=== PATIENT | female | born 1975 | race Hispanic/Latino ===

== ENCOUNTER 2018-01-11 08:25 | Outpatient (CLI) | payer BC ==
--- NOTE | 2018-01-18 14:18 | MMO ---
BILATERAL SCREENING MAMMOGRAM: Date: 01/11/18 INDICATION: Annual exam. COMPARISON: Prior exam dated 06/19/16. FINDINGS: Interpretation of this exam was assisted with computer-aided detection. The breast parenchyma is heterogeneously dense. There are benign-appearing calcifications within the right and left breast. There is a benign-appearing lymph node within the outer aspect of the left breast. IMPRESSION: BIRADS 2: Benign Finding(s) Recommend routine annual mammographic screening. POS: TORO
== END 2018-01-11 08:26 | disposition home or self-care (01) ==
LOC: SCSMAMMO 08:25
PROVIDERS: ATTEND Family Medicine
DX: Z12.31 Encounter for screening mammogram for malignant neoplasm of breast (principal)
CPT/HCPCS: 77067

== ENCOUNTER 2019-08-27 17:57 | Inpatient (IN) | payer OTHER, SELFPAY ==
[~2019-08-27 17:57] MED LIST: Dexamethasone 20 MG/5 ML VIAL ONE; PROPOFOL 200 MG/20 ML VIAL ONE; Rocuronium Bromide 10 MG/ML (10ML VIAL) ONE
[2019-08-27] MEDS ORDERED: Ondansetron PF 4 MG/2 ML Vial ONE (18:00)
[2019-08-27] MEDS ORDERED: niCARdipine 20MG In NaCl 20 MG/200 ML BAG ONE (18:03)
[2019-08-27] MEDS ORDERED: Rocuronium Bromide 10 MG/ML (10ML VIAL) ONE (18:06)
[2019-08-27 18:14] LABS: #Basophils 0.1 thou/uL (0.0-0.2); #Eosinphils 0.5 thou/uL (0.0-0.7); #Lymphocytes 5.7 thou/uL (1.20-3.40); #Neutrophils 6.5 thou/uL (1.40-6.50); %Basophils 0.5 % (0.0-1.0); %Eosinophils 3.8 % (0.0-10.0); %Lymphocytes 41.6 % (21.0-51.0); %Monocytes 7.3 % (0.0-10.0); %Neutrophils 46.8 % (42.0-75.0); Hemoglobin 14.6 g/dL (12.0-16.0); Mean Corpuscular HGB CONC 33.9 g/dL (32.0-36.0); Mean Corpuscular Volume 91.4 fL (78.0-98.0); Mean Platelet Volume 7.2 fL (7.4-10.4); Platelet Count 328 thou/uL (130-400); RBC Distribution Width 12.3 % (11.5-14.5); Red Blood Cell (RBC) Count 4.71 mill/uL (4.20-5.40); White Blood Cell (WBC) Count 13.8 thou/uL (4.8-10.8)
[2019-08-27] MEDS ORDERED: manNITOL 20% 500 ML ONE (18:16)
--- NOTE | 2019-08-27 18:16 | CT ---
CT OF THE BRAIN WITHOUT CONTRAST: 08/27/19 INDICATION: Level I stroke alert, last seen normal at 1725 hours with sudden onset of unresponsiveness during din ner with gurgling. FINDINGS: There is a 3.6 x 2.3 cm hemorrhage centered within the right thalamus that also extends into portions of the right mid brain and is seen to decompress into the fourth ventricle. There is prominent amoun t of blood filling the fourth ventricle with dilatation of fourth ventricle. There is effacement of t he basilar cisterns. There is crowding at the level of the foramen magnum likely related to inferior mass effect on the cerebellar tonsils. There is some hemorrhagic extension into the third ventricle a s well as the anterior horns of the lateral ventricles. No apparent midline shift is noted. The skull is intact. There is mild mucosal thickening within the ethmoid air cells. There is a small mucous re tention cyst in the maxillary sinus. Mastoid air cells are clear. Skull is intact. IMPRESSION: 1. Prominent thalamic intraparenchymal hemorrhage with extension into the right mid brain and de compression into the fourth ventricle. There is prominent blood filling the fourth ventricle and dist ending the fourth ventricle. There is prominent mass effect on the adjacent josue with effacement of b asilar cisterns. There is also crowding at the level of the foramen magnum suspicious for inferior he rniation. 2. Some hemorrhagic extension is also seen within the third ventricle and lateral ventricles. 3. Findings were called to Dr. Atkinson at 6:08 p.m. on 08/27/19. Code CR POS: [facility]
[2019-08-27] MEDS ORDERED: fentaNYL Citrate/PF 2,000 MCG in Sodium Chloride 0.9% 60 ML IV SCH ×2 (18:18→21:08)
[2019-08-27 18:22] LABS: Prothrombin Time 12.9 SEC (12.0-14.7)
--- NOTE | 2019-08-27 18:30 | RAD ---
PORTABLE CHEST: 08/27/19 HISTORY: Intubation. Heart size and mediastinum within normal limits. Some minimal atelectatic lung change seen. Endotrach eal and NG tubes are in satisfactory position. IMPRESSION: Endotracheal and NG tubes in satisfactory position. POS: JOO
[2019-08-27 18:40] LABS: ALT (SGPT) 16 U/L (8-55); AST (SGOT) 18 U/L (5-34); Albumin 3.4 g/dL (3.5-5.0); Alkaline Phosphatase 93 U/L (40-110); Anion Gap 13 mmol/L (10-20); BUN (Urea Nitrogen) 16 mg/dL (7.0-18.7); Bilirubin, Total 0.2 mg/dL (0.2-1.2); CK (CPK) 52 U/L (29-168); Calc. Creatinine Clearance 0 mL/min (70-130); Calcium 8.4 mg/dL (7.8-10.44); Carbon Dioxide 19 mmol/L (22-29); Chloride 108 mmol/L (98-107); Estimated GFR-MDRD Greater than 90; Globulin 3.9 g/dL (2.4-3.5); Glucose 122 mg/dL (70-105); Potassium 3.3 mmol/L (3.5-5.1); Protein, Total 7.3 g/dL (6.0-8.3); Sodium 137 mmol/L (136-145)
[2019-08-27 18:42] LABS: Actual Bicarbonate (HCO3a) 16.8 mEq/L (22-28); Analyzer IN Cardio ER; Calcium, Ionized 1.06 mmol/L (1.12-1.30); Carboxyhemoglobin (COHb) 0.3 gm% (0.0-3.0); Hemoglobin (Hb) 14.3 g/dL (12.0-16.0); O2 Tension (PaO2) 448.6 mmHg (80.0-100.0); Potassium - ABG Lab 3.34 mmol/L (3.70-5.30)
[2019-08-27 18:49] LABS: ALV-art Gradient 239.775 (0-20); CO2 Tension 19.7 mmHg (35.0-45.0); Puncture Site RRA; pH, Arterial 7.55 (7.35-7.45)
[2019-08-27] MEDS ORDERED: Lidocaine 0.5%/Epinephrine 1:200,000 50 ml Vial ONE (18:51)
[2019-08-27] MEDS ORDERED: Sodium Chloride 0.9% 10 ML ONE (18:52)
[2019-08-27] MEDS ORDERED: Bacitracin Zinc Ointment 30 gm TUBE ONE (18:52)
[2019-08-27] MEDS ORDERED: Thrombin 5000 UNITS/5 ML VIAL ONE ×2 (18:52→20:51)
[2019-08-27] MEDS ORDERED: PHENYLEPHRINE-NS 100 MCG/ML 10 ML SYRINGE ONE (18:56)
[2019-08-27] MEDS ORDERED: Fentanyl 100 MCG/2 ML VIAL ONE ×2 (19:00→20:13)
[2019-08-27] MEDS ORDERED: PROPOFOL 20 ML ONE (20:12)
[2019-08-27] MEDS ORDERED: Phenylephrine HCL 10 MG/ML VIAL ONE (20:27)
[2019-08-27] MEDS ORDERED: Rocuronium Bromide 50 MG/5 ML VIAL ONE (20:48)
[2019-08-27] MEDS ORDERED: CCU Electrolyte Replacement 1 EACH FS ONE (20:53)
[2019-08-27] MEDS ORDERED: Ventilator Sedation Protocol 1 EACH FS ONE (20:53)
[2019-08-27] MEDS ORDERED: Fentanyl BOLUS 250 ML IVPB PRN (21:08)
[2019-08-27] MEDS ORDERED: Lorazepam 2 MG/ML VIAL SLOW IVP PRN (21:08)
[2019-08-27] MEDS ORDERED: Morphine 2 MG/ML SYRINGE SLOW IVP PRN (21:08)
[2019-08-27] MEDS ORDERED: DISCONTINUE PREVIOUS NARCOTIC PAIN MEDICATIONS AND BENZODIAZEPINES FS SCH (21:08)
[2019-08-27] MEDS ORDERED: Propofol BOLUS 1,000 MG/100 ML VIAL IV PRN (21:08)
[2019-08-27] MEDS ORDERED: Potassium Phosphate 9 MMOL in Sodium Chloride 0.9% 100 ML IVPB PRN (21:10)
[2019-08-27] MEDS ORDERED: PHOS-NAK 1 PKT PACK PO PRN ×2 (21:10)
[2019-08-27] MEDS ORDERED: Potassium Phosphate 12 MMOL in Sodium Chloride 0.9% 250 ML 250 ML IV PRN (21:10)
[2019-08-27] MEDS ORDERED: Magnesium 2 GM/50 ML 2 GM in Premix Bag 1 BAG IVPB PRN (21:10)
[2019-08-27] MEDS ORDERED: Potassium Chloride 40 MEQ in Premix Bag 1 BAG IVPB PRN (21:10)
[2019-08-27] MEDS ORDERED: Potassium Phosphate 15 MMOL in Sodium Chloride 0.9% 250 ML 250 ML IV PRN (21:10)
[2019-08-27] MEDS ORDERED: Magnesium Oxide 400 MG TAB PO PRN ×2 (21:10)
[2019-08-27] MEDS ORDERED: CCU ELECTROLYTE REPLACEMENT PROTOCOL FS PRN (21:10)
[2019-08-27] MEDS ORDERED: Potassium Chloride 20 MEQ TAB PO PRN (21:10)
--- NOTE | 2019-08-27 22:08 | PRG ---
DATE OF SERVICE: 08/27/2019 Ms. Henson is a 43-year-old woman with undiagnosed hypertension. She came in with a systolic blood pressure well over 200 with com[address] exam. Head CT demonstrated a large thalamic hemorrhage with casting of the third and fourth ventricle along with cerebral aqueduct with evidence of herniation in the posterior fossa. Given her exam, she was given mannitol and the plan was to take her immediately to surgery for life-saving purposes. Her GCS was a 3T on exam. Job ID: [id number] [facility]
--- NOTE | 2019-08-27 22:17 | HP ---
This is Teja Varma PA-C dictating a report for Nilo Garcia MD. This is a 50-minute initial patient evaluation of which greater than 50% of the exam was spent counseling and coordinating the patient's care. Remainder of the exam was spent in review of the patient's medical records and formulation of treatment plan, as well as review of appropriate imaging studies. CHIEF COMPLAINT: Sudden onset of altered mental status with very large right thalamic bleed. HISTORY OF PRESENT ILLNESS: Ms. Henson is a 43-year-old female, who presents to [place] [facility] for the above complaints. She is GCS 3T at this time. Apparently, according to patient's family and friends, the patient had a sudden onset of decreased consciousness and altered mental status. They immediately called EMS. She became more unresponsive and eventually when she presented to the emergency room, she was intubated given that she could not protect her airway. According to the emergency room physician, she had no peripheral movement in any of the extremities. She received succinylcholine for intubation at around 1814 and my exam was done around 1849. The patient does not have any known hypertension, although her presenting systolic blood pressure was in the 210. She was given mannitol in the emergency room. She is not on any reported aspirin, Plavix, or Coumadin. Review of patient's head CT shows very large right thalamic bleed with impinging herniation and extension into the right lateral ventricle, as well as significant blood into the fourth ventricle. There is significant midline shift. There is significant loss of sulci and gyri indicative of increased intracranial pressure, especially in the right hemisphere. On physical exam, the patient is currently at 3T. She received rocuronium around 1814. She has no corneal reflexes at the time of exam and no cough reflex against the ET tube. She does not withdraw to any stimulus in any of the extremities. Her right pupil is roughly 3-4 mm and nonreactive and the left pupil is 2-3 mm and nonreactive. IMPRESSION: Sudden onset of loss of consciousness with right thalamic bleed, likely hypertensive. PLAN: At this time, I have discussed the patient's case and imaging with Dr. Garcia. Plan to take the patient emergently to the OR for posterior fossa decompressive hemicraniectomy and placement of right frontal EVD. I discussed with the patient's family about life-threatening nature of the patient's hemorrhage and they wished to proceed with surgery. I have let them know that this is a life-threatening condition and any type of recovery postoperatively is yet to be seen. Nonetheless, if we do not take her to surgery and let them know that this bleed will likely take the patient's life, they wished to proceed emergently with craniectomy. We will proceed to the OR. Obviously, we will continue to monitor the patient and Dr. Garcia is in agreement with this plan. Job ID: [id number]
[2019-08-27] MEDS ORDERED: niCARdipine 50 MG in Sodium Chloride 0.9% 250 ML 230 ML IV SCH (23:00)
[2019-08-27] MEDS ORDERED: niCARdipine 40MG In NaCl 40 MG/200 ML BAG IVPB SCH (23:00)
[2019-08-27 23:41] LABS: Actual Bicarbonate (HCO3a) 15.3 mEq/L (22-28); Calcium, Ionized 1.11 mmol/L (1.12-1.30); Carboxyhemoglobin (COHb) 0.5 gm% (0.0-3.0); Hemoglobin (Hb) 13.6 g/dL (12.0-16.0); O2 Tension (PaO2) 128.8 mmHg (80.0-100.0); Potassium - ABG Lab 4.49 mmol/L (3.70-5.30); pH, Arterial 7.43 (7.35-7.45)
[2019-08-27 23:42] LABS: CO2 Tension 23.7 mmHg (35.0-45.0); Puncture Site ALINE
[2019-08-27 23:43] LABS: ALV-art Gradient 126.775 (0-20)
[2019-08-27] MEDS: Sodium Chloride 0.9% 1,000 ML IV SCH (23:47)
[2019-08-27] MEDS: Famotidine/PF 20 mg/2ml Vial SLOW IVP SCH (23:47)
[2019-08-28] MEDS: Propofol 1,000 MG/100 ML VIAL IV PRN ×3 (00:18→18:05)
[2019-08-28] MEDS: Sodium Chloride 0.9% 1,000 ML IV SCH (01:47)
[2019-08-28] MEDS: CEFAZOLIN 2 GM in Premix Bag 1 BAG IVPB SCH ×3 (01:48→18:05)
--- NOTE | 2019-08-28 03:22 | OP ---
DATE OF PROCEDURE: 08/27/2019 EXECUTIVE ADVISOR: Teja Varma PA-C Modifier 57 should be added to this surgery as the decision to operate was made on the day I saw the patient. PREPROCEDURE DIAGNOSES: Large right thalamic hemorrhage, hypertensive with intraventricular hemorrhage, potential for obstructive hydrocephalus and obvious herniation. PROCEDURES PERFORMED: 1. Placement of right frontal external ventricular drain. 2. Suboccipital decompressive craniectomy with duraplasty for decompression of posterior fossa. 3. Cervical laminectomy without facetectomy or foraminotomy for decompression of the cervicomedullary junction and medulla. DESCRIPTION OF PROCEDURE: Given the emergent nature of the surgery, the patient was brought to the OR. Proper patient, pause, and identification were carried out. Hair was clipped and the right frontal Fernando's point was identified. Sterile cleansing, preparation and draping occurred. Fernando's point was identified and incised. A twist drill hole fashioned, the dura opened, and EVD catheter placed with return of bloody CSF. This was cut and open to zero given how clotted the CSF already was. I then secured this to the Carlson's system and placed her in a Simmons Rubens and prone on the OR table in the chin-tuck position. Midline suboccipital wound was drawn out over into the C1 segment. This region was sterilely cleansed, prepared and draped, hair had been clipped. Proper patient, pause, and identification were carried out. The wound was then opened, so occipital craniectomy was performed a couple centimeters to the left and right to the midline, all the way down to the foramen magnum. The dura was opened, quite swollen. Cerebellum was identified as well. We then turned our attention to C1 laminectomy to decompress the cervicomedullary junction. We identified the brainstem. Portion of the tonsils was coagulated back to relieve any pressure from herniation. Copious irrigation occurred. Gelfoam was placed over the dural defect to allow for plenty of room for swelling and hemostasis maximized throughout. The wound was then closed in anatomic layers. The patient emerged from anesthesia. Job ID: [id number]
[2019-08-28 04:52] LABS: #Lymphocytes 1.3 thou/uL (1.20-3.40); #Monocytes 0.9 thou/uL (0.11-0.59); #Neutrophils 15.4 thou/uL (1.40-6.50); %Eosinophils 0.1 % (0.0-10.0); %Lymphocytes 7.5 % (21.0-51.0); %Monocytes 5.3 % (0.0-10.0); %Neutrophils 87.1 % (42.0-75.0); Hemoglobin 13.2 g/dL (12.0-16.0); Mean Corpuscular HGB CONC 34.8 g/dL (32.0-36.0); Mean Corpuscular Hemoglobin 31.1 pg (27.0-31.0); Mean Corpuscular Volume 89.3 fL (78.0-98.0); Mean Platelet Volume 7.4 fL (7.4-10.4); Platelet Count 300 thou/uL (130-400); RBC Distribution Width 12.2 % (11.5-14.5); Red Blood Cell (RBC) Count 4.24 mill/uL (4.20-5.40); White Blood Cell (WBC) Count 17.7 thou/uL (4.8-10.8)
[2019-08-28 05:15] LABS: ALT (SGPT) 16 U/L (8-55); AST (SGOT) 19 U/L (5-34); Albumin 2.9 g/dL (3.5-5.0); Alkaline Phosphatase 80 U/L (40-110); Anion Gap 11 mmol/L (10-20); BUN (Urea Nitrogen) 9 mg/dL (7.0-18.7); Bilirubin, Total 0.2 mg/dL (0.2-1.2); Calc. Creatinine Clearance 145 mL/min (70-130); Carbon Dioxide 20 mmol/L (22-29); Chloride 110 mmol/L (98-107); Estimated GFR-MDRD Greater than 90; Globulin 3.4 g/dL (2.4-3.5); Glucose 140 mg/dL (70-105); Potassium 3.5 mmol/L (3.5-5.1); Protein, Total 6.3 g/dL (6.0-8.3); Sodium 137 mmol/L (136-145)
[2019-08-28 07:16] LABS: Actual Bicarbonate (HCO3a) 20.4 mEq/L (22-28); Base Excess (BEa) -2.3 mEq/L (-2.0 to +3.0); CO2 Tension 29.3 mmHg (35.0-45.0); Carboxyhemoglobin (COHb) 1.1 gm% (0.0-3.0); Hemoglobin (Hb) 13.6 g/dL (12.0-16.0); O2 Tension (PaO2) 125.8 mmHg (80.0-100.0); Potassium - ABG Lab 3.67 mmol/L (3.70-5.30); pH, Arterial 7.46 (7.35-7.45)
[2019-08-28 07:50] LABS: ALV-art Gradient 122.775 (0-20); Puncture Site LRA
[2019-08-28] MEDS: Famotidine/PF 20 mg/2ml Vial SLOW IVP SCH ×2 (09:23→20:16)
--- NOTE | 2019-08-28 12:20 | PRG ---
DATE OF SERVICE: 08/28/2019 SUBJECTIVE: Ms. Henson is over 12 hours out from life-saving placement of ventricular drain and suboccipital craniectomy, duraplasty with C1 laminectomy for decompression of herniated brain. She surprisingly is weakly following commands in her right side today, with just a trace thumb movement in the left side. She has a large thalamic hemorrhage. Her EVD has been approximately 10 mL of output; however, this has been quite intermittent simply because the patient's CSF is quite bloody, and as such, I am concerned about the EVD clotting off. I would like to hold off on getting the head CT because if we clamped the EVD, I am worried that it will not be functional and we will need to replace. Her prognosis remains quite guarded. Job ID: [id number]
[2019-08-28] MEDS: Acetaminophen 1,000 MG in Premix Bag 1 BAG IVPB PRN ×2 (12:45→20:16)
[2019-08-28] MEDS: Ondansetron HCl/PF 4 MG in Sodium Chloride 0.9% 50 ML IVPB PRN (12:46)
--- NOTE | 2019-08-28 12:47 | ULT ---
BILATERAL LOWER EXTREMITY VENOUS DOPPLER EVALUATION PROVIDED CLINICAL HISTORY: Immobility; postop patient TECHNIQUE: Grayscale, color doppler and spectral doppler images were obtained of the common femoral , femoral, profunda femoral, popliteal and posterior tibial veins of both lower extremities. FINDINGS: There is normal compression, flow and augmentation seen with the deep venous structures within both l ower extremities. IMPRESSION: No sonographic evidence for lower extremity deep venous thrombosis.
--- NOTE | 2019-08-28 12:52 | CON ---
DATE OF CONSULTATION: 08/28/2019 CONSULTING PHYSICIAN: Nilo Garcia MD REASON FOR CONSULTATION: Postop respiratory failure. HISTORY OF PRESENT ILLNESS: This is a 43-year-old female, who presented with unresponsiveness after slipping down a chair at home and vomiting. She was found to have a large intraventricular bleed. She was taken to the operating room last night for craniotomy. She was left on mechanical ventilation. PAST MEDICAL HISTORY: Apparently remarkable for undiagnosed hypertension. PAST SURGICAL HISTORY: Unremarkable. FAMILY MEDICAL HISTORY: Unremarkable. ALLERGIES: NONE. MEDICATIONS: Prior to admission, none. REVIEW OF SYSTEMS: Cannot be obtained as the patient is currently on mechanical ventilation. PHYSICAL EXAMINATION: VITAL SIGNS: Temperature 102.3, pulse 90, and blood pressure 124/80. She is currently on a propofol drip. HEENT: She has a circumferential bandage around her head. Her pupils are 2 mm, unreactive. She has a positive gag. She has a 7.[address]. NECK: No adenopathy or JVD. LUNGS: Clear to auscultation. CARDIAC: S1 and S2. Regular. ABDOMEN: Soft, nontender to palpation. EXTREMITIES: No clubbing, cyanosis, or edema. LABORATORY DATA: ABG; pH of 7.46, pCO2 of 29, pO2 of 125 on SIMV rate 16, tidal volume 500, PEEP 5, pressure support 10, FiO2 of 40%. White blood cell count 17.7, hematocrit 37.8, and platelet count 300. Sodium 137, potassium 3.5, chloride 110, CO2 of 20, BUN 9, creatinine 0.6, and glucose 140. ASSESSMENT: 1. Hypertension resulting in intracranial bleed. 2. Status post craniotomy with drain left in. 3. Malignant hypertension. 4. Acute respiratory failure, requiring mechanical ventilation. PLAN: 1. Nicardipine drip for blood pressure control. 2. I would favor keeping her on the alkalotic side to keep her intracranial pressures down. I do not think she is in place neurologically, where we can consider extubation. We will continue to follow. Job ID: [id number]
[2019-08-28] MEDS: hydrALAZINE 20 MG/ML VIAL SLOW IVP PRN (20:49)
--- NOTE | 2019-08-28 21:10 | CON ---
DATE OF CONSULTATION: 08/28/2019 PHYSICIAN REQUESTING MEDICAL CONSULTATION: Dr. Garcia, Neurosurgery. PURPOSE OF CONSULTATION: Medical management of hypertension. HISTORY OF PRESENT ILLNESS: The patient is a 43-year-old female, who was admitted to the hospital yesterday with sudden onset of altered mental status. In the emergency room, she was diagnosed with a thalamic bleed on the CAT scan and got admitted to Neurosurgical Service. Dr. Garcia took her to the operating room last night and he did have placement of the right frontal external ventricular drain along with suboccipital decompressive craniectomy with duraplasty for decompression of posterior fossa. Also, he needs cervical laminectomy without facetectomy or foraminotomy for decompression of the cervicomedullary junction and medulla. The patient is postop day #1 and neurosurgeon, Dr. Garcia requested hospitalist group to be consulted for medical management. All information is obtained from medical records since the patient is unable to answer any questions. She is sedated and on the ventilator. Apparently, she has a history of hypertension and she had acute onset of decreased consciousness and altered mental status. EMS was called and she was taken to the emergency room, got intubated to protect her airways and according to the emergency room physician, she did not have any peripheral movement in any of her extremities. She was given mannitol in the emergency room and was admitted to the hospital. PAST MEDICAL HISTORY: Apparently remarkable for undiagnosed hypertension. PAST SURGICAL HISTORY: To be reviewed with the family. ALLERGIES: NONE. MEDICATIONS: None prior to this hospitalization. FAMILY HISTORY: Unremarkable. REVIEW OF SYSTEMS: Cannot be obtained secondary to the patient's sedation. PHYSICAL EXAMINATION: VITAL SIGNS: Blood pressure is 133/80, pulse is 99, respirations 14, and O2 saturation 99%. She is on a ventilator. She is sedated. HEENT: Her pupils are small, almost nonreactive to light. Sclerae are nonicteric. Conjunctivae, pinkish. She is orally intubated. LUNGS: Clear. HEART: S1 and S2 normal. No S3. No S4. No any murmur. ABDOMEN: Soft and nondistended. Bowel sounds are sluggish. EXTREMITIES: No clubbing, cyanosis, or edema. NEUROLOGIC: Examination was postponed since she is on sedation. LABORATORY DATA: Labs showed white count of 17.7, hemoglobin of 13.2, hematocrit 37.8, platelet count is 300. ABGs showed pH of 7.46, pCO2 of 29.3, pO2 of 125.8. A-a gradient is 122. Sodium is 137, potassium 3.5, chloride 110, CO2 of 20 BUN 9, creatinine 0.61, and glucose 140. Electrocardiogram showed sinus rhythm without ischemic changes. Images showed post intubation chest x-ray, no other abnormalities. CT of the brain personally reviewed by me showed thalamic hemorrhage with some extension to fourth ventricle with prominent mass effect on the adjacent josue with effacement of basilar cisterns. Also, there was crowding at the level of foramen magnum suspicious for inferior herniation. IMPRESSION: Malignant hypertension. The patient was treated with drip. Her blood pressure is under control. DISCUSSION: The patient is on a ventilator. She is sedated. Photoresist Contact Printer is trying to keep her on an alkalotic side to decrease the intracranial pressure. Her blood pressure will be monitored closely and if it goes up, we will restart antihypertensive medications. The most ideal blood pressure would be less than 140 systolic. She will remain in the intensive care unit setting, and we will continue close followup on her condition. We will follow up with Neurosurgery. Job ID: [id number]
[2019-08-28] MEDS: Potassium Chloride 40 MEQ in Sodium Chloride 0.9% 250 ML 250 ML IVPB PRN (22:01)
[2019-08-29] MEDS: CEFAZOLIN 2 GM in Premix Bag 1 BAG IVPB SCH ×3 (03:07→17:43)
[2019-08-29] MEDS: Sodium Chloride 0.9% 1,000 ML IV SCH ×2 (03:07→14:26)
[2019-08-29] MEDS: hydrALAZINE 20 MG/ML VIAL SLOW IVP PRN ×3 (06:15→17:43)
[2019-08-29 06:30] LABS: Hemoglobin 11.7 g/dL (12.0-16.0); Mean Corpuscular HGB CONC 32.7 g/dL (32.0-36.0); Mean Corpuscular Hemoglobin 30.7 pg (27.0-31.0); Mean Corpuscular Volume 93.9 fL (78.0-98.0); Platelet Count 245 thou/uL (130-400); RBC Distribution Width 12.8 % (11.5-14.5); White Blood Cell (WBC) Count 20.8 thou/uL (4.8-10.8)
[2019-08-29 06:45] LABS: Band 1 % (5-11); Lymphocytes 5 % (21-51); MDiff Complete? YES; Monocytes 5 % (0-10); Neutrophil 89 % (42-75)
[2019-08-29 06:49] LABS: Actual Bicarbonate (HCO3a) 18.2 mEq/L (22-28); Calcium, Ionized 1.15 mmol/L (1.12-1.30); Carboxyhemoglobin (COHb) 0.9 gm% (0.0-3.0); Hemoglobin (Hb) 12.2 g/dL (12.0-16.0); O2 Tension (PaO2) 129.4 mmHg (80.0-100.0); Potassium - ABG Lab 3.63 mmol/L (3.70-5.30); pH, Arterial 7.47 (7.35-7.45)
[2019-08-29 06:55] LABS: ALT (SGPT) 13 U/L (8-55); AST (SGOT) 23 U/L (5-34); Albumin 2.7 g/dL (3.5-5.0); Alkaline Phosphatase 67 U/L (40-110); Anion Gap 11 mmol/L (10-20); BUN (Urea Nitrogen) 9 mg/dL (7.0-18.7); Bilirubin, Total 0.4 mg/dL (0.2-1.2); Calc. Creatinine Clearance 142 mL/min (70-130); Calcium 7.8 mg/dL (7.8-10.44); Carbon Dioxide 19 mmol/L (22-29); Chloride 112 mmol/L (98-107); Estimated GFR-MDRD Greater than 90; Globulin 3.4 g/dL (2.4-3.5); Glucose 133 mg/dL (70-105); Potassium 3.7 mmol/L (3.5-5.1); Protein, Total 6.1 g/dL (6.0-8.3); Sodium 138 mmol/L (136-145)
[2019-08-29 07:16] LABS: ALV-art Gradient 52.625 (0-20); CO2 Tension 25.5 mmHg (35.0-45.0); Puncture Site LRA
[2019-08-29] MEDS: Amlodipine 10 MG TAB PER TUBE SCH (08:06)
[2019-08-29] MEDS: Famotidine/PF 20 mg/2ml Vial SLOW IVP SCH ×2 (08:06→20:57)
--- NOTE | 2019-08-29 09:39 | PRG ---
DATE OF SERVICE: 08/29/2019 TIME SPENT: 35 minutes critical time. SUBJECTIVE: The patient remains intubated on mechanical ventilation. She will wake up, follows commands, moving her left foot and perhaps squeezing with her hands. OBJECTIVE: VITAL SIGNS: Temperature 99.2, pulse 87, blood pressure 154/81, T-max is 101.2. A 24-hour intake 2367, output 1692. HEENT: Unremarkable except for the bandage around her head and the ET tube in her mouth. NECK: No adenopathy or JVD. CHEST: Coarse rhonchi. CARDIAC: S1 and S2, regular. ABDOMEN: Soft. EXTREMITIES: No edema. LABORATORY DATA: White blood cell count 20.8, hematocrit 35.7, and platelet count 245. PH of 7.47, pCO2 of 25, pO2 of 129 on SIMV rate 14, tidal volume 500, PEEP 5, pressure support 10, FiO2 of 30%, sodium 138, potassium 3.7, chloride 112, CO2 of 19, BUN 9, creatinine 0.6, glucose 133. ASSESSMENT: 1. Status post intracranial bleed. 2. Respiratory failure, requiring mechanical ventilation. 3. Fever, probably secondary to the intracranial bleed. 4. Malignant hypertension. PLAN: 1. We will go ahead and start her on oral antihypertensives. 2. Weaning respiratory rate would like things to cool down for another day or two before considering extubation. Job ID: [id number]
--- NOTE | 2019-08-29 10:00 | RAD ---
CHEST 1 VIEW: INDICATION: History of pneumonia. COMPARISON: Prior exam of 08/27/2019. IMPRESSION: ET tube and NG tube are not appreciably changed. Heart size is accentuated by exam technique. No co nsolidation is noted. No pneumothorax is demonstrated. POS: OFF
[2019-08-29] MEDS: Acetaminophen 1,000 MG in Premix Bag 1 BAG IVPB PRN ×2 (11:02→20:57)
--- NOTE | 2019-08-29 12:17 | PRG ---
DATE OF SERVICE: 08/29/2019 SUBJECTIVE: The patient is seen and examined at the bedside. She is intubated. Her sedation is off since this morning. Apparently, she had some followup responses this morning to the nurse and to the neurosurgeon, who came to see her. OBJECTIVE: VITAL SIGNS: Blood pressure is 126/57, pulse is 108, temperature is 100.2, respiratory rate is 31, and O2 saturation is 98%. She is on the vent. HEENT: Her pupils are quite small, slightly reactive to light. Conjunctivae are pinkish. Sclerae are nonicteric. She is orally intubated. NG tube is in place. LUNGS: Clear. HEART: S1-S2 normal. No S3. No S4. Somewhat tachycardic. ABDOMEN: Soft and nondistended. Bowel sounds are present, sluggish. EXTREMITIES: No clubbing, cyanosis, or edema. NEUROLOGIC: She tries to follow my commands. She is able to have some squeezing in both arms and she responds to the stimulation to her feet with withdrawal. LABORATORY DATA: White count 20.8, hemoglobin 11.7, hematocrit 35.7, and platelet count is 245,000. ABG showed pH of 7.47, pCO2 of 25.5, PO2 of 129.4 with base excess at -4.0. A-a gradient is 52. Sodium of 138, potassium 3.7, chloride 112, CO2 of 19, BUN 9, creatinine 0.6, glucose 133, and albumin 2.7, and the rest of chemistry is within normal limits. IMAGING STUDIES: The chest x-ray was done this morning and it showed ET tube and NG tube not changed. No any other finding. The patient had bilateral lower extremity Doppler, which was negative DVTs. IMPRESSION: 1. Malignant hypertension, resulted in intracranial bleed. The patient was started on amlodipine 10 mg per tube once a day and she is getting hydralazine p.r.n. to have systolic blood pressure less than 140. She is getting started on tube feeding per Dr. Manning. 2. Low-grade fever, most likely related to her central nervous system bleed. PLAN: Plan is to continue her critical care, continue IV fluids, continue NG tube feeding, and continue ventilation mechanically. Job ID: [id number]
--- NOTE | 2019-08-29 16:51 | PRG ---
DATE OF SERVICE: 08/29/2019 Ms. Henson is now following commands. We are continuing her drain. Job ID: [id number]
[2019-08-30] MEDS: CEFAZOLIN 2 GM in Premix Bag 1 BAG IVPB SCH ×3 (02:04→17:35)
[2019-08-30] MEDS: Acetaminophen 1,000 MG in Premix Bag 1 BAG IVPB PRN ×4 (04:19→21:24)
[2019-08-30] MEDS: Sodium Chloride 0.9% 1,000 ML IV SCH ×2 (04:38→18:06)
[2019-08-30 05:16] LABS: #Lymphocytes 1.5 thou/uL (1.20-3.40); #Monocytes 1.1 thou/uL (0.11-0.59); #Neutrophils 14.3 thou/uL (1.40-6.50); %Basophils 0.1 % (0.0-1.0); %Eosinophils 0.1 % (0.0-10.0); %Lymphocytes 8.8 % (21.0-51.0); %Monocytes 6.3 % (0.0-10.0); %Neutrophils 84.8 % (42.0-75.0); Hemoglobin 10.2 g/dL (12.0-16.0); Mean Corpuscular HGB CONC 33.7 g/dL (32.0-36.0); Mean Corpuscular Hemoglobin 31.4 pg (27.0-31.0); Mean Platelet Volume 7.4 fL (7.4-10.4); Platelet Count 244 thou/uL (130-400); RBC Distribution Width 12.7 % (11.5-14.5); Red Blood Cell (RBC) Count 3.26 mill/uL (4.20-5.40); White Blood Cell (WBC) Count 16.8 thou/uL (4.8-10.8)
[2019-08-30 05:30] LABS: ALT (SGPT) 10 U/L (8-55); AST (SGOT) 16 U/L (5-34); Albumin 2.4 g/dL (3.5-5.0); Alkaline Phosphatase 67 U/L (40-110); Anion Gap 8 mmol/L (10-20); BUN (Urea Nitrogen) 11 mg/dL (7.0-18.7); Bilirubin, Total 0.2 mg/dL (0.2-1.2); Calc. Creatinine Clearance 149 mL/min (70-130); Calcium 7.7 mg/dL (7.8-10.44); Carbon Dioxide 21 mmol/L (22-29); Chloride 110 mmol/L (98-107); Estimated GFR-MDRD Greater than 90; Globulin 3.4 g/dL (2.4-3.5); Glucose 147 mg/dL (70-105); Potassium 3.4 mmol/L (3.5-5.1); Protein, Total 5.8 g/dL (6.0-8.3); Sodium 136 mmol/L (136-145)
[2019-08-30 07:31] LABS: Actual Bicarbonate (HCO3a) 21.3 mEq/L (22-28); Base Excess (BEa) -1.9 mEq/L (-2.0 to +3.0); CO2 Tension 31.1 mmHg (35.0-45.0); Calcium, Ionized 1.14 mmol/L (1.12-1.30); Carboxyhemoglobin (COHb) 0.1 gm% (0.0-3.0); Hemoglobin (Hb) 10.8 g/dL (12.0-16.0); O2 Tension (PaO2) 78.8 mmHg (80.0-100.0); pH, Arterial 7.45 (7.35-7.45)
[2019-08-30 07:32] LABS: Puncture Site LR
[2019-08-30 07:33] LABS: ALV-art Gradient 96.225 (0-20)
--- NOTE | 2019-08-30 08:07 | RAD ---
PORTABLE CHEST: HISTORY: Pneumonia. COMPARISON: 08/29/2019. FINDINGS: The lung damon are clear. ET tube and NG tube are unchanged. Heart size is mildly prominent but st able. Calcified nodule in the left mid lung again noted. IMPRESSION: No acute finding or interval change. POS: [facility]
--- NOTE | 2019-08-30 09:17 | PRG ---
DATE OF SERVICE: 08/30/2019 SUBJECTIVE: The patient is poorly responsive on mechanical ventilation. She is not currently receiving any sedation. OBJECTIVE: VITAL SIGNS: Temperature is 101.2 with T-max of 102.7, pulse 82, blood pressure 134/65, and O2 saturation 99%. 24-hour intake 3099 and output 1833. HEENT: She has a bandage. NECK: No JVD. LUNGS: Coarse breath sounds. CARDIAC: S1 and S2. Regular. ABDOMEN: Soft. EXTREMITIES: No edema. NEUROLOGIC: The patient will withdraw to painful stimuli applied to her extremities. LABORATORY DATA: Sodium 136, potassium 3.4, chloride 110, CO2 of 21, BUN 11, creatinine 0.5, and glucose 147. A pH of 7.45, pCO2 of 31, pO2 of 78 on SIMV rate 6, volume 500, PEEP 5, pressure support of 10, and FiO2 of 30%. White blood cell count 16.8, hematocrit 30.3, and platelet count 244. ASSESSMENT: 1. Intracranial bleed. 2. Poorly responsive patient. 3. Respiratory failure, requiring mechanical ventilation. PLAN: She is not safe to extubate given her level of ROD MILL TENDER depression. She may end up needing a tracheostomy. The fever is probably secondary to the intracranial bleed. She is on IV cephalosporin. She is receiving nutritional support with tube feeds. I will discuss with Dr. Garcia. If he does not feel like she is going to get better any time soon, then we need to proceed with early tracheostomy and feeding tube. Job ID: [id number]
[2019-08-30] MEDS: Famotidine/PF 20 mg/2ml Vial SLOW IVP SCH ×2 (09:19→21:11)
[2019-08-30] MEDS: Amlodipine 10 MG TAB PER TUBE SCH (09:19)
--- NOTE | 2019-08-30 09:39 | CT ---
CT BRAIN WITHOUT CONTRAST: DATE: 08/30/2019 8:14 AM. CLINICAL HISTORY: Intracranial hemorrhage, status post craniectomy.. COMPARISON: 08/19/2019. FINDINGS: Previous demonstrated intracranial hemorrhage centered at the right thalamus with associated intraven tricular hemorrhagic extension is redemonstrated. The overall volume of intracranial hemorrhage has decreased compatible with interval temporal evolution. Degree of intraventricular hemorrhagic extensi on is also reduced in volume, status post right frontal approach ventricular drainage catheter, tip traversing to the left of midline inferior to the body of the left lateral ventricle. Postprocedural pneumocephalus is seen. Interval performance of suboccipital craniectomy with postoperative edema involving posterior fossa c ontents. Redemonstration of adjacent hemorrhage of the fourth ventricular region as well as extending laterally within each foramen of Luschka. Low-attenuation of the brainstem is present chelle tible with edema. There is leftward midline shift notably at the level of the third ventricle, approximately 4 mm. Ther e is effacement of basal cisterns, as well. There is scattered mucosal thickening of the paranasal sinuses, and retained secretions are seen with in the imaged nasal passageway. IMPRESSION: 1. Postoperative findings of suboccipital craniectomy. Interval temporal evolution of intracranial he morrhage with persistent hemorrhage remaining, together with associated vasogenic edema, mass effect, and midline shift. Recommend continued imaging follow-up. 2. Interval placement of right frontal approach ventricular drainage catheter. Transcribed Date/Time: 08/30/2019 9:42 AM
--- NOTE | 2019-08-30 11:32 | PRG ---
DATE OF SERVICE: 08/30/2019 Ms. Henson continues to recover from a posterior fossa decompression, C1 laminectomy, and placement of external ventricular drain. Head CT today demonstrates well decompressed ventricles. We have her EVD open at zero and slightly below the level of the ear, given the amount of blood. The CSF is clearing. She has obviously perihemorrhage edema and edema in her cerebellum. She may even have a cerebellar stroke, but nevertheless, her cerebellum is well decompressed. She is following commands. When the sedation is weaned, her blood pressure is under better control and she is less tachycardic. I should note a recent ultrasound from 2 days ago was negative. We will plan to repeat another ultrasound likely tomorrow. We will continue aggressive drainage until her CSF clears and then, perhaps consideration of weaning her drain next week. Job ID: [id number]
[2019-08-30] MEDS: Potassium Chloride 40 MEQ in Sodium Chloride 0.9% 250 ML 250 ML IVPB PRN (12:33)
--- NOTE | 2019-08-30 16:52 | PDOC.HOSPP ---
- Subjective Subjective: Seen and examined. Patient intubated on the intensive care unit. Does not follow commands. Per RN was more alert yesterday and following commands better yesterday. No family at bedside this a.m. - Objective Vital Signs & Weight: Vital Signs (12 hours) Temp Pulse Resp BP Pulse Ox 08/30/19 16:00 16 08/30/19 15:35 103 H 08/30/19 14:00 16 08/30/19 13:25 84 111/53 L 08/30/19 12:00 99.4 F 16 08/30/19 10:47 103 H 139/70 08/30/19 10:00 101.2 F H 19 08/30/19 09:19 87 134/73 08/30/19 08:08 87 134/73 08/30/19 08:00 100.9 F H 19 98 08/30/19 06:00 19 Weight Admit Weight 173 lb 4.533 oz Weight 164 lb 10.965 oz Most Recent Monitor Data Heart Rate from ECG 102 NIBP 135/73 NIBP BP-Mean 93 Respiration from ECG 20 SpO2 96 I&O: 08/29/19 08/30/19 08/31/19 06:59 06:59 06:59 Intake Total 2367 3099 Output Total 9842 183 1058 Balance 425 0739 -6949 Result Diagrams: 08/30/19 04:46 08/30/19 04:46 Hospitalist ROS - Review of Systems All other systems reviewed; all pertinent +/- noted in HPI/Subj - Medication Medications: Active Medications Generic Name Dose Route Start Last Admin Trade Name Freq PRN Reason Stop Dose Admin Amlodipine Besylate 10 mg 08/29/19 09:00 08/30/19 09:19 Norvasc PER TUBE 10 mg DAILY JEAN-PAUL Administration Famotidine 20 mg 08/27/19 21:00 08/30/19 09:19 Pepcid SLOW IVP 20 mg BID JEAN-PAUL Administration Hydralazine HCl 10 mg 08/28/19 20:34 08/29/19 17:43 Apresoline SLOW IVP 10 mg Q15M PRN Administration SBP > 140 Potassium Chloride 40 meq/ 270 mls @ 135 mls/hr 08/27/19 21:10 08/30/19 12:33 Sodium Chloride IVPB 270 mls ASDIR PRN Administration FOR SERUM K+ 2.5 - 3.5 Nicardipine HCl 50 mg/ Sodium 250 mls @ 0 mls/hr 08/27/19 23:00 08/27/19 23: 58 Chloride IV 250 mls INF JEAN-PAUL Administration Protocol As Directed Cefazolin Sodium/Dextrose 2 gm 50 mls @ 100 mls/hr 08/28/19 02:00 08/30/19 09 :20 / Device IVPB 50 mls 0200,1000,1800 JEAN-PAUL Administration Sodium Chloride 1,000 mls @ 75 mls/hr 08/27/19 23:15 08/30/19 04:38 Normal Saline 0.9% IV 1,000 mls .[id number] JEAN-PAUL Administration Ondansetron HCl 4 mg/ Sodium 52 mls @ 200 mls/hr 08/28/19 11:23 08/28/19 12: 46 Chloride IVPB 52 mls Q6HR PRN Administration Nausea/Vomiting Acetaminophen 1,000 mg/ Device 100 mls @ 400 mls/hr 08/29/19 20:38 08/30/19 10:20 IVPB 08/30/19 20:39 100 mls Q6H PRN Administration FEVER/PAIN Propofol 1,000 mg 08/27/19 21:08 08/28/19 18:05 Diprivan IV 09/26/19 21:08 1,000 mg INF PRN Administration TO ACHIEVE GOAL RASS Protocol - Exam General Appearance: ill appearing Eye: anicteric sclera ENT: no oropharyngeal lesions, dry oral mucosa ENT - other findings: ET tube in position Neck: supple, symmetric, no lymphadenopathy Heart: no murmur, no gallops, no rubs Respiratory: CTAB, no wheezes, no rales, no ronchi Gastrointestinal: soft, non-tender, non-distended, normal bowel sounds, no guarding, no rigidity Extremities: no edema Skin: no lesions, no rashes Neurological - other findings: Follows no commands Musculoskeletal: no muscle wasting Psychiatric: not oriented Hosp A/P (1) Intracranial hemorrhage Code(s): I62.9 - NONTRAUMATIC INTRACRANIAL HEMORRHAGE, UNSPECIFIED Status: Acute (2) AMS (altered mental status) Code(s): R41.82 - ALTERED MENTAL STATUS, UNSPECIFIED Status: Acute (3) Acute respiratory failure Code(s): J96.00 - ACUTE RESPIRATORY FAILURE, UNSP W HYPOXIA OR HYPERCAPNIA Status: Acute (4) HTN (hypertension) Code(s): I10 - ESSENTIAL (PRIMARY) HYPERTENSION Status: Acute - Plan Plan: intensive care unit neurosurgery consultation, recommendations appreciated pulmonary /critical-care consultation, recommendations appreciated neurology consultation, recommendations appreciated CT brain noted EVD in place, management per neurosurgery blood pressure control unsafe to wean from the vent at this time if patient neurologic status does not improve may require tracheostomy and PEG tube consider MRI of the brain when able
[2019-08-30] MEDS: hydrALAZINE 20 MG/ML VIAL SLOW IVP PRN ×2 (17:06→21:10)
[2019-08-31] MEDS: CEFAZOLIN 2 GM in Premix Bag 1 BAG IVPB SCH ×3 (02:50→17:30)
[2019-08-31 05:02] LABS: #Lymphocytes 1.4 thou/uL (1.20-3.40); #Neutrophils 13.7 thou/uL (1.40-6.50); %Basophils 0.2 % (0.0-1.0); %Eosinophils 0.1 % (0.0-10.0); %Lymphocytes 8.7 % (21.0-51.0); %Monocytes 6.2 % (0.0-10.0); %Neutrophils 84.8 % (42.0-75.0); Hemoglobin 11.5 g/dL (12.0-16.0); Mean Corpuscular HGB CONC 33.3 g/dL (32.0-36.0); Mean Corpuscular Hemoglobin 31.4 pg (27.0-31.0); Mean Corpuscular Volume 94.3 fL (78.0-98.0); Mean Platelet Volume 7.7 fL (7.4-10.4); Platelet Count 269 thou/uL (130-400); RBC Distribution Width 12.9 % (11.5-14.5); Red Blood Cell (RBC) Count 3.67 mill/uL (4.20-5.40); White Blood Cell (WBC) Count 16.2 thou/uL (4.8-10.8)
[2019-08-31 05:26] LABS: ALT (SGPT) 13 U/L (8-55); AST (SGOT) 18 U/L (5-34); Albumin 2.9 g/dL (3.5-5.0); Alkaline Phosphatase 88 U/L (40-110); Anion Gap 15 mmol/L (10-20); BUN (Urea Nitrogen) 9 mg/dL (7.0-18.7); Bilirubin, Total 0.3 mg/dL (0.2-1.2); Calc. Creatinine Clearance 150 mL/min (70-130); Calcium 8.4 mg/dL (7.8-10.44); Carbon Dioxide 19 mmol/L (22-29); Chloride 109 mmol/L (98-107); Estimated GFR-MDRD Greater than 90; Glucose 132 mg/dL (70-105); Potassium 3.7 mmol/L (3.5-5.1); Protein, Total 6.9 g/dL (6.0-8.3); Sodium 139 mmol/L (136-145)
[2019-08-31] MEDS: Sodium Chloride 0.9% 1,000 ML IV SCH ×2 (07:33→21:12)
[2019-08-31] MEDS: Acetaminophen 1,000 MG in Premix Bag 1 BAG IVPB PRN ×3 (07:33→18:46)
[2019-08-31] MEDS: Amlodipine 10 MG TAB PER TUBE SCH (07:41)
[2019-08-31 07:50] LABS: Actual Bicarbonate (HCO3a) 21.8 mEq/L (22-28); CO2 Tension 30.3 mmHg (35.0-45.0); Calcium, Ionized 1.13 mmol/L (1.12-1.30); Carboxyhemoglobin (COHb) 0.5 gm% (0.0-3.0); Hemoglobin (Hb) 11.3 g/dL (12.0-16.0); O2 Tension (PaO2) 95.4 mmHg (80.0-100.0); Potassium - ABG Lab 3.61 mmol/L (3.70-5.30); pH, Arterial 7.48 (7.35-7.45)
[2019-08-31 07:51] LABS: ALV-art Gradient 80.625 (0-20); Puncture Site LRA
[2019-08-31] MEDS: Famotidine/PF 20 mg/2ml Vial SLOW IVP SCH ×2 (08:05→21:12)
--- NOTE | 2019-08-31 09:23 | PRG ---
DATE OF SERVICE: 08/31/2019 SUBJECTIVE: The patient remains intubated on mechanical ventilation. She is on no sedation. Even in [place]ic, I cannot get her to follow any commands. OBJECTIVE: NEUROLOGIC: Will withdraw with her lower extremities. HEENT: She has a bandage around her head and is intubated. NECK: No JVD. LUNGS: Coarse breath sounds. CARDIAC: S1 and S2. Regular. ABDOMEN: Soft. Tolerating tube feeds. EXTREMITIES: Edematous throughout. LABORATORY DATA: White blood cell count 16.2, hematocrit 34.6, and platelet count 269. ABG pending. Sodium 139, potassium 3.7, chloride 100, CO2 of 19, BUN 9, creatinine 0.6, and glucose 132. Chest x-ray shows no mass, effusion, or infiltrate. ASSESSMENT: 1. Acute respiratory failure requiring mechanical ventilation. 2. Status post intracranial bleed. 3. Encephalopathy. 4. Fever. PLAN: 1. Based on her current neurologic status, it is hard to see her being extubated. In my opinion, she will probably need tracheostomy. We still have plenty of time to see if she would improve first. 2. Continue enteral tube feeds. 3. Adjust ventilator as needed. Job ID: [id number]
--- NOTE | 2019-08-31 09:26 | RAD ---
PORTABLE CHEST: INDICATIONS: Pneumonia followup. CCU followup. COMPARISON: 08/30/2019 FINDINGS: ET tube and NG tube remain in place. The lungs appear well aerated. No focal infiltrate identified. N o significant effusion or vascular congestion. No acute interval change. POS: OFF
--- NOTE | 2019-08-31 10:11 | PRG ---
DATE OF SERVICE: 08/31/2019 Ms. Henson is now 4 days into her hospitalization. Head CT yesterday demonstrated sulcal edema throughout, but satisfactory decompression of ventricular system. Her EVD is open at 0 and it is slightly lower ear canal. Her output has been approximately 10 mL/h. Her ICPs have been in the normal range. She continues to wake up when the sedation is weaned and follow commands actually in all 4 hours. I have not yet seen the left side move. Of course, she does have a thalamic hemorrhage, but the only time I have seen any movement on the left side was a twitch of the left thumb. Nevertheless, she remains with leukocytosis. ICU colleagues following along and I appreciate their assistance. Otherwise, her electrolytes were satisfactory. Job ID: [id number]
--- NOTE | 2019-08-31 10:37 | ULT ---
EXAM: Bilateral lower extremity venous duplex ultrasound with color and spectral Doppler imaging: HISTORY: Impaired mobility, postoperative patient minimal leg edema. COMPARISON: 08/28/2019 FINDINGS: Exam performed from the groin to the ankle including the visualized greater saphenous, common femoral , superficial femoral, profunda femoral, popliteal, trifurcation, and posterior tibial veins. There is phasic flow with normal compressibility and normal augmentation at all examined levels. No evidence for intraluminal thrombus. IMPRESSION: No evidence for deep venous thrombosis.
--- NOTE | 2019-08-31 16:12 | PDOC.HOSPP ---
- Subjective Subjective: Seen and examined. Does not follow commands. Neurologically unchanged. Neurosurgery managing external ventricular drain closely. Patient's mental status does not improve tracheostomy may be required. - Objective Vital Signs & Weight: Vital Signs (12 hours) Pulse Pulse Pulse Resp BP BP BP 08/31/19 14:22 85 08/31/19 14:00 20 08/31/19 13:14 84 08/31/19 12:00 21 H 08/31/19 10:47 86 118/53 L 08/31/19 10:00 22 H 08/31/19 09:17 80 82 133/66 130/72 08/31/19 08:00 22 H 08/31/19 07:41 96 142/83 H 08/31/19 07:08 96 142/66 H 08/31/19 06:00 26 H Pulse Ox Pulse Ox Pulse Ox 08/31/19 14:22 08/31/19 14:00 08/31/19 13:14 08/31/19 12:00 08/31/19 10:47 08/31/19 10:00 08/31/19 09:17 100 100 08/31/19 08:00 95 08/31/19 07:41 08/31/19 07:08 08/31/19 06:00 Weight Admit Weight 173 lb 4.533 oz Weight 175 lb 4.28 oz Most Recent Monitor Data Heart Rate from ECG 102 NIBP 147/82 NIBP BP-Mean 103 Respiration from ECG 27 SpO2 99 I&O: 08/30/19 08/31/19 09/01/19 06:59 06:59 06:59 Intake Total 3099 3530 80 Output Total 1833 3394 1562 Balance 1266 136 -1482 Result Diagrams: 08/31/19 04:39 08/31/19 04:39 Radiology Reviewed by me: Yes (CXR) Hospitalist ROS - Review of Systems ROS unobtainable: due to mental status - Medication Medications: Active Medications Generic Name Dose Route Start Last Admin Trade Name Freq PRN Reason Stop Dose Admin Amlodipine Besylate 10 mg 08/29/19 09:00 08/31/19 07:41 Norvasc PER TUBE 10 mg DAILY JEAN-PAUL Administration Famotidine 20 mg 08/27/19 21:00 08/31/19 08:05 Pepcid SLOW IVP 20 mg BID JEAN-PAUL Administration Hydralazine HCl 10 mg 08/28/19 20:34 08/30/19 21:10 Apresoline SLOW IVP 10 mg Q15M PRN Administration SBP > 140 Potassium Chloride 40 meq/ 270 mls @ 135 mls/hr 08/27/19 21:10 08/30/19 12:33 Sodium Chloride IVPB 270 mls ASDIR PRN Administration FOR SERUM K+ 2.5 - 3.5 Nicardipine HCl 50 mg/ Sodium 250 mls @ 0 mls/hr 08/27/19 23:00 08/27/19 23: 58 Chloride IV 250 mls INF JEAN-PAUL Administration Protocol As Directed Cefazolin Sodium/Dextrose 2 gm 50 mls @ 100 mls/hr 08/28/19 02:00 08/31/19 09 :19 / Device IVPB 50 mls 0200,1000,1800 JEAN-PAUL Administration Sodium Chloride 1,000 mls @ 75 mls/hr 08/27/19 23:15 08/31/19 07:33 Normal Saline 0.9% IV 1,000 mls .[id number] JEAN-PAUL Administration Ondansetron HCl 4 mg/ Sodium 52 mls @ 200 mls/hr 08/28/19 11:23 08/28/19 12: 46 Chloride IVPB 52 mls Q6HR PRN Administration Nausea/Vomiting Acetaminophen 1,000 mg/ Device 100 mls @ 400 mls/hr 08/30/19 21:09 08/31/19 13:13 IVPB 08/31/19 21:10 100 mls Q6H PRN Administration FEVER/PAIN Propofol 1,000 mg 08/27/19 21:08 08/28/19 18:05 Diprivan IV 09/26/19 21:08 1,000 mg INF PRN Administration TO ACHIEVE GOAL RASS Protocol - Exam General Appearance: ill appearing Eye: anicteric sclera ENT: dry oral mucosa Neck: supple, symmetric, no lymphadenopathy Heart: RRR, no murmur, no gallops, no rubs Respiratory: CTAB, no wheezes, no rales Gastrointestinal: soft, non-tender, non-distended, normal bowel sounds, no palpable masses, no hepatomegaly, no splenomegaly, no bruit Extremities: no edema Skin: no lesions, no rashes Neurological - other findings: follows no commands. Musculoskeletal: normal tone Psychiatric: not oriented Hosp A/P (1) Intracranial hemorrhage Code(s): I62.9 - NONTRAUMATIC INTRACRANIAL HEMORRHAGE, UNSPECIFIED Status: Acute (2) AMS (altered mental status) Code(s): R41.82 - ALTERED MENTAL STATUS, UNSPECIFIED Status: Acute (3) Acute respiratory failure Code(s): J96.00 - ACUTE RESPIRATORY FAILURE, UNSP W HYPOXIA OR HYPERCAPNIA Status: Acute (4) HTN (hypertension) Code(s): I10 - ESSENTIAL (PRIMARY) HYPERTENSION Status: Acute - Plan Plan: intensive care unit neurosurgery consultation, recommendations appreciated pulmonary /critical-care consultation, recommendations appreciated neurology consultation, recommendations appreciated CT brain noted EVD in place, management per neurosurgery blood pressure control unsafe to wean from the vent at this time if patient neurologic status does not improve may require tracheostomy and PEG tube
[2019-08-31] MEDS: hydrALAZINE 20 MG/ML VIAL SLOW IVP PRN ×2 (18:34→22:07)
[2019-09-01] MEDS: Acetaminophen 1,000 MG in Premix Bag 1 BAG IVPB PRN ×2 (00:42→06:17)
[2019-09-01] MEDS: CEFAZOLIN 2 GM in Premix Bag 1 BAG IVPB SCH ×3 (01:49→17:50)
[2019-09-01 05:17] LABS: #Eosinphils 0.1 thou/uL (0.0-0.7); #Lymphocytes 1.7 thou/uL (1.20-3.40); #Monocytes 0.8 thou/uL (0.11-0.59); #Neutrophils 10.1 thou/uL (1.40-6.50); %Basophils 0.1 % (0.0-1.0); %Eosinophils 0.5 % (0.0-10.0); %Lymphocytes 13.4 % (21.0-51.0); %Monocytes 6.3 % (0.0-10.0); %Neutrophils 79.7 % (42.0-75.0); Hemoglobin 10.9 g/dL (12.0-16.0); Mean Corpuscular HGB CONC 33.5 g/dL (32.0-36.0); Mean Corpuscular Hemoglobin 30.8 pg (27.0-31.0); Mean Platelet Volume 7.8 fL (7.4-10.4); Platelet Count 307 thou/uL (130-400); RBC Distribution Width 12.8 % (11.5-14.5); Red Blood Cell (RBC) Count 3.54 mill/uL (4.20-5.40); White Blood Cell (WBC) Count 12.7 thou/uL (4.8-10.8)
[2019-09-01 05:28] LABS: Anion Gap 12 mmol/L (10-20); BUN (Urea Nitrogen) 12 mg/dL (7.0-18.7); Calc. Creatinine Clearance 159 mL/min (70-130); Calcium 8.5 mg/dL (7.8-10.44); Carbon Dioxide 24 mmol/L (22-29); Chloride 108 mmol/L (98-107); Estimated GFR-MDRD Greater than 90; Glucose 138 mg/dL (70-105); Potassium 3.6 mmol/L (3.5-5.1); Sodium 140 mmol/L (136-145)
[2019-09-01] MEDS: hydrALAZINE 20 MG/ML VIAL SLOW IVP PRN (06:05)
[2019-09-01] MEDS: Sodium Chloride 0.9% 1,000 ML IV SCH ×2 (06:07→14:23)
[2019-09-01 07:24] LABS: Actual Bicarbonate (HCO3a) 23.6 mEq/L (22-28); Base Excess (BEa) 1.2 mEq/L (-2.0 to +3.0); CO2 Tension 30.1 mmHg (35.0-45.0); Calcium, Ionized 1.14 mmol/L (1.12-1.30); Carboxyhemoglobin (COHb) 0.4 gm% (0.0-3.0); Hemoglobin (Hb) 10.8 g/dL (12.0-16.0); Potassium - ABG Lab 3.54 mmol/L (3.70-5.30); pH, Arterial 7.51 (7.35-7.45)
[2019-09-01 07:27] LABS: Puncture Site LR
[2019-09-01 07:31] LABS: ALV-art Gradient 56.275 (0-20)
--- NOTE | 2019-09-01 07:48 | PRG ---
DATE OF SERVICE: 09/01/2019 TIME SPENT: 35 minutes of critical care time. SUBJECTIVE: The patient remains intubated on mechanical ventilation. She is off all sedation. We can get her to withdrawal by stimulating her right arm and right foot. She has a very weak gag reflex. She does have some spontaneous respirations. She does not respond to voice. OBJECTIVE: VITAL SIGNS: On exam, her temperature is 100.9, pulse 106, and blood pressure 149/81. Intake for 24 hours 3681, output 3454. HEENT: She has a bandage. NECK: No JVD. LUNGS: Clear anteriorly. CARDIAC: S1 and S2. Regular. ABDOMEN: Soft. EXTREMITIES: No edema. LABORATORY DATA: Sodium 140, potassium 3.6, chloride 108, CO2 of 24, BUN 12, creatinine 0.6, and glucose 138. White blood cell count 12.7, hematocrit 32.6, and platelet count 307. IMAGING DATA: Chest x-ray shows no infiltrates. ASSESSMENT: 1. Status post thalamic bleed. 2. Acute respiratory failure, requiring mechanical ventilation. 3. Still highly compromised neurologic status to the point where it is unsafe to extubate the patient without compromising her airway. RECOMMENDATIONS: I think she is probably going to need tracheostomy and feeding tube placement. I have not seen the family, but this probably needs to be discussed with them in detail. Continue ventilator pressure settings. Continue enteral tube feeds. Job ID: [id number]
--- NOTE | 2019-09-01 08:21 | RAD ---
PORTABLE CHEST: HISTORY: Pneumonia followup. CCU followup. COMPARISON: 08/31/2019. FINDINGS: ET tube and NG tube remain in place. The lungs appear clear. No infiltrate identified. Heart and m ediastinum appear stable. IMPRESSION: No evidence of acute interval change. POS: [facility]
[2019-09-01] MEDS: Scopolamine 1.5 mg/72 hour Patch TD SCH (08:58)
[2019-09-01] MEDS: Famotidine/PF 20 mg/2ml Vial SLOW IVP SCH (08:59)
[2019-09-01] MEDS: Amlodipine 10 MG TAB PER TUBE SCH (08:59)
[2019-09-01] MEDS: Acetaminophen 650 MG Suppository PR PRN (12:05)
--- NOTE | 2019-09-01 16:39 | PRG ---
DATE OF SERVICE: 09/01/2019 This is Teja Varma PA-C dictating a report for Nilo Garcia MD. SUBJECTIVE: Ms. Henson is hospital day #6 having sustained a right thalamic bleed with extension into the 4th ventricle, undergoing posterior fossa craniectomy for evacuation of hematoma and EVD placement. Her EVD is as requested below her ear canal to help continue to drain her CSF and help her CSF to clear her hemorrhage. Her output has been around 8 per hour, and her ICPs have ranged from 12 to 22. She has been intermittently febrile and remains on Ancef for EVD. She has no nystagmus on exam. She follows commands in the right upper and lower extremities and intermittently spontaneously moves the left arm and leg, but will withdraw to painful stimulus. We have consulted General Surgery for a trach and PEG, and we will continue to monitor her blood pressure. We will continue to monitor the patient's neurologic exam. We would like to remain with the EVD below the ear canal so that it will continue to drain and clear the bloody CSF. Please call with any changes in the patient's neurologic status. Job ID: [id number]
--- NOTE | 2019-09-01 17:02 | PDOC.HOSPP ---
- Subjective Subjective: Seen and examined. Patient neurologically improving. Follows commands on the right. Has spontaneous movements on the left, and withdraws from noxious stimuli on the left. We're planning for an early trach and peg, so that the patient can continue to improve neurologically. - Objective Vital Signs & Weight: Vital Signs (12 hours) Pulse Pulse Pulse Resp BP BP BP 09/01/19 16:00 22 H 09/01/19 14:44 99 140/74 09/01/19 14:00 20 09/01/19 12:00 29 H 09/01/19 10:17 95 133/65 09/01/19 10:00 22 H 09/01/19 09:41 88 100 138/69 128/67 09/01/19 08:59 90 150/80 H 09/01/19 08:00 23 H 09/01/19 06:42 101 H 131/71 09/01/19 06:05 100 149/81 H 09/01/19 06:00 24 H Pulse Ox Pulse Ox Pulse Ox 09/01/19 16:00 09/01/19 14:44 09/01/19 14:00 09/01/19 12:00 09/01/19 10:17 09/01/19 10:00 09/01/19 09:41 97 96 09/01/19 08:59 09/01/19 08:00 99 09/01/19 06:42 09/01/19 06:05 09/01/19 06:00 Weight Admit Weight 173 lb 4.533 oz Weight 170 lb 10.205 oz Most Recent Monitor Data Heart Rate from ECG 91 NIBP 143/78 NIBP BP-Mean 99 Respiration from ECG 22 SpO2 100 I&O: 08/31/19 09/01/19 09/02/19 06:59 06:59 06:59 Intake Total 3530 3681 100 Output Total 3394 3454 1811 Balance 136 227 -1711 Result Diagrams: 09/01/19 04:35 09/01/19 04:35 Hospitalist ROS - Review of Systems All other systems reviewed; all pertinent +/- noted in HPI/Subj - Medication Medications: Active Medications Generic Name Dose Route Start Last Admin Trade Name Freq PRN Reason Stop Dose Admin Acetaminophen 650 mg 08/27/19 22:53 09/01/19 12:05 Tylenol [place] 650 mg Q4H PRN Administration Headache/Fever/Mild Pain (1-3) Amlodipine Besylate 10 mg 08/29/19 09:00 09/01/19 08:59 Norvasc PER TUBE 10 mg DAILY JEAN-PAUL Administration Hydralazine HCl 10 mg 08/28/19 20:34 09/01/19 06:05 Apresoline SLOW IVP 10 mg Q15M PRN Administration SBP > 140 Potassium Chloride 40 meq/ 270 mls @ 135 mls/hr 08/27/19 21:10 08/30/19 12:33 Sodium Chloride IVPB 270 mls ASDIR PRN Administration FOR SERUM K+ 2.5 - 3.5 Nicardipine HCl 50 mg/ Sodium 250 mls @ 0 mls/hr 08/27/19 23:00 08/27/19 23: 58 Chloride IV 250 mls INF JEAN-PAUL Administration Protocol As Directed Cefazolin Sodium/Dextrose 2 gm 50 mls @ 100 mls/hr 08/28/19 02:00 09/01/19 10 :50 / Device IVPB 50 mls 0200,1000,1800 JEAN-PAUL Administration Sodium Chloride 1,000 mls @ 75 mls/hr 08/27/19 23:15 09/01/19 14:23 Normal Saline 0.9% IV 1,000 mls .[id number] JEAN-PAUL Administration Ondansetron HCl 4 mg/ Sodium 52 mls @ 200 mls/hr 08/28/19 11:23 08/28/19 12: 46 Chloride IVPB 52 mls Q6HR PRN Administration Nausea/Vomiting Propofol 1,000 mg 08/27/19 21:08 08/28/19 18:05 Diprivan IV 09/26/19 21:08 1,000 mg INF PRN Administration TO ACHIEVE GOAL RASS Protocol Scopolamine 1.5 mg 09/01/19 07:45 09/01/19 08:58 Transderm Scop TD 1.5 mg Q3D JEAN-PAUL Administration - Exam General Appearance: NAD Eye: anicteric sclera ENT: no oropharyngeal lesions, dry oral mucosa Neck: supple, symmetric Heart: RRR, no murmur, no gallops Respiratory: CTAB, no wheezes, no rales, no ronchi Gastrointestinal: soft, non-tender, non-distended, normal bowel sounds, no palpable masses, no guarding, no rigidity Extremities: 1+ LE edema Skin: no lesions, no rashes Neurological: no new deficit Neurological - other findings: Follows on right. Spont movement on left. Opens eyes to voice Musculoskeletal: normal tone, generalized weakness Psychiatric: somnolent Hosp A/P (1) Intracranial hemorrhage Code(s): I62.9 - NONTRAUMATIC INTRACRANIAL HEMORRHAGE, UNSPECIFIED Status: Acute (2) AMS (altered mental status) Code(s): R41.82 - ALTERED MENTAL STATUS, UNSPECIFIED Status: Acute (3) Acute respiratory failure Code(s): J96.00 - ACUTE RESPIRATORY FAILURE, UNSP W HYPOXIA OR HYPERCAPNIA Status: Acute (4) HTN (hypertension) Code(s): I10 - ESSENTIAL (PRIMARY) HYPERTENSION Status: Acute - Plan Plan: intensive care unit neurosurgery consultation, recommendations appreciated pulmonary /critical-care consultation, recommendations appreciated neurology consultation, recommendations appreciated CT brain noted EVD in place, management per neurosurgery blood pressure control unsafe to wean from the vent at this time, SBT per pulm as able Will require tracheostomy and PEG tube for continued time to allow neurologic status to improve.
[2019-09-01] MEDS: Acetaminophen 650 MG/20.3 ML UDCUP PER TUBE PRN ×2 (17:51→23:30)
[2019-09-01] MEDS ORDERED: Lidocaine 1% (PF) 30 ML VIAL SC SCH (21:45)
[2019-09-01] MEDS: Famotidine 40 MG/5 ML Oral Suspension PER TUBE SCH (21:59)
[2019-09-01] MEDS ORDERED: Vecuronium 10 MG VIAL IVP SCH (22:00)
[2019-09-02] MEDS: CEFAZOLIN 2 GM in Premix Bag 1 BAG IVPB SCH (02:11)
[2019-09-02 04:44] LABS: #Eosinphils 0.1 thou/uL (0.0-0.7); #Lymphocytes 1.6 thou/uL (1.20-3.40); #Monocytes 0.8 thou/uL (0.11-0.59); #Neutrophils 10.2 thou/uL (1.40-6.50); %Basophils 0.2 % (0.0-1.0); %Eosinophils 0.6 % (0.0-10.0); %Lymphocytes 12.6 % (21.0-51.0); %Monocytes 6.4 % (0.0-10.0); %Neutrophils 80.3 % (42.0-75.0); Hemoglobin 10.3 g/dL (12.0-16.0); Mean Corpuscular Hemoglobin 31.1 pg (27.0-31.0); Mean Corpuscular Volume 94.2 fL (78.0-98.0); Platelet Count 381 thou/uL (130-400); RBC Distribution Width 12.9 % (11.5-14.5); Red Blood Cell (RBC) Count 3.32 mill/uL (4.20-5.40); White Blood Cell (WBC) Count 12.7 thou/uL (4.8-10.8)
[2019-09-02 05:04] LABS: Anion Gap 12 mmol/L (10-20); BUN (Urea Nitrogen) 11 mg/dL (7.0-18.7); Calc. Creatinine Clearance 161 mL/min (70-130); Calcium 8.6 mg/dL (7.8-10.44); Carbon Dioxide 26 mmol/L (22-29); Chloride 105 mmol/L (98-107); Estimated GFR-MDRD Greater than 90; Glucose 123 mg/dL (70-105); Potassium 3.7 mmol/L (3.5-5.1); Sodium 139 mmol/L (136-145)
[2019-09-02] MEDS: hydrALAZINE 20 MG/ML VIAL SLOW IVP PRN (05:07)
[2019-09-02] MEDS ORDERED: Vecuronium 10 MG VIAL IVP SCH (06:00)
[2019-09-02] MEDS ORDERED: Lidocaine 1% (PF) 30 ML VIAL SC SCH (06:00)
--- NOTE | 2019-09-02 06:30 | PRG ---
DATE OF SERVICE: 09/02/2019 TIME SPENT: 35 minutes of critical care time. SUBJECTIVE: The patient is scheduled for tracheostomy and feeding tube placement by Dr. Shelton later today. Neurologically her status is unchanged and I can't get her to follow any commands, even off sedation. OBJECTIVE: VITAL SIGNS: Temperature is 101.8 with a T-max of 102.0, pulse is 110, blood pressure 155/85. Intake for 24 hours 1805, output 3843. HEENT: Unchanged. NECK: No adenopathy or JVD. LUNGS: Clear to auscultation anteriorly. CARDIAC: S1, S2. Slightly tachycardic. ABDOMEN: Soft, nontender. EXTREMITIES: No edema. IMAGING: Her chest x-ray shows proper ET tube placement. There is no evidence of mass, effusion, or infiltrate on her film. LABORATORY DATA: White blood cell count 12.7, hematocrit 31.3, and platelet count 381, blood gas pending. Sodium 139, potassium 3.7, chloride 105, CO2 of 26, BUN 11, creatinine 0.5, glucose 123. ASSESSMENT: 1. Intracranial bleed in the thalamic region. 2. No evidence of improvement in neurologic status. 3. Fever, which I think is probably central in origin. 4. Acute respiratory failure requiring mechanical ventilation. PLAN: I had a long talk with the patient's yesterday through a speck dyer. I told him I thought it would be best to proceed with tracheostomy feeding tube placement as I would expect recovery to be very prolonged. I suspect her fever is probably central in origin, but it has been persistent, so I will go ahead and culture her and change her antibiotics. She has no indwelling catheters other than a Lynne catheter, the endotracheal tube and the orogastric tube. Unfortunately placement is going to be very difficult as the patient lacks insurance. Job ID: [id number]
[2019-09-02] MEDS: Acetaminophen 1,000 MG in Premix Bag 1 BAG IVPB PRN ×3 (06:37→21:53)
[2019-09-02] MEDS: Piperacillin/Tazobactam 3.375 GM in Sodium Chloride 0.9% 100 ML IVPB SCH ×4 (06:40→23:59)
[2019-09-02] MEDS ORDERED: Midazolam HCl 2 mg/2 ml Vial SLOW IVP PRN (06:45)
[2019-09-02] MEDS ORDERED: Fentanyl 100 MCG/2 ML VIAL SLOW IVP PRN (06:45)
[2019-09-02 07:06] LABS: Base Excess (BEa) 0.6 mEq/L (-2.0 to +3.0); CO2 Tension 29.8 mmHg (35.0-45.0); Calcium, Ionized 1.17 mmol/L (1.12-1.30); Carboxyhemoglobin (COHb) 0.9 gm% (0.0-3.0); Hemoglobin (Hb) 11.7 g/dL (12.0-16.0); O2 Tension (PaO2) 141.9 mmHg (80.0-100.0); pH, Arterial 7.51 (7.35-7.45)
[2019-09-02 07:10] LABS: Puncture Site LR
[2019-09-02] MEDS ORDERED: Lidocaine 1% w/Epinephrine 1:100K 20 ML VIAL ONE (07:19)
[2019-09-02] MEDS ORDERED: Fentanyl 100 MCG/2 ML VIAL SLOW IVP SCH (07:30)
[2019-09-02] MEDS ORDERED: Midazolam HCl 5 mg/5 ml Vial IVPB SCH (07:30)
[2019-09-02] MEDS: Fentanyl 100 MCG/2 ML VIAL ONE ×2 (07:31→08:16)
[2019-09-02] MEDS ORDERED: Vancomycin HCl 1 GM in Premix Bag 1 BAG IVPB SCH (08:00)
[2019-09-02] MEDS ORDERED: Midazolam HCl 2 mg/2 ml Vial ONE (08:16)
[2019-09-02] MEDS ORDERED: VANCOMYCIN IVPB PRN (08:51)
[2019-09-02] MEDS: Famotidine 40 MG/5 ML Oral Suspension PER TUBE SCH ×2 (09:21→21:07)
[2019-09-02] MEDS: Amlodipine 10 MG TAB PER TUBE SCH (09:21)
--- NOTE | 2019-09-02 10:10 | RAD ---
PORTABLE CHEST: Date: 09/02/19 HISTORY: Respiratory distress. COMPARISON: 09/01/19. FINDINGS: Heart size borderline. Endotracheal and NG tubes in satisfactory position. Lungs are clear of any inf iltrative process. IMPRESSION: Essentially stable chest. POS: [facility]
[2019-09-02] MEDS ORDERED: Lidocaine 1% (PF) 30 ML VIAL ONE ×2 (11:50→16:57)
--- NOTE | 2019-09-02 11:58 | CT ---
CT OF THE BRAIN WITHOUT CONTRAST: Date: 09/02/19 COMPARISON: 08/30/19. HISTORY: Follow-up intracranial hemorrhage. TECHNIQUE: Multiple contiguous axial images were obtained in a CT of the brain without contrast. FINDINGS: Postsurgical changes are seen in the posterior cranial fossa. There is hypodensity in the posterior c ranial fossa with air from recent surgery. Hyperdensity is seen in the third ventricle and right late ral ventricle. The hyperdensity also appears to be in the right basal ganglia. There is a right front al approach ventriculostomy catheter. There is no evidence of hydrocephalus. There is crowding of the basilar cisterns at the skull base. No significant midline shift is seen. No significant change has occurred compared to the prior exam. IMPRESSION: Stable exam. POS: [facility]
--- NOTE | 2019-09-02 11:59 | OP ---
DATE OF PROCEDURE: 09/02/2019 PREOPERATIVE DIAGNOSIS: Status post intracerebral hemorrhage. POSTOPERATIVE DIAGNOSIS: Status post intracerebral hemorrhage. The patient is on full mechanical ventilator support. I was asked to place percutaneous tracheostomy tube to facilitate ventilator wean. Percutaneous endoscopic gastrostomy tube is also warranted for prolonged enteral nutritional supplementation. PROCEDURE PERFORMED: 1. Percutaneous tracheostomy tube placement 2. Percutaneous endoscopic gastrostomy tube placement DESCRIPTION OF PROCEDURE: Informed consent was obtained from the patient's power of employee benefits attorney. The patient was placed in supine position. She is on full mechanical ventilator support, FiO2 set at 100%. The patient was given aliquots of midazolam and fentanyl to achieve deep sedation and comfort. She was also then given vecuronium 10 mg intravenously. Anterior neck was sterilely prepped and draped in usual fashion. Skin 2 fingerbreadths above the suprasternal notch was anesthetized with 1% lidocaine. A 1 cm vertical incision was made here using a 15 scalpel. I then introduced a fiberoptic bronchoscope through the previous endotracheal tube and advanced to visualize the rosa. The scope was withdrawn, transilluminating the anterior neck and area chosen for the placement of tracheostomy tube. Introducer needle was inserted through this incision, advanced through the anterior tracheal wall, visualized by bronchoscopy. Guidewire was passed through the needle and advanced into the distal tracheal lumen without resistance and this was visualized by bronchoscopy. Needle was withdrawn over the guidewire. The anterior tracheal wall was sterilely dilated over the guidewire. Finally, dilator introducer stylet and size 8 tracheostomy tube were advanced as a unit over the guidewire and placed in the distal tracheal lumen without resistance present. Dilator, introducer catheter, and guidewire were removed as a unit leaving the tracheostomy tube in place. An inner cannula was inserted and cuff was inflated. The patient is connected to mechanical ventilator support via the newly placed tracheostomy tube. Good tidal volume was returned. Tracheostomy was secured to anterior neck using 0 silk suture at two points. Previous endotracheal tube and bronchoscope were withdrawn as a unit, visualizing the tracheostomy site from above with good hemostasis. The bronchoscope was then reintroduced through the newly placed tracheostomy tube, advanced to visualize the rosa. The scope was withdrawn, visualizing intact tracheobronchial mucosa. No active bleeding was noted from below. The patient tolerated this procedure without any apparent complication. Attention was then directed to the abdomen, which was separately, widely sterilely prepped and draped in the usual fashion. An endoscope was introduced per oral after mouth guard was put in place. The esophagus was intubated and with gentle insufflation, the scope was directed into the gastric lumen, which was insufflated. The scope was advanced through the pylorus, noting no peptic ulcerative disease in the proximal duodenum. The scope was withdrawn again into the gastric lumen. Multiple gastric mucosal polyps noted. The left upper quadrant of the abdomen was transilluminated in the area chosen for placement of the gastrostomy tube. The skin was anesthetized with 1% lidocaine. A stab incision was made using 11 scalpel. Introducer catheter was inserted over a needle through this incision and advanced into the gastric lumen visualized by endoscopy. A guidewire was passed through this and advanced into the gastric lumen and captured with endo-snare. Needle and the catheter were withdrawn over the guidewire. The guidewire was then pulled out with the endoscope by mouth and connected to a 20-Romanian gastrostomy tube. The distal end of the guidewire was then pulled out through the skin, leaving the mushroom end of the gastrostomy tube abutting the gastric mucosa. The endoscope was reintroduced to the gastric lumen, confirming proper seating of the gastrostomy tube. The gastrostomy tube was then fashioned to length and secured to anterior abdominal wall at 4 cm using a bolster. Dressing was applied. The gastric lumen was desufflated. Endoscope was withdrawn, visualizing intact esophageal mucosa. The patient tolerated this procedure without any apparent complication and remains hemodynamically stable following completion of the procedure. Job ID: [id number] [facility]
[2019-09-02] MEDS ORDERED: Iopamidol 370 76% 50 ML VIAL FS ONE (12:23)
[2019-09-02] MEDS: Sodium Chloride 0.9% 1,000 ML IV SCH (13:22)
--- NOTE | 2019-09-02 13:44 | PRG ---
DATE OF SERVICE: 09/02/2019 I saw Ms. Henson in the ICU this morning. Her drain is still open at the level of the external auditory canal and is draining 7 to 10 mL an hour. When she coughs or sneezes, it increased. Nursing does not report any events overnight. Although, earlier in our hospital stay, there was a significant fever, more recently the fever curve is heading back toward normal. Ms. Henson' neurological examination is a bit improved from what was reported. She is following commands on both sides now. The left leg is the worst, but starting to squeeze hands which was an improvement. My plan for Ms. Henson is to start weaning her from her drain. We will get a CT scan now to begin the weaning process and go with 5 cm of water by tomorrow. As long as her neurological examination is still improving, we will continue the weaning process through the weekend and early part of next week. The final day of weaning will be clamping it and getting a followup CT scan with it clamped to see if she tolerates the circulation of CSF on her own. Job ID: [id number]
--- NOTE | 2019-09-02 14:34 | ULT ---
ULTRASOUND DOPPLER DUPLEX VENOUS BILATERAL LOWER EXTREMITIES: DATE: 09/02/2019 HISTORY: 43-year-old female with prolonged immobility, increasing risk for DVT. TECHNIQUE: Grayscale, color-flow, and spectral analysis, of the bilateral common femoral, profunda femoral, grea ter saphenous, femoral, popliteal, and posterior tibial, veins. FINDINGS: At the midportion of the left femoral vein, there is thrombosis resulting in noncompressibility and d ecreased blood flow. There is no thrombosis in the distal portion of the left posterior tibial vein. There is no DVT in the left popliteal vein or in any of the veins superior to it. There is no D VT in any of the veins in the contralateral right lower extremity. IMPRESSION: Positive for thrombosis of left mid posterior tibial vein.
[2019-09-02] MEDS: Vancomycin HCl 1 GM in Premix Bag 1 BAG IVPB SCH ×2 (15:20→23:59)
--- NOTE | 2019-09-02 17:55 | PDOC.HOSPP ---
- Subjective Subjective: Seen and examined. Status post trach and peg. Family at bedside after procedure , many questions were asked, all answered in detail. Patient family are happy with plan of care and happy that she is neurologically improving. - Objective Vital Signs & Weight: Vital Signs (12 hours) Temp Pulse Resp BP Pulse Ox 09/02/19 16:00 16 09/02/19 15:00 101.7 F H 09/02/19 14:10 116 H 118/72 09/02/19 14:09 116 H 20 97 09/02/19 14:00 27 H 09/02/19 12:00 16 09/02/19 11:00 99.2 F 09/02/19 10:39 92 16 98 09/02/19 10:00 18 09/02/19 09:21 92 132/94 H 09/02/19 08:00 98.8 F 18 96 09/02/19 06:00 26 H Weight Admit Weight 173 lb 4.533 oz Weight 165 lb 12.602 oz Most Recent Monitor Data Heart Rate from ECG 101 NIBP 125/70 NIBP BP-Mean 88 Respiration from ECG 21 SpO2 96 I&O: 09/01/19 09/02/19 09/03/19 06:59 06:59 06:59 Intake Total 3681 3052 Output Total 3454 1585 1040 Balance 852 -903 -9200 Result Diagrams: 09/02/19 04:30 09/02/19 04:30 Radiology Reviewed by me: Yes (CT head) Hospitalist ROS - Review of Systems ROS unobtainable: due to mental status - Medication Medications: Active Medications Generic Name Dose Route Start Last Admin Trade Name Freq PRN Reason Stop Dose Admin Acetaminophen 650 mg 08/27/19 22:53 09/01/19 12:05 Tylenol ID 650 mg Q4H PRN Administration Headache/Fever/Mild Pain (1-3) Acetaminophen 650 mg 09/01/19 09:28 09/01/19 23:30 Tylenol Elixir PER TUBE 650 mg Q6H PRN Administration Fever > 101 Albuterol/Ipratropium 3 ml 09/02/19 11:00 09/02/19 14:09 Duoneb NEB 3 ml [id number] JEAN-PAUL Administration Amlodipine Besylate 10 mg 08/29/19 09:00 09/02/19 09:21 Norvasc PER TUBE 10 mg DAILY JEAN-PAUL Administration Famotidine 20 mg 09/01/19 21:00 09/02/19 09:21 Pepcid PER TUBE 20 mg BID JEAN-PAUL Administration Hydralazine HCl 10 mg 08/28/19 20:34 09/02/19 05:07 Apresoline SLOW IVP 10 mg Q15M PRN Administration SBP > 140 Potassium Chloride 40 meq/ 270 mls @ 135 mls/hr 08/27/19 21:10 08/30/19 12:33 Sodium Chloride IVPB 270 mls ASDIR PRN Administration FOR SERUM K+ 2.5 - 3.5 Nicardipine HCl 50 mg/ Sodium 250 mls @ 0 mls/hr 08/27/19 23:00 08/27/19 23: 58 Chloride IV 250 mls INF JEAN-PAUL Administration Protocol As Directed Sodium Chloride 1,000 mls @ 75 mls/hr 08/27/19 23:15 09/02/19 13:22 Normal Saline 0.9% IV 1,000 mls .[id number] JEAN-PAUL Administration Ondansetron HCl 4 mg/ Sodium 52 mls @ 200 mls/hr 08/28/19 11:23 08/28/19 12: 46 Chloride IVPB 52 mls Q6HR PRN Administration Nausea/Vomiting Piperacillin Sod/Tazobactam 100 mls @ 200 mls/hr 09/02/19 06:00 09/02/19 12: 51 Sod 3.375 gm/ Sodium Chloride IVPB 100 mls Q6HR JEAN-PAUL Administration Acetaminophen 1,000 mg/ Device 100 mls @ 400 mls/hr 09/02/19 06:00 09/02/19 15:19 IVPB 09/03/19 06:01 100 mls Q6H PRN Administration Fever/Mild Pain Vancomycin HCl 1 gm/ Device 200 mls @ 200 mls/hr 09/02/19 16:00 09/02/19 15: 20 IVPB 200 mls 0800,1600,2359 JEAN-PAUL Administration Lidocaine HCl 30 ml 09/02/19 06:00 09/02/19 09:16 Xylocaine 1% Pf SC 09/02/19 20:00 Not Given 0600 JEAN-PAUL Propofol 1,000 mg 08/27/19 21:08 08/28/19 18:05 Diprivan IV 09/26/19 21:08 1,000 mg INF PRN Administration TO ACHIEVE GOAL RASS Protocol Scopolamine 1.5 mg 09/01/19 07:45 09/01/19 08:58 Transderm Scop TD 1.5 mg Q3D JEAN-PAUL Administration Vecuronium [place] 10 mg 09/02/19 06:00 09/02/19 07:31 Norcuron IVP 09/02/19 20:00 10 mg 0600 JEAN-PAUL Administration - Exam General Appearance: NAD Eye: PERRL Eye - other findings: EOMI ENT: no oropharyngeal lesions, dry oral mucosa Neck: supple, symmetric Neck - other findings: Trach in position Heart: RRR, no murmur, no gallops Respiratory: no rales, no tachypnea, rhonchi, wheezes Gastrointestinal: soft, non-tender, non-distended, normal bowel sounds, no guarding, no rigidity Extremities: no clubbing, no edema Skin: no lesions, no rashes Musculoskeletal - other findings: On sedation, did not follow commands for me this AM Hosp A/P (1) Intracranial hemorrhage Code(s): I62.9 - NONTRAUMATIC INTRACRANIAL HEMORRHAGE, UNSPECIFIED Status: Acute (2) AMS (altered mental status) Code(s): R41.82 - ALTERED MENTAL STATUS, UNSPECIFIED Status: Acute (3) Acute respiratory failure Code(s): J96.00 - ACUTE RESPIRATORY FAILURE, UNSP W HYPOXIA OR HYPERCAPNIA Status: Acute (4) HTN (hypertension) Code(s): I10 - ESSENTIAL (PRIMARY) HYPERTENSION Status: Acute - Plan Plan: intensive care unit neurosurgery consultation, recommendations appreciated pulmonary /critical-care consultation, recommendations appreciated neurology consultation, recommendations appreciated CT brain noted EVD in place, management per neurosurgery - starting weaning process S/p trach and peg on 09/[address] Shelton blood pressure control unsafe to wean from the vent at this time, SBT per pulm as able
--- NOTE | 2019-09-02 22:32 | CON ---
DATE OF CONSULTATION: 09/02/2019 REQUESTING PHYSICIAN: David Witt MD CHIEF COMPLAINT: DVT with contraindication to anticoagulation. HISTORY OF PRESENT ILLNESS: The patient is a 43-year-old woman who about a week ago presented with altered mental status and was found to have had a large right thalamic hemorrhage that required a decompressive craniectomy and right frontal external ventricular drain. She has had some mild improvement in her neurologic status and screening lower extremity Dopplers because of her persistent immobility showed the development of a left lower extremity DVT that is a new development versus a previous Doppler on August 28. PAST MEDICAL HISTORY: Significant for hypertension that has very recently been diagnosed. She is currently on Norvasc and fentanyl sedation. ALLERGIES: SHE HAS NO KNOWN DRUG ALLERGIES. PHYSICAL EXAMINATION: GENERAL: She is sedated. Airway supported with tracheostomy. VITAL SIGNS: Heart rate 108, blood pressure 124/66. EXTREMITIES: She has no obvious lower extremity edema. LABORATORY DATA: Her hemoglobin is 10.3, hematocrit 31.3, platelets 381,000. Normal electrolytes. BUN is 12, creatinine 0.56. IMPRESSION AND PLAN: A 43-year-old woman with a devastating intracranial hemorrhage who has developed a deep venous thrombosis. There is a contraindication to anticoagulation and I have been requested to place a vena cava filter, which I think is reasonable. I would anticipate that her period of immobility and contraindication to anticoagulation is going to last long enough that a permanent filter would be appropriate. Job ID: [id number]
--- NOTE | 2019-09-02 23:35 | OP ---
DATE OF PROCEDURE: 09/02/2019 PROCEDURE PERFORMED: Inferior vena cavography, Cordis [employer] inferior vena cava filter placement. PREOPERATIVE DIAGNOSES: Deep venous thrombosis, contraindication anticoagulation. POSTOPERATIVE DIAGNOSES: Deep venous thrombosis, contraindication anticoagulation. ANESTHESIA: 1% lidocaine, local anesthesia. INDICATIONS: The patient is 43-year-old woman who has developed a DVT. She is about a week postop from a decompressive craniectomy following a large right thalamic bleed and anticoagulation is contraindicated. FINDINGS: Left renal vein at the top of L1. Right renal vein at the top of L2. The proximal tip of the filter was placed in the midbody of L2. NARRATIVE REPORT: After informed consent was obtained from the patient's , she was transported to the mobile home laborer and placed on the mobile home laborer table. Her groins were prepped and draped in sterile fashion. Her right femoral pulse was palpated and lidocaine was infiltrated in the skin, subcutaneous tissues just medial to that near the groin crease. Ultrasound was used to identify the common femoral artery and vein and to confirm compressibility of the femoral vein. A micropuncture needle was used to puncture the common femoral vein under ultrasound guidance. A micropuncture wire and sheath were inserted and then exchanged over a wire after a skin scott for the instrumentation sheath. The sheath and inner cannula were advanced under fluoroscopic guidance to about the top of L2 and contrast was then injected. There was a suggestion of where the left renal vein drain into the vena cava, it was difficult to appreciate where the right renal vein drained into it. An angled catheter and wire were used to probe the vena cava. The left renal vein was rather easily identified at the top of L1. The catheter had to be exchanged for a more right-angled and stiffer catheter in order to intubate the right renal vein with the wire, it was identified at the top of L2. That catheter and wire were removed. The introducer sheath was positioned at the midbody of L2 and then the filter device was advanced with a pusher up to the tip of the introducer sheath which was then withdrawn to deploy the device. The introducer sheath was removed and hemostasis achieved with direct pressure. Job ID: [id number]
[2019-09-03] MEDS: Sodium Chloride 0.9% 1,000 ML IV SCH ×2 (03:22→20:47)
[2019-09-03] MEDS: Acetaminophen 1,000 MG in Premix Bag 1 BAG IVPB PRN (04:43)
[2019-09-03] MEDS: Piperacillin/Tazobactam 3.375 GM in Sodium Chloride 0.9% 100 ML IVPB SCH ×4 (05:29→23:14)
[2019-09-03 05:45] LABS: #Eosinphils 0.1 thou/uL (0.0-0.7); #Lymphocytes 1.3 thou/uL (1.20-3.40); #Monocytes 0.8 thou/uL (0.11-0.59); #Neutrophils 8.8 thou/uL (1.40-6.50); %Basophils 0.3 % (0.0-1.0); %Eosinophils 0.7 % (0.0-10.0); %Lymphocytes 11.9 % (21.0-51.0); %Monocytes 7.3 % (0.0-10.0); %Neutrophils 79.8 % (42.0-75.0); Hemoglobin 10.1 g/dL (12.0-16.0); Mean Corpuscular HGB CONC 33.1 g/dL (32.0-36.0); Mean Corpuscular Hemoglobin 31.3 pg (27.0-31.0); Mean Corpuscular Volume 94.6 fL (78.0-98.0); Mean Platelet Volume 7.1 fL (7.4-10.4); Platelet Count 392 thou/uL (130-400); RBC Distribution Width 12.9 % (11.5-14.5); Red Blood Cell (RBC) Count 3.24 mill/uL (4.20-5.40)
[2019-09-03 06:00] LABS: Anion Gap 12 mmol/L (10-20); BUN (Urea Nitrogen) 11 mg/dL (7.0-18.7); Calc. Creatinine Clearance 154 mL/min (70-130); Calcium 8.5 mg/dL (7.8-10.44); Carbon Dioxide 24 mmol/L (22-29); Chloride 104 mmol/L (98-107); Estimated GFR-MDRD Greater than 90; Glucose 114 mg/dL (70-105); Sodium 136 mmol/L (136-145)
[2019-09-03 07:37] LABS: Vancomycin, Trough 12.5 ug/mL
[2019-09-03 07:54] LABS: Actual Bicarbonate (HCO3a) 25.3 mEq/L (22-28); Base Excess (BEa) 1.1 mEq/L (-2.0 to +3.0); CO2 Tension 38.8 mmHg (35.0-45.0); Calcium, Ionized 1.17 mmol/L (1.12-1.30); Carboxyhemoglobin (COHb) 0.5 gm% (0.0-3.0); Hemoglobin (Hb) 10.5 g/dL (12.0-16.0); Potassium - ABG Lab 3.56 mmol/L (3.70-5.30); pH, Arterial 7.43 (7.35-7.45)
[2019-09-03 07:56] LABS: Puncture Site LR
--- NOTE | 2019-09-03 08:35 | PRG ---
DATE OF SERVICE: 09/03/2019 Ms. Henson was found to have a DVT below the knee on the left side yesterday. Dr. Álvarez was gracious enough to place the IVC filter, which will protect her until such time she can be anticoagulated. Nursing does not report any significant events. Show fever of 101.7 degrees Fahrenheit yesterday at 3 o'clock. Other vitals have been stable. NEUROLOGIC: Likewise stable. Her white blood cell count is trending down. The sodium is 139. Ms. Henson spikes another fever today. We will get blood, sputum, CSF and urine cultures. I am reassured that the white count is diminishing and the fevers maybe coming from blood in the CSF. Ms. Henson' CT scan shows continued blood in the fourth ventricle. I am going to leave the drain where it is. I would like that blood to dissolve and go away before continuing our weaning process. Job ID: [id number] MTDD
[2019-09-03] MEDS: Amlodipine 10 MG TAB PER TUBE SCH (08:43)
[2019-09-03] MEDS: Vancomycin HCl 1 GM in Premix Bag 1 BAG IVPB SCH ×3 (08:43→23:46)
[2019-09-03] MEDS: Famotidine 40 MG/5 ML Oral Suspension PER TUBE SCH ×2 (08:44→20:48)
[2019-09-03 09:14] LABS: CSF Source CSF; Clarity Hazy (Clear)
[2019-09-03] MEDS: Acetaminophen 650 MG/20.3 ML UDCUP PER TUBE PRN ×3 (11:25→23:08)
[2019-09-03 11:31] LABS: Cell Count Non Hematic 9 %; Lymphocytes 27 %; Segmented Neutrophils 64 %
--- NOTE | 2019-09-03 12:16 | EKG ---
Test Reason : Blood Pressure : / mmHG Vent. Rate : 074 BPM Atrial Rate : 074 BPM P-R Int : 148 ms QRS Dur : 072 ms QT Int : 386 ms P-R-T Axes : 066 047 020 degrees QTc Int : 428 ms Normal sinus rhythm Septal infarct , age undetermined Abnormal ECG Confirmed by LUCÍA HENDERSON, NAFISA ([id number]), development editor MATTHEW BELTRE ([id number]) on 09/03/2019 12:16:27 PM Referred By: Confirmed By:NAFISA CASTREJON MD
--- NOTE | 2019-09-03 12:32 | RAD ---
PORTABLE AP CHEST XRAY: HISTORY: Pneumonia. COMPARISON: 09/02/2019. FINDINGS: Endotracheal tube and nasogastric tubes have been removed. Tracheostomy device has been placed in th e interim. There is increased density at the right lung base which may represent collapse of the rig ht lower lobe. Calcified granuloma is seen in the left mid lung zone and left lung base. The right cardiac border is obscured. No other interval change. IMPRESSION: 1. Interval removal of the endotracheal tube and nasogastric tubes with placement of a tracheostomy device. 2. Increased density right lung base which may represent collapse of the right lower lobe. POS: OFF
--- NOTE | 2019-09-03 14:01 | PDOC.HOSPP ---
- Subjective Subjective: Seen and examined. Neurologic status slowly improving. No family available at bedside this morning. Discussed case with RN and Pulmonology. - Objective Vital Signs & Weight: Vital Signs (12 hours) Temp Pulse Pulse Pulse Resp BP BP 09/03/19 12:00 09/03/19 11:00 101.5 F H 09/03/19 10:40 109 H 25 H 09/03/19 09:08 102 H 99 125/89 09/03/19 08:52 09/03/19 08:43 90 134/80 09/03/19 08:00 99.4 F 23 H 09/03/19 07:38 90 131/88 09/03/19 06:00 100.2 F H 22 H 09/03/19 04:00 100.5 F H 25 H 09/03/19 03:25 112 H 09/03/19 02:00 29 H BP Pulse Ox 09/03/19 12:00 98 09/03/19 11:00 09/03/19 10:40 94 L 09/03/19 09:08 135/88 09/03/19 08:52 99 09/03/19 08:43 09/03/19 08:00 99 09/03/19 07:38 09/03/19 06:00 09/03/19 04:00 09/03/19 03:25 09/03/19 02:00 Weight Admit Weight 173 lb 4.533 oz Weight 166 lb 10.711 oz Most Recent Monitor Data Heart Rate from ECG 111 NIBP 118/63 NIBP BP-Mean 81 Respiration from ECG 22 SpO2 98 I&O: 09/02/19 09/03/19 09/04/19 06:59 06:59 06:59 Intake Total 3052 2173 400 Output Total 3917 4362 478 Balance -903 -609 -77 Result Diagrams: 09/03/19 05:00 09/03/19 05:00 Hospitalist ROS - Review of Systems ROS unobtainable: due to mental status - Medication Medications: Active Medications Generic Name Dose Route Start Last Admin Trade Name Freq PRN Reason Stop Dose Admin Acetaminophen 650 mg 08/27/19 22:53 09/01/19 12:05 Tylenol [place] 650 mg Q4H PRN Administration Headache/Fever/Mild Pain (1-3) Acetaminophen 650 mg 09/01/19 09:28 09/03/19 11:25 Tylenol Elixir PER TUBE 650 mg Q6H PRN Administration Fever > 101 Albuterol/Ipratropium 3 ml 09/02/19 11:00 09/03/19 10:40 Duoneb NEB 3 ml [id number] JEAN-PAUL Administration Amlodipine Besylate 10 mg 08/29/19 09:00 09/03/19 08:43 Norvasc PER TUBE 10 mg DAILY JEAN-PAUL Administration Famotidine 20 mg 09/01/19 21:00 09/03/19 08:44 Pepcid PER TUBE 20 mg BID JEAN-PAUL Administration Hydralazine HCl 10 mg 08/28/19 20:34 09/02/19 05:07 Apresoline SLOW IVP 10 mg Q15M PRN Administration SBP > 140 Potassium Chloride 40 meq/ 270 mls @ 135 mls/hr 08/27/19 21:10 08/30/19 12:33 Sodium Chloride IVPB 270 mls ASDIR PRN Administration FOR SERUM K+ 2.5 - 3.5 Nicardipine HCl 50 mg/ Sodium 250 mls @ 0 mls/hr 08/27/19 23:00 08/27/19 23: 58 Chloride IV 250 mls INF JEAN-PAUL Administration Protocol As Directed Sodium Chloride 1,000 mls @ 75 mls/hr 08/27/19 23:15 09/03/19 03:22 Normal Saline 0.9% IV Not Given .[id number] JEAN-PAUL Ondansetron HCl 4 mg/ Sodium 52 mls @ 200 mls/hr 08/28/19 11:23 08/28/19 12: 46 Chloride IVPB 52 mls Q6HR PRN Administration Nausea/Vomiting Piperacillin Sod/Tazobactam 100 mls @ 200 mls/hr 09/02/19 06:00 09/03/19 11: 27 Sod 3.375 gm/ Sodium Chloride IVPB 100 mls Q6HR JEAN-PAUL Administration Vancomycin HCl 1 gm/ Device 200 mls @ 200 mls/hr 09/02/19 16:00 09/03/19 08: 43 IVPB 200 mls 0800,1600,2359 JEAN-PAUL Administration Propofol 1,000 mg 08/27/19 21:08 08/28/19 18:05 Diprivan IV 09/26/19 21:08 1,000 mg INF PRN Administration TO ACHIEVE GOAL RASS Protocol Scopolamine 1.5 mg 09/01/19 07:45 09/01/19 08:58 Transderm Scop TD 1.5 mg Q3D JEAN-PAUL Administration - Exam General Appearance: NAD, awake alert Eye: anicteric sclera ENT: moist mucosa Neck: supple, symmetric Heart: RRR, no murmur, no gallops, no rubs Respiratory: CTAB, no wheezes, no rales Gastrointestinal: soft, non-tender, non-distended, no guarding, no rigidity Extremities: no edema Skin: no lesions, no rashes Neurological: no new deficit Neurological - other findings: Follows on the right intermitently. Spont. movement on left Musculoskeletal: normal tone, no muscle wasting Psychiatric: not oriented Hosp A/P (1) Intracranial hemorrhage Code(s): I62.9 - NONTRAUMATIC INTRACRANIAL HEMORRHAGE, UNSPECIFIED Status: Acute (2) AMS (altered mental status) Code(s): R41.82 - ALTERED MENTAL STATUS, UNSPECIFIED Status: Acute (3) Acute respiratory failure Code(s): J96.00 - ACUTE RESPIRATORY FAILURE, UNSP W HYPOXIA OR HYPERCAPNIA Status: Acute (4) HTN (hypertension) Code(s): I10 - ESSENTIAL (PRIMARY) HYPERTENSION Status: Acute - Plan Plan: Intensive care unit neurosurgery consultation, recommendations appreciated pulmonary /critical-care consultation, recommendations appreciated neurology consultation, recommendations appreciated CT brain noted EVD in place, management per neurosurgery - starting weaning process S/p IVC filter S/p trach and peg on 09/[address] Shelton CXR noted, further plan per Pulmonology blood pressure control unsafe to wean from the vent at this time, SBT per pulm as able
[2019-09-03 15:50] LABS: Bilirubin Negative (Negative); Blood, Urine Small (Negative); Glucose, Urine (Dipstick) Negative (Negative); Leukocyte Negative (Negative); Nitrite Negative (Negative); Protein, Urine (Dipstick) Negative (Neg-Trace)
[2019-09-03 15:51] LABS: Clarity Clear (Clear)
[2019-09-03 16:01] LABS: Bacteria/HPF None Seen HPF (None Seen); RBC/HPF 0-3 HPF (0-3); WBC/HPF None Seen HPF (0-3)
[2019-09-03 16:02] LABS: Squamous Epithelial 0-3 HPF (0-3)
[2019-09-03] MEDS: hydrALAZINE 20 MG/ML VIAL SLOW IVP PRN (16:05)
--- NOTE | 2019-09-03 18:33 | PRG ---
DATE OF SERVICE: 09/03/2019 SUBJECTIVE: Kizzy Henson placed on T-collar today. She made it for most of the day, but had to be placed back with mechanical ventilation this evening because of secretions. OBJECTIVE: VITAL SIGNS: Heart rate is 102, blood pressure is 161/47 this afternoon. Intake and outputs, negative 609. LUNGS: Remarkable for mild bilateral rhonchi. HEART: Regular rhythm. ABDOMEN: Soft. EXTREMITIES: Without asymmetry. She had an inferior vena cava filter placed yesterday for popliteal clot. Chest radiograph today shows atelectasis of the right lower lobe. IMPRESSION: 1. Respiratory failure. 2. Status post tracheostomy. 3. Status post inferior vena cava filter for popliteal clot. 4. Fever. Her CSF was cultured today. 5. Status post placement of ventricular drain. 6. Thalamic bleed. We will continue to follow. Placed back on trach collar in morning. She may require bronchoscopy in the morning. CRITICAL CARE TIME: 30 minutes. Job ID: [id number]
[2019-09-04 03:35] LABS: Hemoglobin 9.8 g/dL (12.0-16.0)
[2019-09-04 03:36] LABS: #Eosinphils 0.1 thou/uL (0.0-0.7)
[2019-09-04 03:42] LABS: #Lymphocytes 1.4 thou/uL (1.20-3.40); #Monocytes 0.9 thou/uL (0.11-0.59); #Neutrophils 8.7 thou/uL (1.40-6.50); %Basophils 0.2 % (0.0-1.0); %Eosinophils 1.1 % (0.0-10.0); %Lymphocytes 12.6 % (21.0-51.0); %Monocytes 7.9 % (0.0-10.0); %Neutrophils 78.2 % (42.0-75.0); Mean Corpuscular HGB CONC 33.4 g/dL (32.0-36.0); Mean Corpuscular Hemoglobin 31.4 pg (27.0-31.0); Mean Platelet Volume 6.7 fL (7.4-10.4); Platelet Count 401 thou/uL (130-400); RBC Distribution Width 12.7 % (11.5-14.5); Red Blood Cell (RBC) Count 3.13 mill/uL (4.20-5.40); White Blood Cell (WBC) Count 11.1 thou/uL (4.8-10.8)
[2019-09-04 03:53] LABS: Anion Gap 12 mmol/L (10-20); BUN (Urea Nitrogen) 13 mg/dL (7.0-18.7); Calc. Creatinine Clearance 146 mL/min (70-130); Calcium 8.4 mg/dL (7.8-10.44); Carbon Dioxide 23 mmol/L (22-29); Chloride 106 mmol/L (98-107); Estimated GFR-MDRD Greater than 90; Glucose 130 mg/dL (70-105); Potassium 3.4 mmol/L (3.5-5.1); Sodium 138 mmol/L (136-145)
[2019-09-04] MEDS: Sodium Chloride 0.9% 1,000 ML IV SCH ×2 (04:38→15:13)
[2019-09-04] MEDS: Piperacillin/Tazobactam 3.375 GM in Sodium Chloride 0.9% 100 ML IVPB SCH ×3 (05:40→18:44)
--- NOTE | 2019-09-04 08:42 | PRG ---
DATE OF SERVICE: 09/04/2019 I saw Maria Elena Henson in the ICU this morning. We started the weaning process of her drain on Thursday; however, there is significant blood still in the fourth ventricle, and I think we are going to have to wait a few more days before restarting that weaning process. Fevers have been up yet again over the last 24 hours with a fever over 102 degrees Fahrenheit. Other vitals are stable. Ms. Henson does follow commands. She is weaker on the left than the right. Cultures have been negative today. Ms. Henson' fever could be from blood in her CSF where the small DVT that she has formed (IVC filter has been placed). We are going to continue to make sure she does not have any obvious sources of infection. We will consult Infectious Disease. We have constant access to CSF space and so for CSF cultures have been negative. Job ID: [id number]
[2019-09-04] MEDS: Scopolamine 1.5 mg/72 hour Patch TD SCH (09:16)
[2019-09-04] MEDS: Vancomycin HCl 1 GM in Premix Bag 1 BAG IVPB SCH ×2 (09:17→15:13)
[2019-09-04] MEDS: Acetaminophen 650 MG/20.3 ML UDCUP PER TUBE PRN ×2 (09:17→15:15)
[2019-09-04] MEDS: Amlodipine 10 MG TAB PER TUBE SCH (09:17)
--- NOTE | 2019-09-04 11:07 | PDOC.HOSPP ---
- Subjective Subjective: Seen and examined. Intubated. No significant clinical change. - Objective Vital Signs & Weight: Vital Signs (12 hours) Temp Pulse Resp BP Pulse Ox 09/04/19 10:39 94 29 H 96 09/04/19 09:17 104 H 128/67 09/04/19 06:39 100 09/04/19 06:38 111 H 28 H 100 09/04/19 06:00 24 H 09/04/19 04:00 22 H 09/04/19 03:00 99.7 F H 09/04/19 02:00 22 H 09/04/19 01:00 100.7 F H 09/04/19 00:00 23 H Weight Admit Weight 173 lb 4.533 oz Weight 164 lb 10.965 oz Most Recent Monitor Data Heart Rate from ECG 103 NIBP 128/67 NIBP BP-Mean 87 Respiration from ECG 26 SpO2 99 I&O: 09/03/19 09/04/19 09/05/19 06:59 06:59 06:59 Intake Total 2173 3656 Output Total 0452 2263 30 Balance -609 1393 -30 Result Diagrams: 09/04/19 03:23 09/04/19 03:23 Hospitalist ROS - Review of Systems All other systems reviewed; all pertinent +/- noted in HPI/Subj - Medication Medications: Active Medications Generic Name Dose Route Start Last Admin Trade Name Freq PRN Reason Stop Dose Admin Acetaminophen 650 mg 08/27/19 22:53 09/01/19 12:05 Tylenol [place] 650 mg Q4H PRN Administration Headache/Fever/Mild Pain (1-3) Acetaminophen 650 mg 09/01/19 09:28 09/04/19 09:17 Tylenol Elixir PER TUBE 650 mg Q6H PRN Administration Fever > 101 Albuterol/Ipratropium 3 ml 09/02/19 11:00 09/04/19 10:39 Duoneb NEB 3 ml [id number] JEAN-PAUL Administration Amlodipine Besylate 10 mg 08/29/19 09:00 09/04/19 09:17 Norvasc PER TUBE 10 mg DAILY JEAN-PAUL Administration Famotidine 20 mg 09/01/19 21:00 09/03/19 20:48 Pepcid PER TUBE 20 mg BID JEAN-PAUL Administration Hydralazine HCl 10 mg 08/28/19 20:34 09/03/19 16:05 Apresoline SLOW IVP 10 mg Q15M PRN Administration SBP > 140 Potassium Chloride 40 meq/ 270 mls @ 135 mls/hr 08/27/19 21:10 08/30/19 12:33 Sodium Chloride IVPB 270 mls ASDIR PRN Administration FOR SERUM K+ 2.5 - 3.5 Nicardipine HCl 50 mg/ Sodium 250 mls @ 0 mls/hr 08/27/19 23:00 08/27/19 23: 58 Chloride IV 250 mls INF JEAN-PAUL Administration Protocol As Directed Sodium Chloride 1,000 mls @ 75 mls/hr 08/27/19 23:15 09/04/19 04:38 Normal Saline 0.9% IV Not Given .[id number] JEAN-PAUL Ondansetron HCl 4 mg/ Sodium 52 mls @ 200 mls/hr 08/28/19 11:23 08/28/19 12: 46 Chloride IVPB 52 mls Q6HR PRN Administration Nausea/Vomiting Piperacillin Sod/Tazobactam 100 mls @ 200 mls/hr 09/02/19 06:00 09/04/19 05: 40 Sod 3.375 gm/ Sodium Chloride IVPB 100 mls Q6HR JEAN-PAUL Administration Vancomycin HCl 1 gm/ Device 200 mls @ 200 mls/hr 09/02/19 16:00 09/04/19 09: 17 IVPB 200 mls 0800,1600,2359 JEAN-PAUL Administration Propofol 1,000 mg 08/27/19 21:08 08/28/19 18:05 Diprivan IV 09/26/19 21:08 1,000 mg INF PRN Administration TO ACHIEVE GOAL RASS Protocol Scopolamine 1.5 mg 09/01/19 07:45 09/04/19 09:16 Transderm Scop TD 1.5 mg Q3D JEAN-PAUL Administration - Exam General Appearance: ill appearing Eye: anicteric sclera ENT: no oropharyngeal lesions, dry oral mucosa ENT - other findings: EVD in postition Neck: supple, symmetric Heart: no murmur, no gallops, no rubs Respiratory: no rales, normal chest expansion, rhonchi, tachypneic, wheezes Gastrointestinal: soft, non-tender, non-distended, normal bowel sounds, no guarding, no rigidity Extremities: 1+ LE edema Skin: no lesions, no rashes Neurological: no new deficit Neurological - other findings: Did not follow commands this AM, intermitently follows on the left Psychiatric: not oriented Hosp A/P (1) Intracranial hemorrhage Code(s): I62.9 - NONTRAUMATIC INTRACRANIAL HEMORRHAGE, UNSPECIFIED Status: Acute (2) AMS (altered mental status) Code(s): R41.82 - ALTERED MENTAL STATUS, UNSPECIFIED Status: Acute (3) Acute respiratory failure Code(s): J96.00 - ACUTE RESPIRATORY FAILURE, UNSP W HYPOXIA OR HYPERCAPNIA Status: Acute (4) HTN (hypertension) Code(s): I10 - ESSENTIAL (PRIMARY) HYPERTENSION Status: Acute - Plan Plan: Intensive care unit neurosurgery consultation, recommendations appreciated ID consultation, recommendations appreciated pulmonary /critical-care consultation, recommendations appreciated neurology consultation, recommendations appreciated CT brain report pending EVD in place, management per neurosurgery - starting weaning process S/p IVC filter S/p trach and peg on 09/[address] Shelton Cultures negative to date, possible neurogenic fever vs infectious - ID requested for further recommendations CXR noted, repeat pending this AM, consolidation vs less likely collapse further plan per Pulmonology blood pressure control SBT per pulm as able
--- NOTE | 2019-09-04 11:39 | CT ---
PRELIMINARY REPORT/[facility]/EMERGENCY AFTER HOURS PROCEDURE: PROCEDURE INFORMATION: Exam: CT Head without contrast Exam date and time: 09/04/2019 3:43 AM Clinical history: 43 years old, female; Condition or disease; Prior surgery; Patient HX: F/u ich; S/P hemicraniectomy TECHNIQUE: Imaging protocol: Computed tomography of the head without contrast. COMPARISON: CT Brain WO Con 09/02/2019 10:05 AM FINDINGS: Brain: Operative changes from recent occipital craniectomy without significant interval reduction in the parenchymal and intraventricular hemorrhage. There is persistent mild global cerebral edema which is slightly reduced from the prior examination. Right frontal ventriculostomy catheter remains in sa tisfactory and stable position. Approximately 6 mm of leftward subfalcine shift also unchanged from p rior examination. There is been slight enlargement of the ventricles compared with the prior examination. Ventricles: No ventriculomegaly. Bones/joints: Unremarkable. No acute fracture. Sinuses: Visualized sinuses are unremarkable. No fluid levels. Mastoid air cells: Visualized mastoid air cells are well aerated. Soft tissues: Unremarkable. IMPRESSION: Slight interval reduction in the global cerebral edema. Slight expansion of the ventricles, otherwise no significant interval change compared with September 02 examination Thank you for allowing us to participate in the care of your patient. Dictated and Authenticated by: Mamadou Heredia MD 09/04/2019 4:06 AM Central Time ([place] & [place]) FINAL REPORT EMERGENCY AFTER HOURS NONCONTRAST CT HEAD: Date: 09/04/19 HISTORY: Follow-up intracranial hemorrhage. Patient is post hemicraniectomy. COMPARISON: 09/02/19. IMPRESSION: Postoperative findings of suboccipital craniectomy are again noted. The previously described hemorrha ge centered in the region of the right thalamus with associated intraventricular extension of the hem orrhage is again seen. Volume of hemorrhage in the region of the fourth ventricle does appear improve d. Again noted is associated edema within each cerebellar hemisphere, which does not appear to be little reciably changed when compared to the prior exam. The ventricles are slightly larger in size when com pared to the recent study. However, there has been no additional significant interval change and no n ew areas of intraparenchymal or extra-axial hemorrhage is identified. Findings are in agreement with the preliminary report by [facility]. POS: OFF
[2019-09-04] MEDS: Famotidine 40 MG/5 ML Oral Suspension PER TUBE SCH ×2 (12:04→20:43)
--- NOTE | 2019-09-04 12:30 | RAD ---
PORTABLE AP CHEST X-RAY: HISTORY: Intracranial hemorrhage. Respiratory failure. Post tracheostomy placement. COMPARISON: 09/03/2019 FINDINGS: The patient is rotated to the right, which accentuates the right hilar structures, but there does little ear to be mild patchy density in the right hilar/infrahilar location, which may be related to volume loss, but the volume loss has improved when compared to the prior exam, where there appeared to be at least partial collapse of the right lower lobe. The left lung remains clear. The cardiac silhouette and pulmonary vasculature are within normal limits. Tracheostomy device is stable in position. No oth er interval change. IMPRESSION: Improvement in presumed collapse of a portion of the medial aspect of the right middle lobe noted on the prior examination. There is persistent patchy density in the right hilar/infrahilar region, likel y related to persistent atelectasis. Continued followup is recommended. POS: OFF
--- NOTE | 2019-09-04 14:48 | CON ---
DATE OF CONSULTATION: 09/04/2019 REASON FOR CONSULTATION: Fever. HISTORY OF PRESENT ILLNESS: A 43-year-old who does not have any reported medical history until the development of this event, where she became unresponsive at home with evidence of vomiting and was diagnosed with thalamic bleed and has had decompressive posterior craniectomy and laminectomy as well as an externalized ventricular drain device. She also had a diagnosed tibial vein thrombosis and had an IVC filter placed, which is a permanent IVC filter. The patient has remained febrile for the past many days ranging anywhere from 102.7 down to 99.8 and has received broad-spectrum antimicrobial coverage. Currently, she is unresponsive, having tremors throughout her body intermittently. She does not interact with the examiner, does not follow commands. She has not had any bowel movement yet. She has a gastrostomy tube placed with feedings started and she has a Lynne catheter in place. PAST MEDICAL HISTORY: Negative. PAST SURGICAL HISTORY: Negative. SOCIAL HISTORY: Never smoker. Lives with family in the area. ALLERGIES: NONE. MEDICATIONS: 1. Ativan. 2. Magnesium oxide. 3. Morphine. 4. Nicardipine. 5. Ondansetron. 6. Zosyn. 7. Potassium. 8. Propofol. 9. Scopolamine. 10. Vancomycin. PHYSICAL EXAMINATION: VITAL SIGNS: Temperature again started at 102.7 and has been consistently high since the very day of her admission ranging anywhere from 99.[address] to 103 throughout her hospital stay, blood pressure now is 112/64, she has never been hypertensive, pulse is 94, and O2 saturation 96%. She has a trach collar and has a tracheostomy in place. SKIN: Otherwise, no other areas of skin breakdown and she has a peripheral IV access. LYMPH: No lymphadenopathy. EYES: Conjugate, but I did not test her movements. I did not see any nystagmus. The left pupil is not responsive and about 3 mm. The right is 2 mm and responsive. NECK: There is no jugular vein distention. LUNGS: Coarse breath sounds, but no crackles noticeable. HEART: S1, S2. Regular rate. No S3 or S4. ABDOMEN: Soft, not distended or tender. No ascites. No bladder distention. The left side is weaker than the right. She does withdraw when stimulated in the left plantar aspect. The right side appears to have some flexion on stimulation. She is unresponsive right now, although her eyes open spontaneously. LABORATORY STUDIES: White cell count was 16.8 and now is 11.1, hemoglobin is down from 10 to 9.8, platelets are up to 401, 78% neutrophils. INR 1.0. PH of 7.43 , pO2 of 83. Sodium was 136, now 136 still, and creatinine is stable at 0.55. Liver profile normal. Albumin 2.9. Urinalysis was normal, and the CSF was submitted because of fever and we have 186 total white cells with 64% segmented neutrophils, 27% lymphocytes, RBCs are 4714. Cultures are negative thus far, no organism seen on Gram stain. Blood cultures and urine culture, no growth thus far. IMAGING STUDY: Last imaging study from today, chest x-ray with previous collapse portion of medial aspect of right middle lobe, some patchy density in the right middle lobe region likely due to atelectasis. ASSESSMENT: 1. Thalamic bleed, status post decompressive craniectomy, suboccipital with duraplasty and decompression of posterior fossa and cervical laminectomy as well as placement of an external ventricular drain, right frontal. 2. Fever, persistent since admission. 3. Lung changes noted above with atelectasis, possible early infiltrate. 4. Thromboembolism. DISCUSSION: The fairly usual scenario in this situation where patients frequently have fever and the task at hand is to rule out infectious causes, treat empirically until they are proven ruled out and continue supportive measures. It does not appear that she has bacterial or fungal meningitis and CSF at this point in time related to device, pneumonia might be present, thromboembolism with pulmonary embolism that may have developed before the placement of the IVC filter is also considered possible, and no evidence of an intraabdominal inflammatory process at this point in time. The tracheostomy and gastrostomy tube sites appear to be okay. Job ID: [id number] MTDD
--- NOTE | 2019-09-04 17:47 | PRG ---
DATE OF SERVICE: 09/04/2019 SUBJECTIVE: Maria Elena Henson continues with T-collar trials. She also continues to be intermittently febrile. She was seen by Dr. Marino today. CSF cultures are negative at 24 hours. PICC line culture is negative from the 4th. Peripheral left hand culture is negative from the 4th. Urine culture from the 4th is negative. OBJECTIVE: LUNGS: Remarkable for rhonchi bilaterally. HEART: Regular rhythm. ABDOMEN: Soft and nontender. EXTREMITIES: Without asymmetry. LABORATORY DATA: Chest x-ray shows improvement in her right base, where she had atelectasis yesterday. IMPRESSION: 1. Atelectasis, retained secretions secondary to her central nervous system events. 2. Status post tracheostomy and percutaneous endoscopic gastrostomy placement. 3. Popliteal vein clot, status post inferior vena cava filter. 4. Ongoing fever, now being followed by Infectious Disease. PLAN: We will continue supportive care. Job ID: [id number]
[2019-09-05] MEDS: Piperacillin/Tazobactam 3.375 GM in Sodium Chloride 0.9% 100 ML IVPB SCH ×4 (00:30→17:18)
[2019-09-05] MEDS: Acetaminophen 650 MG/20.3 ML UDCUP PER TUBE PRN ×4 (00:31→21:26)
[2019-09-05] MEDS: Vancomycin HCl 1 GM in Premix Bag 1 BAG IVPB SCH (00:31)
[2019-09-05 05:46] LABS: Anion Gap 14 mmol/L (10-20); BUN (Urea Nitrogen) 11 mg/dL (7.0-18.7); Calc. Creatinine Clearance 158 mL/min (70-130); Calcium 8.1 mg/dL (7.8-10.44); Carbon Dioxide 23 mmol/L (22-29); Chloride 105 mmol/L (98-107); Estimated GFR-MDRD Greater than 90; Glucose 118 mg/dL (70-105); Potassium 3.9 mmol/L (3.5-5.1); Sodium 138 mmol/L (136-145)
[2019-09-05 05:54] LABS: #Basophils 0.1 thou/uL (0.0-0.2); #Eosinphils 0.2 thou/uL (0.0-0.7); #Lymphocytes 1.7 thou/uL (1.20-3.40); #Monocytes 0.9 thou/uL (0.11-0.59); #Neutrophils 7.2 thou/uL (1.40-6.50); %Basophils 0.8 % (0.0-1.0); %Eosinophils 1.8 % (0.0-10.0); %Lymphocytes 17.1 % (21.0-51.0); %Monocytes 9.3 % (0.0-10.0); %Neutrophils 71.1 % (42.0-75.0); Hemoglobin 10.8 g/dL (12.0-16.0); Mean Corpuscular HGB CONC 31.5 g/dL (32.0-36.0); Mean Corpuscular Hemoglobin 29.5 pg (27.0-31.0); Mean Corpuscular Volume 93.9 fL (78.0-98.0); Platelet Count 242 thou/uL (130-400); RBC Distribution Width 12.8 % (11.5-14.5); Red Blood Cell (RBC) Count 3.67 mill/uL (4.20-5.40); White Blood Cell (WBC) Count 10.2 thou/uL (4.8-10.8)
--- NOTE | 2019-09-05 07:37 | PDOC.HOSPP ---
- Subjective Encounter Date: 09/05/19 Encounter Time: 07:35 non-verbal Subjective: no appropriate response to verbal stimuli - Objective Vital Signs & Weight: Vital Signs (12 hours) Temp Pulse Resp Pulse Ox 09/05/19 07:25 100 09/05/19 07:23 101 H 31 H 98 09/05/19 04:00 98.9 F 09/05/19 02:00 99.1 F 09/05/19 00:00 101.2 F H 09/04/19 20:00 99.5 F 100 Weight Admit Weight 173 lb 4.533 oz Weight 164 lb 14.492 oz Most Recent Monitor Data Heart Rate from ECG 105 NIBP 96/73 NIBP BP-Mean 80 Respiration from ECG 24 SpO2 99 I&O: 09/04/19 09/05/19 09/06/19 06:59 06:59 06:59 Intake Total 3656 3503 Output Total 2263 3089 Balance 1393 414 Result Diagrams: 09/05/19 05:17 09/05/19 05:17 Hospitalist ROS - Medication Medications: Active Medications Generic Name Dose Route Start Last Admin Trade Name Freq PRN Reason Stop Dose Admin Acetaminophen 650 mg 08/27/19 22:53 09/01/19 12:05 Tylenol [place] 650 mg Q4H PRN Administration Headache/Fever/Mild Pain (1-3) Acetaminophen 650 mg 09/01/19 09:28 09/05/19 00:31 Tylenol Elixir PER TUBE 650 mg Q6H PRN Administration Fever > 101 Albuterol/Ipratropium 3 ml 09/02/19 11:00 09/05/19 07:23 Duoneb NEB 3 ml [id number] JEAN-PAUL Administration Amlodipine Besylate 10 mg 08/29/19 09:00 09/04/19 09:17 Norvasc PER TUBE 10 mg DAILY JEAN-PAUL Administration Famotidine 20 mg 09/01/19 21:00 09/04/19 20:43 Pepcid PER TUBE 20 mg BID JEAN-PAUL Administration Hydralazine HCl 10 mg 08/28/19 20:34 09/03/19 16:05 Apresoline SLOW IVP 10 mg Q15M PRN Administration SBP > 140 Potassium Chloride 40 meq/ 270 mls @ 135 mls/hr 08/27/19 21:10 08/30/19 12:33 Sodium Chloride IVPB 270 mls ASDIR PRN Administration FOR SERUM K+ 2.5 - 3.5 Nicardipine HCl 50 mg/ Sodium 250 mls @ 0 mls/hr 08/27/19 23:00 08/27/19 23: 58 Chloride IV 250 mls INF JEAN-PAUL Administration Protocol As Directed Sodium Chloride 1,000 mls @ 75 mls/hr 08/27/19 23:15 09/04/19 15:13 Normal Saline 0.9% IV 1,000 mls .[id number] JEAN-PAUL Administration Ondansetron HCl 4 mg/ Sodium 52 mls @ 200 mls/hr 08/28/19 11:23 08/28/19 12: 46 Chloride IVPB 52 mls Q6HR PRN Administration Nausea/Vomiting Piperacillin Sod/Tazobactam 100 mls @ 200 mls/hr 09/02/19 06:00 09/05/19 05: 46 Sod 3.375 gm/ Sodium Chloride IVPB 100 mls Q6HR JEAN-PAUL Administration Vancomycin HCl 1 gm/ Device 200 mls @ 200 mls/hr 09/02/19 16:00 09/05/19 00: 31 IVPB 200 mls 0800,1600,2359 JEAN-PAUL Administration Propofol 1,000 mg 08/27/19 21:08 08/28/19 18:05 Diprivan IV 09/26/19 21:08 1,000 mg INF PRN Administration TO ACHIEVE GOAL RASS Protocol Scopolamine 1.5 mg 09/01/19 07:45 09/04/19 09:16 Transderm Scop TD 1.5 mg Q3D JEAN-PAUL Administration - Exam Neck: no JVD Heart: RRR, no murmur Respiratory - other findings: trach , coarse BS Gastrointestinal: soft, non-tender, non-distended, normal bowel sounds, no bruit Extremities: no edema Hosp A/P (1) Encephalopathy acute Code(s): G93.40 - ENCEPHALOPATHY, UNSPECIFIED Status: Acute (2) Acute respiratory failure Code(s): J96.00 - ACUTE RESPIRATORY FAILURE, UNSP W HYPOXIA OR HYPERCAPNIA Status: Acute Qualifiers: Respiratory failure complication: hypoxia Qualified Code(s): J96.01 - Acute respiratory failure with hypoxia (3) HTN (hypertension) Code(s): I10 - ESSENTIAL (PRIMARY) HYPERTENSION Status: Chronic Qualifiers: Hypertension type: essential hypertension Qualified Code(s): I10 - Essential (primary) hypertension (4) Intracranial hemorrhage Code(s): I62.9 - NONTRAUMATIC INTRACRANIAL HEMORRHAGE, UNSPECIFIED Status: Acute (5) Fever Code(s): R50.9 - FEVER, UNSPECIFIED Status: Acute - Plan post PEG/trach ON tube feedings, meds HTN controlled om broad spectrum antibx
--- NOTE | 2019-09-05 07:55 | RAD ---
Chest one view HISTORY: Pneumonia. Follow-up. COMPARISON: 09/04/2019. FINDINGS: Right cardiac margin remains obscured by infiltrate within the medial segment right middle lobe. Parenchymal opacity extending into the lateral segment right middle lobe has increased. Right hemidiaphragm remains elevated. Shallow inspiration accentuates pulmonary markings that are upper limits of normal. Tracheostomy appl iance in place. No evidence of pneumothorax. IMPRESSION: Interval worsening of atelectasis within the right middle lobe.
[2019-09-05] MEDS: Sodium Chloride 0.9% 1,000 ML IV SCH ×2 (07:58→21:25)
[2019-09-05] MEDS: Amlodipine 10 MG TAB PER TUBE SCH (07:59)
--- NOTE | 2019-09-05 08:51 | PRG ---
DATE OF SERVICE: 09/05/2019 I saw Ms. Henson in the ICU this morning. She has been off the ventilator and tolerating a trach collar. This is an improvement. No other events were reported. Her T-max over the last 24 hours was 101.2 degrees Fahrenheit. Her white blood cell count is down to 10.2. On examination, Ms. Henson responds to Turkmen. She wiggles her toes and squeezes my hand. She has some jerking movements of the upper extremities, but these are not seizures. We are going to plan for Ms. Henson a CT examination of the brain tomorrow. If blood is clearing from her ventricular system, then we will restart the weaning process for her EVD. She is clinically better than she has been and we are continuing to follow cultures. Job ID: [id number]
--- NOTE | 2019-09-05 09:10 | PRG ---
DATE OF SERVICE: 09/05/2019 SUBJECTIVE: The patient remains in the CCU. She has been weaned off mechanical ventilation. She is apparently intermittently following some commands. OBJECTIVE: VITAL SIGNS: Her temperature is 98.9 with a T-max of 101.6 yesterday, pulse is 106, and blood pressure 127/63. A 24-hour intake 3503 and output 3089. HEENT: Bandage and drain in place. NECK: Tracheostomy in good position. LUNGS: Clear anteriorly. CARDIAC: S1 and S2. Regular. ABDOMEN: Soft and nontender. EXTREMITIES: No edema. NEUROLOGIC: She appears to be moving all four extremities, but has significant spasticity present. LABORATORY DATA: White blood cell count 10.2, hematocrit 34.4, and platelet count 242. Sodium 138, potassium 3.9, chloride 105, CO2 of 23, BUN 11, creatinine 0.5, and glucose 118. Her chest x-ray shows some atelectatic changes on the right. ASSESSMENT: 1. Status post thalamic bleed. 2. Respiratory failure, requiring tracheostomy. PLAN: At this point, the best course of action is supportive care. I think the fever is probably central in nature, since nothing has grown from her cultures. I will go ahead and stop the vancomycin. She will continue on Zosyn. Remainder of her care per Neurosurgery. Of note, she currently has an IVC filter in place for popliteal vein clot. Job ID: [id number]
[2019-09-05] MEDS: Famotidine 40 MG/5 ML Oral Suspension PER TUBE SCH ×2 (09:28→21:25)
--- NOTE | 2019-09-05 13:38 | PRG ---
DATE OF SERVICE: 09/05/2019 SUBJECTIVE: She seems to be more awake. Her eyes are open and she will establish eye contact briefly. The ventriculostomy tube in place with a trach and PEG tubes. OBJECTIVE: VITAL SIGNS: Temperature seems to have trending downward a bit now. She had 102 at 8:00 and now it is 98.8. We will see if this trend continues or not. BP 113/67, heart rate 98. HEENT: Her pupils are about the same as last time. The left one does not move very much. LUNGS: Somewhat coarse breath sounds. HEART: S1 and S2, regular rate. ABDOMEN: Soft. She seems to have muscle tone in all 4 extremities and plantar responses are flexor. LABORATORY DATA: White cell count down to 10.2, hemoglobin 10.8, platelets 242. Creatinine 0.53. Microbiology, negative cultures thus far. Chest x-ray with areas of atelectases. ASSESSMENT AND DISCUSSION: Thalamic bleed with decompressive craniectomy and posterior fossa decompression and cervical laminectomy, external ventricular drain placement in right frontal ventricle, and persistent fever. Possible pneumonia versus inflammatory changes of potential pulmonary embolism prior to placement of IVC filter. Device associated infection appears to be less likely. There might be some trend towards improvement in the temperature curve. Also, intracerebral bleed sometimes can be associated with fever. Job ID: [id number]
[2019-09-06] MEDS: Piperacillin/Tazobactam 3.375 GM in Sodium Chloride 0.9% 100 ML IVPB SCH ×5 (01:47→23:14)
[2019-09-06 05:28] LABS: #Eosinphils 0.3 thou/uL (0.0-0.7); #Lymphocytes 1.5 thou/uL (1.20-3.40); #Monocytes 0.9 thou/uL (0.11-0.59); #Neutrophils 8.4 thou/uL (1.40-6.50); %Basophils 0.3 % (0.0-1.0); %Eosinophils 2.5 % (0.0-10.0); %Lymphocytes 13.6 % (21.0-51.0); %Monocytes 7.9 % (0.0-10.0); %Neutrophils 75.7 % (42.0-75.0); Hemoglobin 10.6 g/dL (12.0-16.0); Mean Corpuscular HGB CONC 32.6 g/dL (32.0-36.0); Mean Corpuscular Hemoglobin 30.5 pg (27.0-31.0); Mean Corpuscular Volume 93.5 fL (78.0-98.0); Mean Platelet Volume 6.6 fL (7.4-10.4); Platelet Count 497 thou/uL (130-400); RBC Distribution Width 12.6 % (11.5-14.5); Red Blood Cell (RBC) Count 3.49 mill/uL (4.20-5.40); White Blood Cell (WBC) Count 11.1 thou/uL (4.8-10.8)
[2019-09-06] MEDS: Acetaminophen 650 MG/20.3 ML UDCUP PER TUBE PRN ×2 (05:28→16:05)
[2019-09-06 05:45] LABS: Anion Gap 14 mmol/L (10-20); BUN (Urea Nitrogen) 13 mg/dL (7.0-18.7); Calc. Creatinine Clearance 154 mL/min (70-130); Calcium 8.9 mg/dL (7.8-10.44); Carbon Dioxide 22 mmol/L (22-29); Chloride 105 mmol/L (98-107); Estimated GFR-MDRD Greater than 90; Glucose 111 mg/dL (70-105); Potassium 3.8 mmol/L (3.5-5.1); Sodium 137 mmol/L (136-145)
--- NOTE | 2019-09-06 07:57 | CT ---
PRELIMINARY REPORT/[facility]/EMERGENCY AFTER HOURS PROCEDURE: PROCEDURE INFORMATION: Exam: CT Head Without Contrast Exam date and time: 09/06/2019 4:05 AM Clinical history: 43 years old, female; Condition or disease; Prior surgery; Surgery date: 3-7 days p ost-operative; Surgery type: Hemicraniectomy; Patient HX: F/u ich TECHNIQUE: Imaging protocol: Computed tomography of the head without contrast. COMPARISON: CT Brain WO Con 09/04/2019 3:43 AM FINDINGS: Tubes, catheters and devices: Right frontal ventriculostomy catheter remains stable position. Brain: Operative changes from recent occipital craniectomy are redemonstrated. Interval redemonstrati on of the parenchymal and intraventricular hemorrhage. Midline shift: Leftward mild shift is unchanged from prior examination. Ventricles: The ventricles are not sigificantly changed in size compared with the prior examination. No ventriculomegaly. Bones/joints: Unchanged right frontal annamarie hole and occipital craniectomy . No acute fracture. Sinuses: Persistent right sphenoid sinus opacifification. Mastoid air cells: Mastoid air cells are aerated. Soft tissues: Unchanged surgical changes. IMPRESSION: No significant interval change. Thank you for allowing us to participate in the care of your patient. Dictated and Authenticated by: Annie Cash MD 09/06/2019 4:22 AM Central Time ([place] & [place]) FINAL REPORT HEAD CT WITHOUT CONTRAST: Date: 09/06/19 COMPARISON: 09/04/19. HISTORY: Follow-up intracranial hemorrhage. FINDINGS: Redemonstration of intracranial hemorrhage centered in the right thalamus with extension of intravent ricular blood. The amount of intraventricular hemorrhage has not significantly changed. There is a st able ventriculoperitoneal shunt catheter via the right frontal approach. Distal tip is stable in term s of position. There is postoperative change secondary to decompression of the posterior fossa. Expec fanny postoperative fluid, hemorrhage, and air attenuation is noted. Stable opacification of the ethmoid air cells. IMPRESSION: This report is in agreement with the preliminary report by [facility]. Stable intracranial hemorrhage, as w ell as interventional/postsurgical change. POS: [facility]
[2019-09-06] MEDS: Amlodipine 10 MG TAB PER TUBE SCH (08:22)
[2019-09-06] MEDS: Famotidine 40 MG/5 ML Oral Suspension PER TUBE SCH ×2 (08:22→21:02)
--- NOTE | 2019-09-06 08:43 | PDOC.HOSPP ---
- Subjective Encounter Date: 09/06/19 Encounter Time: 08:42 Subjective: unresponsive - Objective Vital Signs & Weight: Vital Signs (12 hours) Temp Pulse Resp BP Pulse Ox 09/06/19 08:22 86 107/75 09/06/19 07:50 83 24 H 100 09/06/19 07:00 98.6 F 09/06/19 05:00 101.5 F H 09/06/19 03:00 100.0 F H 09/05/19 22:58 99.2 F 09/05/19 21:00 100.5 F H Weight Admit Weight 173 lb 4.533 oz Weight 163 lb 2.273 oz Most Recent Monitor Data Heart Rate from ECG 82 NIBP 107/75 NIBP BP-Mean 85 Respiration from ECG 25 SpO2 93 I&O: 09/05/19 09/06/19 09/07/19 06:59 06:59 06:59 Intake Total 3503 3086 Output Total 3086 3420 212 Balance 528 -329 -979 Result Diagrams: 09/06/19 04:59 09/06/19 04:59 Hospitalist ROS - Medication Medications: Active Medications Generic Name Dose Route Start Last Admin Trade Name Freq PRN Reason Stop Dose Admin Acetaminophen 650 mg 08/27/19 22:53 09/01/19 12:05 Tylenol [place] 650 mg Q4H PRN Administration Headache/Fever/Mild Pain (1-3) Acetaminophen 650 mg 09/01/19 09:28 09/06/19 05:28 Tylenol Elixir PER TUBE 650 mg Q6H PRN Administration Fever > 101 Albuterol/Ipratropium 3 ml 09/02/19 11:00 09/06/19 07:50 Duoneb NEB 3 ml [id number] JEAN-PAUL Administration Amlodipine Besylate 10 mg 08/29/19 09:00 09/06/19 08:22 Norvasc PER TUBE 10 mg DAILY JEAN-PAUL Administration Famotidine 20 mg 09/01/19 21:00 09/06/19 08:22 Pepcid PER TUBE 20 mg BID JEAN-PAUL Administration Hydralazine HCl 10 mg 08/28/19 20:34 09/03/19 16:05 Apresoline SLOW IVP 10 mg Q15M PRN Administration SBP > 140 Potassium Chloride 40 meq/ 270 mls @ 135 mls/hr 08/27/19 21:10 08/30/19 12:33 Sodium Chloride IVPB 270 mls ASDIR PRN Administration FOR SERUM K+ 2.5 - 3.5 Nicardipine HCl 50 mg/ Sodium 250 mls @ 0 mls/hr 08/27/19 23:00 08/27/19 23: 58 Chloride IV 250 mls INF JEAN-PAUL Administration Protocol As Directed Sodium Chloride 1,000 mls @ 75 mls/hr 08/27/19 23:15 09/05/19 21:25 Normal Saline 0.9% IV 1,000 mls .[id number] JEAN-PAUL Administration Ondansetron HCl 4 mg/ Sodium 52 mls @ 200 mls/hr 08/28/19 11:23 08/28/19 12: 46 Chloride IVPB 52 mls Q6HR PRN Administration Nausea/Vomiting Piperacillin Sod/Tazobactam 100 mls @ 200 mls/hr 09/02/19 06:00 09/06/19 05: 28 Sod 3.375 gm/ Sodium Chloride IVPB 100 mls Q6HR JEAN-PAUL Administration Propofol 1,000 mg 08/27/19 21:08 08/28/19 18:05 Diprivan IV 09/26/19 21:08 1,000 mg INF PRN Administration TO ACHIEVE GOAL RASS Protocol Scopolamine 1.5 mg 09/01/19 07:45 09/04/19 09:16 Transderm Scop TD 1.5 mg Q3D JEAN-PAUL Administration - Exam ENT - other findings: trach Neck: no JVD Heart: RRR, no murmur Respiratory - other findings: coarse BS Gastrointestinal: soft, non-tender, normal bowel sounds Extremities: 1+ LE edema Hosp A/P (1) Encephalopathy acute Code(s): G93.40 - ENCEPHALOPATHY, UNSPECIFIED Status: Acute (2) Acute respiratory failure Code(s): J96.00 - ACUTE RESPIRATORY FAILURE, UNSP W HYPOXIA OR HYPERCAPNIA Status: Acute Qualifiers: Respiratory failure complication: hypoxia Qualified Code(s): J96.01 - Acute respiratory failure with hypoxia (3) HTN (hypertension) Code(s): I10 - ESSENTIAL (PRIMARY) HYPERTENSION Status: Chronic Qualifiers: Hypertension type: essential hypertension Qualified Code(s): I10 - Essential (primary) hypertension (4) Intracranial hemorrhage Code(s): I62.9 - NONTRAUMATIC INTRACRANIAL HEMORRHAGE, UNSPECIFIED Status: Acute (5) Fever Code(s): R50.9 - FEVER, UNSPECIFIED Status: Acute - Plan post PEG/trach ON tube feedings, meds HTN controlled om broad spectrum antibx discussed with scrap piler
--- NOTE | 2019-09-06 08:50 | RAD ---
Chest one view HISTORY: Pneumonia. Follow-up. COMPARISON: 09/05/2019. FINDINGS: Cardiac silhouette is magnified by projection. Right cardiac margin remains obscured by ate lectasis of the medial segment right lobe. Mediastinum is midline. Tracheostomy appliance in place. Pulmonary vasculature upper limits of normal and accentuated by shallow inspiration. No evidence of p neumothorax. IMPRESSION: Right middle lobe atelectasis and other findings are stable.
--- NOTE | 2019-09-06 09:41 | PRG ---
DATE OF SERVICE: 09/06/2019 I saw Ms. Henson in her ICU room this morning. Nurses do not report any events overnight. Her T-max in the last 24 hours was 101.5 degrees Fahrenheit, but her other vital signs have been stable. On examination, Ms. Henson moves her fingers and toes on the right side to command. There is some purposeful motion on the left. There is no CSF drainage from her posterior occipital incision. Total CSF found on the last day was about [address] scan of the brain was done this morning. There is less blood in the ventricular system, but there is still some in the fourth ventricle. Ms. Henson' intraventricular hemorrhage is going away. Soon we will need to see if she can circulate cerebrospinal fluid on her own rather than through the external ventricular drain. I will begin that process slowly today by raising the drain to 10 cm of water. We will leave that open and at 10 cm for 2 days before raising it to 15 for 2 days and then clamping. I would like to wean the drain slowly so as not accumulate too much CSF pressure in the suboccipital region and allow the incision to heal. We will leave the drain clamped likely for 2 days to see if any hydrocephalus develops. The drain could be re-opened thereafter and weaned again, where a permanent diversion device could be placed. Job ID: [id number] [facility]
--- NOTE | 2019-09-06 10:05 | PRG ---
DATE OF SERVICE: 09/06/2019 SUBJECTIVE: The patient is up in a neuro chair today. She is following some commands especially on her right side. OBJECTIVE: VITAL SIGNS: Her temperature is 98.6 with a T-max of 102.1, pulse is 82, blood pressure 107/75. A 24-hour intake 3086, output 3427. HEENT: Unremarkable. NECK: Trach in good position. LUNGS: Clear anteriorly. CARDIAC: S1 and S2. Regular. ABDOMEN: Soft. EXTREMITIES: Generalized mild edema throughout. LABORATORY DATA: White blood cell count 11.1, hematocrit 32.6, and platelet count 497. Sodium 137, potassium 3.8, chloride 105, CO2 of 22, BUN 13, creatinine 0.5, glucose 111. IMAGING STUDIES: Chest x-ray looks clear. ASSESSMENT: 1. Status post thalamic hemorrhage. 2. Respiratory failure, requiring tracheostomy. 3. Continued intermittent fever despite antibiotic therapy. PLAN: We are continuing supportive care with enteral tube feeds, tracheal suctioning, and antibiotics. My plan would be not to extend her antibiotics beyond 7 days. Further care per Neurosurgical Team. Job ID: [id number]
[2019-09-06] MEDS: Sodium Chloride 0.9% 1,000 ML IV SCH ×2 (11:11→23:14)
--- NOTE | 2019-09-06 17:19 | PRG ---
DATE OF SERVICE: 09/06/2019 SUBJECTIVE: Ms. Henson is lying on the right lateral decubitus. She keeps her eyes open and neurological status is about the same as before. She does have muscle tone in all 4 extremities. Ventriculostomy device in place. No diarrhea. No bowel output actually. Receiving enteric feedings with low gastric residue. OBJECTIVE: VITAL SIGNS: The temperature trends are down from previous. HEENT: Pupils are again the same as before with less reactivity on the left side 4 mm compared with 3 mm on the right. LUNGS: With somewhat coarse breath sounds. The respiratory secretions from the tracheostomy have improved markedly. HEART: S1 and S2. Regular rate. ABDOMEN: Soft, not distended or tender. LABORATORY DATA: White cell count 11.1, hemoglobin 10.6, and platelets 497. Sodium 138 and creatinine 0.53. The CSF fluid cultures preliminary, no organisms seen, no growth in [address] days[address] A repeat brain CT from today shows intracranial hemorrhage centered in the right thalamus extension in the interventricular area. The hemorrhage is not significantly changed, stable ventriculostomy shunt, right frontal approach. ASSESSMENT AND DISCUSSION: Thalamic bleed with decompressive craniectomy and posterior fossa decompression, cervical laminectomy, and external ventricular drain placement in the right frontal ventricle. Fever curve is improving. Possibility of pneumonia is considered including the possibility of thromboembolism, which might have occurred prior to the IVC filter placement and also the possibility of fever associated with the thermal dysregulation from the intracranial bleed. Job ID: [id number]
[2019-09-07] MEDS: Piperacillin/Tazobactam 3.375 GM in Sodium Chloride 0.9% 100 ML IVPB SCH ×4 (06:04→23:30)
[2019-09-07 07:11] LABS: #Basophils 0.1 thou/uL (0.0-0.2); #Eosinphils 0.3 thou/uL (0.0-0.7); #Lymphocytes 1.4 thou/uL (1.20-3.40); #Monocytes 0.6 thou/uL (0.11-0.59); #Neutrophils 10.3 thou/uL (1.40-6.50); %Basophils 0.4 % (0.0-1.0); %Eosinophils 2.2 % (0.0-10.0); %Lymphocytes 11.1 % (21.0-51.0); %Monocytes 4.8 % (0.0-10.0); %Neutrophils 81.5 % (42.0-75.0); Hemoglobin 11.1 g/dL (12.0-16.0); Mean Corpuscular HGB CONC 34.4 g/dL (32.0-36.0); Mean Corpuscular Hemoglobin 31.9 pg (27.0-31.0); Mean Corpuscular Volume 92.6 fL (78.0-98.0); Mean Platelet Volume 6.8 fL (7.4-10.4); Platelet Count 501 thou/uL (130-400); RBC Distribution Width 12.8 % (11.5-14.5); Red Blood Cell (RBC) Count 3.47 mill/uL (4.20-5.40); White Blood Cell (WBC) Count 12.7 thou/uL (4.8-10.8)
[2019-09-07 07:17] LABS: Anion Gap 14 mmol/L (10-20); BUN (Urea Nitrogen) 11 mg/dL (7.0-18.7); Calc. Creatinine Clearance 147 mL/min (70-130); Calcium 8.9 mg/dL (7.8-10.44); Carbon Dioxide 25 mmol/L (22-29); Chloride 103 mmol/L (98-107); Estimated GFR-MDRD Greater than 90; Glucose 145 mg/dL (70-105); Potassium 4.1 mmol/L (3.5-5.1); Sodium 138 mmol/L (136-145)
--- NOTE | 2019-09-07 08:10 | PRG ---
DATE OF SERVICE: 09/07/2019 SUBJECTIVE: Ms. Henson is up in a neuro chair. She does not look much different than before. OBJECTIVE: VITAL SIGNS: Temperature is 99.2, pulse 85, blood pressure 127/79, and O2 saturation 99%. A 24-hour intake 3006 and output 3256 mL. HEENT: Unchanged. NECK: Trach with secretions. LUNGS: Coarse rhonchi. CARDIAC: S1 and S2. Regular. ABDOMEN: Soft. EXTREMITIES: Generalized edema throughout. LABORATORY DATA: Sodium 138, potassium 4.1, chloride 103, CO2 of 25, BUN 11, creatinine 0.5, and glucose 145. White blood cell count 12.7, hematocrit 32.1, and platelet count 501. ASSESSMENT: 1. Status post thalamic bleed. 2. Dense left hemiparesis. 3. Status post respiratory failure requiring a trach for pulmonary toilet measures. 4. Intermittent fever, which appears to be better. PLAN: 1. Continue antibiotics and finish out a full 7-day course. 2. Need to start thinking about placement as she is unlikely to improve much beyond what we see right now. Job ID: [id number]
--- NOTE | 2019-09-07 08:17 | PRG ---
DATE OF SERVICE: 09/07/2019 I saw Ms. Henson in her ICU room this morning. She is up in a MEDIchair next to the bed as I came in the room. The nurses do not report any events overnight. T-max was 101.5 degrees yesterday. Overall, her fever curve is down from the day before. Other vitals have been stable. On neurological examination of Ms. Henson, her eyes are open as I entered the room today. She follows commands on the right side. She has been weaker on the left. White blood cell count is slightly up from previous lab values. My plan for Ms. Henson is to leave her drain at 10 cm of water today. She is tolerating it neurologically. Tomorrow, we will go up to 15 in the morning. Tomorrow, we will get a CT scan. Two days later, we will follow up that scan with another and perhaps clamp the drain thereafter depending on the results of the imaging. I appreciate the help with Dr. Marino to follow her cultures and fever curve over time. Job ID: [id number] [facility]
--- NOTE | 2019-09-07 08:24 | PDOC.HOSPP ---
- Subjective Encounter Date: 09/07/19 Encounter Time: 08:22 Subjective: unresponsive to verbal stimuli - Objective Vital Signs & Weight: Vital Signs (12 hours) Temp Pulse Resp 09/07/19 08:00 98.8 F 09/07/19 07:11 90 32 H 09/07/19 04:00 99.2 F 09/07/19 00:00 99.1 F Weight Admit Weight 173 lb 4.533 oz Weight 162 lb 4.163 oz Most Recent Monitor Data Heart Rate from ECG 91 NIBP 120/82 NIBP BP-Mean 94 Respiration from ECG 20 SpO2 97 I&O: 09/06/19 09/07/19 09/08/19 06:59 06:59 06:59 Intake Total 3086 3006 Output Total 5040 5010 176 Balance -341 -117 -364 Result Diagrams: 09/07/19 06:57 09/07/19 06:57 Hospitalist ROS - Medication Medications: Active Medications Generic Name Dose Route Start Last Admin Trade Name Freq PRN Reason Stop Dose Admin Acetaminophen 650 mg 08/27/19 22:53 09/01/19 12:05 Tylenol [place] 650 mg Q4H PRN Administration Headache/Fever/Mild Pain (1-3) Acetaminophen 650 mg 09/01/19 09:28 09/06/19 16:05 Tylenol Elixir PER TUBE 650 mg Q6H PRN Administration Fever > 101 Albuterol/Ipratropium 3 ml 09/02/19 11:00 09/07/19 07:11 Duoneb NEB 3 ml [id number] JEAN-PAUL Administration Amlodipine Besylate 10 mg 08/29/19 09:00 09/06/19 08:22 Norvasc PER TUBE 10 mg DAILY JEAN-PAUL Administration Famotidine 20 mg 09/01/19 21:00 09/06/19 21:02 Pepcid PER TUBE 20 mg BID JEAN-PAUL Administration Hydralazine HCl 10 mg 08/28/19 20:34 09/03/19 16:05 Apresoline SLOW IVP 10 mg Q15M PRN Administration SBP > 140 Potassium Chloride 40 meq/ 270 mls @ 135 mls/hr 08/27/19 21:10 08/30/19 12:33 Sodium Chloride IVPB 270 mls ASDIR PRN Administration FOR SERUM K+ 2.5 - 3.5 Nicardipine HCl 50 mg/ Sodium 250 mls @ 0 mls/hr 08/27/19 23:00 08/27/19 23: 58 Chloride IV 250 mls INF JEAN-PAUL Administration Protocol As Directed Sodium Chloride 1,000 mls @ 75 mls/hr 08/27/19 23:15 09/06/19 23:14 Normal Saline 0.9% IV 1,000 mls .[id number] JEAN-PAUL Administration Ondansetron HCl 4 mg/ Sodium 52 mls @ 200 mls/hr 08/28/19 11:23 08/28/19 12: 46 Chloride IVPB 52 mls Q6HR PRN Administration Nausea/Vomiting Piperacillin Sod/Tazobactam 100 mls @ 200 mls/hr 09/02/19 06:00 09/07/19 06: 04 Sod 3.375 gm/ Sodium Chloride IVPB 100 mls Q6HR JEAN-PAUL Administration Propofol 1,000 mg 08/27/19 21:08 08/28/19 18:05 Diprivan IV 09/26/19 21:08 1,000 mg INF PRN Administration TO ACHIEVE GOAL RASS Protocol Scopolamine 1.5 mg 09/01/19 07:45 09/04/19 09:16 Transderm Scop TD 1.5 mg Q3D JEAN-PAUL Administration - Exam Neck: no JVD Heart: RRR, no murmur Respiratory: CTAB Gastrointestinal: soft, normal bowel sounds Extremities: no edema Hosp A/P (1) Encephalopathy acute Code(s): G93.40 - ENCEPHALOPATHY, UNSPECIFIED Status: Acute (2) Intracranial hemorrhage Code(s): I62.9 - NONTRAUMATIC INTRACRANIAL HEMORRHAGE, UNSPECIFIED Status: Acute (3) HTN (hypertension) Code(s): I10 - ESSENTIAL (PRIMARY) HYPERTENSION Status: Chronic Qualifiers: Hypertension type: essential hypertension Qualified Code(s): I10 - Essential (primary) hypertension (4) Fever Code(s): R50.9 - FEVER, UNSPECIFIED Status: Acute (5) Hemiplegia affecting left nondominant side Code(s): G81.94 - HEMIPLEGIA, UNSPECIFIED AFFECTING LEFT NONDOMINANT SIDE Status: Acute (6) Acute respiratory failure Code(s): J96.00 - ACUTE RESPIRATORY FAILURE, UNSP W HYPOXIA OR HYPERCAPNIA Status: Acute Qualifiers: Respiratory failure complication: hypoxia Qualified Code(s): J96.01 - Acute respiratory failure with hypoxia - Plan post PEG/trach ON tube feedings, meds HTN controlled on broad spectrum antibx discussed with mineral mixer
[2019-09-07] MEDS: Amlodipine 10 MG TAB PER TUBE SCH (08:33)
[2019-09-07] MEDS: Scopolamine 1.5 mg/72 hour Patch TD SCH (08:34)
[2019-09-07] MEDS: Famotidine 40 MG/5 ML Oral Suspension PER TUBE SCH ×2 (08:35→21:48)
[2019-09-07] MEDS: Sodium Chloride 0.9% 1,000 ML IV SCH (10:30)
[2019-09-07] MEDS: Acetaminophen 650 MG/20.3 ML UDCUP PER TUBE PRN (15:59)
[2019-09-07] MEDS ORDERED: Ondansetron PF 4 MG/2 ML Vial SLOW IVP PRN (22:28)
[2019-09-07] MEDS: Ondansetron HCl/PF 4 MG in Sodium Chloride 0.9% 50 ML IVPB PRN (22:40)
[2019-09-08] MEDS: Sodium Chloride 0.9% 1,000 ML IV SCH ×2 (04:42→16:45)
[2019-09-08] MEDS: Piperacillin/Tazobactam 3.375 GM in Sodium Chloride 0.9% 100 ML IVPB SCH ×3 (05:51→17:13)
[2019-09-08 06:00] LABS: Anion Gap 14 mmol/L (10-20); BUN (Urea Nitrogen) 17 mg/dL (7.0-18.7); Calc. Creatinine Clearance 150 mL/min (70-130); Calcium 8.6 mg/dL (7.8-10.44); Carbon Dioxide 22 mmol/L (22-29); Chloride 108 mmol/L (98-107); Estimated GFR-MDRD Greater than 90; Glucose 137 mg/dL (70-105); Potassium 3.6 mmol/L (3.5-5.1); Sodium 140 mmol/L (136-145)
[2019-09-08 06:08] LABS: Band 2 % (5-11); Eosinophils 1 % (0-10); Hemoglobin 11.2 g/dL (12.0-16.0); Lymphocytes 3 % (21-51); MDiff Complete? YES; Mean Corpuscular HGB CONC 31.4 g/dL (32.0-36.0); Mean Corpuscular Hemoglobin 30.9 pg (27.0-31.0); Mean Corpuscular Volume 98.3 fL (78.0-98.0); Mean Platelet Volume 8.5 fL (7.4-10.4); Monocytes 3 % (0-10); Neutrophil 91 % (42-75); Platelet Count 423 thou/uL (130-400); Platelet Morphology Comment Appears Increased; RBC Distribution Width 13.2 % (11.5-14.5); RBC Morphology Normal; Red Blood Cell (RBC) Count 3.64 mill/uL (4.20-5.40); White Blood Cell (WBC) Count 13.9 thou/uL (4.8-10.8)
--- NOTE | 2019-09-08 07:16 | PRG ---
DATE OF SERVICE: 09/08/2019 I saw, Ms. Henson in the ICU this morning. They had been very slowly and judiciously raising her external ventricular drain in hopes that her suboccipital operation has healed well enough to keep CSF from leaking. We are in the middle of this process right now. T-max recorded was yesterday afternoon at 100.1 degrees Fahrenheit, fever curve seems to be coming down. On examination, Ms. Henson wiggles her toes on the right side and squeezes my hand. She is not quite as strong on the left. She is not opening her eyes. The CT scan done this morning shows a significant increase in size of the ventricular system. She had slit like ventricles and the drain is open at 5 cm. Now, it is open at 10 and the ventricular system is quite visible. The temporal arms are visible and even some CSF collection in the suboccipital area looks slightly more prominent. Plan now is to keep Ms. Henson with her EVD open at 10 for the next couple of days and raise it to 15 thereafter. If she spikes another fever over 101 degrees Fahrenheit, I would like CSF sent for culture, cell count, protein and glucose. We will continue to wean the drain until she declares that she needs a ventriculoperitoneal shunting or she can tolerate drain removal. Job ID: [id number] [facility]
--- NOTE | 2019-09-08 07:37 | CT ---
PRELIMINARY REPORT/[facility]/EMERGENCY AFTER HOURS PROCEDURE: PROCEDURE INFORMATION: Exam: CT Head Without Contrast Exam date and time: 09/08/2019 3:41 AM Clinical history: 43 years old, female; Condition or disease; Patient HX: F/u ich TECHNIQUE: Imaging protocol: Computed tomography of the head without contrast. COMPARISON: CT Brain WO Con 09/06/2019 4:05 AM FINDINGS: Tubes, catheters and devices: Right frontal ventriculostomy catheter courses along the right lateral ventricle, right foramen of Monro and third evntricle with tip indenting the left thalami. Brain: Operative changes from recent occipital craniectomy are redemonstrated. Right thalamic hematom a extending ointo the right cerebral peduncle continues to decrease density and again demonstrates a hypodense surrounding halo. Interval redemonstration of intraventricular hemorrhage. Midline shift: Leftward mild shift is unchanged from prior examination. Ventricles: There is new mid ventriculomegaly. Bones/joints: Unchanged right frontal annamarie hole and occipital craniectomy. No acute fracture. Sinuses: Right sphenoid sinus opacifification. Mastoid air cells: Mastoid air cells are aerated. Soft tissues: Unchanged surgical changes. IMPRESSION: There is new mid ventriculomegaly. Thank you for allowing us to participate in the care of your patient. Dictated and Authenticated by: Annie Cash MD 09/08/2019 4:04 AM Central Time ([place] & [place]) FINAL REPORT HEAD CT WITHOUT CONTRAST: Date: 09/08/19 COMPARISON: 09/06/19. HISTORY: Follow-up intracranial hemorrhage. FINDINGS: Stable right frontal ventriculoperitoneal shunt catheter. Distal tip is unchanged in position. The ti p appears to be slightly to the left of the third ventricle. There is interval increase in size of th e ventricular system with evidence of temporal horn prominence. Redemonstration of a hemorrhage cente red in the right thalamus with extension of intraventricular blood in the occipital horn of both late ral ventricles. Hemorrhage is noted in the cerebellar vermis. Postsurgical changes in the occiput are redemonstrated. IMPRESSION: This report is in agreement with the preliminary report by Felicitas. There is increased dilatation of the ventricular system. POS: H
[2019-09-08] MEDS: Famotidine 40 MG/5 ML Oral Suspension PER TUBE SCH ×2 (08:16→20:57)
[2019-09-08] MEDS: Amlodipine 10 MG TAB PER TUBE SCH (08:16)
--- NOTE | 2019-09-08 09:15 | PRG ---
DATE OF SERVICE: 09/08/2019 SUBJECTIVE: She remains in the CCU with an EVD in place. She has been on trach collar now for several days, not requiring assistance for mechanical ventilation. Her main issue is she has failed to have a bowel movement. OBJECTIVE: VITAL SIGNS: Temperature is 98.9, pulse 99, blood pressure 124/74, and O2 saturation 99%. NEUROLOGIC: She will not follow any commands for me specifically. Dr. Witt's note says that she was squeezing with the right side. HEENT: Otherwise unremarkable. NECK: No JVD. LUNGS: Clear anteriorly. CARDIAC: S1 and S2. Regular. ABDOMEN: Distended with hypoactive bowel sounds. EXTREMITIES: Edematous throughout. LABORATORY DATA: White blood cell count 13.9, hematocrit 35.7, and platelet count 423. Sodium 140, potassium 3.6, chloride 108, CO2 of 22, BUN 17, creatinine 0.6, and glucose 137. ASSESSMENT: 1. Status post thalamic bleed with continued compromised neurologic status. 2. Status post tracheostomy and percutaneous endoscopic gastrostomy tube mainly for the patient care purposes. 3. Hypertension under good control on amlodipine. 4. Intermittent fever, currently on antibiotics. 5. Constipation. PLAN: 1. Fleet's Enemas, in addition to lactulose she is receiving. 2. Today should be the last day of antibiotics. 3. Continue supportive care otherwise. Job ID: [id number]
[2019-09-08] MEDS ORDERED: Fleet Enema 133 ML BOT PR SCH (10:00)
--- NOTE | 2019-09-08 11:46 | PDOC.HOSPP ---
- Subjective Encounter Date: 09/08/19 Encounter Time: 11:44 Subjective: vomited this am - Objective Vital Signs & Weight: Vital Signs (12 hours) Temp Pulse Resp Pulse Ox 09/08/19 10:39 108 H 23 H 98 09/08/19 10:00 98.7 F 09/08/19 08:48 99 09/08/19 08:16 97 09/08/19 07:51 100 09/08/19 07:49 97 30 H 100 09/08/19 07:00 98.8 F 09/08/19 04:00 99.9 F H 98 09/08/19 02:26 100 09/08/19 00:00 99.2 F Weight Admit Weight 173 lb 4.533 oz Weight 165 lb 5.547 oz Most Recent Monitor Data Heart Rate from ECG 109 NIBP 127/93 NIBP BP-Mean 104 Respiration from ECG 38 SpO2 100 I&O: 09/07/19 09/08/19 09/09/19 06:59 06:59 06:59 Intake Total 3006 3986 210 Output Total 3256 1707 300 Balance -250 2279 -90 Result Diagrams: 09/08/19 05:18 09/08/19 05:18 Hospitalist ROS - Medication Medications: Active Medications Generic Name Dose Route Start Last Admin Trade Name Freq PRN Reason Stop Dose Admin Acetaminophen 650 mg 08/27/19 22:53 09/01/19 12:05 Tylenol [place] 650 mg Q4H PRN Administration Headache/Fever/Mild Pain (1-3) Acetaminophen 650 mg 09/01/19 09:28 09/07/19 15:59 Tylenol Elixir PER TUBE 650 mg Q6H PRN Administration Fever > 101 Albuterol/Ipratropium 3 ml 09/02/19 11:00 09/08/19 10:39 Duoneb NEB 3 ml [id number] JEAN-PAUL Administration Amlodipine Besylate 10 mg 08/29/19 09:00 09/08/19 08:16 Norvasc PER TUBE 10 mg DAILY JEAN-PAUL Administration Famotidine 20 mg 09/01/19 21:00 09/08/19 08:16 Pepcid PER TUBE 20 mg BID JEAN-PAUL Administration Hydralazine HCl 10 mg 08/28/19 20:34 09/03/19 16:05 Apresoline SLOW IVP 10 mg Q15M PRN Administration SBP > 140 Potassium Chloride 40 meq/ 270 mls @ 135 mls/hr 08/27/19 21:10 08/30/19 12:33 Sodium Chloride IVPB 270 mls ASDIR PRN Administration FOR SERUM K+ 2.5 - 3.5 Sodium Chloride 1,000 mls @ 75 mls/hr 08/27/19 23:15 09/08/19 04:42 Normal Saline 0.9% IV 1,000 mls .[id number] JEAN-PAUL Administration Piperacillin Sod/Tazobactam 100 mls @ 200 mls/hr 09/02/19 06:00 09/08/19 05: 51 Sod 3.375 gm/ Sodium Chloride IVPB 100 mls Q6HR JEAN-PAUL Administration Lactulose 30 gm 09/07/19 09:00 09/08/19 08:16 Lactulose PER TUBE 30 gm TID JEAN-PAUL Administration Ondansetron HCl 4 mg 09/07/19 22:28 09/08/19 10:00 Zofran SLOW IVP 4 mg Q6H PRN Administration Nausea/Vomiting Propofol 1,000 mg 08/27/19 21:08 08/28/19 18:05 Diprivan IV 09/26/19 21:08 1,000 mg INF PRN Administration TO ACHIEVE GOAL RASS Protocol Scopolamine 1.5 mg 09/01/19 07:45 09/07/19 08:34 Transderm Scop TD 1.5 mg Q3D JEAN-PAUL Administration Sodium Biphosphate/Sodium Phosphate 266 ml 09/08/19 10:00 09/08/19 10:00 Fleet Enema [place] 09/08/19 12:00 266 ml 1000 JEAN-PAUL Administration - Exam Neck: no JVD Heart: RRR, no murmur Respiratory: CTAB Gastrointestinal: distended, diminished bowl sounds Extremities: 1+ LE edema Hosp A/P (1) Ileus Code(s): K56.7 - ILEUS, UNSPECIFIED Status: Acute (2) Encephalopathy acute Code(s): G93.40 - ENCEPHALOPATHY, UNSPECIFIED Status: Acute (3) Intracranial hemorrhage Code(s): I62.9 - NONTRAUMATIC INTRACRANIAL HEMORRHAGE, UNSPECIFIED Status: Acute (4) HTN (hypertension) Code(s): I10 - ESSENTIAL (PRIMARY) HYPERTENSION Status: Chronic Qualifiers: Hypertension type: essential hypertension Qualified Code(s): I10 - Essential (primary) hypertension (5) Fever Code(s): R50.9 - FEVER, UNSPECIFIED Status: Acute Qualifiers: Fever type: unspecified Qualified Code(s): R50.9 - Fever, unspecified (6) Hemiplegia affecting left nondominant side Code(s): G81.94 - HEMIPLEGIA, UNSPECIFIED AFFECTING LEFT NONDOMINANT SIDE Status: Acute (7) Acute respiratory failure Code(s): J96.00 - ACUTE RESPIRATORY FAILURE, UNSP W HYPOXIA OR HYPERCAPNIA Status: Acute Qualifiers: Respiratory failure complication: hypoxia Qualified Code(s): J96.01 - Acute respiratory failure with hypoxia - Plan post PEG/trach suspect ileus- 2 view abd reevaluate post XR
--- NOTE | 2019-09-08 12:43 | RAD ---
Abdomen 2 views: HISTORY: Vomiting, no bowel movement FINDINGS: Supine and right lateral decubitus view of the abdomen are performed. There is abnormally dilated col on with air-fluid levels noted throughout the colon. There may also be some air and fluid in the small bowel. There is air and fluid within the rectum as seen on the decubitus study. Gastrostomy tub e in place. IVC filter. IMPRESSION: Abnormally dilated colon with air-fluid levels from rectum into cecum which certainly could be seen w ith diarrhea. No evidence for overt free intraperitoneal air. Possible minimal air and fluid within the small bowel as well.
--- NOTE | 2019-09-08 16:12 | PDOC.EVN ---
Event Note - Event Note Event Note: view abd-air fluid levels consistant with cesario. trial reglan
[2019-09-08] MEDS ORDERED: Metoclopramide HCl 10 MG/2 ML VIAL IVP SCH (16:30)
[2019-09-08] MEDS: hydrALAZINE 20 MG/ML VIAL SLOW IVP PRN (16:46)
--- NOTE | 2019-09-08 22:33 | CT ---
CT Brain WO Con History: Neuro assessment change Comparison: None. Findings: Prior right suboccipital decompression has similar appearance of the postoperative seroma a nd pseudomeningocele. Ventricular size is similar. Right transforaminal ventriculostomy tip sits at the third ventricle. The third ventricular size is mildly increased comparison examination. Temporal horn size is similar. Lateral ventricular size is mildly increased. Right thalamic hemorrhage is unchanged from the comparison examination from this morning. Perihemorrhage edema, however, has increased. The amount of mass effect upon the third ventricle has increased. Impression: Slight interval size increase lateral ventricles and third ventricle with unchanged place ment of the ventriculostomy catheter. There is slight increased edema around the thalamic hemorrhage with continued trace hemorrhage within the atria of both lateral ventricles. Given the inc reasing perihemorrhage edema, the mass effect upon the third ventricle has increased.
[2019-09-08] MEDS: Metoclopramide HCl 10 MG/2 ML VIAL IVP SCH (22:56)
[2019-09-09] MEDS: Piperacillin/Tazobactam 3.375 GM in Sodium Chloride 0.9% 100 ML IVPB SCH ×4 (00:15→18:20)
[2019-09-09] MEDS: Sodium Chloride 0.9% 1,000 ML IV SCH ×2 (03:38→12:16)
[2019-09-09 05:04] LABS: Anion Gap 11 mmol/L (10-20); BUN (Urea Nitrogen) 16 mg/dL (7.0-18.7); Calc. Creatinine Clearance 146 mL/min (70-130); Calcium 8.4 mg/dL (7.8-10.44); Carbon Dioxide 27 mmol/L (22-29); Chloride 111 mmol/L (98-107); Estimated GFR-MDRD Greater than 90; Glucose 126 mg/dL (70-105); Potassium 3.2 mmol/L (3.5-5.1); Sodium 146 mmol/L (136-145)
[2019-09-09] MEDS: Metoclopramide HCl 10 MG/2 ML VIAL IVP SCH ×3 (05:06→21:24)
[2019-09-09] MEDS: Potassium Chloride 40 MEQ in Sodium Chloride 0.9% 250 ML 250 ML IVPB PRN (05:51)
--- NOTE | 2019-09-09 07:10 | PRG ---
DATE OF SERVICE: 09/09/2019 I saw Ms. Henson in her ICU room this morning. Evidently, Ms. Henson was thought to have neurological deterioration at some point overnight and her EVD was lowered. No other events reported. Her T-max at ICU is 99.9 degrees Fahrenheit. Other vital signs have been stable. ICPs have been low. Her total EVD drainage in the last 24 hours has been 24 mL. On examination, Ms. Henson is drowsy. With stimulation, she opens left greater than right eye. She is moving the right greater than left side of her body. Occasionally, she will follow commands. She is a bit more drowsy than she was yesterday. There is no new CBC to review this morning. Her sodium is 146 and potassium is low at 3.2. We will restart our slow weaning process for the EVD for Ms. Henson. She may require ventriculoperitoneal shunting, but we will give her one more weekend to try to wean the drain off. I would leave it at 10 cm of water today and 15 over the weekend, clamping it on Thursday or Thursday to see if she can tolerate it. Thankfully, there is no CSF out of her suboccipital incision so far. Job ID: [id number]
[2019-09-09] MEDS: Famotidine 40 MG/5 ML Oral Suspension PER TUBE SCH ×2 (08:25→21:23)
[2019-09-09] MEDS: Amlodipine 10 MG TAB PER TUBE SCH (08:25)
--- NOTE | 2019-09-09 08:51 | CT ---
PRELIMINARY REPORT/[facility]/EMERGENCY AFTER HOURS PROCEDURE: PROCEDURE INFORMATION: Exam: CT Head Without Contrast Exam date and time: 09/09/2019 4:20 AM Clinical history: 43 years old, female; Condition or disease; Patient HX: F/u existing ich TECHNIQUE: Imaging protocol: Computed tomography of the head without contrast. COMPARISON: CT Brain WO Con 09/08/2019 10:17 PM FINDINGS: Tubes, catheters and devices: Right frontal ventriculostomy catheter is unchanged. Brain: Operative changes from recent occipital craniectomy are redemonstrated. Right thalamic hematom a extending ointo the right cerebral peduncle is not significantly changed. Interval redemonstration of intraventricular hemorrhage. Ventricles: Unchanged mid ventriculomegaly. Bones/joints: Unchanged right frontal annamarie hole and occipital craniectomy. Sinuses: Right sphenoid sinus opacifification. Mastoid air cells: Mastoid air cells are aerated. Soft tissues: Unchanged surgical changes. IMPRESSION: No significant interval change. Thank you for allowing us to participate in the care of your patient. Dictated and Authenticated by: Annie Cash MD 09/09/2019 4:54 AM Central Time ([place] & [place]) EMERGENCY AFTER HOURS CT BRAIN: FINDINGS/IMPRESSION: Final report is in agreement with the above provided preliminary interpretation from [facility]. Comparison to exam from previous day. Redemonstration of right thalamic hemorrhage with surrounding vasogenic edema producing localized mas s effect and effacement of the ventricular system. Right frontal approach ventriculostomy remains in place, terminating at the left lateral aspect of the third ventricle. Hydrocephalus is grossly stable . Stable postsurgical changes of the posterior cranial fossa with adjacent suboccipital craniectomy. As sociated postoperative fluid collection in this region remains. Mild intraventricular hemorrhage remains. This localizes to the inferior third and fourth ventricles, as well as the occipital horns of the bilateral lateral ventricles. Recommend continued imaging follow-up.
--- NOTE | 2019-09-09 09:27 | PRG ---
DATE OF SERVICE: 09/09/2019 SUBJECTIVE: Patient is doing about the same. OBJECTIVE: VITAL SIGNS: Temperature is 98.5, pulse 88, blood pressure 116/86, O2 saturation 100%. NEUROLOGIC: I cannot get her to follow any commands. HEENT: She does open her eyes some. NECK: Trach in good position. LUNGS: Clear. CARDIAC: S1, S2. Regular. ABDOMEN: Soft. EXTREMITIES: No edema. LABORATORY DATA: Sodium 146, potassium 3.2, chloride 111, CO2 of 27, BUN 16, creatinine 0.5, glucose 126. ASSESSMENT: 1. Status post thalamic bleed. 2. Status post respiratory failure requiring tracheostomy. PLAN: She is in the ICU with an EVD in place. She will not be leaving until that is out. Her respiratory status seems stable. We will continue to follow. Job ID: [id number]
--- NOTE | 2019-09-09 14:40 | PDOC.HOSPP ---
- Subjective Encounter Date: 09/09/19 Encounter Time: 13:37 Subjective: 43 y/o female admitted after acute onset on unresponsiveness. Found to have left thalamic bleeding. S/p R frontal ventricular drain, decompressive suboccipital craniectomy and cervical laminectomy. Also patient is s/p tracheostomy. Non conversational or responding to speech or touch today. - Objective Vital Signs & Weight: Vital Signs (12 hours) Temp Pulse Resp BP Pulse Ox 09/09/19 14:06 113 H 28 H 100 09/09/19 12:00 98.8 F 09/09/19 11:09 98 34 H 100 09/09/19 08:25 88 117/73 09/09/19 08:00 98.5 F 96 09/09/19 07:37 90 28 H 100 09/09/19 04:00 98.5 F Weight Admit Weight 173 lb 4.533 oz Weight 166 lb 7.184 oz Most Recent Monitor Data Heart Rate from ECG 105 NIBP 117/82 NIBP BP-Mean 93 Respiration from ECG 39 SpO2 100 I&O: 09/08/19 09/09/19 09/10/19 06:59 06:59 06:59 Intake Total 3986 2442 135 Output Total 1707 1654 247 Balance 2279 788 -112 Result Diagrams: 09/08/19 05:18 09/09/19 03:45 Hospitalist ROS - Medication Medications: Active Medications Generic Name Dose Route Start Last Admin Trade Name Freq PRN Reason Stop Dose Admin Acetaminophen 650 mg 08/27/19 22:53 09/01/19 12:05 Tylenol LA 650 mg Q4H PRN Administration Headache/Fever/Mild Pain (1-3) Acetaminophen 650 mg 09/01/19 09:28 09/07/19 15:59 Tylenol Elixir PER TUBE 650 mg Q6H PRN Administration Fever > 101 Albuterol/Ipratropium 3 ml 09/02/19 11:00 09/09/19 14:06 Duoneb NEB 3 ml [id number] JEAN-PAUL Administration Amlodipine Besylate 10 mg 08/29/19 09:00 09/09/19 08:25 Norvasc PER TUBE 10 mg DAILY JEAN-PAUL Administration Famotidine 20 mg 09/01/19 21:00 09/09/19 08:25 Pepcid PER TUBE 20 mg BID JEAN-PAUL Administration Hydralazine HCl 10 mg 08/28/19 20:34 09/08/19 16:46 Apresoline SLOW IVP 10 mg Q15M PRN Administration SBP > 140 Potassium Chloride 40 meq/ 270 mls @ 135 mls/hr 08/27/19 21:10 09/09/19 05:51 Sodium Chloride IVPB 270 mls ASDIR PRN Administration FOR SERUM K+ 2.5 - 3.5 Sodium Chloride 1,000 mls @ 75 mls/hr 08/27/19 23:15 09/09/19 12:16 Normal Saline 0.9% IV 1,000 mls .[id number] JEAN-PAUL Administration Piperacillin Sod/Tazobactam 100 mls @ 200 mls/hr 09/02/19 06:00 09/09/19 11: 55 Sod 3.375 gm/ Sodium Chloride IVPB 100 mls Q6HR JEAN-PAUL Administration Lactulose 30 gm 09/07/19 09:00 09/09/19 08:26 Lactulose PER TUBE 30 gm TID JEAN-PAUL Administration Metoclopramide HCl 10 mg 09/08/19 22:00 09/09/19 05:06 Reglan IVP 10 mg Q8HR JEAN-PAUL Administration Ondansetron HCl 4 mg 09/07/19 22:28 09/08/19 10:00 Zofran SLOW IVP 4 mg Q6H PRN Administration Nausea/Vomiting Propofol 1,000 mg 08/27/19 21:08 08/28/19 18:05 Diprivan IV 09/26/19 21:08 1,000 mg INF PRN Administration TO ACHIEVE GOAL RASS Protocol Scopolamine 1.5 mg 09/01/19 07:45 09/07/19 08:34 Transderm Scop TD 1.5 mg Q3D JEAN-PAUL Administration - Exam General - other findings: awake but unresponsive to touch or speech ENT - other findings: Right frontal ventricular draianage tube noted Neck: no JVD Neck - other findings: tracheostomy with T collar noted Heart: RRR Heart - other findings: tachycardic Respiratory - other findings: fair air entry with transmitted sound noted Gastrointestinal: soft, non-distended, diminished bowl sounds Extremities: no edema Neurological - other findings: involuntary jerks and twitching of all limbs noted Hosp A/P (1) Intracranial hemorrhage Code(s): I62.9 - NONTRAUMATIC INTRACRANIAL HEMORRHAGE, UNSPECIFIED Status: Acute (2) Hypernatremia Code(s): E87.0 - HYPEROSMOLALITY AND HYPERNATREMIA Status: Acute (3) Hypokalemia Code(s): E87.6 - HYPOKALEMIA Status: Acute (4) Acute respiratory failure Code(s): J96.00 - ACUTE RESPIRATORY FAILURE, UNSP W HYPOXIA OR HYPERCAPNIA Status: Acute Qualifiers: Respiratory failure complication: hypoxia Qualified Code(s): J96.01 - Acute respiratory failure with hypoxia (5) Encephalopathy acute Code(s): G93.40 - ENCEPHALOPATHY, UNSPECIFIED Status: Acute (6) Ileus Code(s): K56.7 - ILEUS, UNSPECIFIED Status: Acute (7) HTN (hypertension) Code(s): I10 - ESSENTIAL (PRIMARY) HYPERTENSION Status: Chronic Qualifiers: Hypertension type: essential hypertension Qualified Code(s): I10 - Essential (primary) hypertension - Plan Replete electrolytes. increase free water flushes to 100 q4h to correct hypernatremia Continue antibiotics Continue other supportive care. Repeat BMP and magnesium in the morning.
[2019-09-10 00:51] LABS: Actual Bicarbonate (HCO3a) 24.5 mEq/L (22-28); CO2 Tension 34.7 mmHg (35.0-45.0); Calcium, Ionized 1.19 mmol/L (1.12-1.30); Carboxyhemoglobin (COHb) 0.6 gm% (0.0-3.0); Potassium - ABG Lab 3.44 mmol/L (3.70-5.30); pH, Arterial 7.47 (7.35-7.45)
[2019-09-10 00:53] LABS: O2 Tension (PaO2) 57.8 mmHg (80.0-100.0); Puncture Site L RADIAL
[2019-09-10 00:54] LABS: ALV-art Gradient 98.465 (0-20)
[2019-09-10] MEDS ORDERED: Sodium Chloride 0.9% 15 ML NEB ONE (01:16)
[2019-09-10] MEDS: Piperacillin/Tazobactam 3.375 GM in Sodium Chloride 0.9% 100 ML IVPB SCH ×3 (02:00→19:23)
[2019-09-10] MEDS: Sodium Chloride 0.9% 1,000 ML IV SCH (04:33)
[2019-09-10 05:01] LABS: Anion Gap 12 mmol/L (10-20); BUN (Urea Nitrogen) 20 mg/dL (7.0-18.7); Calc. Creatinine Clearance 132 mL/min (70-130); Calcium 8.5 mg/dL (7.8-10.44); Carbon Dioxide 25 mmol/L (22-29); Chloride 116 mmol/L (98-107); Estimated GFR-MDRD Greater than 90; Glucose 126 mg/dL (70-105); Magnesium 2.4 mg/dL (1.6-2.6); Potassium 3.5 mmol/L (3.5-5.1); Sodium 149 mmol/L (136-145)
[2019-09-10] MEDS: Metoclopramide HCl 10 MG/2 ML VIAL IVP SCH ×3 (06:12→21:03)
[2019-09-10] MEDS: Amlodipine 10 MG TAB PER TUBE SCH (09:01)
[2019-09-10] MEDS: Famotidine 40 MG/5 ML Oral Suspension PER TUBE SCH ×2 (09:01→21:03)
[2019-09-10] MEDS: Scopolamine 1.5 mg/72 hour Patch TD SCH (09:06)
--- NOTE | 2019-09-10 11:42 | RAD ---
PORTABLE CHEST ONE VIEW: 09/10/2019 1:05 a.m. HISTORY: Respiratory failure. COMPARISON: 09/06/2019 FINDINGS: A tracheostomy tube is again seen. There is a nasogastric tube which can be traced into the stomach. The heart size is stable. Opacity in the right lung base has improved. No pneumothoraces or large eff usions are seen. POS: [facility]
[2019-09-10] MEDS: Dextrose 5% in Water 1,000 ML IV SCH (12:14)
[2019-09-10] MEDS: Simethicone Chewable 80 MG TAB PO SCH ×3 (12:26→21:02)
--- NOTE | 2019-09-10 12:37 | PDOC.HOSPP ---
- Subjective Encounter Date: 09/10/19 Encounter Time: 11:00 Subjective: Patietn is non-verbal. Currently on trach collar, does not open eyes to command. EVD drain in place down to 15 per nursing staff. - Objective Vital Signs & Weight: Vital Signs (12 hours) Temp Pulse Resp Pulse Ox 09/10/19 11:00 98.9 F 09/10/19 10:47 92 26 H 100 09/10/19 09:01 92 09/10/19 08:00 99.5 F 100 09/10/19 07:06 92 30 H 98 09/10/19 04:00 98.8 F 99 Weight Admit Weight 173 lb 4.533 oz Weight 169 lb 5.04 oz Most Recent Monitor Data Heart Rate from ECG 94 NIBP 119/79 NIBP BP-Mean 92 Respiration from ECG 35 SpO2 100 I&O: 09/09/19 09/10/19 09/11/19 06:59 06:59 06:59 Intake Total 2442 2670 Output Total 1654 1088 285 Balance 788 1582 -285 Result Diagrams: 09/08/19 05:18 09/10/19 04:25 Radiology Reviewed by me: Yes Hospitalist ROS - Review of Systems ROS unobtainable: due to mental status - Medication Medications: Active Medications Generic Name Dose Route Start Last Admin Trade Name Freq PRN Reason Stop Dose Admin Acetaminophen 650 mg 08/27/19 22:53 09/01/19 12:05 Tylenol AR 650 mg Q4H PRN Administration Headache/Fever/Mild Pain (1-3) Acetaminophen 650 mg 09/01/19 09:28 09/07/19 15:59 Tylenol Elixir PER TUBE 650 mg Q6H PRN Administration Fever > 101 Amlodipine Besylate 10 mg 08/29/19 09:00 09/10/19 09:01 Norvasc PER TUBE Not Given DAILY JEAN-PAUL Famotidine 20 mg 09/01/19 21:00 09/10/19 09:01 Pepcid PER TUBE Not Given BID JEAN-PAUL Hydralazine HCl 10 mg 08/28/19 20:34 09/08/19 16:46 Apresoline SLOW IVP 10 mg Q15M PRN Administration SBP > 140 Potassium Chloride 40 meq/ 270 mls @ 135 mls/hr 08/27/19 21:10 09/09/19 05:51 Sodium Chloride IVPB 270 mls ASDIR PRN Administration FOR SERUM K+ 2.5 - 3.5 Dextrose/Water 1,000 mls @ 50 mls/hr 09/10/19 12:15 09/10/19 12:14 D5w IV 1,000 mls .Q20H JEAN-PAUL Administration Metoclopramide HCl 10 mg 09/08/19 22:00 09/10/19 06:12 Reglan IVP 10 mg Q8HR JEAN-PAUL Administration Ondansetron HCl 4 mg 09/07/19 22:28 09/08/19 10:00 Zofran SLOW IVP 4 mg Q6H PRN Administration Nausea/Vomiting Scopolamine 1.5 mg 09/01/19 07:45 09/10/19 09:06 Transderm Scop TD 1.5 mg Q3D JEAN-PAUL Administration - Exam Neck: supple Heart: RRR, no murmur, no gallops Respiratory: CTAB, no wheezes, no rales Gastrointestinal: soft, non-tender, non-distended Extremities: no cyanosis Skin: normal turgor, no lesions Neurological - other findings: Unresponsive, unable to assess neuro exam . Reflexes 1+ biceps, patella Psychiatric: lethargic Hosp A/P - Plan Chest x ray: RL opacity improved CT head 09/09: intraventricular hemorrhage Acute encephalopathy secondary to Intraventricular hemorrhage secondary to malignant hypertension s/p ventriculostomy cathhter, occipital craniectomy - CT showed intraventricular hemorrhage on admission with extension into third and lateral ventricle and inferior herniation - neurosurgery following, EVD in place. Currently at 15 cm and try clamping on Thursday or Thursday. May need shunt Hypertension - currently on amlodipine, controlled Leukocytosis - WBC increasing to 13.9. Received zosyn from 09/02 to 09/10. Discontinued today by boat person. Check sputum culture - blood culture negative on 09/02, urine culture negative. CSF culture negative. Chest X ray showed improved right lung opacity Acute hypoxic respiratory failure secondary to pneumonia - pO2 57 on ABG lastr night. Trach collar increased from 28 to 32 - s/p zosyn for 8 days Hypernatremia - sodium increasing to 146. Started D5W, discontinuing NS Hypokalemia - potassium 3.2, replaced and improved to 3.5 Anemia - Hb 11.2/35., likely from hemorrhage - stool occult blood negative Code status: full code DVT prophylaxis: contraindicated GI prophylaxis: famotidine Diet: IV fluids
--- NOTE | 2019-09-10 12:47 | PRG ---
DATE OF SERVICE: 09/10/2019 INTERVAL HISTORY: The patient is doing poorly. Overnight, she started having significant amounts of tube feeding coming from her mouth. She cannot provide any additional elements of the history. Her abdomen got more distended. She did not have any significant fevers or hemodynamic instability. PHYSICAL EXAMINATION: VITAL SIGNS: Afebrile, pulse 92, blood pressure 114/71, respirations 32, saturation 100%, currently on T-collar. GENERAL: The patient is awake and alert. She does not appear to be any distress. HEENT: Normocephalic and atraumatic. Sclerae white. Conjunctivae pink. Oral mucosa is moist without lesions. LUNGS: Decent air entry. I do not hear any rhonchi or crackles present. HEART: Normal rate and regular. ABDOMEN: Distended. Bowel sounds are hypoactive. There is no rebound or guarding. There does not appear to be any tenderness to palpation. : Lynne catheter in place. MUSCULOSKELETAL: No cyanosis or clubbing. There is trace pitting in the bilateral lower extremities. LABORATORY DATA: WBC 13.9, hemoglobin 11.2, platelets 423,000. PH 7.47, pCO2 34, PO2 58. Sodium 149 and uptrending. Potassium 3.5. Magnesium 2.4. Blood cultures x2 are unremarkable. All other body fluid cultures are negative to date. IMAGING STUDY: Chest x-ray demonstrates volume loss bilaterally. There is distention of the colon. Tracheostomy tube is in good position. No obvious acute cardiopulmonary process is present. ASSESSMENT: 1. Intraparenchymal hemorrhage, thalamic bleed. 2. Acute hypoxic respiratory failure, status post tracheostomy. 3. Ileus. DISCUSSION AND PLAN: I will initiate Senna-S. We will discontinue any medication that could potentially slow down her motility. Sodium will need to be corrected. I will introduce a very slow rate of D5 water to do this slowly. I will replace the potassium and check magnesium and phosphorus tomorrow morning. Pulmonary/Critical Care will continue to follow very closely. If she has a bowel movement, that is loose, it will be sent for C diff and lactoferrin. Job ID: [id number]
--- NOTE | 2019-09-10 15:37 | PRG ---
DATE OF SERVICE: 09/10/2019 SUBJECTIVE: Ms. Henson is a 43-year-old woman on the 14th day of her hospital stay after suffering a basal ganglia hemorrhage with extension into the 3rd and 4th ventricles followed by posterior craniectomy with Dr. Garcia. Unfortunately, she has had poor neurologic exam and this is rate consistent at most she seems withdrawal time to the right upper and lower extremities, but this is inconsistent and minimal at best. Pupils are minimally reactive. EVD has been in since day one of her hospital stay and yesterday open at 10 cm of water, which dropped to 5 cm of water citing neurologic deterioration, this was reset to 10 around 930 last night and then this morning she has had max drainage just 2 mL over a roughly 12- hour period. We will reset this now to 15 cm of water. We need at some point potentially clamp trial to see how she does. She is on a trach collar. There were concerns she was nauseous and vomiting at night in small amounts, so tube feedings have been stopped. Pulmonary to consider possible bronch today. Job ID: [id number]
[2019-09-10] MEDS: hydrALAZINE 20 MG/ML VIAL SLOW IVP PRN (18:39)
[2019-09-10] MEDS: Senokot S 8.6-50 MG TAB PO SCH (21:02)
[2019-09-11 00:54] LABS: Anion Gap 12 mmol/L (10-20); BUN (Urea Nitrogen) 16 mg/dL (7.0-18.7); Calc. Creatinine Clearance 151 mL/min (70-130); Calcium 8.7 mg/dL (7.8-10.44); Carbon Dioxide 25 mmol/L (22-29); Chloride 110 mmol/L (98-107); Estimated GFR-MDRD Greater than 90; Glucose 120 mg/dL (70-105); Potassium 3.6 mmol/L (3.5-5.1); Sodium 143 mmol/L (136-145)
[2019-09-11 05:21] LABS: ALT (SGPT) 28 U/L (8-55); AST (SGOT) 25 U/L (5-34); Albumin 2.5 g/dL (3.5-5.0); Alkaline Phosphatase 104 U/L (40-110); Anion Gap 13 mmol/L (10-20); BUN (Urea Nitrogen) 15 mg/dL (7.0-18.7); Bilirubin, Total 0.3 mg/dL (0.2-1.2); Calc. Creatinine Clearance 157 mL/min (70-130); Calcium 8.4 mg/dL (7.8-10.44); Carbon Dioxide 21 mmol/L (22-29); Chloride 111 mmol/L (98-107); Estimated GFR-MDRD Greater than 90; Globulin 4.1 g/dL (2.4-3.5); Glucose 121 mg/dL (70-105); Iron 44 ug/dL (50-170); Iron Binding Capacity, Total 238 mcg/dL (265-497); Magnesium 2.2 mg/dL (1.6-2.6); Phosphorus 3.5 mg/dL (2.3-4.7); Potassium 4.1 mmol/L (3.5-5.1); Protein, Total 6.6 g/dL (6.0-8.3); Sodium 141 mmol/L (136-145)
[2019-09-11 05:25] LABS: Band 3 % (5-11); Eosinophils 2 % (0-10); Hemoglobin 10.1 g/dL (12.0-16.0); Lymphocytes 7 % (21-51); MDiff Complete? YES; Mean Corpuscular HGB CONC 32.3 g/dL (32.0-36.0); Mean Corpuscular Volume 92.9 fL (78.0-98.0); Mean Platelet Volume 7.5 fL (7.4-10.4); Monocytes 5 % (0-10); Neutrophil 83 % (42-75); Platelet Count 554 thou/uL (130-400); Platelet Morphology Comment Appears Increased; RBC Distribution Width 13.6 % (11.5-14.5); Red Blood Cell (RBC) Count 3.36 mill/uL (4.20-5.40)
[2019-09-11 05:36] LABS: Ferritin 86.79 ng/mL (10-291)
[2019-09-11] MEDS: Metoclopramide HCl 10 MG/2 ML VIAL IVP SCH ×3 (06:24→22:02)
--- NOTE | 2019-09-11 07:59 | PRG ---
DATE OF SERVICE: 09/11/2019 Ms. Henson' EVD has been placed at 15 cm of water overnight and surprisingly, her drainage has gone up some, to where now she has put out roughly 6 to 7 mL an hour overnight. Her ICPs measured on the EVD had been around 10 to 14 all night. Otherwise, exam is stable. Job ID: [id number]
[2019-09-11] MEDS: Famotidine 40 MG/5 ML Oral Suspension PER TUBE SCH ×2 (08:48→20:07)
[2019-09-11] MEDS: Amlodipine 10 MG TAB PER TUBE SCH (08:48)
[2019-09-11] MEDS: Simethicone Chewable 80 MG TAB PO SCH ×2 (08:49→13:43)
[2019-09-11] MEDS: Senokot S 8.6-50 MG TAB PO SCH ×2 (08:49→20:06)
--- NOTE | 2019-09-11 11:56 | RAD ---
PORTABLE CHEST ONE VIEW: 09/11/2019 11:05 a.m. HISTORY: Abnormal breath sounds. Rhonchi. Respiratory failure. COMPARISON: Exam from the previous day. FINDINGS: The tracheostomy tube is again seen. The nasogastric tube has been removed in the interim. The heart size is stable. There is suggestion of atelectatic change in the left lung base. No pneumothoraces ar e seen. There is no evidence of bushra pulmonary edema. POS: [facility]
--- NOTE | 2019-09-11 12:22 | PRG ---
DATE OF SERVICE: 09/11/2019 SERVICE: Pulmonary Medicine. INTERVAL HISTORY: The patient is doing okay from mentation standpoint. Overall, she is roughly stable. She cannot provide any additional elements of the history because of her static encephalopathy. Otherwise, she did not have a bowel movement yesterday. Her abdomen seems to be a little bit less distended today. Additionally, she has minimal bowel sounds present today. Otherwise, there has been no interval change to her condition. PHYSICAL EXAMINATION: VITAL SIGNS: Afebrile, pulse 95, blood pressure 102/61, respirations 38, and saturation 99% on T-collar. HEENT: Normocephalic and atraumatic. Sclerae white. Conjunctivae pink. Oral mucosa is moist without lesions. LUNGS: Decent air entry. Rhonchi are present. There is no prolonged expiratory phase or wheezing present. HEART: Normal rate. Regular. ABDOMEN: Soft, nontender, and nondistended. Bowel sounds are positive. MUSCULOSKELETAL: No cyanosis or clubbing. There is no pitting in bilateral lower extremities. NEUROLOGIC: She withdraws from noxious stimuli in the right upper extremity and bilateral lower extremities. That being said, with noxious stimuli in left upper extremity, she demonstrates some posturing. Pupils are equal, round, and reactive and she has good respiratory drive. She has a cough and gag. She is not following any commands whatsoever. LABORATORY DATA: Sodium 141, chloride 111, anion gap 13, and BUN 15. Basic metabolic profile and liver function studies are otherwise unremarkable. Hemoglobin 10.1 and roughly stable. CBC is otherwise unremarkable. Neutrophil count is downtrending to 83% on top of 3% bands. All cultures are unremarkable today. Tracheal aspirate from yesterday is growing gram-negative rods as well as a few yeast with many white blood cells. IMAGING: Chest x-ray demonstrates tracheostomy in good position. There is a left-sided pleural-parenchymal abnormality in the retrocardiac space, possibly consistent with an infiltrate. Otherwise, there is no acute cardiopulmonary abnormality present. She has very dilated loops of bowel. ASSESSMENT: 1. Intraparenchymal hemorrhage, thalamic bleed. 2. Acute hypoxic respiratory failure, status post tracheostomy. 3. Ileus. 4. Possible evolving respiratory infection. DISCUSSION AND PLAN: We will monitor for additional signs of systemic inflammatory response. If present, empiric antibiotic directed and gram-negative aspirated organisms will be considered. I will interrupt the D5 water as her sodium is at the upper limits of the normal range. We will recheck a basic metabolic profile tomorrow morning, but otherwise, I will give her a laboratory holiday. Her abdomen seems to be less distended today, and she is actively having bowel sounds. Hopefully, this will translate into passing gas, and bowel movements in the next 24 to 48 hours. Once this happens, we can reintroduce tube feeds. Critical Care will follow. Job ID: [id number]
[2019-09-11] MEDS: Dextrose 5% in Water 1,000 ML IV SCH (12:54)
--- NOTE | 2019-09-11 13:12 | PDOC.HOSPP ---
- Subjective Encounter Date: 09/11/19 Encounter Time: 10:00 Subjective: Unable to obtain history from patient due to mental status. She still continues to be non-verbal. Patient is able to close her eyes when you try opening them. EVD placed at 15 and noted to have better output, neurosurgery and critical care following. Hypernatremia resolved, D5 discontinued. - Objective Vital Signs & Weight: Vital Signs (12 hours) Temp Pulse Resp BP Pulse Ox 09/11/19 13:00 85 25 H 99 09/11/19 08:48 86 125/96 H 09/11/19 08:00 97.6 F 09/11/19 07:50 99 09/11/19 07:49 82 27 H 99 09/11/19 04:00 97.7 F Weight Admit Weight 173 lb 4.533 oz Weight 167 lb 12.348 oz Most Recent Monitor Data Heart Rate from ECG 95 NIBP 102/61 NIBP BP-Mean 74 Respiration from ECG 38 SpO2 99 I&O: 09/10/19 09/11/19 09/12/19 06:59 06:59 06:59 Intake Total 2670 1533 65 Output Total 1088 1766 297 Balance 1582 -233 -232 Result Diagrams: 09/11/19 04:44 09/11/19 04:44 Radiology Reviewed by me: Yes Hospitalist ROS - Review of Systems ROS unobtainable: due to mental status - Medication Medications: Active Medications Generic Name Dose Route Start Last Admin Trade Name Freq PRN Reason Stop Dose Admin Acetaminophen 650 mg 08/27/19 22:53 09/01/19 12:05 Tylenol [place] 650 mg Q4H PRN Administration Headache/Fever/Mild Pain (1-3) Acetaminophen 650 mg 09/01/19 09:28 09/07/19 15:59 Tylenol Elixir PER TUBE 650 mg Q6H PRN Administration Fever > 101 Albuterol/Ipratropium 3 ml 09/10/19 13:00 09/11/19 13:00 Duoneb NEB 3 ml [id number] JEAN-PAUL Administration Amlodipine Besylate 10 mg 08/29/19 09:00 09/11/19 08:48 Norvasc PER TUBE 10 mg DAILY JEAN-PAUL Administration Famotidine 20 mg 09/01/19 21:00 09/11/19 08:48 Pepcid PER TUBE 20 mg BID JEAN-PAUL Administration Hydralazine HCl 10 mg 08/28/19 20:34 09/10/19 18:39 Apresoline SLOW IVP 10 mg Q15M PRN Administration SBP > 140 Potassium Chloride 40 meq/ 270 mls @ 135 mls/hr 08/27/19 21:10 09/09/19 05:51 Sodium Chloride IVPB 270 mls ASDIR PRN Administration FOR SERUM K+ 2.5 - 3.5 Metoclopramide HCl 10 mg 09/08/19 22:00 09/11/19 06:24 Reglan IVP 10 mg Q8HR JEAN-PAUL Administration Ondansetron HCl 4 mg 09/07/19 22:28 09/08/19 10:00 Zofran SLOW IVP 4 mg Q6H PRN Administration Nausea/Vomiting Scopolamine 1.5 mg 09/01/19 07:45 09/10/19 09:06 Transderm Scop TD 1.5 mg Q3D JEAN-PAUL Administration Senna/Docusate Sodium 1 tab 09/10/19 21:00 09/11/19 08:49 Senokot S PO 1 tab BID JEAN-PAUL Administration - Exam General Appearance: ill appearing Eye: PERRL, anicteric sclera Neck: no JVD Heart: RRR, no murmur, no gallops Respiratory: rhonchi Gastrointestinal: soft, distended Gastrointestinal - other findings: some bowel sounds present Extremities: no cyanosis, no clubbing, no edema Skin: normal turgor, no lesions, no rashes Neurological: cranial nerve grossly intact, normal sensation to touch, no focal deficits, no new deficit Neurological - other findings: Reflexes 2+ in patella, Babinski sign negative Musculoskeletal: normal tone, normal strength, no muscle wasting Psychiatric: normal affect, normal behavior, A&O x 3 Hosp A/P - Plan Chest x ray: RL opacity improved CT head 09/09: intraventricular hemorrhage Chest Xray 09/11: mild atelectasis Acute encephalopathy secondary to Intraventricular hemorrhage secondary to malignant hypertension s/p ventriculostomy cathhter, occipital craniectomy - CT showed intraventricular hemorrhage on admission with extension into third and lateral ventricle and inferior herniation - neurosurgery following, EVD in place. Currently at 15 cm and improving, may try clamping on Thursday or Thursday. May need shunt Leukocytosis- resolved - WBC down to 10. Received zosyn from 09/02 to 09/10. Sputum culture growing preliminary gram negative rods - blood culture negative on 09/02, urine culture negative. CSF culture negative. - chest X ray today shows no infiltrate Acute hypoxic respiratory failure secondary to pneumonia - pO2 57 on ABG last night. Trach collar increased from 28 to 32 - s/p zosyn for 8 days Anemia - Hb 10.1/31.2., likely from hemorrhage. Stable - stool occult blood negative Hypertension - currently on amlodipine, controlled Hypernatremia - resolved - discontinuing D5W due to rhonchi on exam and sodium down to 141 - sodium increasing to 146. Started D5W, discontinuing NS Hypokalemia- resolved Code status: full code DVT prophylaxis: contraindicated GI prophylaxis: famotidine Diet: d/c IV fluids today
[2019-09-12] MEDS: Metoclopramide HCl 10 MG/2 ML VIAL IVP SCH ×3 (05:39→21:22)
[2019-09-12 05:50] LABS: Anion Gap 13 mmol/L (10-20); BUN (Urea Nitrogen) 16 mg/dL (7.0-18.7); Calc. Creatinine Clearance 145 mL/min (70-130); Calcium 8.7 mg/dL (7.8-10.44); Carbon Dioxide 23 mmol/L (22-29); Chloride 109 mmol/L (98-107); Estimated GFR-MDRD Greater than 90; Glucose 96 mg/dL (70-105); Potassium 3.7 mmol/L (3.5-5.1); Sodium 141 mmol/L (136-145)
[2019-09-12] MEDS: Amlodipine 10 MG TAB PER TUBE SCH (07:52)
[2019-09-12] MEDS: Senokot S 8.6-50 MG TAB PO SCH ×2 (08:02→21:22)
[2019-09-12] MEDS: Acetaminophen 650 MG/20.3 ML UDCUP PER TUBE PRN (08:02)
--- NOTE | 2019-09-12 08:17 | PRG ---
DATE OF SERVICE: 09/12/2019 SUBJECTIVE: She remains in the CCU. She has a ventricular drain in place. She has a tracheostomy feeding tube in place. Her neurologic status is unchanged. OBJECTIVE: VITAL SIGNS: On exam, her temperature is 99.2 with no fever recorded over the weekend, pulse 93, blood pressure 106/69, and O2 saturation 98%. HEENT: Remarkable for a ventricular drain in place. NECK: No adenopathy or JVD. Trach in good position. LUNGS: Coarse rhonchi. CARDIAC: S1 and S2. Regular. ABDOMEN: Soft and nontender. EXTREMITIES: No edema. LABORATORY DATA: Sodium 141, potassium 3.7, chloride 109, CO2 of 23, BUN 16, creatinine 0.6, and glucose 96. ASSESSMENT: 1. Status post thalamic bleed with little neurologic recovery. 2. Status post tracheostomy and percutaneous endoscopic gastrostomy tube placement. PLAN: Generally supportive at this point. Her fever seems to be resolved and was likely due to the thalamic bleed itself. Recommendations; she is currently off antibiotics and she will be left off antibiotics. She will remain in the CCU until the ventricular drain is out. We need to get the case management team to start working on placement. Job ID: [id number]
[2019-09-12] MEDS: Famotidine 40 MG/5 ML Oral Suspension PER TUBE SCH ×2 (09:12→21:22)
[2019-09-12 10:44] LABS: #Eosinphils 0.1 thou/uL (0.0-0.7); #Monocytes 0.5 thou/uL (0.11-0.59); #Neutrophils 9.6 thou/uL (1.40-6.50); %Basophils 0.1 % (0.0-1.0); %Eosinophils 0.4 % (0.0-10.0); %Lymphocytes 9.2 % (21.0-51.0); %Monocytes 4.8 % (0.0-10.0); %Neutrophils 85.5 % (42.0-75.0); Hemoglobin 10.6 g/dL (12.0-16.0); Mean Corpuscular HGB CONC 32.3 g/dL (32.0-36.0); Mean Corpuscular Hemoglobin 30.3 pg (27.0-31.0); Mean Corpuscular Volume 93.8 fL (78.0-98.0); Mean Platelet Volume 6.8 fL (7.4-10.4); Platelet Count 553 thou/uL (130-400); RBC Distribution Width 13.4 % (11.5-14.5); Red Blood Cell (RBC) Count 3.51 mill/uL (4.20-5.40); White Blood Cell (WBC) Count 11.2 thou/uL (4.8-10.8)
--- NOTE | 2019-09-12 12:36 | PDOC.HOSPP ---
- Subjective Encounter Date: 09/12/19 Encounter Time: 11:30 Subjective: Patient non-verbal, opens eyes spontaneously Per nursing staff, urine output has decreased to 20/hour. BP in the 90's, held norvasc this morning. She hasn't had bowel movement in few days - Objective Vital Signs & Weight: Vital Signs (12 hours) Temp Pulse Resp Pulse Ox 09/12/19 11:00 98.7 F 09/12/19 07:07 97 09/12/19 07:02 99 29 H 97 09/12/19 07:00 99.2 F 09/12/19 04:00 99.2 F Weight Admit Weight 173 lb 4.533 oz Weight 168 lb 10.458 oz Most Recent Monitor Data Heart Rate from ECG 102 NIBP 122/79 NIBP BP-Mean 93 Respiration from ECG 22 SpO2 100 I&O: 09/11/19 09/12/19 09/13/19 06:59 06:59 06:59 Intake Total 1533 528 120 Output Total 1766 1924 125 Balance -233 -1396 -5 Result Diagrams: 09/12/19 10:27 09/12/19 04:32 Hospitalist ROS - Review of Systems ROS unobtainable: due to mental status - Medication Medications: Active Medications Generic Name Dose Route Start Last Admin Trade Name Paulinoq PRN Reason Stop Dose Admin Acetaminophen 650 mg 08/27/19 22:53 09/01/19 12:05 Tylenol [place] 650 mg Q4H PRN Administration Headache/Fever/Mild Pain (1-3) Acetaminophen 650 mg 09/01/19 09:28 09/12/19 08:02 Tylenol Elixir PER TUBE 650 mg Q6H PRN Administration Fever > 101 Albuterol/Ipratropium 3 ml 09/10/19 13:00 09/12/19 07:02 Duoneb NEB 3 ml [id number] JEAN-PAUL Administration Amlodipine Besylate 10 mg 08/29/19 09:00 09/12/19 07:52 Norvasc PER TUBE Not Given DAILY JEAN-PAUL Famotidine 20 mg 09/01/19 21:00 09/12/19 09:12 Pepcid PER TUBE 20 mg BID JEAN-PAUL Administration Hydralazine HCl 10 mg 08/28/19 20:34 09/10/19 18:39 Apresoline SLOW IVP 10 mg Q15M PRN Administration SBP > 140 Potassium Chloride 40 meq/ 270 mls @ 135 mls/hr 08/27/19 21:10 09/09/19 05:51 Sodium Chloride IVPB 270 mls ASDIR PRN Administration FOR SERUM K+ 2.5 - 3.5 Levofloxacin 750 mg/ Device 150 mls @ 100 mls/hr 09/12/19 11:00 09/12/19 11: 56 IVPB 150 mls Q24HR JEAN-PAUL Administration Metoclopramide HCl 10 mg 09/08/19 22:00 09/12/19 05:39 Reglan IVP 10 mg Q8HR JEAN-PAUL Administration Ondansetron HCl 4 mg 09/07/19 22:28 09/08/19 10:00 Zofran SLOW IVP 4 mg Q6H PRN Administration Nausea/Vomiting Scopolamine 1.5 mg 09/01/19 07:45 09/10/19 09:06 Transderm Scop TD 1.5 mg Q3D JEAN-PAUL Administration Senna/Docusate Sodium 1 tab 09/10/19 21:00 09/12/19 08:02 Senokot S PO 1 tab BID JEAN-PAUL Administration - Exam General Appearance: NAD, awake alert Eye: PERRL, anicteric sclera ENT: normocephalic atraumatic, no oropharyngeal lesions Neck: supple, no JVD Heart: RRR, no murmur, no gallops Respiratory: CTAB, no wheezes, no rales Gastrointestinal: soft, distended, diminished bowl sounds Extremities: no cyanosis, no clubbing, no edema Skin: normal turgor, no lesions, no rashes Neurological - other findings: Opens eyes spontaneously, but not to command. Eyes don't track. Pupil react Musculoskeletal: normal tone, normal strength, no muscle wasting Psychiatric: normal affect, normal behavior, A&O x 3 Hosp A/P - Plan Chest x ray: RL opacity improved CT head 09/09: intraventricular hemorrhage Chest Xray 09/11: mild atelectasis Acute encephalopathy secondary to Intraventricular hemorrhage secondary to malignant hypertension s/p ventriculostomy cathhter, occipital craniectomy - CT showed intraventricular hemorrhage on admission with extension into third and lateral ventricle and inferior herniation - neurosurgery following, EVD in place. No output from EVD, appreciate neurosurgery input Leukocytosis - increased again, sputum culture growing Enterobacter Cloacae. Will start IV levaquin given RR in 30's per nurse - Received zosyn from 09/02 to 09/10 however this bacteria is resistant to zosyn. - blood culture negative on 09/02, urine culture negative. CSF culture negative. - chest X ray shows no infiltrate Acute hypoxic respiratory failure secondary to pneumonia - pO2 57 on ABG last night. On trach collar - s/p zosyn for 8 days Abdominal distension - repeat abdominal X ray today, patient had ileus previously on last X ray Hypotension - hold antihypertensive - gentle hydration of IV fluids Anemia - Hb 10.6/32.9, likely from hemorrhage. Stable - stool occult blood negative Hypertension - currently on amlodipine, controlled Hypernatremia - resolved Hypokalemia- resolved Code status: full code DVT prophylaxis: contraindicated GI prophylaxis: famotidine Diet: d/c IV fluids today
[2019-09-12] MEDS: Dextrose 5 %-0.45 % NaCl 1,000 ML IV SCH (13:51)
--- NOTE | 2019-09-12 16:07 | PRG ---
DATE OF SERVICE: 09/12/2019 SUBJECTIVE: Ms. Henson is in the same neurological status. She opens her eyes intermittently but does not interact with the examiner, does not follow commands. OBJECTIVE: VITAL SIGNS: T-max 99.9, BP 110/74, pulse 102, respirations 31 to 34. She has the ventriculostomy drain, Lynne catheter, has peripheral IV access. NEUROLOGIC: She has muscle tone in all 4 extremities but does not follow commands. I did not see any spontaneous movements at this time. LUNGS: Somewhat coarse breath sounds. Tracheostomy in place. HEART: S1, S2, regular rate. ABDOMEN: Moderately distended, tympanitic, but soft. LABORATORY DATA: White cell count is 11.2, hemoglobin 10.6, platelets 553. Creatinine 0.59. There was a sample from the tracheal aspirate which showed. This could reflect colonization and not true lower respiratory tract infection. ASSESSMENT AND DISCUSSION: Thalamic bleed with decompressive craniectomy, posterior fossa decompression, cervical laminectomy, EV drain placement with improvement in fever curve and now she has been switched to levofloxacin because of the tracheal isolate, although this could represent just colonization of the sample rather than true pathogenic role. Duration of therapy for those respiratory tract infections acquired in the hospital situation usually not more than 5 days. Job ID: [id number] [facility]
--- NOTE | 2019-09-12 18:16 | RAD ---
SUPINE KUB: Date: 09/12/19 COMPARISON: None. HISTORY: Ileus. FINDINGS: Supine imaging is provided, limiting assessment for free air and bowel obstruction. There is gaseous distention of bowel throughout the abdomen/pelvis, which appears to primarily represent colon. There is an IVC filter overlying the right aspect of the L2 and L3 vertebral bodies. IMPRESSION: Gaseous distention of bowel throughout the abdomen/pelvis as detailed above. POS: TORO
[2019-09-13] MEDS: Dextrose 5 %-0.45 % NaCl 1,000 ML IV SCH ×2 (03:09→21:01)
[2019-09-13 04:26] LABS: Hemoglobin 9.6 g/dL (12.0-16.0); Mean Corpuscular HGB CONC 33.4 g/dL (32.0-36.0); Mean Corpuscular Hemoglobin 31.5 pg (27.0-31.0); Mean Corpuscular Volume 94.3 fL (78.0-98.0); Mean Platelet Volume 6.6 fL (7.4-10.4); Platelet Count 453 thou/uL (130-400); RBC Distribution Width 13.3 % (11.5-14.5); Red Blood Cell (RBC) Count 3.04 mill/uL (4.20-5.40)
[2019-09-13 04:45] LABS: Anion Gap 11 mmol/L (10-20); BUN (Urea Nitrogen) 14 mg/dL (7.0-18.7); Calc. Creatinine Clearance 151 mL/min (70-130); Carbon Dioxide 22 mmol/L (22-29); Chloride 108 mmol/L (98-107); Estimated GFR-MDRD Greater than 90; Glucose 124 mg/dL (70-105); Potassium 3.2 mmol/L (3.5-5.1); Sodium 138 mmol/L (136-145)
[2019-09-13] MEDS: Metoclopramide HCl 10 MG/2 ML VIAL IVP SCH ×3 (05:14→21:02)
[2019-09-13] MEDS: Potassium Chloride 40 MEQ in Sodium Chloride 0.9% 250 ML 250 ML IVPB PRN (05:14)
[2019-09-13] MEDS: Acetaminophen 650 MG/20.3 ML UDCUP PER TUBE PRN (07:19)
[2019-09-13] MEDS: Scopolamine 1.5 mg/72 hour Patch TD SCH (07:20)
--- NOTE | 2019-09-13 08:45 | PRG ---
DATE OF SERVICE: 09/13/2019 SUBJECTIVE: She remains in the CCU because she has an EVD in place. She is up in a chair this morning. I do not find that she follows any commands, although she will withdraw when stimulated with the right side. OBJECTIVE: VITAL SIGNS: Her temperature is 99.1, pulse 98, and blood pressure 112/83. She has had no fever overnight. Intake for 24 hours 1375, output 1055. HEENT: Unremarkable. NECK: Trach in good position. LUNGS: Coarse rhonchi. CARDIAC: S1 and S2. Regular. ABDOMEN: Soft. EXTREMITIES: Generalized mild edema throughout. LABORATORY DATA: White blood cell count 8, hematocrit 28.7, and platelet count 453. Sodium 138, potassium 3.2, chloride 108, CO2 of 22, BUN 14, creatinine 0.5, and glucose 124. ASSESSMENT: 1. Status post thalamic bleed. 2. Status post acute respiratory failure, requiring mechanical ventilation and subsequent tracheostomy and feeding tube placement. 3. 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 RECOMMENDATIONS: 1. I would not recommend treating her with the Levaquin beyond 5 days. 2. Need case management assistance regarding placement as the patient is likely need lifelong senior living care. 3. Replace potassium for hypokalemia. Job ID: [id number]
--- NOTE | 2019-09-13 08:54 | CT ---
HEAD CT WITHOUT CONTRAST: DATE: 09/13/2019:. COMPARISON: 09/09/2019. HISTORY: Right thalamic hemorrhage. TECHNIQUE: Axial CT imaging at 5 mm intervals from vertex through skull base without contrast. FINDINGS: There is a ventriculostomy tube inserted via a right frontal approach, distal tip along the inferior lateral aspect of the third ventricle on the left. There is evidence of prior suboccipital craniotomy. Small volume intraventricular hemorrhage is seen within the posterior horns of the lateral ventricles . There is focal hypodensity within the thalamus on the right measuring up to 2.1 cm, in the region of previously noted hemorrhage, evidence of resolving hemorrhage. No new hemorrhage is seen in this r egion. There is diffuse mild loss of cortical sulci bilaterally, evidence of stable mild cerebral edema. The re is stable mild prominence of the lateral ventricles, third ventricle, and fourth ventricle. Imaged paranasal sinuses/mastoid air cells demonstrate mild mucosal thickening of the right sphenoid sinus. No acute osseous abnormality. IMPRESSION: Resolving hemorrhage within the right thalamus with residual edema, improved. Stable mild diffuse cer ebral edema is present and there is stable mild prominence of the ventricular system with stable ventriculostomy tube in place. Stable small volume intraventricular hemorrhage. Transcribed Date/Time: 09/13/2019 8:59 AM
[2019-09-13] MEDS: Amlodipine 10 MG TAB PER TUBE SCH (09:02)
[2019-09-13] MEDS: Famotidine 40 MG/5 ML Oral Suspension PER TUBE SCH ×2 (09:04→21:06)
[2019-09-13] MEDS: Senokot S 8.6-50 MG TAB PO SCH ×2 (09:04→21:22)
--- NOTE | 2019-09-13 10:10 | PRG ---
DATE OF SERVICE: 09/13/2019 Ms. Henson is now 17 days into her hospitalization for hypertensive right thalamic hemorrhage with extension into the midbrain with casting of the ventricular system. She underwent, on the night of presentation, placement of an external ventricular drain, which is in satisfactory position along with a posterior fossa decompression and C1 laminectomy. Postoperatively, we have tried to wean her EVD which is open at 15 cm of water, and while she does have her left eye open spontaneously with right eye ptosis, she has a dysconjugate gaze with anisocoria. This is due to the extension of her bleed in the right thalamus down into her midbrain. She does intermittently follow commands in both upper extremities and in the right lower extremity. She is afebrile. Her white blood cell count is 8. She does have a DVT and she has an IVC filter in place. 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 It does appear increasing in size, as such I have recommended placement of a shunt in an attempt to divert her CSF to allow wound healing and treat her hydrocephalus. My concern is that with the increased ventricular caliber and transependymal flow, there is a chance that the patient will progressively decline from untreated hydrocephalus. We will lower her EVD to 10 cm of water. I do not suspect an infectious process here and I will discuss with my colleague, Dr. Velarde, placement of a shunt this week likely . At some point, I would like to touch base with the family, they were not present this morning. Job ID: [id number]
--- NOTE | 2019-09-13 14:13 | PDOC.HOSPP ---
- Subjective Encounter Date: 09/13/19 Encounter Time: 12:00 Subjective: The patients urine output, tachycardia have improved per nursing staff with fluids. Patient still has not had a bowel movement yet, TPN on hold. She is not really following commands, still opening eyes spontaneously per nursing staff. - Objective Vital Signs & Weight: Vital Signs (12 hours) Temp Pulse Resp Pulse Ox 09/13/19 13:12 93 25 H 100 09/13/19 12:00 98.7 F 09/13/19 07:31 99 09/13/19 07:29 99 30 H 99 09/13/19 07:00 99.1 F 09/13/19 04:00 99.2 F Weight Admit Weight 173 lb 4.533 oz Weight 162 lb 0.636 oz Most Recent Monitor Data Heart Rate from ECG 92 NIBP 121/86 NIBP BP-Mean 97 Respiration from ECG 28 SpO2 100 I&O: 09/12/19 09/13/19 09/14/19 06:59 06:59 06:59 Intake Total 528 1375 120 Output Total 1924 1055 655 Balance -1396 320 -535 Result Diagrams: 09/13/19 04:02 09/13/19 04:02 Hospitalist ROS - Review of Systems ROS unobtainable: due to mental status - Medication Medications: Active Medications Generic Name Dose Route Start Last Admin Trade Name Freq PRN Reason Stop Dose Admin Acetaminophen 650 mg 08/27/19 22:53 09/01/19 12:05 Tylenol [place] 650 mg Q4H PRN Administration Headache/Fever/Mild Pain (1-3) Acetaminophen 650 mg 09/01/19 09:28 09/13/19 07:19 Tylenol Elixir PER TUBE 650 mg Q6H PRN Administration Fever > 101 Albuterol/Ipratropium 3 ml 09/10/19 13:00 09/13/19 13:12 Duoneb NEB 3 ml [id number] JEAN-PAUL Administration Amlodipine Besylate 10 mg 08/29/19 09:00 09/13/19 09:02 Norvasc PER TUBE Not Given DAILY JEAN-PAUL Famotidine 20 mg 09/01/19 21:00 09/13/19 09:04 Pepcid PER TUBE 20 mg BID JEAN-PAUL Administration Hydralazine HCl 10 mg 08/28/19 20:34 09/10/19 18:39 Apresoline SLOW IVP 10 mg Q15M PRN Administration SBP > 140 Potassium Chloride 40 meq/ 270 mls @ 135 mls/hr 08/27/19 21:10 09/13/19 05:14 Sodium Chloride IVPB 270 mls ASDIR PRN Administration FOR SERUM K+ 2.5 - 3.5 Levofloxacin 750 mg/ Device 150 mls @ 100 mls/hr 09/12/19 11:00 09/13/19 11: 15 IVPB 150 mls Q24HR JEAN-PAUL Administration Dextrose/Sodium Chloride 1,000 mls @ 75 mls/hr 09/12/19 12:45 09/13/19 03:09 D5 1/2 Ns IV 1,000 mls .[id number] JEAN-PAUL Administration Metoclopramide HCl 10 mg 09/08/19 22:00 09/13/19 13:42 Reglan IVP 10 mg Q8HR JEAN-PAUL Administration Ondansetron HCl 4 mg 09/07/19 22:28 09/08/19 10:00 Zofran SLOW IVP 4 mg Q6H PRN Administration Nausea/Vomiting Scopolamine 1.5 mg 09/01/19 07:45 09/13/19 07:20 Transderm Scop TD 1.5 mg Q3D JEAN-PAUL Administration Senna/Docusate Sodium 1 tab 09/10/19 21:00 09/13/19 09:04 Senokot S PO 1 tab BID JEAN-PAUL Administration - Exam General - other findings: Lethargic, encephalopathic on trach collar. Eye - other findings: Dysconjugate gaze, pupils nonreactive Neck: no JVD Heart: RRR, no murmur, no gallops, no rubs Respiratory: CTAB, no wheezes, no rales, no ronchi Gastrointestinal: soft, distended, diminished bowl sounds Extremities: no cyanosis, no clubbing, no edema Skin: normal turgor, no lesions, no rashes Neurological - other findings: unable to assess cranial nerves or neuro exam. Psychiatric: lethargic Hosp A/P - Plan Chest x ray: RL opacity improved CT head 09/09: intraventricular hemorrhage Chest Xray 09/11: mild atelectasis Abdominal x ray: gaseous distension of bowel CT head: resolving hemorrhage within right thalamus with residual edema, improved. Stable mild diffuse cerebral edema and stable mild prominence of ventricular system with stable ventriculostomy tube in place. Stable small volume intraventricular hemorrhage. Acute encephalopathy secondary to Intraventricular hemorrhage secondary to malignant hypertension s/p ventriculostomy cathhter, occipital craniectomy - CT showed intraventricular hemorrhage on admission with extension into third and lateral ventricle and inferior herniation - neurosurgery following, EVD in place decreased to 10 cm today per neurosurgery. CT head this morning shows residual thalamus edema and mild diffuse cerebral edema - Plan for shunt placement on Enterobacter cloacae pneumonia Leukocytosis - resolved - patient had WBC of 11 yesterday, tachycardia, sputum culture growing Enterbacter Cloacae, chest x ray on admission showing RL opacity - IV levaquin day 01/04 - s/p zosyn 09/02 to 09/10, blood culture negative. - blood culture negative on 09/02, urine culture negative. CSF culture negative. Acute hypoxic respiratory failure secondary to Enterobacter pneumonia - pO2 57 on ABG last night. On trach collar, wean to oxygen saturation 92% - on IV levaquin Abdominal ileus - noted on xray yesterday, hold tube feeds Hypotension - improved with IV fluids Anemia - Hb 10.6/32.9, likely from hemorrhage. Stable - stool occult blood negative Hypernatremia - resolved Hypokalemia- resolved Code status: full code DVT prophylaxis: contraindicated GI prophylaxis: famotidine Diet: IV fluids
--- NOTE | 2019-09-13 15:03 | PDOC.PALCO ---
Palliative Care Consult - Consult Details Requesting Physician: She Reason for Consult: goals of care, advance directives assistance, family support Family Members Present: none - Pertinent HPI 43 year old female with a sudden altered mental status at home and decreased consciousness, becoming non responsive. Presented to the emergency room and was intubated secondary to inability to protect airway. Evaluation in the emergency room identified a right thalamic bleed. No triggering factors identified. Admitted to the ICU for stabilization and management. - Social History Smoking Status: Unknown if ever smoked Living Situation: - Medications MAR Reviewed: Yes - Allergies Allergies/Adverse Reactions: Allergies Allergy/AdvReac Type Severity Reaction Status Date / Time No Allergy Information Allergy Verified 08/28/19 02:35 Available - Subjective non responsive at time of assessment, trach with mechanical ventilation. 10 point review of systems not obtainable secondary to unresponsiveness - Objective Vital Signs: Vital Signs - Most Recent Temp Pulse Resp BP Pulse Ox 98.7 F 93 25 H 125/96 H 100 09/13/19 12:00 09/13/19 13:12 09/13/19 13:12 09/11/19 08:48 09/13/19 13:12 Palliative Performance Scale: 20 - Physical Exam Constitutional: mild distress Deviation from normal: trach, mechanical ventilation HEENT: moist MMs Deviation from normal: mechanical ventilation, clear upper lobes Cardiovascular: RRR Gastrointestinal: soft, hypoactive bowel sounds Deviation from normal: distended Musculoskeletal: no clubbing, no cyanosis - Problem List (1) Palliative care encounter Code(s): Z51.5 - ENCOUNTER FOR PALLIATIVE CARE Current Visit: Yes Status: Acute (2) Acute respiratory failure Code(s): J96.00 - ACUTE RESPIRATORY FAILURE, UNSP W HYPOXIA OR HYPERCAPNIA Current Visit: Yes Status: Acute Qualifiers: Respiratory failure complication: hypoxia Qualified Code(s): J96.01 - Acute respiratory failure with hypoxia (3) Encephalopathy acute Code(s): G93.40 - ENCEPHALOPATHY, UNSPECIFIED Current Visit: Yes Status: Acute (4) Ileus Code(s): K56.7 - ILEUS, UNSPECIFIED Current Visit: Yes Status: Acute (5) Intracranial hemorrhage Code(s): I62.9 - NONTRAUMATIC INTRACRANIAL HEMORRHAGE, UNSPECIFIED Current Visit: Yes Status: Acute (6) HTN (hypertension) Code(s): I10 - ESSENTIAL (PRIMARY) HYPERTENSION Current Visit: Yes Status: Chronic Qualifiers: Hypertension type: essential hypertension Qualified Code(s): I10 - Essential (primary) hypertension - Plan/Recommendations Plan: No family at bedside. Unable to contact family. Will continue to attempt to contact and work with Palliative Care RN Sonia Cohen to facilitate family meeting , discuss resuscitation status and goals of care inline with guarded prognosis. [30] minutes spent on this encounter with >50% of the time in counseling and coordination of care. Thank you for this very appropriate consult.
[2019-09-14 05:06] LABS: Anion Gap 14 mmol/L (10-20); BUN (Urea Nitrogen) 6 mg/dL (7.0-18.7); Calc. Creatinine Clearance 156 mL/min (70-130); Calcium 8.3 mg/dL (7.8-10.44); Carbon Dioxide 22 mmol/L (22-29); Chloride 105 mmol/L (98-107); Estimated GFR-MDRD Greater than 90; Glucose 110 mg/dL (70-105); Potassium 3.6 mmol/L (3.5-5.1); Sodium 137 mmol/L (136-145)
[2019-09-14] MEDS: Metoclopramide HCl 10 MG/2 ML VIAL IVP SCH ×3 (07:00→21:15)
--- NOTE | 2019-09-14 09:28 | PRG ---
DATE OF SERVICE: 09/14/2019 SUBJECTIVE: The patient remains in the CCU with a ventricular drain in place. She is opening her eyes. She followed some spurious commands from me today. OBJECTIVE: VITAL SIGNS: Temperature 99.5, pulse 102, blood pressure 123/90, O2 saturation 100%. Intake and output 104/2024. HEENT: Unremarkable. NECK: Trach in good position. LUNGS: Clear. CARDIAC: S1 and S2. Regular. ABDOMEN: Soft. EXTREMITIES: Trace edema. LABORATORY DATA: Sodium 137, potassium 3.6, chloride 105, CO2 of 22, BUN 6, creatinine 0.5, glucose 110. ASSESSMENT: 1. Status post thalamic bleed with severe residual neurologic deficit. 2. Status post tracheostomy and feeding tube placement. 3. 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 PLAN: Again, would stop antibiotics after about 5 days. Continue current supportive care. Job ID: [id number]
[2019-09-14] MEDS: Famotidine 40 MG/5 ML Oral Suspension PER TUBE SCH ×2 (09:45→20:19)
[2019-09-14] MEDS: Amlodipine 10 MG TAB PER TUBE SCH (09:57)
[2019-09-14] MEDS: Senokot S 8.6-50 MG TAB PO SCH ×2 (09:57→20:19)
[2019-09-14] MEDS: Dextrose 5 %-0.45 % NaCl 1,000 ML IV SCH ×2 (09:58→21:17)
--- NOTE | 2019-09-14 10:05 | PRG ---
DATE OF SERVICE: 09/14/2019 Ms. Henson remains neurologically stable with a GCS of 11T. Left eyes open spontaneously. She would intermittently follow commands bilaterally with a bit more of a delay in the left lower extremity. EVD has now been lower back to 10 cm of water and open. We are planning on ventriculoperitoneal shunt tomorrow. Her tube feeds will be held. We have obtained consent from the family. Job ID: [id number]
--- NOTE | 2019-09-14 15:39 | PDOC.HOSPP ---
- Subjective Encounter Date: 09/14/19 Encounter Time: 14:00 Subjective: Patient continues to not follow commands. Today she tries to close right eye when I try to open it. - Objective Vital Signs & Weight: Vital Signs (12 hours) Temp Pulse Resp BP Pulse Ox 09/14/19 13:23 99 24 H 09/14/19 09:57 98 117/72 09/14/19 08:00 99.8 F H 98 09/14/19 07:41 98 28 H 09/14/19 05:00 99.5 F Weight Admit Weight 173 lb 4.533 oz Weight 2.61 oz Most Recent Monitor Data Heart Rate from ECG 98 NIBP 117/72 NIBP BP-Mean 87 Respiration from ECG 30 SpO2 100 I&O: 09/13/19 09/14/19 09/15/19 06:59 06:59 06:59 Intake Total 1375 1041 Output Total 1055 2025 270 Balance 320 -984 -270 Result Diagrams: 09/13/19 04:02 09/14/19 04:30 Hospitalist ROS - Review of Systems ROS unobtainable: due to endotracheal tube Constitutional: denies: fever, chills - Medication Medications: Active Medications Generic Name Dose Route Start Last Admin Trade Name Freq PRN Reason Stop Dose Admin Acetaminophen 650 mg 08/27/19 22:53 09/01/19 12:05 Tylenol TN 650 mg Q4H PRN Administration Headache/Fever/Mild Pain (1-3) Acetaminophen 650 mg 09/01/19 09:28 09/13/19 07:19 Tylenol Elixir PER TUBE 650 mg Q6H PRN Administration Fever > 101 Albuterol/Ipratropium 3 ml 09/10/19 13:00 09/14/19 13:23 Duoneb NEB 3 ml [id number] JEAN-PAUL Administration Amlodipine Besylate 10 mg 08/29/19 09:00 09/14/19 09:57 Norvasc PER TUBE 10 mg DAILY JEAN-PAUL Administration Famotidine 20 mg 09/01/19 21:00 09/14/19 09:45 Pepcid PER TUBE 20 mg BID JEAN-PAUL Administration Hydralazine HCl 10 mg 08/28/19 20:34 09/10/19 18:39 Apresoline SLOW IVP 10 mg Q15M PRN Administration SBP > 140 Potassium Chloride 40 meq/ 270 mls @ 135 mls/hr 08/27/19 21:10 09/13/19 05:14 Sodium Chloride IVPB 270 mls ASDIR PRN Administration FOR SERUM K+ 2.5 - 3.5 Levofloxacin 750 mg/ Device 150 mls @ 100 mls/hr 09/12/19 11:00 09/14/19 10: 03 IVPB 150 mls Q24HR JEAN-PAUL Administration Dextrose/Sodium Chloride 1,000 mls @ 75 mls/hr 09/12/19 12:45 09/14/19 09:58 D5 1/2 Ns IV 1,000 mls .[id number] JEAN-PAUL Administration Metoclopramide HCl 10 mg 09/08/19 22:00 09/14/19 13:35 Reglan IVP 10 mg Q8HR JEAN-PAUL Administration Ondansetron HCl 4 mg 09/07/19 22:28 09/08/19 10:00 Zofran SLOW IVP 4 mg Q6H PRN Administration Nausea/Vomiting Scopolamine 1.5 mg 09/01/19 07:45 09/13/19 07:20 Transderm Scop TD 1.5 mg Q3D JEAN-PAUL Administration Senna/Docusate Sodium 1 tab 09/10/19 21:00 09/14/19 09:57 Senokot S PO 1 tab BID JEAN-PAUL Administration - Exam General Appearance: ill appearing General - other findings: clammy skin Eye - other findings: pupils nonreactive ENT - other findings: trach collar in place Neck: supple, symmetric, no JVD Heart: RRR, no murmur, no gallops Respiratory: CTAB, no wheezes, no rales, no ronchi Gastrointestinal - other findings: mildy distended, + bowel sounds Extremities: no cyanosis, no clubbing, no edema Skin: normal turgor, no lesions, no rashes Neurological - other findings: Unable to follow commands, withdraws to pain Musculoskeletal: normal tone, normal strength, no muscle wasting Psychiatric: normal affect, normal behavior Hosp A/P - Plan Chest x ray: RL opacity improved CT head 09/09: intraventricular hemorrhage Chest Xray 09/11: mild atelectasis Abdominal x ray: gaseous distension of bowel CT head: resolving hemorrhage within right thalamus with residual edema, improved. Stable mild diffuse cerebral edema and stable mild prominence of ventricular system with stable ventriculostomy tube in place. Stable small volume intraventricular hemorrhage. Acute encephalopathy secondary to Intraventricular hemorrhage secondary to malignant hypertension s/p ventriculostomy cathhter, occipital craniectomy - CT showed intraventricular hemorrhage on admission with extension into third and lateral ventricle and inferior herniation - neurosurgery following, EVD in place decreased to 10 cm today per neurosurgery. CT head this morning shows residual thalamus edema and mild diffuse cerebral edema - Plan for shunt placement tomorrow. Holding tube feeds for now Enterobacter cloacae pneumonia Leukocytosis - resolved - WBC down to 8, continue IV levaquin day 02/01, sputum culture shows Enterobacter Cloacae, chest XS ray on admission showed RL opacity - blood cultures negative 09/02, UA negative, CSF culture negative Acute hypoxic respiratory failure secondary to Enterobacter pneumonia - pO2 57 on ABG last night. On trach collar, wean to oxygen saturation 92% - on IV levaquin Abdominal ileus - holding tube feeds Hypotension - on low dose IV fluids Anemia - Hb 9.6/28.7 likely from hemorrhage. Stable - stool occult blood negative Hypernatremia - resolved Hypokalemia- resolved Dispo: CHURCH WARDEN shunt placement tomorrow Code status: full code DVT prophylaxis: contraindicated GI prophylaxis: famotidine Diet: IV fluids
--- NOTE | 2019-09-14 17:17 | PRG ---
DATE OF SERVICE: 09/14/2019 SUBJECTIVE: The patient seems to be following commands sometimes, and sometimes has purpose in her eye movements, and she was able to lift her left hand from the bed. Dr. Garcia is planning a DAY CARE SUPERVISOR shunt placement for tomorrow. OBJECTIVE: VITAL SIGNS: T-max 99.8, blood pressure 117/72, pulse 98, O2 saturation 98. She has an external ventriculostomy drain. HEENT: The ocular movements are conjugate. Pupils are equal, about 2 mm and reactive, but sluggishly reactive. LUNGS: Symmetric air entry. HEART: S1 and S2, regular rate. EXTREMITIES: She has good muscle tone in all 4 extremities. NEUROLOGIC: Does not follow commands. Plantar responses are flexor. LABORATORY DATA: Sodium 137, creatinine 0.53, white cell count 8.0, hemoglobin 9.6, platelets 453. There is a tracheal aspirate culture, which could represent colonization rather than true lower respiratory tract infection. The last brain CT from yesterday with resolving hemorrhage in the right thalamus with residual edema, which is improved. Mild diffuse cerebral edema present. Stable mild prominence of ventricular system. Stable ventriculostomy tube in place. ASSESSMENT AND DISCUSSION: Thalamic bleed with decompressive craniectomy and posterior fossa decompression, cervical laminectomy, EV drain placement with improvement in fever with a planned placement of DAY CARE SUPERVISOR shunt. The isolate from the tracheostomy could represent colonization rather than true pathogen. Job ID: [id number]
[2019-09-15] MEDS: Metoclopramide HCl 10 MG/2 ML VIAL IVP SCH ×3 (06:09→22:27)
[2019-09-15 06:16] LABS: Anion Gap 13 mmol/L (10-20); BUN (Urea Nitrogen) 9 mg/dL (7.0-18.7); Calc. Creatinine Clearance 139 mL/min (70-130); Calcium 8.7 mg/dL (7.8-10.44); Carbon Dioxide 23 mmol/L (22-29); Chloride 103 mmol/L (98-107); Estimated GFR-MDRD Greater than 90; Glucose 121 mg/dL (70-105); Potassium 3.5 mmol/L (3.5-5.1); Sodium 135 mmol/L (136-145)
[2019-09-15] MEDS ORDERED: Lidocaine 0.5%/Epinephrine 1:200,000 50 ml Vial ONE (06:41)
[2019-09-15] MEDS ORDERED: Bupivacaine/Epinephrine 0.25% 30 ML VIAL ONE (06:41)
[2019-09-15] MEDS ORDERED: Bacitracin Zinc Ointment 30 gm TUBE ONE (06:42)
[2019-09-15] MEDS ORDERED: Sodium Chloride 0.9% 10 ML ONE (06:42)
[2019-09-15] MEDS ORDERED: Fentanyl 100 MCG/2 ML VIAL ONE ×2 (06:45→09:43)
[2019-09-15] MEDS ORDERED: Midazolam HCl 2 mg/2 ml Vial ONE (06:45)
[2019-09-15 07:03] LABS: #Eosinphils 0.1 thou/uL (0.0-0.7); #Lymphocytes 1.1 thou/uL (1.20-3.40); #Monocytes 0.7 thou/uL (0.11-0.59); #Neutrophils 7.3 thou/uL (1.40-6.50); %Basophils 0.2 % (0.0-1.0); %Eosinophils 0.7 % (0.0-10.0); %Lymphocytes 11.4 % (21.0-51.0); %Monocytes 7.7 % (0.0-10.0); Hemoglobin 10.5 g/dL (12.0-16.0); Mean Corpuscular Hemoglobin 30.3 pg (27.0-31.0); Mean Corpuscular Volume 94.5 fL (78.0-98.0); Mean Platelet Volume 6.8 fL (7.4-10.4); Platelet Count 442 thou/uL (130-400); RBC Distribution Width 13.3 % (11.5-14.5); Red Blood Cell (RBC) Count 3.47 mill/uL (4.20-5.40); White Blood Cell (WBC) Count 9.2 thou/uL (4.8-10.8)
--- NOTE | 2019-09-15 07:13 | PRG ---
DATE OF SERVICE: 09/15/2019 SUBJECTIVE: The patient remains in the CCU with EVD in place. OBJECTIVE: VITAL SIGNS: Temperature is 99.4, pulse 98, blood pressure 110/80, and O2 saturation 99%. HEENT: Unchanged. NECK: Trach in good position. LUNGS: Clear. CARDIAC: S1, S2. Regular. ABDOMEN: Soft and nontender. PEG tube noted. EXTREMITIES: No edema. LABORATORY DATA: Sodium 135, potassium 3.5, BUN 9, creatinine 0.5, and glucose 121. ASSESSMENT: 1. Status post thalamic bleed with severe residual neurologic deficit. 2. Status post trach and PEG tube placement. 3. Tracheal colonization. PLAN: The antibiotics should be stopped after tomorrow. Need to start working on placement. Job ID: [id number]
[2019-09-15] MEDS: Amlodipine 10 MG TAB PER TUBE SCH (08:34)
[2019-09-15] MEDS: Senokot S 8.6-50 MG TAB PO SCH ×2 (08:35→20:09)
[2019-09-15] MEDS: Famotidine 40 MG/5 ML Oral Suspension PER TUBE SCH ×2 (08:50→20:09)
[2019-09-15] MEDS: Dextrose 5 %-0.45 % NaCl 1,000 ML IV SCH (11:40)
[2019-09-15] MEDS ORDERED: PHENYLEPHRINE-NS 100 MCG/ML 10 ML SYRINGE ONE (11:47)
[2019-09-15] MEDS ORDERED: Rocuronium Bromide 10 MG/ML (10ML VIAL) ONE (11:47)
--- NOTE | 2019-09-15 12:45 | OP ---
DATE OF PROCEDURE: 09/15/2019 WOUND CLASSIFICATION: Type 1 wound. TRAFFIC EXPERT: Teja Varma PA-C This is a surgery that was done in conjunction with Dr. Francisco Velarde, who did the peritoneal portion of the surgery. 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 PROCEDURES PERFORMED: Creation of right frontal ventriculoperitoneal shunt (Strata programmable valve set at 1.0). DESCRIPTION OF PROCEDURE: After informed consent was obtained from the patient's family, the patient was brought to the OR. Proper patient, pause, and identification were carried out. She was placed under excellent general endotracheal anesthesia and positioned supine on the OR table. The hair was clipped in the right hemicranium to allow for approach to the right frontal Fernando's point, where the EVD had been placed and also a right temporal region. We sterilely cleansed and prepared this region along with the neck, thorax, and abdomen. This all were sterilely cleansed, prepared, and draped. Proper patient, pause, and identification were carried out. Right frontal Fernando's point was opened. The EVD identified and secured. Then, a right temporal wound was opened up posterior to the auricle. Shunt passer was placed from that down to the peritoneal region, where Dr. Velarde awaited. The peritoneal catheter was then placed and then fed into the peritoneum along with bringing of the peritoneal catheter proximally connected to the shunt valve, which was programmed at 1.0, and the ventricular catheter that was already in place was snipped and under sterile technique, I assured freedom of the flow and there was robust CSF flow. This was then connected to the shunt valve proximally and secured. Copious irrigation occurred. The wounds were then all sterilely cleansed, prepared, and draped after sprinkling of vancomycin powder. The patient was emerged from anesthesia. Job ID: [id number]
[2019-09-15] MEDS: CEFAZOLIN 2 GM in Premix Bag 1 BAG IVPB SCH ×2 (13:37→22:26)
--- NOTE | 2019-09-15 18:44 | OP ---
DATE OF PROCEDURE: 09/15/2019 PREOPERATIVE DIAGNOSIS: Hydrocephalus. POSTOPERATIVE DIAGNOSIS: Hydrocephalus. PROCEDURE PERFORMED: Laparoscopic placement of permanent intraabdominal drain (abdominal portion of ventriculoperitoneal shunt). ANESTHESIA: General. ESTIMATED BLOOD LOSS: Minimal. COMPLICATIONS: None. SPECIMEN: None. DESCRIPTION OF PROCEDURE: The patient was taken to the operating room and laid supine on the operating room table. After general anesthetic was obtained, the right scalp was shaved per Neurosurgery, and the scalp, neck, chest, and abdomen were all prepped and draped in a sterile fashion. A curved incision was made below the umbilicus. Cautery was used to dissect down to and score the fascia. Abdominal cavity was entered using a Viri clamp. Holding stitch of PDS was placed on each side of the fascia. A 5-mm trocar was placed, and high-flow pneumoperitoneum was obtained. A right abdominal 5-mm port was placed as well. The neurosurgeon tunneled the tubing from the neck and scalp to the upper abdomen where a small counter incision was made. The COOK[employer]AL shunt tubing was brought out through this incision. Through the small incision, 5-mm trocar was placed into the abdomen up over the liver. The tubing was then passed up over the liver until all the redundancy was pulled out of it. Neurosurgery finished the cranial part of the procedure. There was no injury to any intraabdominal structures. All port sites were infiltrated using local anesthetic. All ports were removed under camera visualization. Pneumoperitoneum was let down. PDS used to close the fascial defect below the umbilicus. All incisions were irrigated and closed using 4-0 Monocryl and Dermabond. The patient was sent to Recovery in stable condition. All instrument counts, needle counts, and lap counts were correct. Job ID: [id number]
[2019-09-15] MEDS: Acetaminophen 650 MG/20.3 ML UDCUP PER TUBE PRN (20:09)
--- NOTE | 2019-09-15 22:02 | PDOC.HOSPP ---
- Subjective Encounter Date: 09/15/19 Encounter Time: 17:00 Subjective: The patient had RACETRACK STEWARD shunt placed today. No change in mental status currently. Discussed with aunt. Patient slightly tachycardic, was placed on IV fluids. No BM yet. Not following commands. - Objective Vital Signs & Weight: Vital Signs (12 hours) Temp Pulse Resp Pulse Ox 09/15/19 20:00 101.4 F H 97 09/15/19 18:45 98 09/15/19 18:44 109 H 27 H 98 09/15/19 16:00 98.3 F 09/15/19 13:07 118 H 34 H 09/15/19 12:00 98.8 F 32 H 09/15/19 11:01 109 H Weight Admit Weight 173 lb 4.533 oz Weight 160 lb 14.999 oz Most Recent Monitor Data Heart Rate from ECG 117 NIBP 109/66 NIBP BP-Mean 80 Respiration from ECG 28 SpO2 96 I&O: 09/14/19 09/15/19 09/16/19 06:59 06:59 06:59 Intake Total 1040 Output Total 2024 Balance -984 -99 45 Result Diagrams: 09/15/19 05:16 09/15/19 05:16 Hospitalist ROS - Review of Systems Constitutional: denies: chills, sweats - Medication Medications: Active Medications Generic Name Dose Route Start Last Admin Trade Name Freq PRN Reason Stop Dose Admin Acetaminophen 650 mg 08/27/19 22:53 09/01/19 12:05 Tylenol ME 650 mg Q4H PRN Administration Headache/Fever/Mild Pain (1-3) Acetaminophen 650 mg 09/01/19 09:28 09/15/19 20:09 Tylenol Elixir PER TUBE 650 mg Q6H PRN Administration Fever > 101 Albuterol/Ipratropium 3 ml 09/10/19 13:00 09/15/19 18:44 Duoneb NEB 3 ml [id number] JEAN-PAUL Administration Amlodipine Besylate 10 mg 08/29/19 09:00 09/15/19 08:34 Norvasc PER TUBE 10 mg DAILY JEAN-PAUL Administration Famotidine 20 mg 09/01/19 21:00 09/15/19 20:09 Pepcid PER TUBE 20 mg BID JEAN-PAUL Administration Hydralazine HCl 10 mg 08/28/19 20:34 09/10/19 18:39 Apresoline SLOW IVP 10 mg Q15M PRN Administration SBP > 140 Potassium Chloride 40 meq/ 270 mls @ 135 mls/hr 08/27/19 21:10 09/13/19 05:14 Sodium Chloride IVPB 270 mls ASDIR PRN Administration FOR SERUM K+ 2.5 - 3.5 Levofloxacin 750 mg/ Device 150 mls @ 100 mls/hr 09/12/19 11:00 09/15/19 10: 44 IVPB 150 mls Q24HR JEAN-PAUL Administration Dextrose/Sodium Chloride 1,000 mls @ 75 mls/hr 09/12/19 12:45 09/15/19 11:40 D5 1/2 Ns IV 1,000 mls .[id number] JEAN-PAUL Administration Cefazolin Sodium/Dextrose 2 gm 50 mls @ 100 mls/hr 09/15/19 14:00 09/15/19 13 :37 / Device IVPB 09/17/19 14:01 50 mls Q8HR JEAN-PAUL Administration Metoclopramide HCl 10 mg 09/08/19 22:00 09/15/19 13:37 Reglan IVP 10 mg Q8HR JEAN-PAUL Administration Ondansetron HCl 4 mg 09/07/19 22:28 09/08/19 10:00 Zofran SLOW IVP 4 mg Q6H PRN Administration Nausea/Vomiting Scopolamine 1.5 mg 09/01/19 07:45 09/13/19 07:20 Transderm Scop TD 1.5 mg Q3D JEAN-PAUL Administration Senna/Docusate Sodium 1 tab 09/10/19 21:00 09/15/19 20:09 Senokot S PO 1 tab BID JEAN-PAUL Administration - Exam General Appearance: NAD, awake alert Eye: PERRL, anicteric sclera ENT: normocephalic atraumatic, no oropharyngeal lesions Neck: supple, symmetric, no JVD, no thyromegaly Heart: RRR, no murmur, no gallops, no rubs Respiratory: CTAB, no wheezes, no rales, no ronchi Gastrointestinal: soft, non-tender, non-distended Extremities: no cyanosis, no clubbing, no edema Skin: normal turgor, no lesions, no rashes Neurological: cranial nerve grossly intact, normal sensation to touch, no focal deficits, no new deficit Musculoskeletal: normal tone, normal strength, no muscle wasting Psychiatric: normal affect, normal behavior, A&O x 3, oriented to person Hosp A/P - Plan Chest x ray: RL opacity improved CT head 09/09: intraventricular hemorrhage Chest Xray 09/11: mild atelectasis Abdominal x ray: gaseous distension of bowel CT head: resolving hemorrhage within right thalamus with residual edema, improved. Stable mild diffuse cerebral edema and stable mild prominence of ventricular system with stable ventriculostomy tube in place. Stable small volume intraventricular hemorrhage. Acute encephalopathy secondary to Intraventricular hemorrhage secondary to malignant hypertension s/p ventriculostomy cathhter, occipital craniectomy - CT showed intraventricular hemorrhage on admission with extension into third and lateral ventricle and inferior herniation, repeat CT showed residual edema - s/p RACETRACK STEWARD shunt placement today, still no change in mental status - resume tube feeds Enterobacter cloacae pneumonia Leukocytosis - resolved - WBC down to 8, continue IV levaquin day /, sputum culture shows Enterobacter Cloacae, chest XS ray on admission showed RL opacity. D/c antibiotics tomorrow - blood cultures negative 09/02, UA negative, CSF culture negative Acute hypoxic respiratory failure secondary to Enterobacter pneumonia - pO2 57 on ABG last night. On trach collar, wean to oxygen saturation 92% - on IV levaquin Abdominal ileus -resume tube feeds if no ileus Tachycardia - on low dose IV fluids Anemia - Hb 9.6/28.7 likely from hemorrhage. Stable - stool occult blood negative Hypernatremia - resolved Hypokalemia- resolved Dispo: likely SNF, evaluate improvement of mental status Code status: full code DVT prophylaxis: contraindicated GI prophylaxis: famotidine Diet: IV fluids
[2019-09-16] MEDS: Dextrose 5 %-0.45 % NaCl 1,000 ML IV SCH ×3 (05:08→22:09)
[2019-09-16] MEDS: CEFAZOLIN 2 GM in Premix Bag 1 BAG IVPB SCH ×3 (05:19→22:08)
[2019-09-16] MEDS: Metoclopramide HCl 10 MG/2 ML VIAL IVP SCH ×3 (05:19→22:08)
[2019-09-16 06:20] LABS: Anion Gap 11 mmol/L (10-20); BUN (Urea Nitrogen) 7 mg/dL (7.0-18.7); Calc. Creatinine Clearance 141 mL/min (70-130); Calcium 8.2 mg/dL (7.8-10.44); Carbon Dioxide 24 mmol/L (22-29); Chloride 104 mmol/L (98-107); Estimated GFR-MDRD Greater than 90; Glucose 115 mg/dL (70-105); Potassium 3.6 mmol/L (3.5-5.1); Sodium 135 mmol/L (136-145)
[2019-09-16 06:21] LABS: #Eosinphils 0.1 thou/uL (0.0-0.7); #Lymphocytes 1.2 thou/uL (1.20-3.40); #Neutrophils 9.2 thou/uL (1.40-6.50); %Eosinophils 0.8 % (0.0-10.0); %Lymphocytes 10.1 % (21.0-51.0); %Monocytes 8.9 % (0.0-10.0); %Neutrophils 80.1 % (42.0-75.0); Mean Corpuscular HGB CONC 32.2 g/dL (32.0-36.0); Mean Platelet Volume 6.9 fL (7.4-10.4); Platelet Count 339 thou/uL (130-400); RBC Distribution Width 13.3 % (11.5-14.5); Red Blood Cell (RBC) Count 3.66 mill/uL (4.20-5.40); White Blood Cell (WBC) Count 11.4 thou/uL (4.8-10.8)
--- NOTE | 2019-09-16 08:08 | PRG ---
DATE OF SERVICE: 09/16/2019 SUBJECTIVE: The patient had a ventricular peritoneal shunt placed yesterday. She is up in a chair this morning. All in all, she remains about the same. OBJECTIVE: VITAL SIGNS: Temperature is 100.3 with a T-max of 101.4, pulse 101, blood pressure 118/77, O2 saturation 100%. A 24-hour intake 1046, output 1229. HEENT: Remarkable for a bandage over her head. NECK: No adenopathy or JVD. Trach in good position. LUNGS: Coarse rhonchi. CARDIAC: S1 and S2. Regular. ABDOMEN: Soft. EXTREMITIES: Trace Edema throughout. LABORATORY DATA: White blood cell count 11.4, hematocrit 34, and platelet count 339. Sodium 135, potassium 3.6, chloride 104, CO2 of 24, BUN 7, creatinine 0.6, glucose 115. ASSESSMENT: 1. Thalamic bleed. 2. Status post acute respiratory failure requiring mechanical ventilation. 3. Continue compromised neurologic status resulting in tracheostomy and PEG tube placement. 4. Low-grade fever-the patient currently on 2 antibiotics. PLAN: 1. The Levaquin should be stopped after today. 2. From a Pulmonary Critical Care standpoint, she is stable for transfer out to intermediate care or stroke floor. 3. Main issue now is placement. Job ID: [id number]
[2019-09-16] MEDS: Scopolamine 1.5 mg/72 hour Patch TD SCH (08:20)
[2019-09-16] MEDS: Amlodipine 10 MG TAB PER TUBE SCH (08:21)
[2019-09-16] MEDS: Senokot S 8.6-50 MG TAB PO SCH ×2 (08:21→22:08)
[2019-09-16] MEDS: Famotidine 40 MG/5 ML Oral Suspension PER TUBE SCH ×2 (08:21→22:08)
--- NOTE | 2019-09-16 14:35 | PRG ---
DATE OF SERVICE: 09/16/2019 This is Teja Varma PA-C dictating a report for Nilo Garcia MD. Postoperative recheck. Ms. Henson is now one day out from undergoing right TRANSFER CAR OPERATOR DRIER shunt placement. She is almost three weeks postop having undergone posterior fossa craniectomy for right thalamic bleed. The patient is doing well today. She is a little bit febrile. However, her white blood cell count is 11. She is slightly tachycardic as well. Her sodium is stable at 135. She has a head wrap in place. Her posterior fossa craniectomy navneet removed yesterday. She is resting comfortably, but will awaken to voice and stimulation. She follows commands and wiggles fingers and toes bilaterally, but more robustly on the left. We will continue with Ancef and Levaquin, and Dr. Marino is helping follow the patient. We will continue with Tylenol as well. Under surgical standpoint, the patient now requires a significant amount of rehab and time in order for her to continue to heal. Please call with any changes in the patient's neurologic status. Job ID: [id number]
--- NOTE | 2019-09-16 19:07 | PDOC.HOSPP ---
- Subjective Encounter Date: 09/16/19 Encounter Time: 18:00 Subjective: Patient is still encephalopathic. She is following commands in French. She opens her eyes and tracks sometimes. Responds to painful stimulus. Had bowel movement yesterday. Tube feeds restarted - Objective Vital Signs & Weight: Vital Signs (12 hours) Temp Pulse Resp BP BP BP Pulse Ox 09/16/19 15:00 99.2 F 09/16/19 13:32 93/69 110/69 116/75 09/16/19 13:04 100 25 H 99 09/16/19 11:00 99.7 F H 09/16/19 08:21 103 H 09/16/19 08:13 99 09/16/19 08:11 103 H 26 H 99 09/16/19 08:00 100.5 F H 100 Weight Admit Weight 173 lb 4.533 oz Weight 165 lb 5.547 oz Most Recent Monitor Data Heart Rate from ECG 95 NIBP 105/73 NIBP BP-Mean 83 Respiration from ECG 24 SpO2 99 I&O: 09/15/19 09/16/19 09/17/19 06:59 06:59 06:59 Intake Total 1990 1788 1023 Output Total 2089 1329 505 Balance -99 460 519 Result Diagrams: 09/16/19 05:46 09/16/19 05:46 Hospitalist ROS - Review of Systems ROS unobtainable: due to mental status - Medication Medications: Active Medications Generic Name Dose Route Start Last Admin Trade Name Freq PRN Reason Stop Dose Admin Acetaminophen 650 mg 08/27/19 22:53 09/01/19 12:05 Tylenol [place] 650 mg Q4H PRN Administration Headache/Fever/Mild Pain (1-3) Acetaminophen 650 mg 09/01/19 09:28 09/15/19 20:09 Tylenol Elixir PER TUBE 650 mg Q6H PRN Administration Fever > 101 Albuterol/Ipratropium 3 ml 09/10/19 13:00 09/16/19 13:04 Duoneb NEB 3 ml [id number] JEAN-PAUL Administration Amlodipine Besylate 10 mg 08/29/19 09:00 09/16/19 08:21 Norvasc PER TUBE 10 mg DAILY JEAN-PAUL Administration Famotidine 20 mg 09/01/19 21:00 09/16/19 08:21 Pepcid PER TUBE 20 mg BID JEAN-PAUL Administration Hydralazine HCl 10 mg 08/28/19 20:34 09/10/19 18:39 Apresoline SLOW IVP 10 mg Q15M PRN Administration SBP > 140 Potassium Chloride 40 meq/ 270 mls @ 135 mls/hr 08/27/19 21:10 09/13/19 05:14 Sodium Chloride IVPB 270 mls ASDIR PRN Administration FOR SERUM K+ 2.5 - 3.5 Levofloxacin 750 mg/ Device 150 mls @ 100 mls/hr 09/12/19 11:00 09/16/19 10: 39 IVPB 09/17/19 00:01 150 mls Q24HR JEAN-PAUL Administration Dextrose/Sodium Chloride 1,000 mls @ 75 mls/hr 09/12/19 12:45 09/16/19 16:17 D5 1/2 Ns IV Not Given .[id number] JEAN-PAUL Cefazolin Sodium/Dextrose 2 gm 50 mls @ 100 mls/hr 09/15/19 14:00 09/16/19 13 :43 / Device IVPB 09/17/19 14:01 50 mls Q8HR JEAN-PAUL Administration Metoclopramide HCl 10 mg 09/08/19 22:00 09/16/19 13:43 Reglan IVP 10 mg Q8HR JEAN-PAUL Administration Ondansetron HCl 4 mg 09/07/19 22:28 09/08/19 10:00 Zofran SLOW IVP 4 mg Q6H PRN Administration Nausea/Vomiting Scopolamine 1.5 mg 09/01/19 07:45 09/16/19 08:20 Transderm Scop TD 1.5 mg Q3D JEAN-PAUL Administration Senna/Docusate Sodium 1 tab 09/10/19 21:00 09/16/19 08:21 Senokot S PO 1 tab BID JEAN-PAUL Administration - Exam General Appearance: NAD, ill appearing General - other findings: s/p [employer] shunt placement Eye: anicteric sclera ENT: no oropharyngeal lesions, moist mucosa Neck: supple, symmetric, no JVD, no thyromegaly Heart: RRR, no murmur, no gallops, no rubs Respiratory: CTAB, no wheezes, no rales, no ronchi, no tachypnea Gastrointestinal: normal bowel sounds Gastrointestinal - other findings: firm, mildly distended, + BS Extremities: no cyanosis, no clubbing, no edema Skin: normal turgor, no lesions, no rashes Hosp A/P - Plan Chest x ray: RL opacity improved CT head 09/09: intraventricular hemorrhage Chest Xray 09/11: mild atelectasis Abdominal x ray: gaseous distension of bowel CT head: resolving hemorrhage within right thalamus with residual edema, improved. Stable mild diffuse cerebral edema and stable mild prominence of ventricular system with stable ventriculostomy tube in place. Stable small volume intraventricular hemorrhage. #Acute encephalopathy secondary to right thalamic hemorrhage s/p posterior craniectomy (3 weeks prior), and intraventricular hemorrhage s/p ventriculostomy catheter, occipital craniectomy POD1 #Malignant Hypertension - CT showed intraventricular hemorrhage on admission with extension into third and lateral ventricle and inferior herniation, repeat CT showed residual edema - s/p [employer]OLOGIST shunt placement 09/15, mild improvement in mental status. - resume tube feeds - BP well controlled currently Enterobacter cloacae pneumonia Leukocytosis - patient had RR of 30, tachycardia on 09/12, started IV levaquin for sputum culture growing Enterobacter Cloacae. S/p 5 days of levaquin, d/c today - blood cultures negative 09/02, UA negative, CSF culture negative - WBC 11 today, currently on cefazolin 2 grams q8 due to shunt placement yesterday, Dr. Marino following Acute hypoxic respiratory failure secondary to Enterobacter pneumonia - pO2 57 on ABG last night. On trach collar, wean to oxygen saturation 92% - on IV levaquin Hyponatremia - sodium 135, stable Anemia -, stable. - stool occult blood negative Dispo: discussion with family, needs SNF placement likely d/c Thursday Code status: full code DVT prophylaxis: contraindicated GI prophylaxis: famotidine Diet: IV fluids
[2019-09-17 05:04] LABS: Band 6 % (5-11); Elliptocytes SLIGHT = 2-5 cells (100X) (0-1/hpf); Eosinophils 1 % (0-10); Hemoglobin 9.7 g/dL (12.0-16.0); Hypochromia SLIGHT = 6-15 cells (100X) (0-5/hpf); Lymphocytes 16 % (21-51); MDiff Complete? YES; Mean Corpuscular HGB CONC 31.7 g/dL (32.0-36.0); Mean Corpuscular Hemoglobin 30.1 pg (27.0-31.0); Mean Corpuscular Volume 95.2 fL (78.0-98.0); Mean Platelet Volume 7.4 fL (7.4-10.4); Monocytes 4 % (0-10); Neutrophil 73 % (42-75); Platelet Count 294 thou/uL (130-400); Platelet Morphology Comment Appears Adequate; RBC Distribution Width 13.2 % (11.5-14.5); Red Blood Cell (RBC) Count 3.21 mill/uL (4.20-5.40); White Blood Cell (WBC) Count 7.4 thou/uL (4.8-10.8)
[2019-09-17 05:14] LABS: ALT (SGPT) 23 U/L (8-55); AST (SGOT) 24 U/L (5-34); Albumin 2.3 g/dL (3.5-5.0); Alkaline Phosphatase 101 U/L (40-110); Anion Gap 18 mmol/L (10-20); BUN (Urea Nitrogen) 5 mg/dL (7.0-18.7); Bilirubin, Total 0.3 mg/dL (0.2-1.2); Calc. Creatinine Clearance 180 mL/min (70-130); Calcium 8.1 mg/dL (7.8-10.44); Carbon Dioxide 19 mmol/L (22-29); Chloride 103 mmol/L (98-107); Estimated GFR-MDRD Greater than 90; Globulin 3.8 g/dL (2.4-3.5); Glucose 119 mg/dL (70-105); Potassium 3.5 mmol/L (3.5-5.1); Protein, Total 6.1 g/dL (6.0-8.3); Sodium 136 mmol/L (136-145)
[2019-09-17] MEDS: Metoclopramide HCl 10 MG/2 ML VIAL IVP SCH ×3 (05:52→21:02)
[2019-09-17] MEDS: CEFAZOLIN 2 GM in Premix Bag 1 BAG IVPB SCH ×2 (05:52→14:00)
--- NOTE | 2019-09-17 07:56 | PRG ---
DATE OF SERVICE: 09/17/2019 SUBJECTIVE: The patient is a 43-year-old female, who suffered a right thalamic/ventricular hypertensive hemorrhage, which required suboccipital craniectomy, which was done on 08/27/[address] Garcia. Since that event, she has also had trach, PEG, and IVC filter placed. She is postoperative day #2 from a right [employer] shunt. She continues to remain stable in the ICU with no acute overnight events. Her white count has improved and today it is 7.4. OBJECTIVE: VITAL SIGNS: On exam, her vitals are stable. GENERAL: She is sitting up in the chair this morning, appears comfortable. NEUROLOGIC: The left pupil is dilated and nonreactive. The right pupil is smaller and sluggish. She does weakly follow commands of all 4 when you speak to her in Ivorian. SKIN: Her incision is clean, dry, and intact. ASSESSMENT AND PLAN: The patient neurologically remains stable. She will require ongoing care and continues to await placement at long-term care facility. Job ID: [id number] [facility]
[2019-09-17] MEDS: Amlodipine 10 MG TAB PER TUBE SCH (09:15)
[2019-09-17] MEDS: Acetaminophen 650 MG/20.3 ML UDCUP PER TUBE PRN ×2 (09:15→21:02)
[2019-09-17] MEDS: Famotidine 40 MG/5 ML Oral Suspension PER TUBE SCH ×2 (09:15→21:07)
[2019-09-17] MEDS: Senokot S 8.6-50 MG TAB PO SCH ×2 (09:16→21:02)
[2019-09-17] MEDS: Polyethylene Glycol 3350 17 GM Packet PER TUBE PRN (09:16)
--- NOTE | 2019-09-17 09:24 | PRG ---
DATE OF SERVICE: 09/17/2019 SUBJECTIVE: Trach collar in place. OBJECTIVE: VITAL SIGNS: Pulse 99, respiratory rate 21, saturations are 99%, and blood pressure 123/71. CHEST: Minimal rhonchi. No wheezing or crackles. CARDIAC: Normal S1, S2. No gallops. ABDOMEN: Soft. No masses. LABORATORY DATA: White count is 7000, H and H 9 and 30, and platelet count is normal. Lytes are normal. IMPRESSION: 1. Status post respiratory failure, secondary to hypertensive hemorrhage. 2. Trach and PEG, filter placed, and ventriculoperitoneal shunt. PLAN: 1. Awaiting placement. 2. Continue PT, supportive care. Job ID: [id number]
--- NOTE | 2019-09-17 13:41 | PDOC.HOSPP ---
- Subjective Encounter Date: 09/17/19 Encounter Time: 13:00 Subjective: is in neurochair, awakens to touch on trach collar - Objective Vital Signs & Weight: Vital Signs (12 hours) Temp Pulse Resp Pulse Ox 09/17/19 13:17 97 20 98 09/17/19 09:00 98.6 F 09/17/19 07:55 99 21 H 99 09/17/19 04:00 99.0 F Weight Admit Weight 173 lb 4.533 oz Weight 173 lb 4.533 oz Most Recent Monitor Data Heart Rate from ECG 95 NIBP 125/87 NIBP BP-Mean 99 Respiration from ECG 23 SpO2 99 I&O: 09/16/19 09/17/19 09/18/19 06:59 06:59 06:59 Intake Total 1789 2775 397 Output Total 1329 1960 500 Balance 460 815 -103 Result Diagrams: 09/17/19 04:18 09/17/19 04:18 Hospitalist ROS - Medication Medications: Active Medications Generic Name Dose Route Start Last Admin Trade Name Freq PRN Reason Stop Dose Admin Acetaminophen 650 mg 08/27/19 22:53 09/01/19 12:05 Tylenol [place] 650 mg Q4H PRN Administration Headache/Fever/Mild Pain (1-3) Acetaminophen 650 mg 09/01/19 09:28 09/17/19 09:15 Tylenol Elixir PER TUBE 650 mg Q6H PRN Administration Fever > 101 Albuterol/Ipratropium 3 ml 09/10/19 13:00 09/17/19 13:17 Duoneb NEB 3 ml [id number] JEAN-PAUL Administration Amlodipine Besylate 10 mg 08/29/19 09:00 09/17/19 09:15 Norvasc PER TUBE Not Given DAILY JEAN-PAUL Famotidine 20 mg 09/01/19 21:00 09/17/19 09:15 Pepcid PER TUBE 20 mg BID JEAN-PAUL Administration Hydralazine HCl 10 mg 08/28/19 20:34 09/10/19 18:39 Apresoline SLOW IVP 10 mg Q15M PRN Administration SBP > 140 Potassium Chloride 40 meq/ 270 mls @ 135 mls/hr 08/27/19 21:10 09/13/19 05:14 Sodium Chloride IVPB 270 mls ASDIR PRN Administration FOR SERUM K+ 2.5 - 3.5 Dextrose/Sodium Chloride 1,000 mls @ 75 mls/hr 09/12/19 12:45 09/16/19 22:09 D5 1/2 Ns IV 1,000 mls .[id number] JEAN-PAUL Administration Cefazolin Sodium/Dextrose 2 gm 50 mls @ 100 mls/hr 09/15/19 14:00 09/17/19 05 :52 / Device IVPB 09/17/19 14:01 50 mls Q8HR JEAN-PAUL Administration Metoclopramide HCl 10 mg 09/08/19 22:00 09/17/19 05:52 Reglan IVP 10 mg Q8HR JEAN-PAUL Administration Ondansetron HCl 4 mg 09/07/19 22:28 09/08/19 10:00 Zofran SLOW IVP 4 mg Q6H PRN Administration Nausea/Vomiting Polyethylene Glycol 17 gm 09/06/19 18:47 09/17/19 09:16 Miralax PER TUBE 17 gm DAILYPRN PRN Administration CONSTIPATION Potassium Chloride 40 meq 08/27/19 21:10 09/17/19 05:52 Klor-Con PER TUBE 40 meq ASDIR PRN Administration FOR SERUM K+ 2.5-3.5 Scopolamine 1.5 mg 09/01/19 07:45 09/16/19 08:20 Transderm Scop TD 1.5 mg Q3D JEAN-PAUL Administration Senna/Docusate Sodium 1 tab 09/10/19 21:00 09/17/19 09:16 Senokot S PO 1 tab BID JEAN-PAUL Administration - Exam General Appearance: ill appearing Eye: anicteric sclera, scleral icterus ENT: no oropharyngeal lesions, dry oral mucosa Neck: supple, no JVD Neck - other findings: trach+ Heart: RRR, no murmur Respiratory: no wheezes, no rales Gastrointestinal: soft, non-tender, non-distended, normal bowel sounds Gastrointestinal - other findings: peg+ Extremities: no cyanosis, 1+ LE edema Neurological: hemiplegia Neurological - other findings: left Hosp A/P (1) Physical deconditioning Code(s): R53.81 - OTHER MALAISE Status: Acute (2) Acute respiratory failure Code(s): J96.00 - ACUTE RESPIRATORY FAILURE, UNSP W HYPOXIA OR HYPERCAPNIA Status: Chronic Qualifiers: Respiratory failure complication: hypoxia Qualified Code(s): J96.01 - Acute respiratory failure with hypoxia (3) Hemiplegia affecting left nondominant side Code(s): G81.94 - HEMIPLEGIA, UNSPECIFIED AFFECTING LEFT NONDOMINANT SIDE Status: Acute (4) Intracranial hemorrhage Code(s): I62.9 - NONTRAUMATIC INTRACRANIAL HEMORRHAGE, UNSPECIFIED Status: Acute (5) HTN (hypertension) Code(s): I10 - ESSENTIAL (PRIMARY) HYPERTENSION Status: Chronic Qualifiers: Hypertension type: essential hypertension Qualified Code(s): I10 - Essential (primary) hypertension - Plan awaiting placement hemo/neurostable peg feeding, is on trach collar continue norvasc and protonix will f/u to mobilize as tolerated
[2019-09-17] MEDS: Dextrose 5 %-0.45 % NaCl 1,000 ML IV SCH (15:25)
--- NOTE | 2019-09-17 16:36 | CON ---
DATE OF CONSULTATION: Ms. Henson is neurologically at baseline. Eyes are open and tracks the examiner on occasion, but will not follow commands. She is stable from a respiratory standpoint and her incisions are dry. From a neurosurgical perspective, she would be safe for transfer to LTAC and this is in the works. Job ID: [id number]
[2019-09-18 05:41] LABS: Anion Gap 11 mmol/L (10-20); BUN (Urea Nitrogen) 6 mg/dL (7.0-18.7); Calc. Creatinine Clearance 184 mL/min (70-130); Calcium 8.3 mg/dL (7.8-10.44); Carbon Dioxide 27 mmol/L (22-29); Chloride 101 mmol/L (98-107); Estimated GFR-MDRD Greater than 90; Glucose 120 mg/dL (70-105); Potassium 3.5 mmol/L (3.5-5.1); Sodium 135 mmol/L (136-145)
[2019-09-18] MEDS: Dextrose 5 %-0.45 % NaCl 1,000 ML IV SCH (06:39)
[2019-09-18] MEDS: Metoclopramide HCl 10 MG/2 ML VIAL IVP SCH ×3 (06:39→21:16)
--- NOTE | 2019-09-18 08:18 | PRG ---
DATE OF SERVICE: 09/18/2019 The patient remains neurologically stable with no events overnight. On exam this morning, she opens her eyes and will track the examiner. She does move all fours spontaneously and weakly, and she is not following any commands for me. Her incision are clean, dry, and intact. From a neurosurgical standpoint, she remains stable and is appropriate for transfer to LTAC at any point in time. Job ID: [id number]
[2019-09-18] MEDS: Senokot S 8.6-50 MG TAB PO SCH ×2 (10:41→21:16)
[2019-09-18] MEDS: Amlodipine 10 MG TAB PER TUBE SCH (10:41)
[2019-09-18] MEDS: Famotidine 40 MG/5 ML Oral Suspension PER TUBE SCH ×2 (10:41→21:16)
--- NOTE | 2019-09-18 11:14 | PRG ---
DATE OF SERVICE: 09/18/2019 SUBJECTIVE: No new issues. OBJECTIVE: VITAL SIGNS: Temperature 99, pulse 100, on a trach collar, blood pressure respirations 18. CHEST: No wheezing or crackles. CARDIAC: Normal S1 and S2. No gallops. ABDOMEN: No masses. IMPRESSION: Status post intracerebral hemorrhage, trach, PEG, eventually placement. We will follow. Job ID: [id number]
[2019-09-18] MEDS: Polyethylene Glycol 3350 17 GM Packet PER TUBE PRN (11:17)
--- NOTE | 2019-09-18 16:27 | PDOC.HOSPP ---
- Subjective Encounter Date: 09/18/19 Encounter Time: 13:00 Subjective: awakens easily, tracks, is non verbal - Objective Vital Signs & Weight: Vital Signs (12 hours) Temp Pulse Pulse Pulse Resp BP BP 09/18/19 15:34 99.1 F 09/18/19 13:38 100 26 H 09/18/19 11:09 99.7 F H 09/18/19 10:41 100 09/18/19 08:59 101 H 94 121/81 125/67 09/18/19 08:00 09/18/19 07:45 99.7 F H 09/18/19 07:42 09/18/19 07:40 100 28 H Pulse Ox Pulse Ox Pulse Ox 09/18/19 15:34 09/18/19 13:38 96 09/18/19 11:09 09/18/19 10:41 09/18/19 08:59 98 96 09/18/19 08:00 98 09/18/19 07:45 09/18/19 07:42 98 09/18/19 07:40 98 Weight Admit Weight 173 lb 4.533 oz Weight 170 lb Most Recent Monitor Data Heart Rate from ECG 104 NIBP 106/78 NIBP BP-Mean 87 Respiration from ECG 31 SpO2 95 I&O: 09/17/19 09/18/19 09/19/19 06:59 06:59 06:59 Intake Total 2775 2272 Output Total 1960 1300 Balance 815 972 Result Diagrams: 09/17/19 04:18 09/18/19 04:45 Hospitalist ROS - Medication Medications: Active Medications Generic Name Dose Route Start Last Admin Trade Name Freq PRN Reason Stop Dose Admin Acetaminophen 650 mg 08/27/19 22:53 09/01/19 12:05 Tylenol [place] 650 mg Q4H PRN Administration Headache/Fever/Mild Pain (1-3) Acetaminophen 650 mg 09/01/19 09:28 09/17/19 21:02 Tylenol Elixir PER TUBE 650 mg Q6H PRN Administration Fever > 101 Albuterol/Ipratropium 3 ml 09/10/19 13:00 09/18/19 13:38 Duoneb NEB 3 ml [id number] JEAN-PAUL Administration Amlodipine Besylate 10 mg 08/29/19 09:00 09/18/19 10:41 Norvasc PER TUBE 10 mg DAILY JEAN-PAUL Administration Famotidine 20 mg 09/01/19 21:00 09/18/19 10:41 Pepcid PER TUBE 20 mg BID JEAN-PAUL Administration Hydralazine HCl 10 mg 08/28/19 20:34 09/10/19 18:39 Apresoline SLOW IVP 10 mg Q15M PRN Administration SBP > 140 Potassium Chloride 40 meq/ 270 mls @ 135 mls/hr 08/27/19 21:10 09/13/19 05:14 Sodium Chloride IVPB 270 mls ASDIR PRN Administration FOR SERUM K+ 2.5 - 3.5 Dextrose/Sodium Chloride 1,000 mls @ 75 mls/hr 09/12/19 12:45 09/18/19 06:39 D5 1/2 Ns IV 1,000 mls .[id number] JEAN-PAUL Administration Metoclopramide HCl 10 mg 09/08/19 22:00 09/18/19 06:39 Reglan IVP 10 mg Q8HR JEAN-PAUL Administration Ondansetron HCl 4 mg 09/07/19 22:28 09/08/19 10:00 Zofran SLOW IVP 4 mg Q6H PRN Administration Nausea/Vomiting Polyethylene Glycol 17 gm 09/06/19 18:47 09/18/19 11:17 Miralax PER TUBE 17 gm DAILYPRN PRN Administration CONSTIPATION Potassium Chloride 40 meq 08/27/19 21:10 09/17/19 05:52 Klor-Con PER TUBE 40 meq ASDIR PRN Administration FOR SERUM K+ 2.5-3.5 Scopolamine 1.5 mg 09/01/19 07:45 09/16/19 08:20 Transderm Scop TD 1.5 mg Q3D JEAN-PAUL Administration Senna/Docusate Sodium 1 tab 09/10/19 21:00 09/18/19 10:41 Senokot S PO 1 tab BID JEAN-PAUL Administration - Exam General Appearance: ill appearing Eye: anicteric sclera ENT: no oropharyngeal lesions, dry oral mucosa Neck: supple, no JVD Neck - other findings: trach+ Heart: RRR, no murmur Respiratory: no wheezes, no rales, rhonchi Gastrointestinal: soft, non-tender, non-distended, normal bowel sounds Gastrointestinal - other findings: peg+ Extremities: no cyanosis, no edema Neurological: hemiplegia Hosp A/P (1) Physical deconditioning Code(s): R53.81 - OTHER MALAISE Status: Acute (2) Acute respiratory failure Code(s): J96.00 - ACUTE RESPIRATORY FAILURE, UNSP W HYPOXIA OR HYPERCAPNIA Status: Chronic Qualifiers: Respiratory failure complication: hypoxia Qualified Code(s): J96.01 - Acute respiratory failure with hypoxia (3) Hemiplegia affecting left nondominant side Code(s): G81.94 - HEMIPLEGIA, UNSPECIFIED AFFECTING LEFT NONDOMINANT SIDE Status: Acute (4) Intracranial hemorrhage Code(s): I62.9 - NONTRAUMATIC INTRACRANIAL HEMORRHAGE, UNSPECIFIED Status: Acute (5) HTN (hypertension) Code(s): I10 - ESSENTIAL (PRIMARY) HYPERTENSION Status: Chronic Qualifiers: Hypertension type: essential hypertension Qualified Code(s): I10 - Essential (primary) hypertension - Plan awaiting placement hemo/neurostable peg feeding, is on trach collar continue norvasc, pepcid, scopalamine patch is on iv fluids, may dc and increase free water via peg. will f/u to mobilize as tolerated
[2019-09-19] MEDS: Metoclopramide HCl 10 MG/2 ML VIAL IVP SCH ×3 (06:55→21:06)
[2019-09-19] MEDS: Dextrose 5 %-0.45 % NaCl 1,000 ML IV SCH ×2 (06:55→10:56)
[2019-09-19 07:31] LABS: #Eosinphils 0.1 thou/uL (0.0-0.7); #Lymphocytes 1.2 thou/uL (1.20-3.40); #Monocytes 0.8 thou/uL (0.11-0.59); #Neutrophils 6.1 thou/uL (1.40-6.50); %Basophils 0.4 % (0.0-1.0); %Eosinophils 1.2 % (0.0-10.0); %Lymphocytes 14.9 % (21.0-51.0); %Monocytes 9.2 % (0.0-10.0); %Neutrophils 74.2 % (42.0-75.0); Hemoglobin 10.1 g/dL (12.0-16.0); Mean Corpuscular HGB CONC 31.7 g/dL (32.0-36.0); Mean Corpuscular Hemoglobin 29.6 pg (27.0-31.0); Mean Corpuscular Volume 93.4 fL (78.0-98.0); Mean Platelet Volume 7.4 fL (7.4-10.4); Platelet Count 234 thou/uL (130-400); RBC Distribution Width 13.1 % (11.5-14.5); Red Blood Cell (RBC) Count 3.42 mill/uL (4.20-5.40); White Blood Cell (WBC) Count 8.2 thou/uL (4.8-10.8)
[2019-09-19 07:50] LABS: Anion Gap 15 mmol/L (10-20); BUN (Urea Nitrogen) 5 mg/dL (7.0-18.7); Calc. Creatinine Clearance 155 mL/min (70-130); Calcium 8.3 mg/dL (7.8-10.44); Carbon Dioxide 25 mmol/L (22-29); Chloride 101 mmol/L (98-107); Estimated GFR-MDRD Greater than 90; Glucose 119 mg/dL (70-105); Potassium 3.9 mmol/L (3.5-5.1); Sodium 137 mmol/L (136-145)
[2019-09-19 07:51] LABS: Eosinophils 1 % (0-10); Hypochromia SLIGHT = 6-15 cells (100X) (0-5/hpf); Lymphocytes 17 % (21-51); MDiff Complete? YES; Monocytes 9 % (0-10); Neutrophil 71 % (42-75); Platelet Morphology Comment Appears Adequate; Polychromasia SLIGHT = 2-3 cells (100X) (0-2/hpf); Reactive Lymphocytes 1 % (0-10)
--- NOTE | 2019-09-19 08:32 | PRG ---
DATE OF SERVICE: 09/19/2019 SUBJECTIVE: Ms. Henson has been moved out of the ICU to the intermediate care unit. She looks about the same. OBJECTIVE: VITAL SIGNS: Her temperature is 99 with a T-max of 99.7, pulse 95, blood pressure 119/80. NEUROLOGIC: She continues to be obtunded and will not follow commands for me. HEENT: Pupils are reactive. Sclerae icteric. Oropharynx clear. NECK: Trach in good position. LUNGS: Clear to auscultation. CARDIAC: S1, S2. Regular. ABDOMEN: Slightly distended. Bowel sounds normoactive. EXTREMITIES: Edematous. LABORATORY DATA: White blood cell count 8.2, hematocrit 32, platelet count 234. Sodium 137, potassium 3.9, chloride 101, CO2 of 25, BUN 5, creatinine 0.5 glucose 119. ASSESSMENT: Status post thalamic bleed with severe neurologic deficit. PLAN: This patient will not be able to go to LTAC because she has Medicaid. Placement will need to be in a longterm. That is in the hands Case Management. She is being supported with enteral tube feeds and tracheal suctioning. Prognosis remains very poor. Job ID: [id number]
--- NOTE | 2019-09-19 09:56 | PRG ---
DATE OF SERVICE: 09/19/2019 This is Teja Varma PA-C dictating a report for Nilo Garcia MD. Postoperative recheck. Ms. Henson is now status post having undergone right [employer] shunt placement and several days postop having undergone posterior fossa craniectomy on 08/27/2019 for right thalamic bleed. The patient does appear to be more awake. She follows commands in all extremities, little bit less so in the left foot. She is able to wiggle the hands and toes bilaterally. When asked if she has a headache in Chinese, she shakes her head no. Both her incisions are clean and dry. The main issue right now is disposition. Given that the patient does have DVT, although she does have a filter, likely need to initiate some form of prophylactic blood thinner, but we would like to obtain a head CT prior to this. Therefore, we will plan on re-evaluating her right thalamic bleed tomorrow with a head CT and then decide if it is appropriate to start her on Lovenox at a later date. Please call with any changes in the patient's neurologic status. Otherwise, the patient is doing well neurologically. Job ID: [id number]
[2019-09-19] MEDS: Scopolamine 1.5 mg/72 hour Patch TD SCH (10:55)
[2019-09-19] MEDS: Senokot S 8.6-50 MG TAB PO SCH ×2 (10:56→20:57)
[2019-09-19] MEDS: Amlodipine 10 MG TAB PER TUBE SCH (10:56)
[2019-09-19] MEDS: Famotidine 40 MG/5 ML Oral Suspension PER TUBE SCH ×2 (10:57→20:56)
--- NOTE | 2019-09-19 14:04 | PDOC.HOSPP ---
- Subjective Encounter Date: 09/19/19 Encounter Time: 14:02 Subjective: Patient seen and examined for med mngt. No issues per RN. Tolerating TF. No overnight events - Objective Vital Signs & Weight: Vital Signs (12 hours) Temp Pulse Pulse Pulse Resp BP BP 09/19/19 12:47 102 H 17 09/19/19 11:22 98.6 F 09/19/19 10:56 97 134/94 H 09/19/19 10:27 99 95 134/94 H 09/19/19 07:40 09/19/19 07:38 97 24 H 09/19/19 07:12 99.0 F 09/19/19 03:46 99.0 F BP Pulse Ox 09/19/19 12:47 95 09/19/19 11:22 09/19/19 10:56 09/19/19 10:27 121/91 H 09/19/19 07:40 98 09/19/19 07:38 09/19/19 07:12 09/19/19 03:46 Weight Admit Weight 173 lb 4.533 oz Weight 164 lb 6.4 oz Most Recent Monitor Data Heart Rate from ECG 104 NIBP 98/77 NIBP BP-Mean 84 Respiration from ECG 34 SpO2 90 I&O: 09/18/19 09/19/19 09/20/19 06:59 06:59 06:59 Intake Total 2272 1445 791 Output Total 1300 1350 1100 Balance 972 95 -309 Result Diagrams: 09/19/19 07:13 09/19/19 07:13 EKG Reviewed by me: Yes (Tele - SR) Hospitalist ROS - Review of Systems ROS unobtainable: due to mental status - Medication Medications: Active Medications Generic Name Dose Route Start Last Admin Trade Name Freq PRN Reason Stop Dose Admin Acetaminophen 650 mg 08/27/19 22:53 09/01/19 12:05 Tylenol [place] 650 mg Q4H PRN Administration Headache/Fever/Mild Pain (1-3) Acetaminophen 650 mg 09/01/19 09:28 09/17/19 21:02 Tylenol Elixir PER TUBE 650 mg Q6H PRN Administration Fever > 101 Albuterol/Ipratropium 3 ml 09/10/19 13:00 09/19/19 12:47 Duoneb NEB 3 ml [id number] JEAN-PAUL Administration Amlodipine Besylate 10 mg 08/29/19 09:00 09/19/19 10:56 Norvasc PER TUBE 10 mg DAILY JEAN-PAUL Administration Famotidine 20 mg 09/01/19 21:00 09/19/19 10:57 Pepcid PER TUBE 20 mg BID JEAN-PAUL Administration Hydralazine HCl 10 mg 08/28/19 20:34 09/10/19 18:39 Apresoline SLOW IVP 10 mg Q15M PRN Administration SBP > 140 Potassium Chloride 40 meq/ 270 mls @ 135 mls/hr 08/27/19 21:10 09/13/19 05:14 Sodium Chloride IVPB 270 mls ASDIR PRN Administration FOR SERUM K+ 2.5 - 3.5 Dextrose/Sodium Chloride 1,000 mls @ 75 mls/hr 09/12/19 12:45 09/19/19 10:56 D5 1/2 Ns IV Not Given .[id number] JEAN-PAUL Metoclopramide HCl 10 mg 09/08/19 22:00 09/19/19 06:55 Reglan IVP 10 mg Q8HR JEAN-PAUL Administration Ondansetron HCl 4 mg 09/07/19 22:28 09/08/19 10:00 Zofran SLOW IVP 4 mg Q6H PRN Administration Nausea/Vomiting Polyethylene Glycol 17 gm 09/06/19 18:47 09/18/19 11:17 Miralax PER TUBE 17 gm DAILYPRN PRN Administration CONSTIPATION Potassium Chloride 40 meq 08/27/19 21:10 09/17/19 05:52 Klor-Con PER TUBE 40 meq ASDIR PRN Administration FOR SERUM K+ 2.5-3.5 Scopolamine 1.5 mg 09/01/19 07:45 09/19/19 10:55 Transderm Scop TD 1.5 mg Q3D JEAN-PAUL Administration Senna/Docusate Sodium 1 tab 09/10/19 21:00 09/19/19 10:56 Senokot S PO 1 tab BID JEAN-PAUL Administration - Exam General Appearance: NAD Neck: supple, no JVD Neck - other findings: trach + Heart: RRR, no gallops Respiratory: no wheezes, rhonchi Gastrointestinal: soft, non-tender, normal bowel sounds Gastrointestinal - other findings: PEG + Extremities: no cyanosis Hosp A/P - Plan DVT proph w/SCDs Toxic Metabolic Encephalopathy/ICH s/p RECONCILIATION COORDINATOR shunt Acute hypoxic Resp failure s/p trach/PEG HTN Chronic Anemia Hyponatremia Sepsis for Pneumonia - Enterobacter - completed Atbx PLAN: Cont TF Cont supportive care Cont IVF Await placement
[2019-09-20] MEDS: Dextrose 5 %-0.45 % NaCl 1,000 ML IV SCH ×2 (02:46→12:48)
[2019-09-20 03:52] LABS: #Eosinphils 0.1 thou/uL (0.0-0.7); #Lymphocytes 1.1 thou/uL (1.20-3.40); #Monocytes 0.7 thou/uL (0.11-0.59); #Neutrophils 4.8 thou/uL (1.40-6.50); %Basophils 0.6 % (0.0-1.0); %Eosinophils 1.7 % (0.0-10.0); %Lymphocytes 16.1 % (21.0-51.0); %Monocytes 10.6 % (0.0-10.0); Hemoglobin 10.4 g/dL (12.0-16.0); Mean Corpuscular HGB CONC 32.1 g/dL (32.0-36.0); Mean Corpuscular Hemoglobin 30.1 pg (27.0-31.0); Mean Corpuscular Volume 93.5 fL (78.0-98.0); Mean Platelet Volume 6.5 fL (7.4-10.4); Platelet Count 311 thou/uL (130-400); RBC Distribution Width 13.2 % (11.5-14.5); Red Blood Cell (RBC) Count 3.46 mill/uL (4.20-5.40); White Blood Cell (WBC) Count 6.8 thou/uL (4.8-10.8)
[2019-09-20 04:14] LABS: Anion Gap 15 mmol/L (10-20); BUN (Urea Nitrogen) 7 mg/dL (7.0-18.7); Calc. Creatinine Clearance 155 mL/min (70-130); Calcium 8.6 mg/dL (7.8-10.44); Carbon Dioxide 26 mmol/L (22-29); Chloride 100 mmol/L (98-107); Estimated GFR-MDRD Greater than 90; Glucose 126 mg/dL (70-105); Potassium 3.8 mmol/L (3.5-5.1); Sodium 137 mmol/L (136-145)
[2019-09-20] MEDS: Metoclopramide HCl 10 MG/2 ML VIAL IVP SCH ×3 (07:15→22:15)
--- NOTE | 2019-09-20 08:09 | CT ---
PRELIMINARY REPORT/[facility]/EMERGENCY AFTER HOURS PROCEDURE: PROCEDURE INFORMATION: Exam: CT Head Without Contrast Exam date and time: 09/20/2019 5:36 AM Clinical history: 43 years old, female; Condition or disease; Prior surgery; Patient HX: F/u right thalamic hemorrhage, S/P shunt placement TECHNIQUE: Imaging protocol: Computed tomography of the head without contrast. COMPARISON: CT Brain WO Con 09/13/2019 8:41 AM FINDINGS: Tubes, catheters and devices: Right frontal ventriculostomy catheter is unchanged. Brain: Operative changes from recent occipital craniectomy are redemonstrated. Right thalamic hematom a extending into the right cerebral peduncle continues to decrease attenuation. Persistent trace intr aventricular hemorrhage. Ventricles: Interval resolution of ventriculomegaly. Bones/joints: Unchanged right frontal annamarie hole and occipital craniectomy. Sinuses: clear. Mastoid air cells: Mastoid air cells are aerated. Soft tissues: Unchanged surgical changes. IMPRESSION: Interval resolution of ventriculomegaly. Thank you for allowing us to participate in the care of your patient. Dictated and Authenticated by: Annie Cash MD 09/20/2019 5:50 AM Central Time ([place] & [place]) FINAL REPORT EMERGENT AFTER HOURS CT OF THE BRAIN WITHOUT CONTRAST: FINDINGS/IMPRESSION: I agree with the findings and impression given in the preliminary report per [facility] physician. There is evolving right thalamic infarction. There has been resolution of previously seen hydrocephalus. POS: [facility]
--- NOTE | 2019-09-20 09:54 | PRG ---
DATE OF SERVICE: 09/20/2019 SUBJECTIVE: The patient is about the same. She remains on a trach collar. OBJECTIVE: VITAL SIGNS: Temperature 98.9, pulse 104, blood pressure 122/92. NEUROLOGICAL: I find her unable to follow any commands. HEENT: Unchanged. NECK: Trach in good position. LUNGS: Clear. CARDIAC: S1 and S2. Regular. ABDOMEN: Soft. LABORATORY DATA: White blood cell count 6.8, hematocrit 32.3, and platelet count 311. Sodium 137, potassium 3.8, BUN 7, creatinine 0.5, glucose 126. 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 PLAN: Need to focus more on placement at this time. I am not confident that we are going to see a meaningful neurologic recovery. Job ID: [id number]
--- NOTE | 2019-09-20 10:11 | PRG ---
DATE OF SERVICE: 09/20/2019 This is Teja Varma PA-C dictating a report for Nilo Garcia MD. This is a postoperative recheck. Ms. Henson is now postoperative day #5, having undergone right POLITICAL SCIENCE CHAIR shunt placement as well as status post posterior fossa craniectomy on 08/27/2019. The patient is sleeping today. She is arousable. She follows commands in all extremities. She shakes her head no again, when asked if she has a headache. Review of her head CT from this morning shows well decompressed bilateral ventricles. Good placement of the ventricular catheter on the right. I like the patient to heal a little bit more postoperatively before we initiate any type of blood thinners. We will hold on ordering Lovenox at this time. We will re-evaluate at a later time, so again hold on any blood thinners at this point. The patient is stable for discharge to LTAC versus inpatient rehab once arrangements have been made. Please call with any changes in the patient's neurologic status. I should note that the patient's labs are stable today. Job ID: [id number]
[2019-09-20] MEDS: Amlodipine 10 MG TAB PER TUBE SCH (10:25)
[2019-09-20] MEDS: Famotidine 40 MG/5 ML Oral Suspension PER TUBE SCH ×2 (10:25→22:13)
[2019-09-20] MEDS: Senokot S 8.6-50 MG TAB PO SCH ×2 (10:25→20:56)
[2019-09-20] MEDS: Polyethylene Glycol 3350 17 GM Packet PER TUBE PRN (10:26)
--- NOTE | 2019-09-20 18:05 | PDOC.HOSPP ---
- Subjective Encounter Date: 09/20/19 Encounter Time: 18:02 non-verbal Subjective: Patient seen and examined for med mngt. 1 episode of vomiting earlier per RN. No overnight events - Objective Vital Signs & Weight: Vital Signs (12 hours) Pulse Pulse Pulse Resp BP BP BP 09/20/19 13:57 93 97 125/77 117/67 09/20/19 13:09 105 H 22 H 09/20/19 10:25 98 127/82 09/20/19 08:00 09/20/19 07:56 09/20/19 07:54 98 27 H Pulse Ox 09/20/19 13:57 09/20/19 13:09 98 09/20/19 10:25 09/20/19 08:00 99 09/20/19 07:56 99 09/20/19 07:54 98 Weight Admit Weight 173 lb 4.533 oz Weight 164 lb Most Recent Monitor Data Heart Rate from ECG 98 NIBP 128/93 NIBP BP-Mean 104 Respiration from ECG 28 SpO2 97 I&O: 09/19/19 09/20/19 09/21/19 06:59 06:59 06:59 Intake Total 1445 1966 30 Output Total 1350 3575 Balance 95 -1609 30 Result Diagrams: 09/20/19 03:31 09/20/19 03:31 EKG Reviewed by me: Yes (Tele SR) Hospitalist ROS - Review of Systems ROS unobtainable: due to mental status - Medication Medications: Active Medications Generic Name Dose Route Start Last Admin Trade Name Freq PRN Reason Stop Dose Admin Acetaminophen 650 mg 08/27/19 22:53 09/01/19 12:05 Tylenol MS 650 mg Q4H PRN Administration Headache/Fever/Mild Pain (1-3) Acetaminophen 650 mg 09/01/19 09:28 09/17/19 21:02 Tylenol Elixir PER TUBE 650 mg Q6H PRN Administration Fever > 101 Albuterol/Ipratropium 3 ml 09/10/19 13:00 09/20/19 13:09 Duoneb NEB 3 ml [id number] JEAN-PAUL Administration Amlodipine Besylate 10 mg 08/29/19 09:00 09/20/19 10:25 Norvasc PER TUBE 10 mg DAILY JEAN-PAUL Administration Famotidine 20 mg 09/01/19 21:00 09/20/19 10:25 Pepcid PER TUBE 20 mg BID JEAN-PAUL Administration Hydralazine HCl 10 mg 08/28/19 20:34 09/10/19 18:39 Apresoline SLOW IVP 10 mg Q15M PRN Administration SBP > 140 Potassium Chloride 40 meq/ 270 mls @ 135 mls/hr 08/27/19 21:10 09/13/19 05:14 Sodium Chloride IVPB 270 mls ASDIR PRN Administration FOR SERUM K+ 2.5 - 3.5 Dextrose/Sodium Chloride 1,000 mls @ 75 mls/hr 09/12/19 12:45 09/20/19 12:48 D5 1/2 Ns IV 1,000 mls .[id number] JEAN-PAUL Administration Metoclopramide HCl 10 mg 09/08/19 22:00 09/20/19 16:01 Reglan IVP 10 mg Q8HR JEAN-PAUL Administration Ondansetron HCl 4 mg 09/07/19 22:28 09/08/19 10:00 Zofran SLOW IVP 4 mg Q6H PRN Administration Nausea/Vomiting Polyethylene Glycol 17 gm 09/06/19 18:47 09/20/19 10:26 Miralax PER TUBE 17 gm DAILYPRN PRN Administration CONSTIPATION Potassium Chloride 40 meq 08/27/19 21:10 09/17/19 05:52 Klor-Con PER TUBE 40 meq ASDIR PRN Administration FOR SERUM K+ 2.5-3.5 Scopolamine 1.5 mg 09/01/19 07:45 09/19/19 10:55 Transderm Scop TD 1.5 mg Q3D JEAN-PAUL Administration Senna/Docusate Sodium 1 tab 09/10/19 21:00 09/20/19 10:25 Senokot S PO 1 tab BID JEAN-PAUL Administration - Exam General Appearance: NAD Heart: RRR, no gallops Heart - other findings: trach + Respiratory: CTAB, no rales Gastrointestinal: soft, normal bowel sounds Hosp A/P - Plan DVT proph w/SCDs Toxic Metabolic Encephalopathy ICH s/p NON PROFIT JOB TITLES shunt Acute hypoxic Resp failure s/p trach/PEG HTN Chronic Anemia Hyponatremia Sepsis for Pneumonia - Enterobacter - completed Atbx PLAN: TF on hold Cont IVF Check KUB Cont supportive care Await placement AM labs
[2019-09-21] MEDS: Dextrose 5 %-0.45 % NaCl 1,000 ML IV SCH ×2 (04:00→17:58)
[2019-09-21 04:52] LABS: #Basophils 0.1 thou/uL (0.0-0.2); #Eosinphils 0.2 thou/uL (0.0-0.7); #Lymphocytes 1.2 thou/uL (1.20-3.40); #Monocytes 0.5 thou/uL (0.11-0.59); %Basophils 0.8 % (0.0-1.0); %Eosinophils 2.4 % (0.0-10.0); %Lymphocytes 16.9 % (21.0-51.0); %Monocytes 7.9 % (0.0-10.0); %Neutrophils 72.1 % (42.0-75.0); Hemoglobin 9.5 g/dL (12.0-16.0); Mean Corpuscular HGB CONC 32.8 g/dL (32.0-36.0); Mean Corpuscular Hemoglobin 30.3 pg (27.0-31.0); Mean Corpuscular Volume 92.5 fL (78.0-98.0); Mean Platelet Volume 6.4 fL (7.4-10.4); Platelet Count 291 thou/uL (130-400); RBC Distribution Width 13.5 % (11.5-14.5); Red Blood Cell (RBC) Count 3.13 mill/uL (4.20-5.40); White Blood Cell (WBC) Count 6.9 thou/uL (4.8-10.8)
[2019-09-21 05:14] LABS: Anion Gap 10 mmol/L (10-20); BUN (Urea Nitrogen) 5 mg/dL (7.0-18.7); Calc. Creatinine Clearance 164 mL/min (70-130); Calcium 8.6 mg/dL (7.8-10.44); Carbon Dioxide 29 mmol/L (22-29); Chloride 101 mmol/L (98-107); Estimated GFR-MDRD Greater than 90; Glucose 115 mg/dL (70-105); Potassium 3.5 mmol/L (3.5-5.1); Sodium 136 mmol/L (136-145)
[2019-09-21] MEDS: Metoclopramide HCl 10 MG/2 ML VIAL IVP SCH ×3 (08:18→21:11)
--- NOTE | 2019-09-21 08:28 | PRG ---
DATE OF SERVICE: 09/21/2019 SUBJECTIVE: She is a little more active than she has been. I think there has been some issues with vomiting and constipation. OBJECTIVE: VITAL SIGNS: Her temperature is 97.8, pulse 93, blood pressure 126/84, O2 saturation 100%. HEENT: Unchanged. NECK: Trach in good position. LUNGS: Fairly clear. CARDIAC: S1, S2. Regular. ABDOMEN: Distended, but bowel sounds are present. EXTREMITIES: Edematous. LABORATORY DATA: White blood cell count 6.9, hematocrit 28.9, and platelet count 291. Sodium 136, potassium 3.5, chloride 101, CO2 of 29, BUN 5, creatinine 0.5, glucose 115. ASSESSMENT: 1. Status post thalamic bleed. 2. Status post tracheostomy. 3. Ileus. PLAN: 1. Continue Reglan and laxatives. 2. Change out tracheostomy to a cuffless tube tomorrow. 3. Placement. Job ID: [id number]
--- NOTE | 2019-09-21 09:29 | PRG ---
DATE OF SERVICE: 09/21/2019 This is Teja Varma PA-C dictating a report for Nilo Garcia MD. Postoperative recheck. Ms. Henson is postoperative day #6 having undergone right WARDROBE SPECIALTY WORKER shunt placement and several days postoperative having undergone a posterior fossa craniectomy for right thalamic bleed. Main issue now is the patient had an episode of vomiting and has some abdominal distention. Medical colleagues are helping us work this up. On exam, she does have some distention, though at this time, her belly is easily palpated. The patient denies headache when asked in Bengali. She continues with some third nerve palsy, but is much more awake today. Her family is at bedside and I have updated them as well that neurologically, the patient is continuing to improve. I reviewed the head CT that we did yesterday and that the ventricles are well decompressed and there does not appear to be any new hemorrhage and her old hemorrhages are resolving. Again, we will ask that our medical colleagues continue to help us workup her abdominal issues. Her white blood cell count is 6.9 and she is afebrile and her sodium is at 13, stable. She is not on any antibiotics, but remains on Pepcid. Please call with any changes in patient's neurologic status. Job ID: [id number]
--- NOTE | 2019-09-21 09:57 | RAD ---
KUB: INDICATIONS: History of nausea and vomiting. COMPARISON: 09/12/2019 FINDINGS: Gaseous distention of small and large bowel are stable appearing. The IVC filter is seen right of mid line at L3 is stable appearing. There are catheter leads overlying the upper abdomen. A temperature p robe is seen within the region of the bladder. Osseous structures are unchanged. IMPRESSION: Largely stable gaseous distention of multiple loops of small and large bowel. POS: OFF
[2019-09-21] MEDS: Famotidine 40 MG/5 ML Oral Suspension PER TUBE SCH ×2 (10:08→21:11)
[2019-09-21] MEDS: Senokot S 8.6-50 MG TAB PO SCH ×2 (10:09→21:11)
[2019-09-21] MEDS: Amlodipine 10 MG TAB PER TUBE SCH (10:09)
--- NOTE | 2019-09-21 18:17 | PDOC.HOSPP ---
- Subjective Encounter Date: 09/21/19 Encounter Time: 11:42 Subjective: 43 y/o female admitted after acute onset on unresponsiveness. Found to have left thalamic bleeding. S/p R frontal ventricular drain, decompressive suboccipital craniectomy and cervical laminectomy. Later had IMMIGRATION MANAGER shunt. Non conversational or responding to speech. S/p tracheostomy and PEG tube. Developed vomiting yesterday and tube feeding was held. - Objective Vital Signs & Weight: Vital Signs (12 hours) Temp Pulse Pulse Pulse Resp BP BP 09/21/19 15:31 98.6 F 09/21/19 13:49 90 94 124/74 130/77 09/21/19 13:07 89 28 H 09/21/19 11:08 97.7 F 09/21/19 10:09 95 09/21/19 08:00 09/21/19 07:38 95 28 H 09/21/19 07:22 97.8 F Pulse Ox Pulse Ox Pulse Ox 09/21/19 15:31 09/21/19 13:49 92 L 97 09/21/19 13:07 09/21/19 11:08 09/21/19 10:09 09/21/19 08:00 97 09/21/19 07:38 100 09/21/19 07:22 Weight Admit Weight 173 lb 4.533 oz Weight 167 lb Most Recent Monitor Data Heart Rate from ECG 103 NIBP 124/74 NIBP BP-Mean 90 Respiration from ECG 28 SpO2 92 I&O: 09/20/19 09/21/19 09/22/19 06:59 06:59 06:59 Intake Total 2602 802 022 Output Total 9689 770 963 Balance -1609 10 -50 Result Diagrams: 09/21/19 04:35 09/21/19 04:35 Hospitalist ROS - Medication Medications: Active Medications Generic Name Dose Route Start Last Admin Trade Name Freq PRN Reason Stop Dose Admin Acetaminophen 650 mg 08/27/19 22:53 09/01/19 12:[address] 650 mg Q4H PRN Administration Headache/Fever/Mild Pain (1-3) Acetaminophen 650 mg 09/01/19 09:28 09/17/19 21:02 Tylenol Elixir PER TUBE 650 mg Q6H PRN Administration Fever > 101 Albuterol/Ipratropium 3 ml 09/10/19 13:00 09/21/19 13:07 Duoneb NEB 3 ml [id number] JEAN-PAUL Administration Amlodipine Besylate 10 mg 08/29/19 09:00 09/21/19 10:09 Norvasc PER TUBE 10 mg DAILY JEAN-PAUL Administration Famotidine 20 mg 09/01/19 21:00 09/21/19 10:08 Pepcid PER TUBE 20 mg BID JEAN-PAUL Administration Hydralazine HCl 10 mg 08/28/19 20:34 09/10/19 18:39 Apresoline SLOW IVP 10 mg Q15M PRN Administration SBP > 140 Potassium Chloride 40 meq/ 270 mls @ 135 mls/hr 08/27/19 21:10 09/13/19 05:14 Sodium Chloride IVPB 270 mls ASDIR PRN Administration FOR SERUM K+ 2.5 - 3.5 Dextrose/Sodium Chloride 1,000 mls @ 75 mls/hr 09/12/19 12:45 09/21/19 17:58 D5 1/2 Ns IV 1,000 mls .[id number] JEAN-PAUL Administration Metoclopramide HCl 10 mg 09/08/19 22:00 09/21/19 17:57 Reglan IVP Not Given Q8HR JEAN-PAUL Ondansetron HCl 4 mg 09/07/19 22:28 09/08/19 10:00 Zofran SLOW IVP 4 mg Q6H PRN Administration Nausea/Vomiting Polyethylene Glycol 17 gm 09/06/19 18:47 09/20/19 10:26 Miralax PER TUBE 17 gm DAILYPRN PRN Administration CONSTIPATION Potassium Chloride 40 meq 08/27/19 21:10 09/17/19 05:52 Klor-Con PER TUBE 40 meq ASDIR PRN Administration FOR SERUM K+ 2.5-3.5 Scopolamine 1.5 mg 09/01/19 07:45 09/19/19 10:55 Transderm Scop TD 1.5 mg Q3D JEAN-PAUL Administration Senna/Docusate Sodium 1 tab 09/10/19 21:00 09/21/19 10:09 Senokot S PO 1 tab BID JEAN-PAUL Administration - Exam General - other findings: awake but non responsive to conversation Eye - other findings: R eye ptosis noted Neck: symmetric, no JVD Heart: RRR Respiratory - other findings: fair air entry bilaterally Gastrointestinal: soft, non-distended, diminished bowl sounds Extremities - other findings: trace edema Neurological - other findings: non conversational nor obeying command Hosp A/P (1) Intracranial hemorrhage Code(s): I62.9 - NONTRAUMATIC INTRACRANIAL HEMORRHAGE, UNSPECIFIED Status: Acute (2) Hypernatremia Code(s): E87.0 - HYPEROSMOLALITY AND HYPERNATREMIA Status: Acute (3) Hypokalemia Code(s): E87.6 - HYPOKALEMIA Status: Acute (4) Acute respiratory failure Code(s): J96.00 - ACUTE RESPIRATORY FAILURE, UNSP W HYPOXIA OR HYPERCAPNIA Status: Chronic Qualifiers: Respiratory failure complication: hypoxia Qualified Code(s): J96.01 - Acute respiratory failure with hypoxia (5) Encephalopathy acute Code(s): G93.40 - ENCEPHALOPATHY, UNSPECIFIED Status: Acute (6) Ileus Code(s): K56.7 - ILEUS, UNSPECIFIED Status: Acute (7) HTN (hypertension) Code(s): I10 - ESSENTIAL (PRIMARY) HYPERTENSION Status: Chronic Qualifiers: Hypertension type: essential hypertension Qualified Code(s): I10 - Essential (primary) hypertension - Plan Give 40 meq of KCL as serum K is 3.5 in the face of ileus. Continue IVF as tube feeding is held Continue other supportive care. Placement arrangement is in progress. Will transfer tp stroke unit if cleared by Neurosurg/critical care
[2019-09-22] MEDS: Metoclopramide HCl 10 MG/2 ML VIAL IVP SCH ×3 (05:51→22:56)
[2019-09-22] MEDS: Dextrose 5 %-0.45 % NaCl 1,000 ML IV SCH ×2 (05:53→21:04)
--- NOTE | 2019-09-22 09:07 | PRG ---
DATE OF SERVICE: 09/22/2019 This is Teja Varma PA-C dictating a report for Nilo Garcia MD. Ms. Henson has remained neurologically stable. Her main issues have been abdominal distention and she did have a very large bowel movement last night, she seemed to improve in her distention somewhat. She is currently sleeping, but arouses to noxious stimulus. She is stable for transfer to the stroke unit later today, if deemed medically necessary by critical care and hospitalist colleagues. I have initiated a low-dose prophylactic Lovenox to begin this evening at 9 p.m. Please call with any changes to the patient's neurologic status. Otherwise, we will continue to follow and she is stable for discharge at any point from neurosurgical standpoint. Job ID: [id number]
--- NOTE | 2019-09-22 09:49 | PRG ---
DATE OF SERVICE: 09/22/2019 SUBJECTIVE: The patient is doing about the same. Her was in the room this morning. PHYSICAL EXAMINATION: VITAL SIGNS: Temperature is 97.8, pulse 87, blood pressure 122/83, O2 saturation 100%. HEENT: Unchanged. NECK: Trach in good position. LUNGS: Clear. CARDIAC: S1, S2 regular. ABDOMEN: Soft. EXTREMITIES: No edema. ASSESSMENT: 1. Status post thalamic bleed. 2. Respiratory failure, requiring trach and percutaneous endoscopic gastrostomy tube. PLAN: 1. Placement. 2. We will change her to a cuffless trach. Job ID: [id number]
[2019-09-22] MEDS: Famotidine 40 MG/5 ML Oral Suspension PER TUBE SCH (10:20)
[2019-09-22] MEDS: Scopolamine 1.5 mg/72 hour Patch TD SCH (10:20)
[2019-09-22] MEDS: Amlodipine 10 MG TAB PER TUBE SCH (10:20)
[2019-09-22] MEDS: Senokot S 8.6-50 MG TAB PO SCH ×2 (10:20→21:07)
--- NOTE | 2019-09-22 14:26 | PDOC.HOSPP ---
- Subjective Encounter Date: 09/22/19 Encounter Time: 14:24 Subjective: 43 y/o female admitted after acute onset on unresponsiveness. Found to have left thalamic bleeding. S/p R frontal ventricular drain, decompressive suboccipital craniectomy and cervical laminectomy. Later had TIMBER FALLER shunt. Non conversational or responding to speech. S/p tracheostomy and PEG tube. Developed abdominal distension with vomiting on 09/20/2019 and tube feeding was held. Had large BM yesterday. Abdominal distension is better. - Objective Vital Signs & Weight: Vital Signs (12 hours) Temp Pulse Pulse Pulse Pulse Resp BP 09/22/19 11:35 97.5 F L 09/22/19 10:20 87 09/22/19 10:09 100 96 93 132/84 09/22/19 08:00 09/22/19 07:55 97.8 F 09/22/19 07:44 87 23 H 09/22/19 03:16 98.1 F BP BP Pulse Ox 09/22/19 11:35 09/22/19 10:20 09/22/19 10:09 84/48 L 128/83 09/22/19 08:00 97 09/22/19 07:55 09/22/19 07:44 99 09/22/19 03:16 Weight Admit Weight 173 lb 4.533 oz Weight 169 lb Most Recent Monitor Data Heart Rate from ECG 83 NIBP 114/73 NIBP BP-Mean 86 Respiration from ECG 23 SpO2 97 I&O: 09/21/19 09/22/19 09/23/19 06:59 06:59 06:59 Intake Total 780 1820 Output Total 770 2175 Balance 10 355 Result Diagrams: 09/21/19 04:35 09/21/19 04:35 Hospitalist ROS - Medication Medications: Active Medications Generic Name Dose Route Start Last Admin Trade Name Freq PRN Reason Stop Dose Admin Acetaminophen 650 mg 08/27/19 22:53 09/01/19 12:05 Tylenol [place] 650 mg Q4H PRN Administration Headache/Fever/Mild Pain (1-3) Acetaminophen 650 mg 09/01/19 09:28 09/17/19 21:02 Tylenol Elixir PER TUBE 650 mg Q6H PRN Administration Fever > 101 Albuterol/Ipratropium 3 ml 09/10/19 13:00 09/22/19 13:39 Duoneb NEB 3 ml [id number] JEAN-PAUL Administration Amlodipine Besylate 10 mg 08/29/19 09:00 09/22/19 10:20 Norvasc PER TUBE 10 mg DAILY JEAN-PAUL Administration Famotidine 20 mg 09/01/19 21:00 09/22/19 10:20 Pepcid PER TUBE 20 mg BID JEAN-PAUL Administration Hydralazine HCl 10 mg 08/28/19 20:34 09/10/19 18:39 Apresoline SLOW IVP 10 mg Q15M PRN Administration SBP > 140 Potassium Chloride 40 meq/ 270 mls @ 135 mls/hr 08/27/19 21:10 09/13/19 05:14 Sodium Chloride IVPB 270 mls ASDIR PRN Administration FOR SERUM K+ 2.5 - 3.5 Dextrose/Sodium Chloride 1,000 mls @ 75 mls/hr 09/12/19 12:45 09/22/19 05:53 D5 1/2 Ns IV 1,000 mls .[id number] JEAN-PAUL Administration Metoclopramide HCl 10 mg 09/08/19 22:00 09/22/19 05:51 Reglan IVP 10 mg Q8HR JEAN-PAUL Administration Ondansetron HCl 4 mg 09/07/19 22:28 09/08/19 10:00 Zofran SLOW IVP 4 mg Q6H PRN Administration Nausea/Vomiting Polyethylene Glycol 17 gm 09/06/19 18:47 09/20/19 10:26 Miralax PER TUBE 17 gm DAILYPRN PRN Administration CONSTIPATION Potassium Chloride 40 meq 08/27/19 21:10 09/17/19 05:52 Klor-Con PER TUBE 40 meq ASDIR PRN Administration FOR SERUM K+ 2.5-3.5 Scopolamine 1.5 mg 09/01/19 07:45 09/22/19 10:20 Transderm Scop TD 1.5 mg Q3D JEAN-PAUL Administration Senna/Docusate Sodium 1 tab 09/10/19 21:00 09/22/19 10:20 Senokot S PO 1 tab BID JEAN-PAUL Administration - Exam General - other findings: wakes up with stimulation Eye - other findings: r ptosis ENT - other findings: Right frontal scalp surgical wound noted Neck - other findings: Tracheostomy with T collar noted Heart: RRR Respiratory - other findings: fair air entry with transmitted breathsound Gastrointestinal: soft, non-tender, normal bowel sounds Gastrointestinal - other findings: mild distension Extremities - other findings: trace leg edema Musculoskeletal - other findings: non verbal. wakes up with stimulation Hosp A/P (1) Intracranial hemorrhage Code(s): I62.9 - NONTRAUMATIC INTRACRANIAL HEMORRHAGE, UNSPECIFIED Status: Acute (2) Hypernatremia Code(s): E87.0 - HYPEROSMOLALITY AND HYPERNATREMIA Status: Acute (3) Hypokalemia Code(s): E87.6 - HYPOKALEMIA Status: Acute (4) Acute respiratory failure Code(s): J96.00 - ACUTE RESPIRATORY FAILURE, UNSP W HYPOXIA OR HYPERCAPNIA Status: Chronic Qualifiers: Respiratory failure complication: hypoxia Qualified Code(s): J96.01 - Acute respiratory failure with hypoxia (5) Encephalopathy acute Code(s): G93.40 - ENCEPHALOPATHY, UNSPECIFIED Status: Acute (6) Ileus Code(s): K56.7 - ILEUS, UNSPECIFIED Status: Acute (7) HTN (hypertension) Code(s): I10 - ESSENTIAL (PRIMARY) HYPERTENSION Status: Chronic Qualifiers: Hypertension type: essential hypertension Qualified Code(s): I10 - Essential (primary) hypertension - Plan Will restart tube feeding at a lower rate and titrate upwards to goal. Continue IVF till tube feeding is at goal. Continue other supportive care. Placement arrangement is in progress. For discharge once placement is concluded
[2019-09-22] MEDS ORDERED: Enoxaparin Sodium 40 MG/0.4 ML SYRINGE SC SCH (21:00)
[2019-09-22] MEDS ORDERED: Famotidine 20 MG TAB PER TUBE SCH (23:00)
[2019-09-23] MEDS: Famotidine 40 MG/5 ML Oral Suspension PER TUBE SCH (00:27)
[2019-09-23 05:22] LABS: #Eosinphils 0.1 thou/uL (0.0-0.7); #Monocytes 0.7 thou/uL (0.11-0.59); #Neutrophils 9.1 thou/uL (1.40-6.50); %Basophils 0.4 % (0.0-1.0); %Eosinophils 1.1 % (0.0-10.0); %Lymphocytes 9.4 % (21.0-51.0); %Monocytes 6.1 % (0.0-10.0); Hemoglobin 9.6 g/dL (12.0-16.0); Mean Corpuscular HGB CONC 31.7 g/dL (32.0-36.0); Mean Corpuscular Volume 94.7 fL (78.0-98.0); Mean Platelet Volume 6.9 fL (7.4-10.4); Platelet Count 273 thou/uL (130-400); RBC Distribution Width 13.4 % (11.5-14.5)
[2019-09-23 05:42] LABS: Albumin 2.6 g/dL (3.5-5.0); Anion Gap 13 mmol/L (10-20); BUN (Urea Nitrogen) 5 mg/dL (7.0-18.7); BUN/Creatinine Ratio 9.43; Calc. Creatinine Clearance 162 mL/min (70-130); Calcium 8.8 mg/dL (7.8-10.44); Carbon Dioxide 25 mmol/L (22-29); Chloride 103 mmol/L (98-107); Estimated GFR-MDRD Greater than 90; Glucose 115 mg/dL (70-105); Magnesium 1.9 mg/dL (1.6-2.6); Phosphorus 3.6 mg/dL (2.3-4.7); Potassium 3.1 mmol/L (3.5-5.1); Sodium 138 mmol/L (136-145)
[2019-09-23] MEDS: Metoclopramide HCl 10 MG/2 ML VIAL IVP SCH ×3 (06:44→21:09)
[2019-09-23] MEDS: Senokot S 8.6-50 MG TAB PO SCH ×3 (08:56→21:08)
[2019-09-23] MEDS: Amlodipine 10 MG TAB PER TUBE SCH (08:56)
[2019-09-23] MEDS: Famotidine 20 MG TAB PER TUBE SCH ×2 (08:56→21:08)
--- NOTE | 2019-09-23 09:37 | PRG ---
DATE OF SERVICE: 09/23/2019 This is Teja Varma PA-C dictating a report for Nilo Garcia MD. Ms. Henson is now postoperative day #8, having undergone right NARROW GAUGE ENGINEER shunt placement and several weeks postop having undergone posterior fossa craniectomy for right thalamic bleed. Neurologically, the patient is stable. She is awake. She continues to have a 3rd nerve palsy on the right, although it does appear that her pupils are very slightly anisocoric. At this time, her pupils appear to be equal. She does not appear to have significant nystagmus on exam. She is mainly Burmese speaking and when asked if she had a headache, she says no, but when asked that she is in pain, she shakes her head yes. She has tenderness to palpation into the abdomen. It remains distended, though stable from yesterday. Her PEG site looks good. It does not appear to have any drainage or significant surrounding erythema. Her laparoscopic incisions are healing well. The patient follows commands in all extremities, though is slower to move the left side. When palpating her abdomen, she briskly will grab my hand. From neurosurgical standpoint, the patient is doing well. Unfortunately, she did not get her Lovenox last night and then therefore I will defer to our hospitalist team in regard to prophylactic Lovenox. She may not be fully anticoagulated given her history of multiple brain surgeries and it sound-like bleed. However, she may be placed on prophylactic Lovenox. Again, I will defer this to our hospital team and I have discussed her case with Dr. Garcia, who is the covering hospitalist for her and I have transferred primary service to him. Neurosurgery will remain available for questions, but at this time, the hospitalist will take over. Please call with any changes to the patient's neurologic status, otherwise we will arrange appropriate followup in the next several weeks. Her NARROW GAUGE ENGINEER shunt navneet will need to be removed in 14 to 17 days postop and her posterior craniectomy navneet have already been removed. I would prefer that the posterior craniectomy incision remain covered to protect it and to allow to continue to heal. Again, call with questions. Job ID: [id number]
--- NOTE | 2019-09-23 10:00 | PRG ---
DATE OF SERVICE: 09/23/2019 SUBJECTIVE: She has been moved to the stroke floor. Her was at the bedside. I actually witnessed him getting her to move her right leg and right arm to command. OBJECTIVE: VITAL SIGNS: Temperature is 98.1, pulse 90, blood pressure 124/72, and O2 saturation 98% on trach collar. HEENT: Unremarkable. NECK: She has a midline tracheostomy, which has some secretions present. CARDIAC: S1 and S2. Regular. LUNGS: Coarse breath sounds. ABDOMEN: Soft. EXTREMITIES: Edematous. LABORATORY DATA: White blood cell count 11, hematocrit 30, and platelet count 273. Sodium 138, potassium 3.1, chloride 103, CO2 of 25, BUN 5, creatinine 0.5, and glucose 115. ASSESSMENT: 1. Status post thalamic stroke. 2. Respiratory failure, requiring eventual tracheostomy placement for control of secretions. PLAN: The patient seems to be doing reasonably well. Main issue now will be management of her tracheostomy. Also awaiting long term placement. Job ID: [id number]
[2019-09-23] MEDS: Dextrose 5 %-0.45 % NaCl 1,000 ML IV SCH ×2 (11:24→21:09)
[2019-09-23] MEDS ORDERED: Enoxaparin Sodium 40 MG/0.4 ML SYRINGE SC SCH (12:15)
--- NOTE | 2019-09-23 12:15 | PDOC.HOSPP ---
- Subjective Encounter Date: 09/23/19 Encounter Time: 08:14 Subjective: 43 y/o female admitted after acute onset on unresponsiveness. Found to have left thalamic bleeding. S/p R frontal ventricular drain, decompressive suboccipital craniectomy and cervical laminectomy. Later had ASSOCIATE ATTORNEY shunt. Non conversational or responding to speech. S/p tracheostomy and PEG tube. Developed abdominal distension with vomiting on 09/20/2019 and tube feeding was held. Abdominal distension is better and tube feeding was restarted on 2018. Patient is tolerating tube feeding. Had 2 BM yesterday - Objective Vital Signs & Weight: Vital Signs (12 hours) Temp Pulse Pulse Pulse Resp BP BP 09/23/19 11:39 98.8 F 93 20 09/23/19 09:52 90 95 144/90 H 09/23/19 08:56 90 124/72 09/23/19 08:16 88 24 H 09/23/19 07:55 98.1 F 91 20 09/23/19 03:56 99 F 98 20 09/23/19 00:57 88 20 BP BP Pulse Ox 09/23/19 11:39 114/74 99 09/23/19 09:52 106/59 L 09/23/19 08:56 09/23/19 08:16 09/23/19 07:55 124/72 98 09/23/19 03:56 106/63 98 09/23/19 00:57 98 Weight Admit Weight 173 lb 4.533 oz Weight 166 lb 4.8 oz Most Recent Monitor Data Heart Rate from ECG 83 NIBP 114/73 NIBP BP-Mean 86 Respiration from ECG 23 SpO2 97 I&O: 09/22/19 09/23/19 09/24/19 06:59 06:59 06:59 Intake Total 1820 900 Output Total 2175 1800 Balance -355 -900 Result Diagrams: 09/23/19 05:04 09/23/19 05:04 Additional Labs: Accuchecks 09/23/19 09/23/19 09/22/19 10:50 05:32 21:54 POC Glucose 114 H 110 102 Hospitalist ROS - Medication Medications: Active Medications Generic Name Dose Route Start Last Admin Trade Name Freq PRN Reason Stop Dose Admin Acetaminophen 650 mg 08/27/19 22:53 09/01/19 12:05 Tylenol [place] 650 mg Q4H PRN Administration Headache/Fever/Mild Pain (1-3) Acetaminophen 650 mg 09/01/19 09:28 09/17/19 21:02 Tylenol Elixir PER TUBE 650 mg Q6H PRN Administration Fever > 101 Albuterol/Ipratropium 3 ml 09/10/19 13:00 09/23/19 08:16 Duoneb NEB 3 ml [id number] JEAN-PAUL Administration Amlodipine Besylate 10 mg 08/29/19 09:00 09/23/19 08:56 Norvasc PER TUBE 10 mg DAILY JEAN-PAUL Administration Famotidine 20 mg 09/23/19 09:00 09/23/19 08:56 Pepcid PER TUBE 20 mg BID JEAN-PAUL Administration Hydralazine HCl 10 mg 08/28/19 20:34 09/10/19 18:39 Apresoline SLOW IVP 10 mg Q15M PRN Administration SBP > 140 Potassium Chloride 40 meq/ 270 mls @ 135 mls/hr 08/27/19 21:10 09/13/19 05:14 Sodium Chloride IVPB 270 mls ASDIR PRN Administration FOR SERUM K+ 2.5 - 3.5 Dextrose/Sodium Chloride 1,000 mls @ 75 mls/hr 09/12/19 12:45 09/23/19 11:24 D5 1/2 Ns IV 1,000 mls .[id number] JEAN-PAUL Administration Metoclopramide HCl 10 mg 09/08/19 22:00 09/23/19 06:44 Reglan IVP 10 mg Q8HR JEAN-PAUL Administration Ondansetron HCl 4 mg 09/07/19 22:28 09/08/19 10:00 Zofran SLOW IVP 4 mg Q6H PRN Administration Nausea/Vomiting Polyethylene Glycol 17 gm 09/06/19 18:47 09/20/19 10:26 Miralax PER TUBE 17 gm DAILYPRN PRN Administration CONSTIPATION Potassium Chloride 40 meq 08/27/19 21:10 09/17/19 05:52 Klor-Con PER TUBE 40 meq ASDIR PRN Administration FOR SERUM K+ 2.5-3.5 Scopolamine 1.5 mg 09/01/19 07:45 09/22/19 10:20 Transderm Scop TD 1.5 mg Q3D JEAN-PAUL Administration Senna/Docusate Sodium 1 tab 09/10/19 21:00 10/25/19 09:04 Senokot S PO Not Given BID JEAN-PAUL - Exam General - other findings: sleeping. arousable Eye - other findings: R eye ptosis noted ENT - other findings: Left frontal scalp surgical wound noted Neck - other findings: tracheostomy with T collar noted Heart: RRR Respiratory - other findings: Dair air entry with transmitted sound Gastrointestinal: soft, non-tender Gastrointestinal - other findings: hypoactive BS Extremities - other findings: trace feet edema Neurological - other findings: Sleeping. Arousable. turns and opens left eye but remained non verbal Hosp A/P (1) Intracranial hemorrhage Code(s): I62.9 - NONTRAUMATIC INTRACRANIAL HEMORRHAGE, UNSPECIFIED Status: Acute (2) Hypokalemia Code(s): E87.6 - HYPOKALEMIA Status: Acute (3) Hypernatremia Code(s): E87.0 - HYPEROSMOLALITY AND HYPERNATREMIA Status: Acute (4) Acute respiratory failure Code(s): J96.00 - ACUTE RESPIRATORY FAILURE, UNSP W HYPOXIA OR HYPERCAPNIA Status: Chronic Qualifiers: Respiratory failure complication: hypoxia Qualified Code(s): J96.01 - Acute respiratory failure with hypoxia (5) Encephalopathy acute Code(s): G93.40 - ENCEPHALOPATHY, UNSPECIFIED Status: Acute (6) Ileus Code(s): K56.7 - ILEUS, UNSPECIFIED Status: Acute (7) HTN (hypertension) Code(s): I10 - ESSENTIAL (PRIMARY) HYPERTENSION Status: Chronic Qualifiers: Hypertension type: essential hypertension Qualified Code(s): I10 - Essential (primary) hypertension (8) Hydrocephalus Code(s): G91.9 - HYDROCEPHALUS, UNSPECIFIED Status: Acute (9) Quadriplegia and quadriparesis Code(s): G82.50 - QUADRIPLEGIA, UNSPECIFIED Status: Acute - Plan Increase tube feeding slowly to goal. Continue IVF till tube feeding is at goal. replete serum potassium Continue other supportive care. Restart DVT prophylaxis with lovenox as recommended by neurolosurgy. Start miralax daily Placement arrangement is in progress. For discharge once placement is concluded
[2019-09-24] MEDS: Metoclopramide HCl 10 MG/2 ML VIAL IVP SCH ×3 (04:59→22:48)
[2019-09-24 08:33] LABS: ALT (SGPT) 13 U/L (8-55); AST (SGOT) 15 U/L (5-34); Albumin 2.6 g/dL (3.5-5.0); Alkaline Phosphatase 112 U/L (40-110); Anion Gap 10 mmol/L (10-20); BUN (Urea Nitrogen) 5 mg/dL (7.0-18.7); Bilirubin, Total 0.4 mg/dL (0.2-1.2); Calc. Creatinine Clearance 155 mL/min (70-130); Calcium 8.9 mg/dL (7.8-10.44); Carbon Dioxide 30 mmol/L (22-29); Chloride 102 mmol/L (98-107); Estimated GFR-MDRD Greater than 90; Globulin 3.9 g/dL (2.4-3.5); Glucose 118 mg/dL (70-105); Magnesium 1.9 mg/dL (1.6-2.6); Potassium 3.9 mmol/L (3.5-5.1); Protein, Total 6.5 g/dL (6.0-8.3); Sodium 138 mmol/L (136-145)
[2019-09-24] MEDS: Amlodipine 10 MG TAB PER TUBE SCH (08:45)
[2019-09-24] MEDS: Famotidine 20 MG TAB PER TUBE SCH ×2 (08:46→20:45)
[2019-09-24] MEDS: Senokot S 8.6-50 MG TAB PO SCH ×2 (08:46→20:45)
[2019-09-24] MEDS: Enoxaparin Sodium 40 MG/0.4 ML SYRINGE SC SCH (08:46)
[2019-09-24] MEDS: Dextrose 5 %-0.45 % NaCl 1,000 ML IV SCH ×2 (08:47→22:48)
[2019-09-24] MEDS ORDERED: Polyethylene Glycol 3350 17 GM Packet PER TUBE SCH (09:00)
--- NOTE | 2019-09-24 11:41 | PDOC.HOSPP ---
- Subjective Encounter Date: 09/24/19 Encounter Time: 09:40 Subjective: 43 y/o female admitted after acute onset on unresponsiveness. Found to have left thalamic bleeding. S/p R frontal ventricular drain, decompressive suboccipital craniectomy and cervical laminectomy. 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 Non conversational or responding to speech. S/p tracheostomy and PEG tube. Developed abdominal distension with vomiting on 09/20/2019 and tube feeding was held. Abdominal distension has subsided and tube feeding restarted on 2018. Patient is tolerating tube feeding. No new problem - Objective Vital Signs & Weight: Vital Signs (12 hours) Temp Pulse Resp BP BP Pulse Ox 09/24/19 08:45 92 119/74 09/24/19 07:56 99.9 F H 92 20 119/74 100 09/24/19 07:27 89 20 99 09/24/19 04:00 98.5 F 95 16 117/76 100 09/24/19 00:41 98.5 F 96 20 112/74 93 L 09/24/19 00:35 84 20 Weight Admit Weight 173 lb 4.533 oz Weight 167 lb 7 oz Most Recent Monitor Data Heart Rate from ECG 83 NIBP 114/73 NIBP BP-Mean 86 Respiration from ECG 23 SpO2 97 I&O: 09/23/19 09/24/19 09/25/19 06:59 06:59 06:59 Intake Total 900 60 Output Total 1800 Balance -900 60 Result Diagrams: 09/23/19 05:04 09/24/19 07:55 Additional Labs: Accuchecks 09/24/19 09/24/19 09/23/19 10:56 06:01 19:28 POC Glucose 117 H 119 H 90 09/23/19 16:36 POC Glucose 109 Hospitalist ROS - Medication Medications: Active Medications Generic Name Dose Route Start Last Admin Trade Name Freq PRN Reason Stop Dose Admin Acetaminophen 650 mg 08/27/19 22:53 09/01/19 12:05 Tylenol [place] 650 mg Q4H PRN Administration Headache/Fever/Mild Pain (1-3) Acetaminophen 650 mg 09/01/19 09:28 09/17/19 21:02 Tylenol Elixir PER TUBE 650 mg Q6H PRN Administration Fever > 101 Albuterol/Ipratropium 3 ml 09/10/19 13:00 09/24/19 07:27 Duoneb NEB 3 ml [id number] JEAN-PAUL Administration Amlodipine Besylate 10 mg 08/29/19 09:00 09/24/19 08:45 Norvasc PER TUBE 10 mg DAILY JEAN-PAUL Administration Enoxaparin Sodium 40 mg 09/24/19 09:00 09/24/19 08:46 Lovenox SC 40 mg 0900 JEAN-PAUL Administration Famotidine 20 mg 09/23/19 09:00 09/24/19 08:46 Pepcid PER TUBE 20 mg BID JEAN-PAUL Administration Hydralazine HCl 10 mg 08/28/19 20:34 09/10/19 18:39 Apresoline SLOW IVP 10 mg Q15M PRN Administration SBP > 140 Dextrose/Sodium Chloride 1,000 mls @ 75 mls/hr 09/12/19 12:45 09/24/19 08:47 D5 1/2 Ns IV 1,000 mls .[id number] JEAN-PAUL Administration Metoclopramide HCl 10 mg 09/08/19 22:00 09/24/19 04:59 Reglan IVP 10 mg Q8HR JEAN-PAUL Administration Ondansetron HCl 4 mg 09/07/19 22:28 09/08/19 10:00 Zofran SLOW IVP 4 mg Q6H PRN Administration Nausea/Vomiting Polyethylene Glycol 17 gm 09/06/19 18:47 09/20/19 10:26 Miralax PER TUBE 17 gm DAILYPRN PRN Administration CONSTIPATION Polyethylene Glycol 17 gm 09/24/19 09:00 09/24/19 08:46 Miralax PER TUBE 17 gm DAILY JEAN-PAUL Administration Scopolamine 1.5 mg 09/01/19 07:45 09/22/19 10:20 Transderm Scop TD 1.5 mg Q3D JEAN-PAUL Administration Senna/Docusate Sodium 1 tab 09/10/19 21:00 09/24/19 08:46 Senokot S PO 1 tab BID JEAN-PAUL Administration - Exam General - other findings: awake. No distress Eye - other findings: R eye ptosis Heart: RRR Respiratory - other findings: fair air entry with coarse transmitted sound Gastrointestinal: soft, non-distended, normal bowel sounds Extremities - other findings: trace feet edema Neurological - other findings: awake. seem to track. Non verbal nor obey command Hosp A/P (1) Intracranial hemorrhage Code(s): I62.9 - NONTRAUMATIC INTRACRANIAL HEMORRHAGE, UNSPECIFIED Status: Acute (2) Hypokalemia Code(s): E87.6 - HYPOKALEMIA Status: Acute (3) Hypernatremia Code(s): E87.0 - HYPEROSMOLALITY AND HYPERNATREMIA Status: Acute (4) Acute respiratory failure Code(s): J96.00 - ACUTE RESPIRATORY FAILURE, UNSP W HYPOXIA OR HYPERCAPNIA Status: Chronic Qualifiers: Respiratory failure complication: hypoxia Qualified Code(s): J96.01 - Acute respiratory failure with hypoxia (5) Encephalopathy acute Code(s): G93.40 - ENCEPHALOPATHY, UNSPECIFIED Status: Acute (6) Ileus Code(s): K56.7 - ILEUS, UNSPECIFIED Status: Acute (7) HTN (hypertension) Code(s): I10 - ESSENTIAL (PRIMARY) HYPERTENSION Status: Chronic Qualifiers: Hypertension type: essential hypertension Qualified Code(s): I10 - Essential (primary) hypertension (8) Hydrocephalus Code(s): G91.9 - HYDROCEPHALUS, UNSPECIFIED Status: Acute (9) Quadriplegia and quadriparesis Code(s): G82.50 - QUADRIPLEGIA, UNSPECIFIED Status: Acute - Plan Continue tube feeding. Increase slowly to goal. Continue IVF till tube feeding is at goal. Start potassium supplementation given recurrent hypokalemia Continue other supportive care. DVT prophylaxis with lovenox as recommended by neurolosurgy. Placement arrangement is in progress. For discharge once placement is concluded
--- NOTE | 2019-09-24 20:16 | PRG ---
DATE OF SERVICE: 09/24/2019 SUBJECTIVE: Maria Elena Henson is examined. She is nonverbal. She opens her eyes, but does not make eye contact. OBJECTIVE: VITAL SIGNS: She is afebrile. Heart rates for the most part in the 90s. Respiratory rate in the teens to low 20s, oximetry is 96 to 99 on a trach collar. Blood pressure 107/60 this afternoon. LUNGS: Clear. HEART: Regular rhythm. ABDOMEN: Soft. EXTREMITIES: Without asymmetry. LABORATORY DATA: Sodium 138, potassium 3.9, chloride 102, bicarb 30, BUN 5, creatinine 0.55. IMPRESSION: 1. 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 2. Respiratory failure, requiring tracheostomy. 3. Status post PEG. PLAN: Continue supportive care. Job ID: [id number]
[2019-09-25] MEDS: Metoclopramide HCl 10 MG/2 ML VIAL IVP SCH ×3 (05:12→21:16)
[2019-09-25] MEDS ORDERED: Polyethylene Glycol 3350 17 GM Packet PO PRN (06:55)
--- NOTE | 2019-09-25 07:07 | PDOC.HOSPP ---
- Subjective Encounter Date: 09/25/19 Encounter Time: 07:06 Subjective: 43 y/o female admitted after acute onset on unresponsiveness. Found to have left thalamic bleeding. S/p R frontal ventricular drain, decompressive suboccipital craniectomy and cervical laminectomy. Later had RADON INSPECTOR shunt. Non conversational or responding to speech. S/p tracheostomy and PEG tube. Developed abdominal distension with vomiting on 09/20/2019 and tube feeding was held. Abdominal distension has subsided and tube feeding restarted on 2018. Patient is tolerating tube feeding. Having frequent loose stool. Got stool softener. No fever or vomiting. - Objective Vital Signs & Weight: Vital Signs (12 hours) Temp Pulse Resp BP Pulse Ox 09/25/19 06:52 98 09/25/19 06:50 82 20 98 09/25/19 04:00 99.7 F H 102 H 20 116/71 96 09/25/19 01:26 90 22 H 99 09/24/19 23:53 100 F H 104 H 22 H 124/67 95 09/24/19 20:00 95 09/24/19 19:58 99.6 F 99 20 105/59 L 98 09/24/19 19:36 88 22 H 99 Weight Admit Weight 173 lb 4.533 oz Weight 172 lb 12.8 oz Most Recent Monitor Data Heart Rate from ECG 83 NIBP 114/73 NIBP BP-Mean 86 Respiration from ECG 23 SpO2 97 I&O: 09/24/19 09/25/19 09/26/19 06:59 06:59 06:59 Intake Total 60 1660 Balance 60 1660 Result Diagrams: 09/23/19 05:04 09/24/19 07:55 Additional Labs: Accuchecks 09/25/19 09/24/19 09/24/19 06:17 20:05 17:04 POC Glucose 123 H 118 H 117 H 09/24/19 10:56 POC Glucose 117 H Hospitalist ROS - Medication Medications: Active Medications Generic Name Dose Route Start Last Admin Trade Name Freq PRN Reason Stop Dose Admin Acetaminophen 650 mg 08/27/19 22:53 09/01/19 12:05 Tylenol [place] 650 mg Q4H PRN Administration Headache/Fever/Mild Pain (1-3) Acetaminophen 650 mg 09/01/19 09:28 09/17/19 21:02 Tylenol Elixir PER TUBE 650 mg Q6H PRN Administration Fever > 101 Albuterol/Ipratropium 3 ml 09/10/19 13:00 09/25/19 06:50 Duoneb NEB 3 ml [id number] JEAN-PAUL Administration Amlodipine Besylate 10 mg 08/29/19 09:00 09/24/19 08:45 Norvasc PER TUBE 10 mg DAILY JEAN-PAUL Administration Enoxaparin Sodium 40 mg 09/24/19 09:00 09/24/19 08:46 Lovenox SC 40 mg 0900 JEAN-PAUL Administration Famotidine 20 mg 09/23/19 09:00 09/24/19 20:45 Pepcid PER TUBE 20 mg BID JEAN-PAUL Administration Hydralazine HCl 10 mg 08/28/19 20:34 09/10/19 18:39 Apresoline SLOW IVP 10 mg Q15M PRN Administration SBP > 140 Dextrose/Sodium Chloride 1,000 mls @ 75 mls/hr 09/12/19 12:45 09/24/19 22:48 D5 1/2 Ns IV 1,000 mls .[id number] JEAN-PAUL Administration Metoclopramide HCl 10 mg 09/08/19 22:00 09/25/19 05:12 Reglan IVP 10 mg Q8HR JEAN-PAUL Administration Ondansetron HCl 4 mg 09/07/19 22:28 09/08/19 10:00 Zofran SLOW IVP 4 mg Q6H PRN Administration Nausea/Vomiting Polyethylene Glycol 17 gm 09/06/19 18:47 09/20/19 10:26 Miralax PER TUBE 17 gm DAILYPRN PRN Administration CONSTIPATION Scopolamine 1.5 mg 09/01/19 07:45 09/22/19 10:20 Transderm Scop TD 1.5 mg Q3D JEAN-PAUL Administration - Exam General - other findings: sleeping but arousable ENT - other findings: Right frontal scalp surgical wound with clips noted Neck - other findings: Tracheostomy with T collar noted Heart: RRR Respiratory: normal chest expansion, no tachypnea Respiratory - other findings: fair air entry bilaterally with some transmitted sound Gastrointestinal: soft, non-tender, non-distended, normal bowel sounds Extremities - other findings: trace feet edema Neurological - other findings: sleeping but arousable. Non verbal Hosp A/P (1) Intracranial hemorrhage Code(s): I62.9 - NONTRAUMATIC INTRACRANIAL HEMORRHAGE, UNSPECIFIED Status: Acute (2) Hypokalemia Code(s): E87.6 - HYPOKALEMIA Status: Acute (3) Hypernatremia Code(s): E87.0 - HYPEROSMOLALITY AND HYPERNATREMIA Status: Acute (4) Acute respiratory failure Code(s): J96.00 - ACUTE RESPIRATORY FAILURE, UNSP W HYPOXIA OR HYPERCAPNIA Status: Chronic Qualifiers: Respiratory failure complication: hypoxia Qualified Code(s): J96.01 - Acute respiratory failure with hypoxia (5) Encephalopathy acute Code(s): G93.40 - ENCEPHALOPATHY, UNSPECIFIED Status: Acute (6) Ileus Code(s): K56.7 - ILEUS, UNSPECIFIED Status: Acute (7) HTN (hypertension) Code(s): I10 - ESSENTIAL (PRIMARY) HYPERTENSION Status: Chronic Qualifiers: Hypertension type: essential hypertension Qualified Code(s): I10 - Essential (primary) hypertension (8) Hydrocephalus Code(s): G91.9 - HYDROCEPHALUS, UNSPECIFIED Status: Acute (9) Quadriplegia and quadriparesis Code(s): G82.50 - QUADRIPLEGIA, UNSPECIFIED Status: Acute - Plan Hold stool softener. Rule out C dif. Continue tube feeding. Increase slowly to goal. DC IVF once tube feeding is at goal. Continue potassium supplementation given recurrent hypokalemia Continue other supportive care. DVT prophylaxis with lovenox Get repeat labs in the am. Placement arrangement is in progress. For discharge once placement is concluded
[2019-09-25] MEDS: Scopolamine 1.5 mg/72 hour Patch TD SCH (09:18)
[2019-09-25] MEDS: Famotidine 20 MG TAB PER TUBE SCH ×2 (09:19→21:16)
[2019-09-25] MEDS: Enoxaparin Sodium 40 MG/0.4 ML SYRINGE SC SCH (09:20)
[2019-09-25] MEDS: Amlodipine 10 MG TAB PER TUBE SCH (09:20)
[2019-09-25] MEDS: Saccharomyces boulardii 250 MG CAP PO SCH (09:20)
[2019-09-25] MEDS: Dextrose 5 %-0.45 % NaCl 1,000 ML IV SCH (14:54)
[2019-09-26] MEDS: Metoclopramide HCl 10 MG/2 ML VIAL IVP SCH ×3 (06:05→20:45)
[2019-09-26 06:51] LABS: Hemoglobin 10.8 g/dL (12.0-16.0); Mean Corpuscular HGB CONC 32.1 g/dL (32.0-36.0); Mean Corpuscular Hemoglobin 30.1 pg (27.0-31.0); Mean Platelet Volume 6.9 fL (7.4-10.4); Platelet Count 325 thou/uL (130-400); RBC Distribution Width 13.4 % (11.5-14.5); Red Blood Cell (RBC) Count 3.57 mill/uL (4.20-5.40); White Blood Cell (WBC) Count 6.7 thou/uL (4.8-10.8)
[2019-09-26 07:12] LABS: Albumin 2.7 g/dL (3.5-5.0); Anion Gap 14 mmol/L (10-20); BUN (Urea Nitrogen) 8 mg/dL (7.0-18.7); BUN/Creatinine Ratio 13.79; Calc. Creatinine Clearance 152 mL/min (70-130); Calcium 9.1 mg/dL (7.8-10.44); Carbon Dioxide 27 mmol/L (22-29); Chloride 100 mmol/L (98-107); Estimated GFR-MDRD Greater than 90; Glucose 132 mg/dL (70-105); Magnesium 2.1 mg/dL (1.6-2.6); Phosphorus 3.8 mg/dL (2.3-4.7); Sodium 137 mmol/L (136-145)
[2019-09-26] MEDS: Saccharomyces boulardii 250 MG CAP PO SCH (08:33)
[2019-09-26] MEDS: Acetaminophen 650 MG/20.3 ML UDCUP PER TUBE PRN (08:33)
[2019-09-26] MEDS: Amlodipine 10 MG TAB PER TUBE SCH (08:33)
[2019-09-26] MEDS: Enoxaparin Sodium 40 MG/0.4 ML SYRINGE SC SCH (08:34)
[2019-09-26] MEDS: Famotidine 20 MG TAB PER TUBE SCH ×2 (08:34→20:45)
--- NOTE | 2019-09-26 10:17 | PRG ---
DATE OF SERVICE: 09/26/2019 SUBJECTIVE: She appears about the same. There has been no acute changes overnight. OBJECTIVE: VITAL SIGNS: Temperature 99.5, pulse 111, blood pressure 124/72, and O2 saturation 99%. HEENT: Eye movements are somewhat dysconjugate. NECK: Trach in good position. LUNGS: Clear. CARDIAC: S1 and S2. Regular. ABDOMEN: Soft. EXTREMITIES: No edema. LABORATORY DATA: White blood cell count 6.7, hematocrit 33.6, and platelet count 325. Sodium 137, potassium 4, chloride 100, CO2 of 27, BUN 8, creatinine 0.6, and glucose 132. ASSESSMENT: 1. Status post thalamic bleed. 2. Status post tracheostomy placement. 3. Very little recovery of neurologic function. PLAN: I do not see any hope of her being decannulated. The issue now is placement. I have downsized it to a 6 cuffless trach. I will check her less often. Job ID: [id number]
[2019-09-26] MEDS: Dextrose 5 %-0.45 % NaCl 1,000 ML IV SCH (13:20)
--- NOTE | 2019-09-26 14:02 | PDOC.HOSPP ---
- Subjective Encounter Date: 09/26/19 Encounter Time: 14:00 Subjective: doing batter - Objective Vital Signs & Weight: Vital Signs (12 hours) Temp Pulse Pulse Pulse Resp BP BP 09/26/19 12:44 101 H 21 H 09/26/19 11:33 99.1 F 98 18 09/26/19 09:40 104 H 104 H 117/73 09/26/19 08:33 111 H 124/72 09/26/19 08:20 09/26/19 07:46 99.5 F 111 H 20 09/26/19 06:38 108 H 18 09/26/19 04:00 98.3 F 110 H 20 BP BP Pulse Ox 09/26/19 12:44 99 09/26/19 11:33 109/71 94 L 09/26/19 09:40 115/69 09/26/19 08:33 09/26/19 08:20 99 09/26/19 07:46 124/72 99 09/26/19 06:38 97 09/26/19 04:00 122/80 98 Weight Admit Weight 173 lb 4.533 oz Weight 172 lb 12.8 oz Most Recent Monitor Data Heart Rate from ECG 83 NIBP 114/73 NIBP BP-Mean 86 Respiration from ECG 23 SpO2 97 I&O: 09/25/19 09/26/19 09/27/19 06:59 06:59 06:59 Intake Total 1660 1630 40 Balance 1660 1630 40 Result Diagrams: 09/26/19 06:28 09/26/19 06:28 Additional Labs: Accuchecks 09/26/19 09/26/19 09/25/19 10:36 06:11 20:53 POC Glucose 106 124 H 139 H 09/25/19 17:12 POC Glucose 140 H Hospitalist ROS - Medication Medications: Active Medications Generic Name Dose Route Start Last Admin Trade Name Freq PRN Reason Stop Dose Admin Acetaminophen 650 mg 08/27/19 22:53 09/01/19 12:05 Tylenol [place] 650 mg Q4H PRN Administration Headache/Fever/Mild Pain (1-3) Acetaminophen 650 mg 09/01/19 09:28 09/26/19 08:33 Tylenol Elixir PER TUBE 650 mg Q6H PRN Administration Fever > 101 Albuterol/Ipratropium 3 ml 09/10/19 13:00 09/26/19 12:44 Duoneb NEB 3 ml [id number] JEAN-PAUL Administration Amlodipine Besylate 10 mg 08/29/19 09:00 09/26/19 08:33 Norvasc PER TUBE 10 mg DAILY JEAN-PAUL Administration Enoxaparin Sodium 40 mg 09/24/19 09:00 09/26/19 08:34 Lovenox SC 40 mg 0900 JEAN-PAUL Administration Famotidine 20 mg 09/23/19 09:00 09/26/19 08:34 Pepcid PER TUBE 20 mg BID JEAN-PAUL Administration Hydralazine HCl 10 mg 08/28/19 20:34 09/10/19 18:39 Apresoline SLOW IVP 10 mg Q15M PRN Administration SBP > 140 Metoclopramide HCl 10 mg 09/08/19 22:00 09/26/19 06:05 Reglan IVP 10 mg Q8HR JEAN-PAUL Administration Ondansetron HCl 4 mg 09/07/19 22:28 09/08/19 10:00 Zofran SLOW IVP 4 mg Q6H PRN Administration Nausea/Vomiting Potassium Chloride 20 meq 09/25/19 08:00 09/26/19 08:34 Klor-Con PO 20 meq QAM-WM JEAN-PAUL Administration Saccharomyces Boulardii 250 mg 09/25/19 09:00 09/26/19 08:33 Florastor PO 250 mg DAILY JEAN-PAUL Administration Scopolamine 1.5 mg 09/01/19 07:45 09/25/19 09:18 Transderm Scop TD 1.5 mg Q3D JEAN-PAUL Administration Sodium Chloride 10 ml 08/27/19 22:53 09/26/19 08:43 Flush - Normal Saline IVF 10 ml PRN PRN Administration Saline Flush - Exam General Appearance: NAD, awake alert, ill appearing Eye: PERRL, anicteric sclera, scleral icterus ENT: normocephalic atraumatic, no oropharyngeal lesions, moist mucosa, dry oral mucosa Neck: supple, symmetric, no JVD, no thyromegaly, no lymphadenopathy, no carotid bruit, JVD Heart: RRR, no murmur, no gallops, no rubs, normal peripheral pulses, irregular , diminshed peripheral pulses, murmur present, II/IV, III/IV Respiratory: CTAB, no wheezes, no rales, no ronchi, normal chest expansion, no tachypnea, normal percussion, rales, rhonchi, tachypneic, wheezes Gastrointestinal: soft, non-tender, non-distended, normal bowel sounds, no palpable masses, no hepatomegaly, no splenomegaly, no bruit, no guarding, no rigidity, tender to palpation, distended, diminished bowl sounds, voluntary guarding Extremities: no cyanosis, no clubbing, no edema, 1+ LE edema, 2+ LE edema, clubbing Hosp A/P (1) Hemiplegia affecting left nondominant side Code(s): G81.94 - HEMIPLEGIA, UNSPECIFIED AFFECTING LEFT NONDOMINANT SIDE Status: Acute - Plan LTAC consult, Continue PT/OT/ST
[2019-09-27] MEDS: Metoclopramide HCl 10 MG/2 ML VIAL IVP SCH ×3 (06:47→21:44)
[2019-09-27] MEDS: Famotidine 20 MG TAB PER TUBE SCH ×2 (10:34→21:44)
[2019-09-27] MEDS: Amlodipine 10 MG TAB PER TUBE SCH (10:34)
[2019-09-27] MEDS: Saccharomyces boulardii 250 MG CAP PO SCH (10:34)
[2019-09-27] MEDS: Enoxaparin Sodium 40 MG/0.4 ML SYRINGE SC SCH (10:35)
--- NOTE | 2019-09-27 14:07 | PDOC.HOSPP ---
- Subjective Encounter Date: 09/27/19 Encounter Time: 14:05 Subjective: The patient is still feels dizzy with betablockers - Objective Vital Signs & Weight: Vital Signs (12 hours) Temp Pulse Resp BP BP Pulse Ox 09/27/19 12:18 104 H 20 94 L 09/27/19 12:00 99.1 F 116 H 17 139/76 97 09/27/19 10:34 110 H 121/85 09/27/19 08:05 99.0 F 110 H 18 121/85 96 09/27/19 06:41 106 H 14 99 09/27/19 05:01 98.9 F 112 H 20 125/75 99 09/27/19 04:17 5 L Weight Admit Weight 173 lb 4.533 oz Weight 169 lb 9 oz Most Recent Monitor Data Heart Rate from ECG 83 NIBP 114/73 NIBP BP-Mean 86 Respiration from ECG 23 SpO2 97 I&O: 09/26/19 09/27/19 09/28/19 06:59 06:59 06:59 Intake Total 1630 960 80 Balance 1630 960 80 Result Diagrams: 09/26/19 06:28 09/26/19 06:28 Additional Labs: Accuchecks 09/27/19 09/27/19 09/26/19 10:11 06:02 20:06 POC Glucose 117 H 123 H 111 H 09/26/19 16:42 POC Glucose 127 H Hospitalist ROS - Medication Medications: Active Medications Generic Name Dose Route Start Last Admin Trade Name Freq PRN Reason Stop Dose Admin Acetaminophen 650 mg 08/27/19 22:53 09/01/19 12:05 Tylenol [place] 650 mg Q4H PRN Administration Headache/Fever/Mild Pain (1-3) Acetaminophen 650 mg 09/01/19 09:28 09/26/19 08:33 Tylenol Elixir PER TUBE 650 mg Q6H PRN Administration Fever > 101 Albuterol/Ipratropium 3 ml 09/10/19 13:00 09/27/19 12:18 Duoneb NEB 3 ml [id number] JEAN-PAUL Administration Amlodipine Besylate 10 mg 08/29/19 09:00 09/27/19 10:34 Norvasc PER TUBE 10 mg DAILY JEAN-PAUL Administration Enoxaparin Sodium 40 mg 09/24/19 09:00 09/27/19 10:35 Lovenox SC 40 mg 0900 JEAN-PAUL Administration Famotidine 20 mg 09/23/19 09:00 09/27/19 10:34 Pepcid PER TUBE 20 mg BID JEAN-PAUL Administration Hydralazine HCl 10 mg 08/28/19 20:34 09/10/19 18:39 Apresoline SLOW IVP 10 mg Q15M PRN Administration SBP > 140 Metoclopramide HCl 10 mg 09/08/19 22:00 09/27/19 13:05 Reglan IVP 10 mg Q8HR JEAN-PAUL Administration Ondansetron HCl 4 mg 09/07/19 22:28 09/08/19 10:00 Zofran SLOW IVP 4 mg Q6H PRN Administration Nausea/Vomiting Potassium Chloride 20 meq 09/25/19 08:00 09/27/19 10:34 Klor-Con PO 20 meq QAM-WM JEAN-PAUL Administration Saccharomyces Boulardii 250 mg 09/25/19 09:00 09/27/19 10:34 Florastor PO 250 mg DAILY JEAN-PAUL Administration Scopolamine 1.5 mg 09/01/19 07:45 09/25/19 09:18 Transderm Scop TD 1.5 mg Q3D JEAN-PAUL Administration Sodium Chloride 10 ml 08/27/19 22:53 09/27/19 06:47 Flush - Normal Saline IVF 10 ml PRN PRN Administration Saline Flush - Exam General Appearance: NAD, awake alert, ill appearing Eye: PERRL, anicteric sclera, scleral icterus ENT: normocephalic atraumatic, no oropharyngeal lesions, moist mucosa, dry oral mucosa Neck: supple, symmetric, no JVD, no thyromegaly, no lymphadenopathy, no carotid bruit, JVD Heart: RRR, no murmur, no gallops, no rubs, normal peripheral pulses, irregular , diminshed peripheral pulses, murmur present, II/IV, III/IV Respiratory: CTAB, no wheezes, no rales, no ronchi, normal chest expansion, no tachypnea, normal percussion, rales, rhonchi, tachypneic, wheezes Extremities: no cyanosis, no clubbing, no edema, 1+ LE edema, 2+ LE edema, clubbing Skin: normal turgor, no lesions, no rashes, tenting Neurological: cranial nerve grossly intact, normal sensation to touch, no weakness, no focal deficits, no new deficit, facial droop, hemiplegia, speech deficit, vision deficit Hosp A/P (1) Hemiplegia affecting left nondominant side Code(s): G81.94 - HEMIPLEGIA, UNSPECIFIED AFFECTING LEFT NONDOMINANT SIDE Status: Acute - Plan LTAC consult, Continue PT/OT/ST. Adjust the medications s per cardiology. D?C planning up on tune up of medications. [facility]
--- NOTE | 2019-09-27 16:49 | PRG ---
DATE OF SERVICE: 09/27/2019 This is Teja Varma PA-C dictating a report for Nilo Garcia MD. Ms. Henson is now postoperative day #31, having sustained a right thalamic hemorrhage and postop day #12 having undergone right PIPING DESIGN SPECIALIST shunt placement. The patient is resting comfortably when I entered the room. With some stimulus, she arouses and attempts to make eye contact, but she does not track to the examiner. She does appear to have a dysconjugate gaze and continued right-sided third nerve palsy. She is not formally following commands at this time, but will withdraw more briskly on the right than the left to noxious stimulus in all extremities. Her incisions appear as though they are healing well and she still has navneet in her right frontal PIPING DESIGN SPECIALIST shunt incision. It does appear that the patient's white blood cell count is within normal limits as well as her sodium and she has been restarted on prophylactic Lovenox. We will intermittently follow the patient but from neurosurgical standpoint, the patient is ready for discharge at any time. She will still be in the hospital. By postoperative day #14 to #15 in regard to her PIPING DESIGN SPECIALIST shunt navneet, we will remove these prior to her discharge. She will need to eventually be placed on full-dose anticoagulant at a later date, but would like her to continue to heal in regard to her hemorrhage and after her shunt placement before initiating this. She may continue her prophylactic anticoagulant at this time. Job ID: [id number]
[2019-09-28] MEDS: Acetaminophen 650 MG Suppository PR PRN (01:20)
[2019-09-28] MEDS: Metoclopramide HCl 10 MG/2 ML VIAL IVP SCH ×3 (05:00→21:35)
--- NOTE | 2019-09-28 09:49 | PDOC.HOSPP ---
- Subjective Encounter Date: 09/28/19 Encounter Time: 09:46 Subjective: Non repsonisive to verbal or tactile stimuli - Objective Vital Signs & Weight: Vital Signs (12 hours) Temp Pulse Resp BP Pulse Ox 09/28/19 07:55 98.3 F 98 20 117/76 92 L 09/28/19 07:02 100 18 09/28/19 03:14 99.1 F 104 H 20 119/75 96 09/28/19 00:33 101 H 18 98 09/27/19 23:12 100.4 F H 107 H 20 113/70 96 Weight Admit Weight 173 lb 4.533 oz Weight 172 lb 4.8 oz Most Recent Monitor Data Heart Rate from ECG 83 NIBP 114/73 NIBP BP-Mean 86 Respiration from ECG 23 SpO2 97 I&O: 09/27/19 09/28/19 09/29/19 06:59 06:59 06:59 Intake Total 960 240 40 Balance 960 240 40 Result Diagrams: 09/26/19 06:28 09/26/19 06:28 Additional Labs: Accuchecks 09/28/19 09/27/19 09/27/19 06:01 20:29 16:16 POC Glucose 101 126 H 138 H 09/27/19 10:11 POC Glucose 117 H Hospitalist ROS - Medication Medications: Active Medications Generic Name Dose Route Start Last Admin Trade Name Freq PRN Reason Stop Dose Admin Acetaminophen 650 mg 08/27/19 22:53 09/28/19 01:[address] 650 mg Q4H PRN Administration Headache/Fever/Mild Pain (1-3) Acetaminophen 650 mg 09/01/19 09:28 09/26/19 08:33 Tylenol Elixir PER TUBE 650 mg Q6H PRN Administration Fever > 101 Albuterol/Ipratropium 3 ml 09/10/19 13:00 09/28/19 07:02 Duoneb NEB 3 ml [id number] JEAN-PAUL Administration Amlodipine Besylate 10 mg 08/29/19 09:00 09/27/19 10:34 Norvasc PER TUBE 10 mg DAILY JEAN-PAUL Administration Enoxaparin Sodium 40 mg 09/24/19 09:00 09/27/19 10:35 Lovenox SC 40 mg 0900 JEAN-PAUL Administration Famotidine 20 mg 09/23/19 09:00 09/27/19 21:44 Pepcid PER TUBE 20 mg BID JEAN-PAUL Administration Hydralazine HCl 10 mg 08/28/19 20:34 09/10/19 18:39 Apresoline SLOW IVP 10 mg Q15M PRN Administration SBP > 140 Metoclopramide HCl 10 mg 09/08/19 22:00 09/28/19 05:00 Reglan IVP 10 mg Q8HR JEAN-PAUL Administration Ondansetron HCl 4 mg 09/07/19 22:28 09/08/19 10:00 Zofran SLOW IVP 4 mg Q6H PRN Administration Nausea/Vomiting Potassium Chloride 20 meq 09/25/19 08:00 09/27/19 10:34 Klor-Con PO 20 meq QAM-WM JEAN-PAUL Administration Saccharomyces Boulardii 250 mg 09/25/19 09:00 09/27/19 10:34 Florastor PO 250 mg DAILY JEAN-PAUL Administration Scopolamine 1.5 mg 09/01/19 07:45 09/25/19 09:18 Transderm Scop TD 1.5 mg Q3D JEAN-PAUL Administration Sodium Chloride 10 ml 08/27/19 22:53 09/27/19 06:47 Flush - Normal Saline IVF 10 ml PRN PRN Administration Saline Flush - Exam Eye: PERRL, anicteric sclera, scleral icterus ENT: normocephalic atraumatic, no oropharyngeal lesions, moist mucosa, dry oral mucosa ENT - other findings: trach in place Neck: supple, symmetric, no JVD, no thyromegaly, no lymphadenopathy, no carotid bruit, JVD Heart: RRR, no murmur, no gallops, no rubs, normal peripheral pulses, irregular , diminshed peripheral pulses, murmur present, II/IV, III/IV Respiratory: CTAB, no wheezes, no rales, no ronchi, normal chest expansion, no tachypnea, normal percussion, rales, rhonchi, tachypneic, wheezes Gastrointestinal: distended Extremities: no cyanosis, no clubbing, no edema, 1+ LE edema, 2+ LE edema, clubbing Hosp A/P (1) Hemiplegia affecting left nondominant side Code(s): G81.94 - HEMIPLEGIA, UNSPECIFIED AFFECTING LEFT NONDOMINANT SIDE Status: Acute - Plan LTAC consult, Continue PT/OT/ST. Adjust the medications s per cardiology. D?C planning up on tune up of medications. [facility] nurses reported that the patient noit responding to the Nurse for the past few days, notified Neuro surgery, CT head was ordered. Will go ahead and order CT abdomen and consult GI, the prognosis is guarded. Will notify the family.
--- NOTE | 2019-09-28 10:13 | CT ---
CT HEAD WITHOUT CONTRAST: HISTORY: Follow-up right thalamic hemorrhage. COMPARISON: 09/20/2019 FINDINGS: Stable right sided ventriculoperitoneal shunt catheter. Distal tip appears to be adjacent to the left thalamus. Stable configuration of the ventricular system. No evidence of hydrocephalus. Stable hypodensity along the right thalamus, right mid brain and josue. No acute parenchymal hemorrhage. No acute extra-axial hematoma. No midline shift. Basilar cisterns ar e patent. Cerebral cortical richardson-white matter differentiation is preserved. Stable post surgical changes in the posterior fossa. Redemonstration of a hypodensity along the poste rior scalp and upper posterior neck, measuring 4.6 x 4.2 cm. Postoperative fluid collection versus a pseudomeningocele are differential considerations. IMPRESSION: 1. Hypoattenuation of the right thalamus, compatible with an evolving focus of infarction. Infarct is also noted in the right brainstem. 2. Stable post surgical changes in the posterior fossa. Transcribed Date/Time: 09/28/2019 10:18 AM
--- NOTE | 2019-09-28 10:42 | CT ---
CT ABDOMEN AND PELVIS: HISTORY: Abdominal pain. COMPARISON: None. TECHNIQUE: Multiple contiguous axial images were obtained and a CT of the abdomen and pelvis with IV contrast. C oronal reformats were performed. FINDINGS: Lower Chest: Dependent atelectatic changes. The possibility of aspiration or pneumonia in the right l kelby base cannot be excluded. Vessels: Normal caliber aorta. No periaortic fat stranding. IVC filter is noted. Heart: Normal heart size. No significant pericardial fluid. ABDOMEN Portal vein: Patent. Gallbladder: Multiple gallstones. Liver: Within normal limits. Pancreas: Within normal limits. Spleen: Within normal limits. Adrenals: Within normal limits. Kidneys: Symmetric enhancement. No obstructive uropathy. Peritoneum: No ascites or free air, no fluid collection. Bowel: Limited evaluation of the alimentary canal due to lack of oral contrast administration. Decomp ressed stomach. Multiple normal caliber small bowel loops. There does appear to be fecalization of the distal ileum/terminal ileum. Moderate distention of the cecum, and ascending colon. There appears to be circumferential bowel wall thickening involving the transverse colon. There is fluid attenuation in the descending colon. There is distention of the sigmoid colon and rectum. There is al so fluid in the distended rectum. Percutaneous gastric feeding tube is noted. Mesentery and Retroperitoneum: No enlarged mesenteric or retroperitoneal lymph nodes. There does appe ar to be swirling of vessels, central abdominal mesentery. The possibility of internal hernia cannot be excluded. Abdominal Wall: Within normal limits. PELVIS Reproductive Organs: Reproductive organs are unremarkable. Pelvis: No mass, lymphadenopathy, free air or free fluid. Bladder: Within normal limits. Bones: Within normal limits. IMPRESSION: 1. Distention of the colon, down to level of rectum. Findings are nonspecific. There does appear to b e bowel wall thickening of the transverse colon. Correlate for colitis. 2. Swirling of central abdominal mesenteric vessels with a nonspecific caliber change of small bowel. There does not appear to be any distal change in bowel loops, more specifically within the colon to suggest a high grade obstructive process. Conservative measure, general surgical consultation is r ecommended. CODE T Transcribed Date/Time: 09/28/2019 10:56 AM
[2019-09-28] MEDS: Scopolamine 1.5 mg/72 hour Patch TD SCH (11:23)
[2019-09-28] MEDS: Amlodipine 10 MG TAB PER TUBE SCH (11:25)
[2019-09-28] MEDS: Famotidine 20 MG TAB PER TUBE SCH ×2 (11:26→21:36)
[2019-09-28] MEDS: Enoxaparin Sodium 40 MG/0.4 ML SYRINGE SC SCH (11:26)
[2019-09-28] MEDS: Saccharomyces boulardii 250 MG CAP PO SCH (11:26)
[2019-09-28] MEDS ORDERED: Iopamidol 370 76% 100 ML VIAL ONE (12:00)
--- NOTE | 2019-09-28 14:15 | PDOC.HOSPP ---
- Subjective Encounter Date: 09/28/19 Encounter Time: 14:14 Subjective: The patint responds slowly, nurses reported that there may be less alert in the last 2 days. Neuro surgery recomended CT head, abdominal distension worse as per the RN - Objective Vital Signs & Weight: Vital Signs (12 hours) Temp Pulse Resp BP Pulse Ox 09/28/19 13:49 90 20 09/28/19 12:00 98.7 F 96 20 126/74 96 09/28/19 11:25 98 09/28/19 07:55 98.3 F 98 20 117/76 92 L 09/28/19 07:02 100 18 09/28/19 03:14 99.1 F 104 H 20 119/75 96 Weight Admit Weight 173 lb 4.533 oz Weight 172 lb 4.8 oz Most Recent Monitor Data Heart Rate from ECG 83 NIBP 114/73 NIBP BP-Mean 86 Respiration from ECG 23 SpO2 97 I&O: 09/27/19 09/28/19 09/29/19 06:59 06:59 06:59 Intake Total 960 240 80 Balance 960 240 80 Result Diagrams: 09/26/19 06:28 09/26/19 06:28 Additional Labs: Accuchecks 09/28/19 09/28/19 09/27/19 10:40 06:01 20:29 POC Glucose 107 101 126 H 09/27/19 16:16 POC Glucose 138 H Hospitalist ROS - Medication Medications: Active Medications Generic Name Dose Route Start Last Admin Trade Name Freq PRN Reason Stop Dose Admin Acetaminophen 650 mg 08/27/19 22:53 09/28/19 01:20 Tylenol SC 650 mg Q4H PRN Administration Headache/Fever/Mild Pain (1-3) Acetaminophen 650 mg 09/01/19 09:28 09/26/19 08:33 Tylenol Elixir PER TUBE 650 mg Q6H PRN Administration Fever > 101 Albuterol/Ipratropium 3 ml 09/10/19 13:00 09/28/19 13:49 Duoneb NEB 3 ml [id number] JEAN-PAUL Administration Amlodipine Besylate 10 mg 08/29/19 09:00 09/28/19 11:25 Norvasc PER TUBE Not Given DAILY JEAN-PAUL Enoxaparin Sodium 40 mg 09/24/19 09:00 09/28/19 11:26 Lovenox SC 40 mg 0900 JEAN-PAUL Administration Famotidine 20 mg 09/23/19 09:00 09/28/19 11:26 Pepcid PER TUBE Not Given BID JEAN-PAUL Hydralazine HCl 10 mg 08/28/19 20:34 09/10/19 18:39 Apresoline SLOW IVP 10 mg Q15M PRN Administration SBP > 140 Metoclopramide HCl 10 mg 09/08/19 22:00 09/28/19 05:00 Reglan IVP 10 mg Q8HR JEAN-PAUL Administration Ondansetron HCl 4 mg 09/07/19 22:28 09/08/19 10:00 Zofran SLOW IVP 4 mg Q6H PRN Administration Nausea/Vomiting Potassium Chloride 20 meq 09/25/19 08:00 09/28/19 11:25 Klor-Con PO Not Given QAM-WM [facility] Saccharomyces Boulardii 250 mg 09/25/19 09:00 09/28/19 11:26 Florastor PO Not Given DAILY JEAN-PAUL Scopolamine 1.5 mg 09/01/19 07:45 09/28/19 11:23 Transderm Scop TD 1.5 mg Q3D JEAN-PAUL Administration Sodium Chloride 10 ml 08/27/19 22:53 09/27/19 06:47 Flush - Normal Saline IVF 10 ml PRN PRN Administration Saline Flush - Exam Eye: PERRL, anicteric sclera, scleral icterus ENT: normocephalic atraumatic, no oropharyngeal lesions, moist mucosa, dry oral mucosa Neck: supple, symmetric, no JVD, no thyromegaly, no lymphadenopathy, no carotid bruit, JVD Heart: RRR, no murmur, no gallops, no rubs, normal peripheral pulses, irregular , diminshed peripheral pulses, murmur present, II/IV, III/IV Respiratory: CTAB, no wheezes, no rales, no ronchi, normal chest expansion, no tachypnea, normal percussion, rales, rhonchi, tachypneic, wheezes Gastrointestinal: normal bowel sounds, distended, diminished bowl sounds Extremities: no cyanosis, no clubbing, no edema, 1+ LE edema, 2+ LE edema, clubbing Skin: normal turgor, no lesions, no rashes, tenting Hosp A/P (1) Hemiplegia affecting left nondominant side Code(s): G81.94 - HEMIPLEGIA, UNSPECIFIED AFFECTING LEFT NONDOMINANT SIDE Status: Acute - Plan LTAC consult, Continue PT/OT/ST. Adjust the medications s per cardiology. D?C planning up on tune up of medications. [facility] nurses reported that the patient noit responding to the Nurse for the past few days, notified Neuro surgery, CT head was ordered. Will go ahead and order CT abdomen and consult GI, the prognosis is guarded. Will notify the family.
--- NOTE | 2019-09-28 15:15 | PRG ---
DATE OF SERVICE: 09/28/2019 Ms. Henson is 32 days postop from undergoing posterior fossa craniectomy for right thalamic hemorrhage and 6 days postop having undergone right MATE CHIEF shunt placement. According to nursing reports, the patient was less responsive as she has been, so head CT was ordered that shows no structural abnormality. The MATE CHIEF shunt catheter is well within the ventricle and her ventricles are very well decompressed. The area of hemorrhage is slowly improving and also posterior craniectomy site is healing well with good resolution of hemorrhage. There does not appear to be any type of acute structural abnormality that would explain the patient's decreased level of consciousness. I discussed with the patient's nurse, it is okay to continue with her prophylactic Lovenox dose. We also let her know that likely the patient needs more stimulation. I have asked that she help to arrange perhaps a sitter or some way to have the patient be more interactive so that she will return to her more normal sleep-wake cycle. We will continue to intermittently follow the patient. Please call with any changes in patient's neurologic status. Job ID: [id number]
--- NOTE | 2019-09-28 19:02 | CON ---
DATE OF CONSULTATION: 09/28/2019 REQUESTING PHYSICIAN: Dr. Fernando. REASON FOR CONSULTATION: Abdominal distention and concern about PEG tube. HISTORY OF PRESENT ILLNESS: Maria Elena Henson is a very unfortunate 43-year-old woman with no significant past medical history until presentation just over a month ago on 08/27/2019 with acute right thalamic hemorrhagic stroke with mass effect. She underwent emergent decompressive craniectomy. She has had ventriculoperitoneal shunt placement. She has been in critical care for most of her hospital stay, now on the neuro floor for the past week. She underwent tracheostomy and PEG tube placement on 09/02/2019. She essentially has had very little in the way of neurologic recovery. She is aphasic, noncommunicative, frankly difficult to arouse. She has had some issues with ileus. Multiple imaging studies over the course of this hospitalization demonstrating gaseous distention of the bowel with no transition point. She has been on IV Reglan 10 mg every 8 hours. With this, she has been tolerating tube feeds with no residuals, no vomiting, and having good bowel movements per nursing staff at least 1 to 2 per day. These have been variable consistency, usually liquid stools. She had a C difficile testing done 3 days ago, which was negative. It appears that LTAC placement is planned. Today, nursing staff became concerned with a couple of issues. First, there was a little bit of streaky redness in the liquid on checking for residuals from the PEG site earlier today. In addition, there is concern about the abdominal distention, which may have been worsening a bit over the past few days, but again has been noted for the past several weeks from what I can tell. REVIEW OF SYSTEMS: Unable to obtain due to the patient's mental status. PAST MEDICAL HISTORY: 1. Hypertension. 2. Acute thalamic hemorrhagic stroke on 08/27/2019. PAST SURGICAL HISTORY: Tracheostomy and PEG tube placement by Dr. Shelton on 09/02/2019. FAMILY HISTORY: Noncontributory. SOCIAL HISTORY: Unable to obtain from the patient. ALLERGIES: NO KNOWN DRUG ALLERGIES. MEDICATIONS: 1. Tylenol p.r.n. 2. DuoNebs q.6 hours. 3. Lovenox 40 mg subcu daily. 4. Hydralazine p.r.n. 5. Reglan 10 mg IV q.8 hours. 6. Zofran p.r.n. 7. Florastor 250 mg daily. 8. Scopolamine patch. 9. MiraLAX 17 g daily p.r.n. PHYSICAL EXAMINATION: VITAL SIGNS: Temperature 98.7, pulse 95, blood pressure 126/86, and 97% oxygen saturation on trach collar. GENERAL: Chronically ill 43-year-old woman, lying in bed, appearing comfortable, but nonresponsive. MENTAL: Asleep, nonresponsive to voice, does not follow commands. ENT: She has tracheostomy in place. HEART: Regular rate and rhythm. LUNGS: Bibasilar crackles. No respiratory distress. ABDOMEN: The abdomen is distended. It is not tight, tympanitic to percussion throughout. Bowel sounds are active in all 4 quadrants. PEG tube is in place in the left upper quadrant. There is some minimal erythema and irritation around the stoma, but no evidence of any cellulitis. No streaking. No fluctuance. The PEG bumper is appropriately placed at 4 cm. EXTREMITIES: No peripheral edema. VESSELS: Radial pulses 2+ bilaterally. NEUROLOGIC: The patient does not follow commands. She is unresponsive. LABORATORY STUDIES: WBC 6.7, hemoglobin 10.8, platelets 325. Last CMP was 09/26/2019 shows sodium 137, potassium 4.0, BUN 8, creatinine 0.58, calcium 9.1, phosphorus 3.8, magnesium 2.1, albumin 2.7, and blood glucose is 107. C difficile antigen and toxin were negative from 09/25/2019. IMAGING STUDIES: CT of the abdomen and pelvis from earlier today demonstrates gaseous distention of the entire colon down to the level of the rectum, this is nonspecific. There is some possible bowel wall thickening in the transverse colon. There is swirling of central abdominal mesenteric vessels, but no evidence of any transition point or significant caliber change in small bowel loops to suggest any high-grade obstruction. Brain CT from earlier today demonstrates evolving focus of infarction in the right thalamus as well as the right brainstem and stable postsurgical changes in the posterior fossa. ASSESSMENT AND PLAN: 1. PEG status. The PEG site looks good to me. There has been no concern for melena. No hemodynamic instability. She has had stable hemoglobin throughout this admission. I would not recommend any endoscopic investigation. She is tolerating tube feeds well. 2. Colonic distention. 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 On the other hand, she is tolerating tube feeds, having regular albeit liquid bowel movements. She does not appear to be in any distress or having vagal response from this. Reglan has been appropriately started. She continues to really lack any obstructive physiology, I really would not add anything more specific. I would try to avoid neostigmine. If possible, any opioid medications should continue to be avoided. If possible, immobilization would probably help. Obviously, this is a difficult situation with her mental status. But again, as long as the patient continues to have regular bowel movements and does not appear to be any discomfort, I would not really change in management at this time. GI will follow along tomorrow. Please call anytime with any concerns, particularly if the patient would develop any peritoneal signs, etc. Job ID: [id number]
[2019-09-29] MEDS: Metoclopramide HCl 10 MG/2 ML VIAL IVP SCH ×3 (05:39→21:33)
[2019-09-29] MEDS: Amlodipine 10 MG TAB PER TUBE SCH (09:56)
[2019-09-29] MEDS: Saccharomyces boulardii 250 MG CAP PO SCH (09:56)
[2019-09-29] MEDS: Famotidine 20 MG TAB PER TUBE SCH ×2 (09:56→21:33)
[2019-09-29] MEDS: Enoxaparin Sodium 40 MG/0.4 ML SYRINGE SC SCH (09:56)
--- NOTE | 2019-09-29 12:21 | PRG ---
DATE OF SERVICE: 09/29/2019 This is Teja Varma PA-C dictating a report for Nilo Garcia MD. Ms. Henson is 33 days status post posterior fossa craniectomy for right thalamic hemorrhage and 8 days postop having undergone LOT WORKER shunt placement. Her frontal incision navneet will be removed today. She is resting comfortably, and when she is awoken, she stays awake. She is actually more alert today than she was yesterday afternoon. She will follow commands when spoken to in Greek more so on the right than the left, which is her neurologic baseline. She continues with a right nerve palsy, although it does appear that her pupils are starting to equalize. From a neurosurgical standpoint, the patient has waxing and waning in her exam, but again she will consistently follow commands for me when stimulated. I think the main thing now is disposition. She is on prophylactic Lovenox at this time, but will likely need to be transitioned to full-dose anticoagulant in the next few weeks given her left lower extremity DVT, although she does have an IVC filter in place. I think it would benefit her greatly with working with PT and being more stimulated throughout the day so that she may have a more normalized sleep-wake cycle. Please call with any changes in the patient's neurologic status, otherwise Neurosurgery will intermittently follow the patient. Please call with questions. Job ID: [id number]
--- NOTE | 2019-09-29 12:40 | PRG ---
DATE OF SERVICE: 09/29/2019 SUBJECTIVE: Ms. Henson had a bowel movement last night, none yet today. She continues to tolerate tube feeds. Abdomen is no more distended. No other changes in status. OBJECTIVE: VITAL SIGNS: Temperature 98.6, pulse 97, blood pressure 133/81, and 97% oxygen saturation, on trach collar. HEART: Regular rate and rhythm. LUNGS: Clear to auscultation bilaterally. ABDOMEN: Mild distention, tympanitic to percussion. Bowel sounds are hypoactive, but present throughout. Nontender to palpation. EXTREMITIES: No peripheral edema. LABORATORY STUDIES: Glucose is 124. ASSESSMENT AND PLAN: Colonic distention. This appears about the same as yesterday. She still does not appear to be in any distress or having any vagal response from this. I would continue with the Reglan. There is no obstructive physiology here. GI will sign off, but please call back anytime with questions or concerns. Job ID: [id number]
--- NOTE | 2019-09-29 16:15 | PDOC.HOSPP ---
- Subjective Encounter Date: 09/29/19 Subjective: Pt seen non verbal non communicate, not in distress , at her base line as per nursing staff has dax mental status - Objective Vital Signs & Weight: Vital Signs (12 hours) Temp Pulse Resp BP BP Pulse Ox 09/29/19 15:43 99 F 103 H 22 H 129/78 97 09/29/19 12:07 96 20 96 09/29/19 11:24 98.6 F 97 22 H 133/81 97 09/29/19 09:56 109 H 132/76 09/29/19 07:55 99 F 109 H 32 H 132/76 96 09/29/19 07:50 96 09/29/19 07:22 96 09/29/19 07:20 105 H 20 93 L Weight Admit Weight 173 lb 4.533 oz Weight 175 lb Most Recent Monitor Data Heart Rate from ECG 83 NIBP 114/73 NIBP BP-Mean 86 Respiration from ECG 23 SpO2 97 I&O: 09/28/19 09/29/19 09/30/19 06:59 06:59 06:59 Intake Total 240 240 80 Output Total 400 Balance 240 240 -320 Result Diagrams: 09/26/19 06:28 09/26/19 06:28 Additional Labs: Accuchecks 09/29/19 09/29/19 09/28/19 10:35 06:15 20:38 POC Glucose 124 H 135 H 115 H 09/28/19 16:49 POC Glucose 91 Hospitalist ROS - Review of Systems ROS unobtainable: due to mental status - Medication Medications: Active Medications Generic Name Dose Route Start Last Admin Trade Name Elier PRN Reason Stop Dose Admin Acetaminophen 650 mg 08/27/19 22:53 09/28/19 01:20 Tylenol SD 650 mg Q4H PRN Administration Headache/Fever/Mild Pain (1-3) Acetaminophen 650 mg 09/01/19 09:28 09/26/19 08:33 Tylenol Elixir PER TUBE 650 mg Q6H PRN Administration Fever > 101 Albuterol/Ipratropium 3 ml 09/10/19 13:00 09/29/19 12:07 Duoneb NEB 3 ml [id number]-SL JEAN-PAUL Administration Amlodipine Besylate 10 mg 08/29/19 09:00 09/29/19 09:56 Norvasc PER TUBE 10 mg DAILY JEAN-PAUL Administration Enoxaparin Sodium 40 mg 09/24/19 09:00 09/29/19 09:56 Lovenox SC 40 mg 0900 JEAN-PAUL Administration Famotidine 20 mg 09/23/19 09:00 09/29/19 09:56 Pepcid PER TUBE 20 mg BID JEAN-PAUL Administration Hydralazine HCl 10 mg 08/28/19 20:34 09/10/19 18:39 Apresoline SLOW IVP 10 mg Q15M PRN Administration SBP > 140 Metoclopramide HCl 10 mg 09/08/19 22:00 09/29/19 14:50 Reglan IVP 10 mg Q8HR JEAN-PAUL Administration Ondansetron HCl 4 mg 09/07/19 22:28 09/08/19 10:00 Zofran SLOW IVP 4 mg Q6H PRN Administration Nausea/Vomiting Potassium Chloride 20 meq 09/25/19 08:00 09/29/19 09:56 Klor-Con PO 20 meq QAM-WM JEAN-PAUL Administration Saccharomyces Boulardii 250 mg 09/25/19 09:00 09/29/19 09:56 Florastor PO 250 mg DAILY JEAN-PAUL Administration Scopolamine 1.5 mg 09/01/19 07:45 09/28/19 11:23 Transderm Scop TD 1.5 mg Q3D JEAN-PAUL Administration Sodium Chloride 10 ml 08/27/19 22:53 09/27/19 06:47 Flush - Normal Saline IVF 10 ml PRN PRN Administration Saline Flush - Exam General - other findings: non verbal non communiciave ENT: moist mucosa Neck: supple Heart: no murmur Respiratory: no wheezes Gastrointestinal: soft, distended Extremities: no cyanosis Psychiatric - other findings: non verbal non communicative Hosp A/P - Plan Right Thalamic bleed S/p R frontal ventricular drain, decompressive suboccipital craniectomy and cervical laminectomy. s/p GARAGE HAND shunt. Non conversational or responding to speech. S/p tracheostomy and PEG tube. s/p repeat CT brain 02/25/2019 No worening changes and no intervention as per neurosurgery , Continue supportive care Abdominal distension Most likely due to underlaying IC bleed no intervention as per GI continue supportive care Acute Encephalopathy possible due to IC bleed Repeat labs in am HTN (hypertension) Functional Quadriplegia Continue supportive care frequent change in position Chronic Anemia Stable repeat labs in am Hyponatremia corrected Sepsis for Pneumonia - Enterobacter completed Atbx DVT/GI prophyalxis Plan Discussed with nursing staff
[2019-09-30] MEDS: Acetaminophen 650 MG Suppository PR PRN (02:48)
[2019-09-30 05:11] LABS: #Basophils 0.1 thou/uL (0.0-0.2); #Eosinphils 0.2 thou/uL (0.0-0.7); #Lymphocytes 1.7 thou/uL (1.20-3.40); #Monocytes 0.7 thou/uL (0.11-0.59); #Neutrophils 5.2 thou/uL (1.40-6.50); %Basophils 0.7 % (0.0-1.0); %Eosinophils 2.2 % (0.0-10.0); %Lymphocytes 21.4 % (21.0-51.0); %Monocytes 8.5 % (0.0-10.0); %Neutrophils 67.3 % (42.0-75.0); Hemoglobin 10.5 g/dL (12.0-16.0); Mean Corpuscular HGB CONC 31.4 g/dL (32.0-36.0); Mean Corpuscular Hemoglobin 29.2 pg (27.0-31.0); Mean Corpuscular Volume 93.1 fL (78.0-98.0); Platelet Count 447 thou/uL (130-400); RBC Distribution Width 13.9 % (11.5-14.5); Red Blood Cell (RBC) Count 3.58 mill/uL (4.20-5.40); White Blood Cell (WBC) Count 7.8 thou/uL (4.8-10.8)
[2019-09-30 05:32] LABS: ALT (SGPT) 47 U/L (8-55); AST (SGOT) 40 U/L (5-34); Albumin 2.8 g/dL (3.5-5.0); Alkaline Phosphatase 148 U/L (40-110); Anion Gap 14 mmol/L (10-20); BUN (Urea Nitrogen) 19 mg/dL (7.0-18.7); Bilirubin, Total 0.3 mg/dL (0.2-1.2); Calc. Creatinine Clearance 144 mL/min (70-130); Calcium 9.3 mg/dL (7.8-10.44); Carbon Dioxide 28 mmol/L (22-29); Chloride 104 mmol/L (98-107); Estimated GFR-MDRD Greater than 90; Globulin 4.6 g/dL (2.4-3.5); Glucose 122 mg/dL (70-105); Potassium 4.5 mmol/L (3.5-5.1); Protein, Total 7.4 g/dL (6.0-8.3); Sodium 141 mmol/L (136-145)
[2019-09-30] MEDS: Metoclopramide HCl 10 MG/2 ML VIAL IVP SCH ×2 (05:32→15:53)
[2019-09-30] MEDS: Enoxaparin Sodium 40 MG/0.4 ML SYRINGE SC SCH (09:24)
[2019-09-30] MEDS: Saccharomyces boulardii 250 MG CAP PO SCH (09:26)
[2019-09-30] MEDS: Famotidine 20 MG TAB PER TUBE SCH (09:26)
[2019-09-30] MEDS: Amlodipine 10 MG TAB PER TUBE SCH (10:45)
[2019-09-30] MEDS ORDERED: FLU VACC QS2019-20(6MOS UP)/PF 60 MCG/0.5 ML SYRINGE IM ONE (14:00)
[2019-09-30 15:58] VITALS: BP 121/76; TEMP 98.2
[2019-09-30 16:01] VITALS: BMI 28.1
--- NOTE | 2019-10-01 02:32 | DIS ---
DATE OF ADMISSION: 08/27/2019 DATE OF DISCHARGE: 09/30/2019 DISCHARGE DIAGNOSES: 1. 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 2. Acute encephalopathy, most likely due to intracranial bleed and craniotomy related. The patient nonverbal, noncommunicative. 3. Status post tracheostomy. 4. Status post PEG tube placement. 5. Abdominal distention. 6. Hypertension. 7. Functional quadriplegia. 8. Chronic anemia. 9. Hyponatremia. 10. Sepsis secondary to enterobacter pneumonia, resolved. PHYSICAL EXAMINATION: VITAL SIGNS: Vitals on discharge, blood pressure 121/76, temperature 98.2, pulse 99, respiration 20, oxygen saturation 98%. GENERAL: The patient lying in bed comfortably, not in any distress. Nonverbal, noncommunicative. Conjunctiva normal. Oral mucosa moist. Tracheostomy in place. NECK: Supple. CHEST: Decreased air entry bilateral lower lung damon. HEART: Sounds normal. ABDOMEN: Mildly distended. PEG tube in place. EXTREMITIES: No cyanosis of extremities. LABORATORY DATA: On discharge, CBC unremarkable except hemoglobin 10.5. CMP unremarkable. Blood glucose 120. HOSPITAL SUMMARY: PatientSixto was admitted on 08/27/2019 with a sudden onset altered mental status. The patient admitted to ICU with right thalamic bleed. The patient evaluated by Neurosurgery and performed a right frontal ventricular drain, decompressive suboccipital craniectomy and cervical laminectomy. 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 The patient due to the respiratory failure, had a tracheostomy tube placement and PEG tube placement for dysphagia. The patient transferred out of ICU, nonverbal, noncommunicative. Repeat CT was performed on with no worsening changes. Neurosurgery recommended no further intervention. The patient also had sepsis secondary to Enterobacter pneumonia, status post completion of antibiotic therapy. The patient also had persistent abdominal distention, evaluated by surgery, who recommended a PEG tube feeding and a bowel regimen. The patient also had anemia. Labs are stable. The patient is being discharged to SNF facility in a stable condition. Advised to follow up outpatient with the PCP, Neurosurgery, and GI. Job ID: [id number] [id number]
== END 2019-09-30 17:12 | DRG 3 ==
LOC: ERS 17:57 → CCU 19:08 → SDC/OP 19:35 → CCU 22:57 → IMCU/EMU 09-17 11:21 → 2SE 09-22 13:06
PROVIDERS: ADMIT Surgery; ATTEND Surgery
PROC: 009600Z Drainage of Cerebral Ventricle with Drainage Device, Open Approach (ICD-10-PCS; principal; 2019-08-27)
PROC: 00N00ZZ Release Brain, Open Approach (ICD-10-PCS; 2019-08-27)
PROC: 00NW0ZZ Release Cervical Spinal Cord, Open Approach (ICD-10-PCS; 2019-08-27)
PROC: 5A1955Z Respiratory Ventilation, Greater than 96 Consecutive Hours (ICD-10-PCS; 2019-08-27)
PROC: 0BH17EZ Insertion of Endotracheal Airway into Trachea, Via Natural or Artificial Opening (ICD-10-PCS; 2019-08-27)
PROC: 0B113F4 Bypass Trachea to Cutaneous with Tracheostomy Device, Percutaneous Approach (ICD-10-PCS; 2019-09-02)
PROC: 06H03DZ Insertion of Intraluminal Device into Inferior Vena Cava, Percutaneous Approach (ICD-10-PCS; 2019-09-02)
PROC: 00Q20ZZ Repair Dura Mater, Open Approach (ICD-10-PCS; 2019-09-02)
PROC: 0DH63UZ Insertion of Feeding Device into Stomach, Percutaneous Approach (ICD-10-PCS; 2019-09-02)
PROC: 00160J6 Bypass Cerebral Ventricle to Peritoneal Cavity with Synthetic Substitute, Open Approach (ICD-10-PCS; 2019-09-15)
DX: I62.9 Nontraumatic intracranial hemorrhage, unspecified (principal); G93.5 Compression of brain; J96.01 Acute respiratory failure with hypoxia; J15.6 Pneumonia due to other Gram-negative bacteria; A41.9 Sepsis, unspecified organism; G93.6 Cerebral edema; R53.2 Functional quadriplegia; G91.9 Hydrocephalus, unspecified; J98.11 Atelectasis; I82.432 Acute embolism and thrombosis of left popliteal vein; G81.94 Hemiplegia, unspecified affecting left nondominant side; E87.0 Hyperosmolality and hypernatremia; K56.7 Ileus, unspecified; G93.49 Other encephalopathy; R29.730 NIHSS score 30; R40.2432 Glasgow coma scale score 3-8, at arrival to emergency department; I10 Essential (primary) hypertension; K59.00 Constipation, unspecified; E87.6 Hypokalemia; I95.9 Hypotension, unspecified; Z51.5 Encounter for palliative care; K63.89 Other specified diseases of intestine; D64.9 Anemia, unspecified
CPT/HCPCS: 31500; 36415; 36416; 37191; 51702; 70450; 71045; 74018; 74019; 74177; 76942; 80048; 80053; 80069; 80202; 81001; 82274; 82550; 82607; 82728; 82746; 82805; 83540; 83550; 83735; 84100; 84484; 85007; 85025; 85027; 85060; 85610; 85730; 86850; 86900; 86901; 87040; 87070; 87077; 87086; 87186; 87205; 87324; 87449; 89051; 93005; 93970; 94002; 94003; 94640; 94760; 96365; 96375; A4218; C1725; C1752; C1769; C1880; C1887; J0131; J0360; J0690; J1100; J1644; J1650; J1956; J2001; J2250; J2370; J2405; J2543; J2704; J2765; J3010; J3370; J3480; J3490; J7050; J7620; J7799; Q9967; S0028